=== PATIENT | female | born 1960 | race Caucasian/White ===

== ENCOUNTER 2020-02-12 17:17 | Outpatient (RCR) | payer BC, SELFPAY | END 2020-02-26 23:59 | LOC: EMPH 17:17 | PROVIDERS: Visit Provider Family Medicine Geriatric Medicine | DX: Z11.59 Encounter for screening for other viral diseases (principal) | CPT/HCPCS: 87635; U0003 ==

== ENCOUNTER → 2020-02-17 12:41 | Outpatient (CLI) | payer BC, SELFPAY ==
--- NOTE | 2020-02-17 12:45 | US_ITS ---
STUDY: RENAL ULTRASOUND - COMPLETE REASON FOR EXAM: Female, 59 years old. KIDNEY LESION TECHNIQUE: Ultrasound evaluation of the kidneys was performed with real-time and static koenig-scale imaging. COMPARISON: None. FINDINGS: RIGHT KIDNEY: Normal location of the right kidney, which is normal in size. The right kidney measures 10.4 cm x 5.7 cm x 5.2 cm. There is a normal cortex of the right kidney. The renal cortex measures 1.5 cm. There is no right renal mass or cyst. There are no right renal calculi. There is no right hydronephrosis. DISTAL RIGHT URETER: There is non-visualization of the distal right ureter. There is no demonstrated right ureterovesical junction calculus. There is a visualized right ureteral jet. LEFT KIDNEY: Normal location of the left kidney, which is normal in size. The left kidney measures 10.7 cm x 5.4 STONE by 6.4 cm. There is a normal cortex of the left kidney. The renal cortex measures 1.9 cm. There is no left renal mass or cyst. There are no left renal calculi. There is no left hydronephrosis. DISTAL LEFT URETER: There is non-visualization of the distal left ureter. There is no demonstrated left ureterovesical junction calculus. There is a visualized left ureteral jet. BLADDER: The distended urinary bladder has a volume of 122 ml. There is a normal wall thickness of the distended urinary bladder. There is no demonstrated mass within the urinary bladder. There are no demonstrated bladder calculi. US/Kidney and Bladder IMPRESSION: Normal ultrasound of the kidneys and urinary bladder. Electronically Signed: Galen Martinez, at 15:17 EDT , Service support ,
== END ==
DX: N28.89 Other specified disorders of kidney and ureter (principal)
CPT/HCPCS: 76770

== ENCOUNTER → 2020-02-18 06:49 | Outpatient (CLI) | payer BC, SELFPAY ==
[2020-02-18 07:03] LABS: Absolute Lymphocyte Count 1.56 X10^3/uL (0.83-4.51); Absolute Neutrophil Count 1.3 X10^3/uL (2.0-7.7); Basophil# 0.05 X10^3/uL; Basophil% 1.4 % (0-1); Eosinophil# 0.18 X10^3/uL; Eosinophils% 5.1 % (0-5); Hematocrit 40.4 % (37-47); Hemoglobin 12.8 g/dL (12.0-15.0); Lymphocyte # 1.56 X10^3/ul (4.0); Lymphocyte % 44.2 % (19-41); Mean Corp Hgb Conc 31.7 g/dL (32-36); Mean Corpuscular Hgb 31.8 pg (27.0-32.0); Mean Corpuscular Volume 100.2 fL (81-99); Mean Platelet Vol. 9.7 fl (6.2-12.0); Monocyte# 0.42 X10^3/uL; Monocyte% 11.9 % (0-10); NRBC Flagged by Analyzer 0 % (0-5); Neutrophil # 1.32 X10^3/uL (2.7-7.7); Neutrophil % 37.4 % (47-70); Platelet Count 276 K/mm3 (150-450); RBC Distribution Width CV 13.1 % (11.6-14.6); RBC Distribution Width SD 48.8 fl (35.1-43.9); Red Blood Count 4.03 M/mm3 (4.2-5.4); White Blood Count 3.5 K/mm3 (4.4-11.0)
[2020-02-18 07:35] LABS: ALB/GLOB Ratio 1.2 RATIO (0.9-2.4); AST(SGOT) 16 U/L (15-37); Alanine Aminotransfer ALT/SGPT 23 U/L (13-56); Albumin, Serum 3.8 g/dL (3.2-5.0); Alkaline Phosphatase 80 U/L (45-117); Anion Gap 5 (5-15); BUN 10 mg/dL (7-18); BUN/Creat Ratio 13.8 RATIO (10-20); Calcium,Total 9.1 mg/dL (8.5-10.1); Chloride 107 mmol/L (98-107); Cholesterol 172 mg/dL (200); Creatinine, Serum 0.72 mg/dL (0.55-1.02); EST Glomerular Filtration Rate 88 mL/min (>60); Est Glom Filt Rate - Afr Amer 106 mL/min (>60); Globulin 3.2 g/dL (2.2-4.2); Glucose 93 mg/dL (74-106); High Density Lipoprotein 104 mg/dL; Potassium 3.7 mmol/L (3.5-5.1); Sodium Level 142 mmol/L (136-145); Triglycerides 27 mg/dL; Very Low Density Lipoprotein 5 mg/dL (5-40)
== END ==
DX: Z00.00 Encounter for general adult medical examination without abnormal findings (principal)
CPT/HCPCS: 36415; 80053; 80061; 85025

== ENCOUNTER 2020-03-09 11:04 | Outpatient (RCR) | payer BC, SELFPAY | END 2020-03-28 23:59 | LOC: EMPH 11:04 | PROVIDERS: Visit Provider Family Medicine Geriatric Medicine | DX: Z11.59 Encounter for screening for other viral diseases (principal) | CPT/HCPCS: 87426; 87635; U0003 ==

== ENCOUNTER 2020-04-22 13:00 | Outpatient (RCR) | payer BC, SELFPAY | END 2020-04-27 23:59 | LOC: EMPH 13:00 | PROVIDERS: Visit Provider Family Medicine Geriatric Medicine | DX: Z03.818 Encounter for observation for suspected exposure to other biological agents ruled out (principal) | CPT/HCPCS: 87426 ==

== ENCOUNTER 2020-05-07 13:22 | Outpatient (RCR) | payer BC, SELFPAY | END 2020-05-28 23:59 | LOC: EMPH 13:22 | PROVIDERS: Visit Provider Family Medicine Geriatric Medicine | DX: Z03.818 Encounter for observation for suspected exposure to other biological agents ruled out (principal) | CPT/HCPCS: 87426 ==

== ENCOUNTER 2020-06-23 15:03 | Outpatient (RCR) | payer SELFPAY | END 2020-06-28 23:59 | LOC: EMPH 15:03 | PROVIDERS: Referring Provider Family Medicine Geriatric Medicine; Visit Provider Family Medicine Geriatric Medicine | DX: Z03.818 Encounter for observation for suspected exposure to other biological agents ruled out (principal) | CPT/HCPCS: 87426 ==

== ENCOUNTER 2020-10-20 13:37 | Outpatient (RCR) | payer MEDICARE, SELFPAY | END 2020-10-26 23:59 | LOC: EMPH 13:37 | PROVIDERS: Referring Provider Family Medicine Geriatric Medicine; Visit Provider Family Medicine Geriatric Medicine | DX: Z03.818 Encounter for observation for suspected exposure to other biological agents ruled out (principal) | CPT/HCPCS: 87426 ==

== ENCOUNTER 2020-11-16 06:54 | Emergency (ER) | payer SELFPAY ==
[2020-11-16 06:55] VITALS: BP 135/74; PULSE 72; RESP 15; TEMP 36.9; O2SAT 98; BMI 21.5
--- NOTE | 2020-11-16 06:59 | VDLE_ITS ---
Reason For Study: Swelling RIGHT LEFT CFV is compressible, spontaneous, phasic, GSV is normal. competent and demonstrates normal CFV is compressible, spontaneous, phasic, augmentation. competent, and demonstrates normal Procedure augmentation. This is a venous duplex using B-mode, color FV is compressible, spontaneous, phasic, flow and spectral Doppler. competent and demonstrates normal Exam performed portable in ED. augmentation. A preliminary report was called and/or faxed POP V is compressible, spontaneous, phasic, to Dr. Roman. competent and demonstrates normal augmentation. T/P Trunk is compressible. PTV is compressible. LT PerV is compressible. VL/Venous Duplex US, Unilateral Interpretation Summary There is no evidence of left lower extremity deep vein thrombosis. Left great s aphenous vein appears patent and compressible segmentally. Normal flow patterns right common femoral vein Ordering Physician: Favian Vasquez Performed By: Swati Murray RDCS, RVT
--- NOTE | 2020-11-16 07:00 | ED.VIS.LOWEX ---
HPI <Dr. Favian Vasquez MD - Last Filed: 11/16/20 07:02> History of Present Illness Chief Complaint: Lower Extremity Injury Informant: patient Onset/Context/Timing Onset: Days Context: Gradual Onset Timing: Intermittent Quality of Pain: Aching Current Severity: Moderate Maximum Severity: Moderate Associated Symptoms Associated Symptoms: Negative for Parasthesia, Weakness and Loss of Funtion Narrative Narrative: Patient presents with pain behind her left knee. She states that she does garden a lot. Over the past few days, she has noticed that the knee has been swollen. She states that she started to get concerned because it seemed like her calf was also getting more painful and swollen. She cannot recall any specific injury. She denies chest pain or shortness of breath. She has no history of hypercoagulability. She is otherwise been in her normal state of health. She states if she does elevate her legs, the swelling goes away, but towards the end of the day the swelling is back. [facility] <Dr. Favian Vasquez MD - Last Filed: 11/16/20 07:02> [facility] Medical History (Updated 11/16/20 @ 08:[address] Grady Roman MD) Depression Depression Home Medications escitalopram oxalate 20 mg PO DAILY 04/15/15 [History Last Taken Unknown] Allergy/AdvReac Type Severity Reaction Status Date / Time No Known Allergies Allergy Verified 04/15/15 10:57 Social History Smoking Status: Never smoker ROS <Dr. Favian Vasquez MD - Last Filed: 11/16/20 07:02> ROS ED Constitutional Constitutional ED: Denies chills or fever(s) Eyes Eyes: Denies blurry vision or change in vision ENT ENT ED: Denies ear pain or sore throat Cardiovascular Cardiovascular: Denies chest pain or palpitations Respiratory/Chest Respiratory/Chest: Denies cough, dyspnea or dyspnea on exertion Gastrointestinal Gastrointestinal: Denies abdominal pain, nausea or vomiting Genitourinary Genitourinary ED: Denies dysuria or urinary frequency Musculoskeletal Musculoskeletal: Denies arthralgias or myalgias Integumentary Denies rash Neurologic Neurologic: Denies headache(s) or paresthesias Psychiatric Psychiatric: Denies anxiety or depression Endocrine Endocrinology: Denies polydipsia or polyuria Allergic/Immunologic Allergic/Immunologic ED: Denies urticaria EXAM <Dr. Favian Vasquez MD - Last Filed: 11/16/20 07:02> Physical Exam Const Vital Signs: 11/16/20 06:55 Temperature 98.4 F Temperature Source Temporal Pulse Rate 72 Respiratory Rate 15 Blood Pressure 135/74 H Blood Pressure Mean 94 Pulse Ox 98 Oxygen Delivery Method Room Air Positive well nourished and well developed General Appearance ED: well developed HEENT Reports normocephalic, head/scalp atraumatic and moist mucous membranes Eyes PERRL and EOMs intact bilaterally Neck full ROM, no lymphadenopathy and supple General: Negative for tenderness Chest Wall inspection of chest normal Resp normal respiratory effort and clear to auscultation bilaterally Cardio regular rate, regular rhythm and no murmurs GI normal to inspection, nondistended, normoactive bowel sounds Palpation: Negative for tender, guarding or rebound tenderness present Back/Spine no CVA tenderness Extremity normal to inspection Extremity Narrative: Patient is point tender in the posterior aspect of the left knee. She has normal pulses. There is minimal edema. There is no pain with palpation along the venous return system. General Extremety ED: Negative for tenderness Neuro oriented x3 and CN's II-XII intact bilaterally Neuro Narrative: No focal deficits appreciated. Sensorium / Orientation: alert Psych mental status grossly normal Skin no rashes or lesions noted, no wounds and skin turgor normal <Dr. Grady Roman MD - Last Filed: 11/16/20 08:38> Physical Exam Const Vital Signs: 11/16/20 06:55 Temperature 98.4 F Temperature Source Temporal Pulse Rate 72 Respiratory Rate 15 Blood Pressure 135/74 H Blood Pressure Mean 94 Pulse Ox 98 Oxygen Delivery Method Room Air MDM <Dr. Favian Vasquez MD - Last Filed: 11/16/20 07:02> [facility] Narrative Medical decision making narrative: Patient presents with concern for DVT. We will obtain ultrasound. Clinically, this does seem more musculoskeletal, but in light of her tenderness and intermittent swelling, I do feel that ruling out DVT is more appropriate. <Dr. Grady Roman MD - Last Filed: 11/16/20 08:38> [facility] Narrative Medical decision making narrative: Venous duplex study was negative for DVT. Patient was examined. She is tender proximal lateral popliteal fossa. Patient has discomfort with flexion against resistance. The patella is not ballotable. There is no obvious effusion. There is no laxity varus valgus stress testing. Since she has discomfort with flexion against resistance and venous duplex is negative we will treat as muscle strain. Discharge Plan Triage Chief Complaint: Lower Extremity Injury ED Provider: Favian Vasquez Dx/Rx/DC Orders Clinical Impression: Muscle strain of left lower extremity Instructions: ED Muscle Strain, Extremity Prescriptions: No Action escitalopram oxalate 20 MG tablet 20 mg PO DAILY RF: 0 Referrals: AUBREE MARTINEZ [Other] - 1 Week if not improving Activity Restrictions/Additional Instructions: 1. Take 4 ibuprofen tablets every 8 hours for the next 3 to 5 days 2. Apply ice 6-8 times a day. 3. Avoid activity that caused the discomfort Disposition Disposition: Home, self care
[2020-11-16 08:47] VITALS: BP 134/68; PULSE 74; RESP 15; O2SAT 99
== END 2020-11-16 08:47 | disposition home or self-care (01) ==
PROVIDERS: Emergency Provider Emergency Medicine
DX: S86.912A Strain of unspecified muscle(s) and tendon(s) at lower leg level, left leg, initial encounter (principal); M79.89 Other specified soft tissue disorders
CPT/HCPCS: 93971; 99282

== ENCOUNTER 2020-11-24 10:40 | Outpatient (RCR) | payer MEDICARE, SELFPAY | END 2020-11-25 23:59 | LOC: EMPH 10:40 | PROVIDERS: Referring Provider Family Medicine Geriatric Medicine; Visit Provider Family Medicine Geriatric Medicine | DX: Z03.818 Encounter for observation for suspected exposure to other biological agents ruled out (principal) | CPT/HCPCS: 87426 ==

== ENCOUNTER 2020-12-05 07:41 | Outpatient (RCR) | payer MEDICARE, SELFPAY | END 2020-12-26 23:59 | LOC: EMPH 07:41 | PROVIDERS: Referring Provider Family Medicine Geriatric Medicine; Visit Provider Family Medicine Geriatric Medicine | DX: Z03.818 Encounter for observation for suspected exposure to other biological agents ruled out (principal) | CPT/HCPCS: 87426 ==

== ENCOUNTER → 2020-12-16 17:03 | Outpatient (CLI) | payer SELFPAY ==
[2020-12-16 16:46] VITALS: BMI 29.8
--- NOTE | 2020-12-16 17:19 | RAD_ITS ---
STUDY: X-RAY - LEFT KNEE REASON FOR EXAM: Female, 60 years old. Pain. TECHNIQUE: 4 view(s) of the knee. COMPARISON: None. FINDINGS: Normal visualized distal femur. Normal visualized proximal tibia and fibula. Normal proximal tibiofibular articulation. There is no acute fracture, dislocation or destructive osseous pathology. There is mild degenerative arthrosis of the medial femorotibial compartment. There is mild degenerative arthrosis of the lateral femorotibial compartment. There is mild degenerative arthrosis of the patellofemoral articulation. There is no demonstrated joint effusion. The soft tissue structures are unremarkable. RAD/Knee 4 or More Views IMPRESSION: Degenerative arthrosis. Electronically Signed: Kj Nicole DO at 18:00 EDT Tel [phone], Service support ,
== END ==
PROVIDERS: Referring Provider Physician Assistant; Visit Provider Physician Assistant
DX: M25.561 Pain in right knee (principal)
CPT/HCPCS: 73564

== ENCOUNTER 2021-05-27 10:01 | Outpatient (RCR) | payer MEDICARE, SELFPAY ==
[2020-12-16 16:46] VITALS: BMI 29.8
== END 2021-05-28 23:59 ==
LOC: EMPH 10:01
PROVIDERS: Referring Provider Family Medicine Geriatric Medicine; Visit Provider Family Medicine Geriatric Medicine
DX: Z03.818 Encounter for observation for suspected exposure to other biological agents ruled out (principal)
CPT/HCPCS: 87426; 87635; U0003; U0005

== ENCOUNTER 2021-06-03 12:20 | Outpatient (RCR) | payer BC, SELFPAY ==
[2021-05-29 00:03] VITALS: BMI 29.8
== END 2021-06-28 23:59 ==
LOC: EMPH 12:20
PROVIDERS: Referring Provider Family Medicine Geriatric Medicine; Visit Provider Family Medicine Geriatric Medicine
DX: Z03.818 Encounter for observation for suspected exposure to other biological agents ruled out (principal)
CPT/HCPCS: 87426

== ENCOUNTER 2021-08-13 14:02 | Outpatient (CLI) | payer BC, SELFPAY ==
--- NOTE | 2021-08-13 14:05 | US_ITS ---
STUDY: ULTRASOUND BREAST - RIGHT REASON FOR EXAM: Female, 61 years old. Abnormal screening mammogram TECHNIQUE: Axial and longitudinal images of the RIGHT breast were performed with a high resolution ultrasound transducer. # OF IMAGES: 23 COMPARISON: 08/04/2021 FINDINGS: RIGHT Breast: Heterogeneous background echotexture. At 9 o''clock, 3 cm from the nipple, ultrasound confirms a 1.3 cm parallel spiculated hypoechoic mass with posterior shadowing worrisome for invasive ductal carcinoma and ultrasound-guided vacuum-assisted core biopsy is recommended.: US/Breast Limited Unilateral IMPRESSION: Ultrasound confirms a 1.3 cm parallel spiculated hypoechoic mass worrisome for invasive ductal carcinoma and ultrasound-guided vacuum-assisted core biopsy is recommended. ASSESSMENT CATEGORY: BIRADS Category 5: Highly Suggestive of Malignancy - Appropriate Action Should Be Taken. A letter regarding these results will be sent to the patient by the facility within 30 days. Electronically Signed: Raheem Morrell MD at 14:47 EDT ,
== END 2021-08-13 23:59 | disposition home or self-care (01) ==
PROVIDERS: Visit Provider Internal Medicine
DX: R92.8 Other abnormal and inconclusive findings on diagnostic imaging of breast (principal)
CPT/HCPCS: 76642

== ENCOUNTER 2021-08-20 13:01 | Outpatient (CLI) | payer BC, SELFPAY ==
--- NOTE | 2021-08-20 | IMM_PTH ---
PATIENT: SERAFIN ALMANZA LOC: [facility] U#:[id number] AGE/SX: 61/F ROOM: RE08/20/[address]: Dr. Brien Brand MD : 1960 BED: DIS: 08/20/2021 SPEC #: [id number] RECD: 08/24/21 14:42 STATUS: NOLAN REQ #: [id number] WINSTON: 08/20/21 00:[address]: Brien Brand DEPT: IMMUNOHISTOCHEMISTRY RECD BY: Chiquita Lynch ENTERED: 08/24/21 14:43 SP TYPE: IMMUNO OTHR DR: No Primary Care Phys Tissues: Right breast, NOS Procedures: CALPONIN-1 (add) CK5-6 (add) CK8 (add) E-CAD (add) HER2 FADY (add) KI-67 (add) P53 (add) ID (add) P40 (add) ER (initial) PHYSICIAN & INSTITUTION [place] [phone] SPECIMEN INFORMATION: Tissue Source: Right breast Clinical Info: Right breast mass Specimen Number: [id number] CPT code: 29135, 87132 x6, 05507 x3 METHODOLOGY: Deparaffinized sections of prefer/formalin-fixed tissue or PAP/DQ stained slides are incubated with monoclonal/polyclonal antibodies/oligonucleotide probes. Localization is made via biotin free immunoperoxidase method. Appropriate controls are performed and reacted as expected. Results on target cell population are indicated in the following table: RESULTS: ANTIBODY / CLONE RESULT E-Cad (ECH-6) positive CK8 (04svphZ14) positive Calponin-1 (OG409W) negative CK5-6 (D5 & 1684) negative P40 (BC28) negative P53 (DO-7) positive, focal, ~10% Ki-67 (30-9) positive, moderate MORPHOMETRIC ANALYSIS ER (clone 6F11) 0% ID (clone 16/1E2) 0% Her-2Neu (clone CB11) 1+ The prognostic test for HER2 is performed on formalin-fixed paraffin embedded tissue. A 3+ (positive) staining pattern is defined as intense, homogeneous, complete, circumferential membranous staining in >10% of contiguous tumor cells. A similar weak (2+) staining pattern is interpreted as equivocal. JOHN follow-up testing is recommended for all equivocal cases. Positivity/negativity for ER/ID is reported if > or < 1% of the tumor cells are immuno- reactive, respectively. The ASCO/CAP criteria is used for scoring. Reference: Journal of Clinical Oncology, 2013; 31:8092-7053 & 2010; 16:9662-5534. Duration of fixation: 79.5 Hrs; Sample Adequate: Yes. These assays have not been validated on decalcified tissues. Results should be interpreted with caution given the likelihood of false negativity on decalcified specimens. These tests were developed and their performance characteristics determined by [facility]. They may not have been cleared or approved by the U.S. Food and Drug Administration. The FDA has determined that such clearance or approval is not necessary. The above immunohistochemical/dualISH markers are ordered and reviewed by the Pathologist. INTERPRETATION: Right breast, biopsy: Invasive ductal carcinoma, nuclear grade 2-3/3. Negative for estrogen receptors (unfavorable prognostic indicator). Negative for progesterone receptors (unfavorable prognostic indicator). Negative for overexpression of NVS1aqi. SJ:moe 08/25/2021
--- NOTE | 2021-08-20 12:10 | BRBX_PTH ---
PATIENT: SERAFIN ALMANZA LOC: [facility] U#:[id number] AGE/SX: 61/F ROOM: RE08/20/[address]: Dr. Brien Brand MD : 1960 BED: DIS: 08/20/2021 SPEC #: [id number] RECD: 08/20/21 12:59 STATUS: NOLAN REJoe #: [id number] W[place]ON: 08/20/21 12:[address]: Brien Brand DEPT: SURGICAL PATHOLOGY RECD BY: Terra Moore ENTERED: 08/23/21 08:32 SP TYPE: BREAST BX OTHR DR: No Primary Care Phys Tissues: Right breast, NOS Procedures: Surgery Specimen Level IV HEADER OPERATION: Right breast biopsy PRE-OP DIAGNOSIS: Right breast mass TISSUE SUBMITTED: Right breast tissue MICROSCOPIC DIAGNOSIS Right breast, core biopsy: Invasive ductal carcinoma, nuclear grade 2-3/3 (0.9 cm in greatest length). Focal ductal carcinoma in situ. See comment. KENDAL:moe 08/24/2021 COMMENT Ductal carcinoma in situ shows cribriform and solid pattern, nuclear grade 2 and comprise <5% of the total tumor volume. Immunohistochemistry ([id number]) supports the above diagnosis. ER/MA/Kgm8tsr studies are being performed on sections of tumor and the results from this study will be reported separately ([id number]). Case has been reviewed in consultation with Dr. Brady who concurs with the above diagnosis. IDC:AM MICROSCOPIC DESCRIPTION Slides are reviewed. GROSS DESCRIPTION Received in fixative is one container labeled with the patient's name and designated right breast tissue. The specimen consists of multiple elongated fragments of gaitan-yellow fibroadipose tissue that in aggregate measure 2.5 x 0.5 x 0.1 cm. The entire specimen is submitted in one cassette. / KENDAL:moe 08/23/2021 TC:0 CPT: 12758
== END 2021-08-20 23:59 | disposition home or self-care (01) ==
LOC: LABSPEC 13:03
PROVIDERS: Referring Provider Surgery; Visit Provider Surgery
DX: N63.10 Unspecified lump in the right breast, unspecified quadrant (principal)
CPT/HCPCS: 88305; 88341; 88342

== ENCOUNTER 2021-09-02 11:12 | Day surgery (SDC) | payer BC, SELFPAY ==
--- NOTE | 2021-09-02 | IMM_PTH ---
PATIENT: SERAFIN ALMANZA LOC: [facility] U#:[id number] AGE/SX: 61/F ROOM: RE09/02/[address]: Dr. Brien Brand MD : 1960 BED: DIS: 09/02/2021 SPEC #: [id number] RECD: 09/08/21 13:04 STATUS: NOLAN [place] #: [id number] W[place]ON: 09/02/21 00:[address]: Brien Brand DEPT: IMMUNOHISTOCHEMISTRY RECD BY: Chiquita Lynch Tissues: A - Axillary lymph node, NOS B - Right breast, NOS Procedures: SMA (add) CALPONIN-1 (add) Pankeratin (add) P40 (add) CK7 (initial) PHYSICIAN & [place] [id number] SPECIMEN INFORMATION: Tissue Source: A ? Right sentinel axillary lymph node, B ? Right breast mass Clinical Info: Breast cancer Specimen Number: [id number] A & B5 CPT code: 24448 x2, 87387 x5 METHODOLOGY: Deparaffinized sections of prefer/formalin-fixed tissue or PAP/DQ stained slides are incubated with monoclonal/polyclonal antibodies/oligonucleotide probes. Localization is made via biotin free immunoperoxidase method. Appropriate controls are performed and reacted as expected. Results on target cell population are indicated in the following table: RESULTS: ANTIBODY / CLONE RESULT Block A CK7 (OV-TL12/30) positive AE1-3 (AE1/AE3/PCK26) positive Block B5 CK7 (OV-TL12/30) positive AE1-3 (AE1/AE3/PCK26) positive P40 (BC28) negative Calponin-1 (EV557K) negative Actin (1A4) negative These tests were developed and their performance characteristics determined by [facility]. They may not have been cleared or approved by the U.S. Food and Drug Administration. The FDA has determined that such clearance or approval is not necessary. The above immunohistochemical/dualISH markers are ordered and reviewed by the Pathologist. INTERPRETATION: A. Right sentinel axillary lymph node, biopsy: One out of one lymph node with micrometastatic carcinoma. B. Right breast mass: Invasive ductal carcinoma. One out of one lymph node with micrometastatic carcinoma. AM:moe 09/09/2021
--- NOTE | 2021-09-02 | AXNB_PTH ---
PATIENT: SERAFIN ALMANZA LOC: [facility] U#:[id number] AGE/SX: 61/F ROOM: RE09/02/[address]: Dr. Brien Brand MD : 1960 BED: DIS: 09/02/2021 SPEC #: [id number] RECD: 09/02/21 15:35 STATUS: NOLAN COOL #: [id number] W[place]ON: 09/02/21 00:[address]: Brien Brand DEPT: SURGICAL PATHOLOGY RECD BY: Chiquita Lynch Tissues: A - Axillary lymph node, NOS B - Right breast, NOS Procedures: Frozen Section (charge) Surgery Specimen Level V HEADER OPERATION: Right breast ultrasound-guided wire loc, partial mastectomy PRE-OP DIAGNOSIS: Breast cancer TISSUE SUBMITTED: A ? Right sentinel axillary lymph node, FS, B ? Right breast mass, long stitch ? lateral, short stitch - superior FROZEN SECTION DIAGNOSIS A. Right axillary sentinel lymph node, biopsy: One out of one lymph node negative for carcinoma. AM: 09/02/2021 MICROSCOPIC DIAGNOSIS A. Right axillary sentinel lymph node, biopsy: One out of one lymph node with micrometastatic carcinoma. See comment. B. Right breast, lumpectomy: Invasive ductal carcinoma. See cancer checklist below. AM: 09/09/2021 COMMENT A. The focus of micrometastatic carcinoma measures 1.6 mm and is contained within the lymph node tissue. No extranodal extension is identified. Immunohistochemistry ([id number]) supports the above diagnosis. B. BREAST CANCER SUMMARY Procedure: Excision with wire guidance Specimen: Type: Partial breast Size: 5 x 3 x 3 cm Laterality: Right breast Invasive Tumor: Site: Right breast Size: 1.2 x 1 x 1 cm Histologic type: Invasive ductal carcinoma. Focality: Single focus of carcinoma. Histologic grade ([place] grade): Glandular/tubular differentiation score: 2 Nuclear pleomorphism score: 3 Mitotic count score: 2 Overall grade: 2 (score of 7) Ductal Carcinoma In Situ: Present Estimated quantification: 15% Number of blocks: 4 of 11 blocks Architectural pattern: Cribriform Nuclear grade: 3 Necrosis: Not identified Lobular Carcinoma In Situ: Not present Tumor extension: Skin: Not applicable Nipple: Not applicable Skeletal muscle: Not present Margins: Distance of invasive carcinoma from closest (lateral) margin: 0.6 cm Distance of in situ carcinoma from closest (lateral) margin: 0.6 cm Lymph Nodes: Number of sentinel lymph nodes examined: 1 Total number of lymph nodes examined: 2 Number of lymph nodes with micrometastases ? 2 Number of lymph nodes with macrometastases or isolated tumor cells ? 0 Size of largest metastatic deposit: 1.6 mm Extranodal extension: Not identified See specimen ?A? See comment below. Treatment Effect: Unknown Lymphvascular invasion: Not identified Additional Pathologic Findings: Changes of previous biopsy and mild fibrocystic change. Ancillary Studies: Previously performed on same tumor ([id number]) ER: negative (0%) TX: negative (0%) Gwk9kxz: negative (1+) Microcalcifications: Focally present, associated with carcinoma. Clinical History: Mass of right breast. PATHOLOGIC STAGE: T1c N1mi Mx The above summary is in compliance with [employer] [place] [employer] (CAP) Cancer Protocol Checklist and [place] Joint Committee on Cancer (AJCC) Staging Manual, 8th Ed. An intraparenchymal lymph node is identified in the lumpectomy specimen adjacent to the area of invasive carcinoma. This lymph node contains a micrometastatic focus of carcinoma measuring 0.8 mm in greatest dimension and is completely contained with the lymph node tissue. No extranodal extension is identified. Overall, two lymph nodes are identified in this case. Both foci are micrometastatic on multiple levels and immunohistochemical analysis. Immunohistochemistry ([id number]) supports the above diagnosis. Case has been reviewed in consultation with Dr. Evans who concurs with the above diagnosis. IDC:SJ MICROSCOPIC DESCRIPTION Slides are reviewed. GROSS DESCRIPTION A - Received fresh for frozen section consultation labeled with the patient's name is a specimen designated right sentinel lymph node. The specimen consists of an irregular fragment of gaitan-yellow fibrofatty tissue measuring 2 x 1.5 x 0.8 cm. Dissection reveals an ovoid bluish-gaitan nodule measuring 2 cm in greatest dimension. The nodule is bisected and submitted in its entirety for frozen section consultation in one block. / AM:moe 09/06/2021 B - Received fresh for OR consultation labeled with the patient's name is a specimen designated right breast lumpectomy. The specimen consists of an oriented fragment of gaitan-yellow fibrofatty tissue measuring 5 x 3 x 3 cm and weighing 28.3 gm. The specimen contains a wire. The specimen is differentially inked as follows: anterior - yellow, posterior - black, superior - blue, inferior - green, medial - red and lateral - orange. Serial sections reveal a firm, speculated, gaitan nodule measuring 1.2 x 1 x 1 cm and located 0.6 cm from its closest (lateral) margin of excision. The proximity of mass to the lesion is conveyed to the surgeon intraoperatively. No other mass lesions are identified. [employer] sections are submitted as follows: 1 & 2 - perpendicular inked margins, 3 - tumor with adjacent lateral margin, 46?- remainder of tumor, 7 & 8 - uninvolved breast parenchyma adjacent to tumor, 9-11 - uninvolved breast parenchyma away from tumor. Note, sections are submitted after additional fixation. / AM:moe 09/06/2021 TC:0 CPT: 74506 x2, 85006, 77808
--- NOTE | 2021-09-02 11:45 | NM_ITS ---
PROCEDURE: NUCLEAR MEDICINE Injection Means Node - RIGHT breast(s). REASON FOR EXAM: Female, 61 years old. Right breast cancer. TECHNIQUE: Means node localization using radionuclide methods of the RIGHT breast(s) was performed following subcutaneous administration of 1.1 mCi of of sulfur colloid Tc-99m. FINDINGS: 1.1 mCi of technetium labeled sulfur colloid was injected in the right periareolar region for sentinel node imaging. NM/Lymph Node Injection Only IMPRESSION: Periareolar subcutaneous injection of 1.1 mCi of technetium labeled sulfur colloid for sentinel node imaging. Electronically Signed: Galen Martinez MD at 13:30 EDT ,
[2021-09-02 12:09] VITALS: BP 114/75; PULSE 57; RESP 16; TEMP 36.6; O2SAT 99; BMI 28.0
[2021-09-02] MEDS: Lactated Ringers 1,000 ML 15 ML IV (12:36)
--- NOTE | 2021-09-02 14:35 | HP.PCM.SX_ITS ---
HPI - General HPI Narrative SERAFIN ALMANZA, is a 61 F who presents for elective resection of breast cancer. The patient was found to have a right breast cancer of the lateral area of the breast. [facility] Medical History (Updated 09/02/21 @ 14:[address] Brien Brand MD) Alcohol use Anemia Arthritis Cancer Depression History of edema Non-smoker Strain of left knee Wears partial dentures Home Medications escitalopram oxalate 20 mg tablet 20 mg PO DAILY 12/16/20 [History Last Taken Unknown] ibuprofen 800 mg tablet 800 mg PO TID PRN #30 tab 12/16/20 [Rx Last Taken Unknown] multivitamin 1 tab PO DAILY 07/23/21 [History Last Taken Unknown] diclofenac sodium 75 mg PO BID PRN 08/31/21 [History Last Taken Unknown] Allergy/AdvReac Type Severity Reaction Status Date / Time No Known Allergies Allergy Verified 09/02/21 12:02 Family History Mother Colon cancer Father Dementia Surgical History (Updated 08/31/21 @ 08:24 by Fadia Mabry) H/O medial meniscus repair of right knee History of Hx of colonoscopy Social History Smoking Status: Never smoker alcohol intake: current alcohol intake frequency: holidays/special occasions only Vital Signs Vital Signs Vital Signs: 09/02/21 12:09 Temperature 97.9 F Temperature Source Temporal Pulse Rate 57 L Respiratory Rate 16 Respiratory Pattern Normal Blood Pressure 114/75 Blood Pressure Mean 88 Blood Pressure Source Monitor Blood Pressure Position Semi-Fowlers Blood Pressure Location Left Arm Pulse Ox 99 Oxygen Delivery Method Room Air Weight Weight: 174 lb 2.643 oz Body Mass Index (BMI) 28.0 Physical Exam Const oriented x3 and no apparent distress Chest Breast/Axilla Palpation: other Other Details: Right breast mass Resp normal respiratory effort Cardio regular rate and regular rhythm GI soft to palpation and non-tender Inspection: abdominal distention external exam normal Extremity normal to inspection Results Radiology Impression L[place]ore Node 09/02/21 11:45 IMPRESSION: Periareolar subcutaneous injection of 1.1 mCi of technetium labeled sulfur colloid for sentinel node imaging. Electronically Signed: Galen Martinez MD at 13:30 EDT , Assessment & Plan Assessment/Plan (1) Breast cancer, right breast: QUALIFIERS: Breast location: upper outer quadrant of breast Estrogen receptor status: positive Patient sex: female Qualified Code(s): C50.411 - Malignant neoplasm of upper-outer quadrant of right female breast; Z17.0 - Estrogen receptor positive status [ER+] PLAN: The patient has right breast cancer and I did discuss axillary sentinel lymph node biopsy as well as a partial mastectomy with ultrasound- guided wire localization. I discussed the risks including not limited to bleeding, infection, seroma formation, hematoma formation, lymphedema or nerve injury. Patient understands the risks and is willing proceed. I did discuss Lymphazurin injection as well as wire placement and radiotracer injection with her as well. Brien Brand MD Pager: [facility] [address] [place] [address], [address] [place] [address] Office:
[2021-09-02] MEDS: 0.9% Normal Saline (Pres. free 10 ML Vial (15:10)
[2021-09-02] MEDS: Cefazolin 2 GM in 0.9% Normal Saline 100 ML IV (15:10)
[2021-09-02] MEDS: Isosulfan Blue 1% 5 ML Vial (15:10)
[2021-09-02] MEDS: Bupivacaine 0.25% 30 ML Vial (15:20)
--- NOTE | 2021-09-02 15:49 | BI_ITS ---
SURGICAL BREAST SPECIMEN RADIOGRAPH CLINICAL: Document presence of mass in biopsy specimen. FINDINGS: Specimen shows presence of mass. Electronically Signed: Galen Martinez MD at 8:40 EDT , BI/Breast Biopsy Specimen
[2021-09-02 16:16] VITALS: BP 114/75; BP 118/76; PULSE 75; RESP 16; TEMP 36.3; O2SAT 100
--- NOTE | 2021-09-02 16:20 | PCM.OPRPT ---
Problems Associated Problem List Diagnoses (1) Breast cancer, right breast: Report of Operation Date of Procedure: 09/02/21 Pre-Operative Diagnosis: Right breast cancer Post-Operative Diagnosis: Right breast cancer Surgery/Procedure Performed:: 1. Ultrasound-guided wire localization of right breast cancer 2. Right partial mastectomy 3. Right sentinel lymph node biopsy Specimen's removed: 1. Right axillary lymph node 2. Right breast mass Description of Procedure: Patient was brought back to the operating room and general anesthesia was induced. The right breast was prepped and draped in usual sterile fashion. Ultrasound used to localize the right breast mass and a wire was placed under direct visualization into the mass. It was then trimmed short. Next 5 cc of Lymphazurin was injected in the retroareolar space of the right breast as well as 5 cc of saline. This was massaged for 5 minutes. The right breast was prepped and draped in the usual sterile fashion once more and then an axillary incision was marked and injected with local anesthetic. Incision was made with a scalpel and deepened to the fascia which was incised. The axillary tissue was dissected until a blue lymph node was identified. It was excised sharply with clips and scissors. It was tested first and second count and the count was 920. There was no further lymph node in the axilla that measured over 10% of this. There were no other blue or palpable lymph nodes in the axilla. The axilla was packed with wet gauze. Next the right breast was addressed. An incision was marked and injected with local anesthetic. An incision was made with a scalpel and deepened to the subcutaneous tissue. Electrocautery was used to maintain hemostasis. The wire was brought into the incision. Flaps were created using electrocautery and then dissection was carried out deeply. The mass was excised and marked and sent for pathology. The imaging of the mass revealed that the clip and entire wire were included. The sentinel lymph node was negative on frozen section. The margins were adequate on frozen section. Next the breast cavity was irrigated and suctioned dry and hemostasis was obtained using electrocautery. The incision was closed with interrupted 3-0 Vicryl suture and a running 4-0 Monocryl suture. The axillary fascia was closed with interrupted 3-0 Vicryl suture in a running 4-0 Monocryl suture. Glue was applied to both incisions. Patient was then awakened and taken to PACU in stable condition. Admit VTE Documentation VTE Mechan Device Prophylaxis: SCD's
--- NOTE | 2021-09-02 16:26 | EX.PCM.DISCH ---
Discharge Instructions Procedure Breast Surgery Diet Discharge Diet: No restrictions Activity Discharge Activity: May Not Drive (for 2-3 days or while taking narcotic pain medications.) May shower in (days): 1 Lifting Restrictions: 10 lbs for 1 week Dressing / Incision Call your doctor if your incision/area has: Continuous Slow Oozing, Sudden Increased Bleeding, Increased Pain/ Swelling, Increased Redness, Foul Smelling Discharge and Swelling at the incision site Call your doctor if you observe: Fever of 101 or Higher Suture Line Care: Avoid Pulling/Pushing and Avoid Pinching/Bending Follow Up Care Please Follow Up With: Brien Brand MD When: Please call to schedule 2 week follow up appointment. [phone] Test Results: Test results from this visit will be discussed in further detail at your follow-up appointment, if applicable. Discharge Plan Admission Attending Provider: Brien Brand Discharge Orders/Prescriptions Prescriptions: New oxycodone-acetaminophen [Percocet] 5-325 mg tablet 1 tab PO Q4H PRN (Reason: pain) 5 Days Qty: 30 RF: 0 No Action ibuprofen 800 mg tablet 800 mg PO TID PRN (Reason: pain) Qty: 30 RF: 0 multivitamin Tablet 1 tab PO DAILY RF: 0 escitalopram oxalate 20 mg tablet 20 mg PO DAILY RF: 0 diclofenac sodium 75 mg Tablet,Delayed Release (Dr/Ec) 75 mg PO BID PRN (Reason: Pain) RF: 0 Referrals / Follow Up: AUBREE MARTINEZ [Other] Disposition Disposition (needs filled in before D/C Order can be placed): Home, Self Care
[2021-09-02 16:30] VITALS: BP 114/75; BP 115/70; PULSE 74; RESP 16; O2SAT 98
[2021-09-02 16:45] VITALS: BP 114/75; BP 137/85; PULSE 70; RESP 16; O2SAT 98
[2021-09-02 16:48] VITALS: BP 114/75; BP 124/72; PULSE 71; RESP 16; TEMP 36.6; O2SAT 95
[2021-09-02] MEDS: oxyCODONE 5 MG Tablet PO (17:17)
[2021-09-02] MEDS: Acetaminophen 325 MG Tablet PO (17:18)
[2021-09-02 17:54] VITALS: BP 114/75; BP 122/75; PULSE 86; RESP 16; TEMP 37; O2SAT 97
== END 2021-09-02 23:59 | disposition home or self-care (01) ==
LOC: SDC 11:13 → AC 11:15
PROVIDERS: Visit Provider Surgery
PROC: (CPT 19301; principal; 2021-09-02 14:00)
DX: C50.411 Malignant neoplasm of upper-outer quadrant of right female breast (principal); Z17.0 Estrogen receptor positive status [ER+]; M19.90 Unspecified osteoarthritis, unspecified site; F32.A Depression, unspecified
CPT/HCPCS: 19301; 38900; 38525; 38792; 76098; 88305; 88307; 88331; 88341; 88342; A9541; J7120; J2405; J3490; Q9968

== ENCOUNTER → 2021-09-24 | Outpatient (CLI) | payer BC, SELFPAY ==
--- NOTE | 2021-09-24 12:53 | ECHODONC_ITS ---
Reason For Study: Pre Chemo Procedure This was a 2D Doppler, Color Flow transthoracic echocardiogram. Myocardial strain analysis was performed in this exam to aid in the assessment of cardiac function. Exam performed in department. Left Ventricle Normal LV size. Left ventricular systolic function is normal. The estimated ejection fraction is 60 %. Stage 1 diastolic dysfunction. Right Ventricle Normal RV size. Normal systolic function. Atria Normal left atrium. Normal right atrium. Mitral Valve Normal mitral valve. Tricuspid Valve Normal tricuspid valve. Aortic Valve Normal aortic valve. Pulmonic Valve Normal pulmonic valve. Great Vessels Normal aortic root. The pulmonary artery is normal size. Normal inferior vena cava. Pericardium/Pleural No pericardial effusion. MMode/2D Measurements & Calculations LVIDd: 5.1 cm IVSd: 0.87 cm Ao root diam: 3.2 cm LVIDs: 3.2 cm LVPWd: 0.98 cm LA dimension: 4.2 cm RVDd: 3.2 cm FS: 36.6 % LAV(MOD-bp): 67.2 ml LA A4 area: 21.1 cm2 RA A4 area: 16.3 cm2 LAV(MOD-bp) Indexed: 35.6 ml/m2 LAV(MOD-sp2): 69.9 ml LAV(MOD-sp4): 61.4 ml Time Measurements MV dec time: 0.19 sec Doppler Measurements & Calculations MV E max yo: 65.7 cm/sec Lat Peak E' Yo: 11.2 cm/sec Med Peak E' Yo: 9.4 cm/sec MV A max yo: 97.8 cm/sec E/E' lat: 5.8 E/E' med: 7.0 MV E/A: 0.67 MV V2 max: 108.4 cm/sec MV P1/2t max yo: 79.3 cm/sec Ao V2 max: 139.7 cm/sec MV max P.7 mmHg MV P1/2t: 71.2 msec Ao max P.8 mmHg MV V2 mean: 53.9 cm/sec MV dec slope: 326.1 cm/sec2 MV mean P.4 mmHg MVA(P1/2t): 3.1 cm2 MV V2 VTI: 26.2 cm LV V1 max: 111.4 cm/sec PA V2 max: 86.7 cm/sec LV V1 max P.0 mmHg ECHO/ONC Echo Complete Interpretation Summary Normal LV size. Left ventricular systolic function is normal. The estimated ejection fraction is 60 %. Stage 1 diastolic dysfunction. The global longitudinal strain is normal. The global longitudinal strain = -21. 2 % (normal). Structurally normal valves. Ordering Physician: Reginaldo Pichardo Referring Physician: Boyd Campbell Performed By: Lionel Manning RCS
== END | disposition home or self-care (01) ==
LOC: CVS 12:52
PROVIDERS: PCP Internal Medicine; Referring Provider Internal Medicine Medical Oncology; Visit Provider Internal Medicine Medical Oncology
DX: Z01.818 Encounter for other preprocedural examination (principal); C50.411 Malignant neoplasm of upper-outer quadrant of right female breast; Z17.0 Estrogen receptor positive status [ER+]
CPT/HCPCS: 93306; 93356

== ENCOUNTER → 2021-09-27 | Outpatient (CLI) | payer BC, SELFPAY ==
--- NOTE | 2021-09-27 09:37 | NM_ITS ---
CLINICAL: Female, 61 years old. Initial staging of Breast Cancer WHOLE BODY NUCLEAR BONE SCAN TECHNIQUE: Following the IV administration of 24.3 mCi of Tc MDP, whole body bone imaging was performed with a gamma camera following a three hour delay. COMPARISON STUDIES : NM - None. CR - Not available for review at this time. CT - Not available for review at this time. MR - Not available for review at this time. US - Not available for review at this time. FINDINGS: Degenerative activity in the bilateral shoulders, wrists and knees. There is otherwise normal concentration of radiopharmaceutical throughout the axial and appendicular skeletal system without either a focal decrease or increase in uptake. NM/Bone Scan Whole Body IMPRESSION: No evidence of osseous metastasis. Electronically Signed: Harrison Aviles MD (Brooks) at 7:40 EDT ,
== END | disposition home or self-care (01) ==
LOC: NM 09:35
PROVIDERS: PCP Internal Medicine; Referring Provider Internal Medicine Medical Oncology; Visit Provider Internal Medicine Medical Oncology
DX: C50.411 Malignant neoplasm of upper-outer quadrant of right female breast (principal); Z17.0 Estrogen receptor positive status [ER+]
CPT/HCPCS: 78306; A9503

== ENCOUNTER → 2021-09-28 | Outpatient (CLI) | payer BC, SELFPAY ==
--- NOTE | 2021-09-28 08:43 | CT_ITS ---
STUDY: CT CHEST, ABDOMEN T PELVIS WITH CONTRAST REASON FOR EXAM: Female, 61 years old. INITIAL STAGING-BREAST CA RADIATION DOSAGE (If Supplied By Facility): CTDIvol = ( 15.21 ) mGy, DLP = ( 1308.03 ) mGycm TECHNIQUE: Transaxial imaging was performed following intravenous administration of Oral and amp; IV Readi-CAT and amp; 100mL Isovue-300. Individualized dose optimization techniques were used for this CT. COMPARISON: No relevant priors. FINDINGS: Surgical clips are seen in the right axillary region. There is a 2.5 cm x 2.2 cm well-defined fluid collection in the lateral inferior aspect of the right breast most likely representing a postoperative seroma. CHEST The lungs are normal. There is no demonstrated pleural abnormality. Normal heart and pericardium. Normal mediastinum. Normal hilar regions. Normal unenhanced pulmonary arteries. Normal aorta arch and descending thoracic aorta. There are degenerative changes of the thoracic spine. ABDOMEN There is decreased attenuation of the liver consistent with steatosis. Normal gallbladder and extrahepatic biliary system. Normal spleen. Normal pancreas. Normal bilateral adrenal glands. Normal right kidney. Normal left kidney. Normal visualized stomach. Normal small intestine. Moderate amount of fecal material is seen in the colon. The appendix is visualized and appears normal. Normal abdominal aorta. Normal inferior vena cava. Normal retroperitoneum. There is a small umbilical hernia containing fat. There are mild degenerative changes of the visualized lumbar spine. PELVIS Normal urinary bladder. ESSURE devices are seen in the fallopian tubes bilaterally. There is no pelvic fluid. There is no pelvic lymphadenopathy or mass lesion. Normal visualized pelvic arteries. CT/CT Chest, Abd, Pel w/Contrast IMPRESSION: Postoperative changes seen in the right breast and right axillary region. Fatty infiltration of the liver. Electronically Signed: Galen Martinez MD at 10:13 EDT ,
[2021-09-28 08:56] LABS: CREATININE FINGERSTICK 0.7 mg/dL (0.55-1.02); EGFR FINGERSTICK > 60.0000 mL/min (>60)
== END | disposition home or self-care (01) ==
PROVIDERS: PCP Internal Medicine; Referring Provider Internal Medicine Medical Oncology; Visit Provider Internal Medicine Medical Oncology
DX: C50.411 Malignant neoplasm of upper-outer quadrant of right female breast (principal); Z17.0 Estrogen receptor positive status [ER+]
CPT/HCPCS: 71260; 74177; Q9967

== ENCOUNTER → 2021-09-29 | Outpatient (CLI) | payer BC, SELFPAY ==
[2021-09-29 12:50] LABS: Bacteria 0 SEEN /hpf (None Seen); Mucous, Urine 0 SEEN /hpf (<or=2+); Red Blood Cells-Urine 0 SEEN /hpf (0-5); Squamous Epithelial Cells - UA 0 SEEN /hpf (5-10); White Blood Cells 0 SEEN /hpf (0-5)
[2021-09-29 13:03] LABS: Color, Urine Yellow (Yellow); Glucose, Dipstick Normal (Normal); Ketone-Dipstick Negative (Negative); Leukocyte Esterase-Dipstick Negative /ul (Negative); Nitrite-Dipstick Negative (Negative); Occult Blood-Urine Negative /ul (Negative); Protein-Dipstick Negative (Negative); Specific Gravity, Urine 1.005 (1.002-1.030); Urine Bilirubin Dipstick Negative (Negative); Urine Clarity Clear (Clear); Urine Urobilinogen Normal (Normal)
== END | disposition home or self-care (01) ==
LOC: LABSPEC 12:30
PROVIDERS: PCP Internal Medicine; Referring Provider Physician Assistant; Visit Provider Physician Assistant
DX: R30.9 Painful micturition, unspecified (principal)
CPT/HCPCS: 81001; 87077; 87086; 87088; 87186

== ENCOUNTER 2021-09-30 09:02 | Day surgery (SDC) | payer BC, SELFPAY ==
[2021-09-30] VITALS (8 sets, daily range): BP systolic 100–126; BP diastolic 62–83; PULSE 60–73; RESP 16; TEMP 36.2–36.4; O2SAT 95–99; BMI 26.8
[2021-09-30] MEDS: Lactated Ringers 1,000 ML 15 ML IV (09:35)
--- NOTE | 2021-09-30 10:07 | HP.PCM.SX_ITS ---
HPI - General HPI Narrative SERAFIN ALMANZA, is a 61 F who presents for port placement. Patient had cancer of the right breast and had partial mastectomy with sentinel lymph node biopsy. Gorman lymph node came back with micrometastasis and she was recommended to have chemotherapy. She is here for port placement. [facility] Medical History (Updated 09/29/21 @ 10:13 by Seb Nayak PA, PA) Alcohol use Anemia Arthritis Cancer COVID Depression Encounter for education History of edema Non-smoker Post-menopausal Strain of left knee Urinary tract infection Wears partial dentures Home Medications escitalopram oxalate 20 mg tablet 20 mg PO DAILY 12/16/20 [History Last Taken Unknown] ibuprofen 800 mg tablet 800 mg PO TID PRN #30 tab 12/16/20 [Rx Last Taken Unknown] multivitamin 1 tab PO DAILY 07/23/21 [History Last Taken Unknown] diclofenac sodium 75 mg PO BID PRN 08/31/21 [History Last Taken Unknown] lidocaine-prilocaine 2.5 %-2.5 % topical cream 1 applic TOPICAL ONCE PRN 30 Days #30 g 09/28/21 [Rx Last Taken Unknown] ondansetron 8 mg disintegrating tablet 8 mg PO Q8H PRN #30 tab 09/28/21 [Rx Last Taken Unknown] prochlorperazine maleate 10 mg tablet 10 mg PO Q6H PRN #30 tab 09/28/21 [Rx Last Taken Unknown] nitrofurantoin monohydrate/macrocrystals 100 mg capsule 100 mg PO Q12H 5 Days #10 cap 09/29/21 [Rx Last Taken Unknown] Allergy/AdvReac Type Severity Reaction Status Date / Time No Known Allergies Allergy Verified 09/30/21 09:30 Family History Mother Colon cancer Father Dementia Surgical History (Updated 09/24/21 @ 13:59 by Justa Noguera) H/O medial meniscus repair of right knee History of History of lumpectomy Hx of colonoscopy Social History Smoking Status: Never smoker alcohol intake: current alcohol intake frequency: holidays/special occasions only Vital Signs Vital Signs Vital Signs: 09/30/21 09:31 Temperature 97.2 F L Temperature Source Temporal Pulse Rate 63 Respiratory Rate 16 Respiratory Pattern Normal Blood Pressure 100/72 Blood Pressure Mean 81 Blood Pressure Source Monitor Blood Pressure Position Semi-Fowlers Blood Pressure Location Left Arm Pulse Ox 98 Oxygen Delivery Method Room Air Weight Weight: 166 lb Body Mass Index (BMI) 26.8 Physical Exam Const alert and oriented x3 Resp normal respiratory effort and normal air movement Cardio regular rate and regular rhythm GI soft to palpation, non-tender and non-distended Assessment & Plan Assessment/Plan (1) Breast cancer, right breast: QUALIFIERS: Breast location: upper outer quadrant of breast Estrogen receptor status: negative Patient sex: female Qualified Code(s): C50.411 - Malignant neoplasm of upper-outer quadrant of right female breast; Z17.1 - Estrogen receptor negative status [ER-] PLAN: Discussed left chest port placement with the patient in detail. Discussed the risks including wound to bleeding, infection, pneumothorax or line infection and DVT. Patient understands the risks and is when to proceed. Brien Brand MD Pager: [facility] [address] [place] [address] [address] [place] [address] Office:
[2021-09-30] MEDS: Cefazolin 2 GM in 0.9% Normal Saline 100 ML IV (10:35)
--- NOTE | 2021-09-30 11:40 | RAD_ITS ---
STUDY: X-RAY CHEST REASON FOR EXAM: Female, 61 years old. PORT PLACEMENT TECHNIQUE: Single AP portable view of the chest. COMPARISON: Comparison is made with prior examination dated 04/28/2015. FINDINGS: A left-sided portacatheter has been placed. The tip is at the junction of the superior vena cava and right atrium. EKG electrodes are seen. Surgical clips are seen in the right axillary region. The lungs are clear and expanded. There is no demonstrated pleural abnormality. Normal size heart. Normal mediastinum and ezekiel. Normal visualized pulmonary arteries. Normal visualized aortic arch and descending thoracic aorta. Normal visualized thoracic spine. Normal visualized ribs, clavicles, and shoulders. There is no demonstrated abnormality of the visualized soft tissue structures of the upper abdomen. RAD/CXR for Line Placement IMPRESSION: The tip of the left-sided Port-A-Cath is at the junction of the superior vena cava and right atrium. Electronically Signed: Galen Martinez MD at 12:28 EDT ,
--- NOTE | 2021-09-30 11:42 | OP.PCM_ITS ---
Problems Associated Problem List Diagnoses (1) Breast cancer, right breast: (2) Encounter for adjustment and management of vascular access device: Report of Operation Date of Procedure: 09/30/21 Pre-Operative Diagnosis: Need for vascular access for chemotherapy Post-Operative Diagnosis: Same Surgery/Procedure Performed:: Ultrasound and fluoroscopy guided left chest port placement utilizing left IJ Description of Procedure: After obtaining informed consent patient was brought back to the operating room MAC anesthesia was induced and the left chest and neck were prepped in normal sterile fashion. Ultrasound was used to evaluate both IJs and the left IJ was selected. Next, using a needle, the left IJ was accessed and a guidewire was passed on into the superior vena cava under fluoroscopy guidance. A small incision was made over the puncture site and the dilator introducer was placed over the guidewire. Next this was capped and the pocket was made for the port. 1% lidocaine with epinephrine was injected in the proposed port site. An incision was made with scalpel. Electrocautery was used to make a pocket under the skin and subcutaneous tissue. Hemostasis was obta ined. Next, the catheter was tunneled up to the neck incision site and placed through the introducer. The peel-away introducer was removed and the position of the catheter was confirmed on fluoroscopy. Next, the catheter was trimmed and attached to the port with the locking device. Interrupted 2-0 Vicryl sutures were used to anchor the port to the chest wall and then the port was placed inside the pocket. The pocket was then flushed with saline and the port irrigated with saline. There was good blood return and the port flushed easily. Next, heparin was injected into the port. The skin was closed with subcutaneous interrupted 3-0 Vicryl sutures. A single 3-0 Vicryl sutures placed under the skin at the neck incision site. Steri-Strips were placed as well as op sites. Patient tolerated procedure well, was taken to PACU in stable condition. Chest x-ray will be obtained. Grafts/Implants Used: 8 Russian PowerPort Admit VTE Documentation VTE Mechan Device Prophylaxis: SCD's
--- NOTE | 2021-09-30 11:44 | EX.PCM.DISCH ---
Discharge Instructions Procedure Port-A-Cath Diet Discharge Diet: Light diet - advance as tolerated (Pain medication may cause nausea. You should typically eat light foods as you take your pain medication.) Activity Discharge Activity: Return to Normal Activity and May Shower (with your bandage in place in 1-2 days after surgery. DO NOT SHOWER WHEN YOUR PORT IS ACCESSED.) Dressing / Incision Call your doctor if your incision/area has: Continuous Slow Oozing, Sudden Increased Bleeding, Increased Pain/ Swelling, Increased Redness and Foul Smelling Discharge Call your doctor if you observe: Fever of 101 or Higher Remove Dressing in: 2 days Cleanse incision/area with: Soap & Water Follow Up Care Please Follow Up With: Brien Brand MD When: as needed [phone] Test Results: Test results from this visit will be discussed in further detail at your follow-up appointment, if applicable. Discharge Plan Admission Attending Provider: Brien Brand Primary Care Provider: AUBREE MARTINEZ Instructions Additional Instructions / Restrictions: Ibuprofen and Tylenol for pain Discharge Orders/Prescriptions Prescriptions: No Action ibuprofen 800 mg tablet 800 mg PO TID PRN (Reason: pain) Qty: 30 RF: 0 multivitamin Tablet 1 tab PO DAILY RF: 0 ondansetron 8 mg tablet,disintegrating 8 mg PO Q8H PRN (Reason: nausea and vomiting) Qty: 30 RF: 1 prochlorperazine maleate 10 mg tablet 10 mg PO Q6H PRN (Reason: nausea and vomiting) Qty: 30 RF: 2 lidocaine-prilocaine 2.5-2.5 % cream 1 applic topical ONCE PRN (Reason: port access) 30 Days Qty: 30 RF: 2 nitrofurantoin monohyd/m-cryst [Macrobid] 100 mg capsule 100 mg PO Q12H 5 Days Qty: 10 RF: 0 escitalopram oxalate 20 mg tablet 20 mg PO DAILY RF: 0 diclofenac sodium 75 mg Tablet,Delayed Release (Dr/Ec) 75 mg PO BID PRN (Reason: Pain) RF: 0 Referrals / Follow Up: AUBREE MARTINEZ MD [Primary Care Provider] - Disposition Disposition (needs filled in before D/C Order can be placed): Home, Self Care
== END 2021-09-30 13:03 | disposition home or self-care (01) ==
LOC: SDC 09:03 → AC 09:04
PROVIDERS: PCP Internal Medicine; Referring Provider Surgery; Visit Provider Surgery
PROC: (CPT 36561; principal; 2021-09-30 10:15)
DX: Z45.2 Encounter for adjustment and management of vascular access device (principal); C50.411 Malignant neoplasm of upper-outer quadrant of right female breast; Z86.16 Personal history of COVID-19; F32.A Depression, unspecified; Z78.0 Asymptomatic menopausal state; Z87.440 Personal history of urinary (tract) infections; Z79.899 Other long term (current) drug therapy; Z17.1 Estrogen receptor negative status [ER-]
CPT/HCPCS: 36561; 71045; 77001; J7120; C1788

== ENCOUNTER → 2021-10-21 | Outpatient (CLI) | payer BC, SELFPAY ==
[2021-10-27 09:21] LABS: HPV APTIMA, High Risk Negative (Negative)
== END | disposition home or self-care (01) ==
LOC: LABSPEC 10:41
PROVIDERS: PCP Internal Medicine; Visit Provider Obstetrics & Gynecology
DX: Z12.4 Encounter for screening for malignant neoplasm of cervix (principal)
CPT/HCPCS: 87624; 88175; G0145

== ENCOUNTER 2022-01-04 14:50 | Outpatient (RCR) | payer BC, SELFPAY | END 2022-01-21 14:52 | disposition home or self-care (01) | LOC: RAO 14:50 | PROVIDERS: PCP Internal Medicine; Referring Provider Student in an Organized Health Care Education/Training Program; Visit Provider Student in an Organized Health Care Education/Training Program | DX: C50.411 Malignant neoplasm of upper-outer quadrant of right female breast (principal); Z17.1 Estrogen receptor negative status [ER-] | CPT/HCPCS: 77014; 77290; 77295; 77300; 77307 ==

== ENCOUNTER → 2022-03-10 | Outpatient (CLI) | payer BC, SELFPAY ==
--- NOTE | 2022-03-10 06:33 | MRI_ITS ---
STUDY: MRI LEFT KNEE REASON FOR EXAM: Female, 61 years old. left lateral knee pain, weakness TECHNIQUE: Standardized fat and water weighted pulse sequences were obtained in all 3 orthogonal planes. COMPARISON: Left knee x-ray dated July 23, 2021 FINDINGS: A moderate size oblique tear with extension to the superior/proximal articular surface is present in the inner one third aspect of the posterior horn of medial meniscus. There is also mild intrasubstance degenerative signal and swelling in the remaining aspects of the posterior horn of the medial meniscus. Normal anterior horn and body of the medial meniscus. There is diffuse, moderate to full thickness articular cartilage loss of the medial femorotibial compartment. Mild subchondral reactive edema and peripheral cortical spurring is present on both sides of the medial compartment. Normal medial collateral ligamentous complex (MCL). Normal distal semimembranosus, gracilis and semitendinosus tendons. Normal lateral meniscus. There is diffuse, less than 50% thickness articular cartilage loss of the lateral femorotibial compartment. Normal lateral femoral condyle and tibial plateau. Normal proximal tibiofibular articulation. Normal lateral collateral (fibular) ligament. Normal popliteus tendon. Normal biceps femoris tendon. There is edema with swelling and loss of definition of the of the ACL fascicles, producing a celery stick appearance, with preservation of the continuity of fibers, consistent with mucoid cystic degeneration. Normal posterior cruciate ligament (PCL). Normal congruent patellofemoral articulation. There is diffuse, less than 50% thickness articular cartilage loss of the patellofemoral compartment. Normal medial and lateral patellar retinaculum. Normal quadriceps tendon. Normal patellar tendon. Normal Hoffa''s fat pad. Small joint effusion noted. A tiny Bailey''s cyst is also present. The soft tissues are unremarkable. The otherwise visualized osseous structures are unremarkable. MRI/Lower Ext Joint Only (Routine) IMPRESSION: 1. Moderate size oblique tear in the posterior horn of medial meniscus 2. Moderate to full-thickness loss of cartilage in the medial compartment 3. Mucoid degeneration of the ACL Electronically Signed: José Brown MD at 8:23 EDT ,
== END | disposition home or self-care (01) ==
LOC: MRI 06:33
PROVIDERS: PCP Internal Medicine; Referring Provider Orthopaedic Surgery; Visit Provider Orthopaedic Surgery
DX: S86.912A Strain of unspecified muscle(s) and tendon(s) at lower leg level, left leg, initial encounter (principal); M25.562 Pain in left knee; G89.29 Other chronic pain; M17.12 Unilateral primary osteoarthritis, left knee
CPT/HCPCS: 73721

== ENCOUNTER → 2022-03-30 | Outpatient (CLI) | payer BC, SELFPAY ==
--- NOTE | 2022-03-30 07:33 | MRI_ITS ---
EXAM: MR HEAD WITHOUT AND WITH INTRAVENOUS CONTRAST CLINICAL INDICATION: Nausea, imbalance. History of breast carcinoma. Rule out brain metastases. TECHNIQUE: Multiplanar and multisequence MR images of the brain were obtained without and with intravenous contrast. This report was created using [employer] report [employer] technology. CONTRAST: IV Clariscan 15ml COMPARISON: None. FINDINGS: BRAIN AND EXTRA-AXIAL SPACES: Few nonspecific T2 FLAIR hyperintensity foci in the subcortical white matter of the frontal lobes and the left posterior subinsular white matter. No mass effects. No abnormal enhancing lesions intra=axially and extra-axially. Normal ventricles and cisterns. No intra- or extra-axial hemorrhage. No evidence of acute infarct. There is preservation of the lynne/white matter interface. Posterior fossa structures are unremarkable. No hydrocephalus. SELLA: Unremarkable. Normal sella turcica, pituitary gland, infundibular stalk, optic chiasm and hypothalamus. AUDITORY SYSTEM: Unremarkable. The internal auditory canals are patent. BONES/JOINTS: Unremarkable. No discrete lytic or blastic abnormalities. SINUSES: Unremarkable as visualized. Clear. MASTOID AIR CELLS: Unremarkable as visualized. Clear. ORBITS: Unremarkable as visualized. Both globes, extraocular muscles, optic nerves and retrobulbar fat appear unremarkable. VASCULATURE: Unremarkable as visualized. Normal flow voids in the major intracranial circulation. MRI/Brain W/WO Contrast IMPRESSION: 1. No MRI evidence of brain metastases or acute intracranial abnormality. 2. Few nonspecific T2 FLAIR hyperintensity foci in the white matter in the frontal lobes on the left posterior subinsular white matter. They may be chronic white matter ischemic changes. 3. No MRI evidence of any enhancing lesions intra-axially or extra-axially. Electronically Signed: Veto Garcia MD at 14:59 EDT ,
== END | disposition home or self-care (01) ==
PROVIDERS: PCP Internal Medicine; Referring Provider Nurse Practitioner Family; Visit Provider Nurse Practitioner Family
DX: R11.0 Nausea (principal); R26.89 Other abnormalities of gait and mobility; Z85.3 Personal history of malignant neoplasm of breast
CPT/HCPCS: 70553; A9575

== ENCOUNTER 2022-04-12 08:26 | Day surgery (SDC) | payer BC, SELFPAY ==
[2022-04-11 11:15] LABS: Absolute Lymphocyte Count 0.35 X10^3/uL (0.83-4.51); Absolute Neutrophil Count 2.1 X10^3/uL (2.0-7.7); Basophil# 0.02 X10^3/uL; Basophil% 0.7 % (0-1); Eosinophil# 0.03 X10^3/uL; Hematocrit 35.4 % (37-47); Hemoglobin 11.2 g/dL (12.0-15.0); Lymphocyte # 0.35 X10^3/ul (0.83-4.51); Lymphocyte % 12.1 % (19-41); Mean Corp Hgb Conc 31.6 g/dL (32-36); Mean Corpuscular Hgb 31.3 pg (27.0-32.0); Mean Corpuscular Volume 98.9 fL (81-99); Mean Platelet Vol. 9.6 fl (6.2-12.0); Monocyte# 0.39 X10^3/uL; Monocyte% 13.4 % (0-10); NRBC Flagged by Analyzer 0 % (0-5); Neutrophil % 72.5 % (47-70); POSITIVE DIFFERENTIAL YES; Platelet Count 206 K/mm3 (150-450); RBC Distribution Width CV 14.2 % (11.6-14.6); RBC Distribution Width SD 52.2 fl (35.1-43.9); Red Blood Count 3.58 M/mm3 (4.2-5.4); White Blood Count 2.9 K/mm3 (4.4-11.0)
[2022-04-11 11:19] LABS: Differential Indicated SCAN CRITERIA MET
[2022-04-11 11:50] LABS: Differential Comment SCANNED; Reactive Lymphocyte 1+
[2022-04-12] VITALS (7 sets, daily range): BP systolic 92–107; BP diastolic 43–73; PULSE 64–83; RESP 14–18; TEMP 36.2–37.1; O2SAT 93–98; BMI 27.2
[2022-04-12] MEDS: Lactated Ringers 1,000 ML 15 ML IV (09:05)
[2022-04-12] MEDS: Cefazolin 2 GM in 0.9% Normal Saline 100 ML IV (09:52)
--- NOTE | 2022-04-12 09:56 | PCM.HP.BLA ---
History and Physical Date of Admission: 04/12/22 [facility] [address] [place] [address] OFFICE VISIT Date of Service:? 03/18/22 MR#: [id number] Acct: [id number] Name:SERAFIN GARCIA Rep #: [id number] : 1960 ? ? Provider: Dr. Reginaldo Pedraza, DO Age/Sex:? 61/F ? ? [place] [facility] [place] Status: Signed with Addenda ADDENDUM by Dr. Reginaldo Pedraza, DO on 04/04/22 at 1556 Assessment and Plan Assessment and Plan (1) DJD (degenerative joint disease) of knee: ?Status:?Acute (2) Medial meniscus tear: ?Status:?Acute ? ? ? Orders: Orders Knee 4 or More Views 03/18/22 M25.562 - Pain in left knee ? 04/04/22 1556 <Electronically signed by Reginaldo Pedraza DO> Date Reginaldo Pedraza DO cc:? Dr. Reginaldo Pichardo MD; AUBREE MARTINEZ MD ~* Signed Intake Intake Visit Reasons:?Left Knee Chief Complaint: left knee Allergies No Known Allergies Allergy (Verified 03/14/22 10:34) Medications escitalopram oxalate 20 mg tablet 20 mg PO DAILY 12/16/20 [History Confirmed 03/18/22] ibuprofen 800 mg tablet 800 mg PO TID PRN pain #30 tabs 12/16/20 [Rx Confirmed 03/18/22] multivitamin 1 tab PO DAILY 07/23/21 [History Confirmed 03/18/22] diclofenac sodium 75 mg tablet,delayed release 75 mg PO BID PRN Pain 08/31/21 [History Confirmed 03/18/22] nitrofurantoin macrocrystal 100 mg capsule 100 mg PO BID #10 caps 10/21/21 [Rx Confirmed 03/18/22] docusate sodium 100 mg capsule (Colace) 100 mg PO DAILY PRN 11/16/21 [History Confirmed 03/18/22] polyethylene glycol 3350 17 gram oral powder packet (Miralax) 17 g PO DAILY PRN 11/16/21 [History Confirmed 03/18/22] lidocaine-prilocaine 2.5 %-2.5 % topical cream 1 applic topical ONCE PRN port access 30 days #30 grams 03/14/22 [Rx Confirmed 03/18/22] ondansetron 8 mg disintegrating tablet 8 mg PO Q8H PRN nausea and vomiting #30 tabs 03/14/22 [Rx Confirmed 03/18/22] PFSH Medical History?(Updated 03/18/22 @ 09:31 by Margie Jones) Alcohol use Anemia Arthritis Cancer COVID Cystitis Depression Encounter for education Fluid retention History of breast cancer History of edema Imbalance Malodorous urine Nausea Non-smoker Post-menopausal Strain of left knee Urinary tract infection Wears partial dentures Surgical History? H/O medial meniscus repair of right knee History of History of lumpectomy Hx of colonoscopy Family History? Mother Colon cancerFather Dementia Social History? Smoking Status:? Never smoker alcohol intake:? current alcohol intake frequency: holidays/special occasions only HPI Left Knee Details: Parts of this documentation were recorded by a scribe, this documentation accurately reflects the service provided and the decisions made by me, Dr. Reginaldo Pedraza, DO 03/18/22 0750. SERAFIN ALMANZA is a 61 year old F here today for? F/U on the left knee after having MRI of the knee completed. She states that her left knee pain is still the same. On 07/23/2021 she received an intra-articular knee injection and had about 3 weeks of relief in addition she was prescribed Mobic.? To recall her pain has been going on since October 2020. She does have left knee painful instability. SHe feels like her knee wants to hyperextend. She states that her knee pain is mostly throbbing pain. She has breast cancer. She completed chemo in November which caused her increased knee pain. She just finished radiation in january,? Patient denies any medications for her breast cancer. She takes aleve frequently. Ortho Exam General General: Yes no acute distress Neurologic: Yes alert and Yes oriented x3 Psychologic: Yes reasonable and appropriate Right Knee Patella Translation: 1 Left Knee Skin/Wound: No ecchymosis, No erythema and No swelling Homans Sign: No Knee ROM: No ROM-Extension -20 to 0 (5) and No ROM-Flexion 0-140 (110) Examination: No med jt line tenderness, Yes Lat jt line tenderness, No Linda's Test, No TTP Pes Anserine and Yes Illiotibial band tenderness Stability: NML: Anterior Drawer, NML: Valgus 0, NML: Valgus 30, NML: Varus 0 and NML: Varus 30 Apprehension with Lateral Translation: No Patella Translation: 1 Patella Grind: No KNEE: TTP over hamstring Supplemental Info 2021 MRI left knee: Moderate sized oblique tear posterior horn medial meniscus moderate to full-thickness cartilage loss of the medial compartment mucoid degeneration of the ACL with celery stick appearance 12/16/2020 x-ray left knee: Lateral patellar tilt with narrowing of the lateral patellar facet subchondral cystic changes of the patella, mild medial joint space narrowing with mild spurring Coding Level of Care Code Off vis,est,level 3 Assessment and Plan Assessment and Plan ? ? ? Orders: Orders Knee 4 or More Views Today M25.562 - Pain in left knee ? Plan Details Additional Comments: Patient educated that she does have a medial meniscus tear along with maylin cuate of full-thickness cartilage loss of the medial compartment. Educated that a treatment option is left knee arthroscopy for meniscectomy which may help with some pain but there is still a chance that she can have pain still from arthritis. Another option would be for a left partial knee replacement then she would need to have an intact/strong ACL but if she doesn't have a strong ACL then she would require a TKA. Another option would be another steroid injection or viscosupplementation. Reviewed the pre-operative plans with the patient. Risks and benefits of the procedure were fully explained, including but not limited to infection, neurovascular injury, continued pain, arthritis, stiffness, need for further surgery, re-injury, DVT, PE, general risks of anesthesia, and loss of limb or life. The patient understands all the risks and does wish to proceed with written consent. She wishes to proceed with left knee arthroscopic partial medial meniscectomy, surgery as indicated. She will need a medical clearance from PCP and Oncologist Dr. Pichardo.she does have low WBC that increases risk of infection and being this is an elective procedure will appreciate input from PCP and Oncology if surgery should be post-poned. ?Instructed to not take any ibuprofen or Aleve 7 days prior to surgery. Also educated her to stop the fish oil supplement. Follow up 2 weeks post op or sooner if pain, swelling, numbness or associated symptoms, or concerns develop.? All questions answered. Patient in agreement of plan. 03/18/22 1027 <Electronically signed by Reginaldo Pedraza DO> Date Reginaldo Pedraza DO Cosigner Signature: Date (if applicable) ? CC:? Dr. Reginaldo Pichardo MD; AUBREE MARTINEZ MD ~ I have examined the patient and the H&P has been reviewed. There are no clinical changes since date of exam.
[2022-04-12] MEDS: Lidocaine 2% /Epi 1:100 (20ml) 20 ML VIAL (10:10)
[2022-04-12] MEDS: Epinephrine (1 mg/ml) 1 MG/ML VIAL (10:10)
--- NOTE | 2022-04-12 10:53 | OP.PCM_ITS ---
Operative Report Date of Procedure: 04/12/22 Preop diagnosis: DJD left knee and medial meniscus tear Postoperative diagnosis: Grade 4 cartilage wear medial femoral condyle and trochlea and patella grade 4 chondral flap lateral femoral condyle degenerative posterior horn medial meniscus tear with root detachment Procedure: Left knee arthroscopic partial medial meniscectomy and chondroplasty Anesthesia: General Estimated blood loss: 5 mL Tourniquet time: 31 minutes 300 mmHg Complications: none Indication for procedure: 61-year-old female patient who has had ongoing left knee pain with mechanical symptoms did have MRI evidence of DJD and medial meniscus tear did wish to proceed with an elective arthroscopic surgery to attempt to alleviate the symptoms. Risk benefits and alternatives of the procedure were reviewed including risk of bleeding infection nerve artery tissue damage need for further surgery continued pain and expected postoperative course. Procedure: The patient was met in the preoperative holding area. The operative extremity was identified by both patient and physician and family and marked. Patient was brought back to the operating room on a wheeled cart and transferred to the operating table in the supine position. Anesthesia was started. A well- padded tourniquet was placed on the operative extremity. A lower extremity leg virgen was secured to the operative extremity. The contralateral extremity was well-padded and the end of the bed was flexed to 90 degrees. The patient was prepped and draped in the usual sterile fashion. A timeout was called to ensure the proper patient, procedure, and extremity were being contemplated. 0.5% Marcaine with epinephrine was injected into the planned incisional areas under the skin only. An Esmarch was used to exsanguinate the extremity and the tourniquet was inflated. An 11 blade scalpel was used to make a stab incision in the anterior lateral portal. The arthroscope was inserted into the intercondylar notch and inflow and outflow tubes were attached. Arthroscopic visualization began. The medial compartment was entered. An 18-gauge spinal needle was used to establish the placement for anterior medial portal. An 11 blade scalpel was used to make a stab incision. Blunt probe was inserted followed by a meniscal probe. There was noted to be a large area of chondral wear grade 4 diffusely of the medial femoral condyle there was loose cartilage flaps which were debrided with a shaver there was also noted to be degenerative tearing of the medial meniscus with detachment of the root with the use of arthroscopic biting instruments raul and ArthroCare wand partial medial meniscectomy and chondroplasty was performed of the compartment the ACL was found to be intact. The lateral compartment was entered there was noted to be a grade 4 chondral flap of the lateral femoral condyle and deep flexion with the use of a curette and shaver this was brought back to a stable rim the remainder of the lateral compartment was relatively healthy with no meniscal pathology The arthroscope was switched to the medial portal to complete the procedure. The medial and lateral gutters were inspected and were free of loose bodies. The patellofemoral joint was inspected diffuse grade IV chondromalacia of the trochlea and undersurface of the patella. There was good patellar tracking. The knee was thoroughly irrigated and drained. An intra-articular injection with 5 cc 0.5% Marcaine plain and 40 mg of Depo-Medrol was injected intra- articularly. The arthroscope was removed the portals were closed with 3-0 nylon arthroscopic stitches. Followed by Xeroform 4 x 4's ABDs web roll and an Tigre wrap. The tourniquet was let down and the drapes were removed. All counts were correct. The patient was brought back to the PACU in stable condition.
--- NOTE | 2022-04-12 10:58 | DCINST_ITS ---
Discharge Instructions Activity Weight Bearing Status: Weight bearing as tolerated Dressing / Incision Additional Dressing/Incision Instructions:: Ice and elevate next 72 hours .keep dressing on clean and dry for 48 hours then may remove begin showering daily but do not submerge in tub or pool. After shower may apply Band-Aids . Encourage knee range of motion weightbearing as tolerated, use crutches until confident in knee then may discontinue. No strenuous activity. When not ambulating keep iced and elevated next 72 hours. Do not mix pain medication with recreational drugs or alcohol only take as prescribed can be addictive and abusive, call with any questions or concerns. Follow Up Care Please Follow Up With: Reginaldo Pedraza DO When: 2 weeks Test Results: Test results from this visit will be discussed in further detail at your follow- up appointment, if applicable. Discharge Plan Admission Attending Provider: Reginaldo Pedraza Primary Care Provider: AUBREE MARTINEZ Discharge Orders/Prescriptions Prescriptions: New cephalexin [cephalexin] 500 mg capsule 1,000 mg PO Q8 Qty: 4 0RF Rx Instructions: take 2 tabs at 9:00 pm and 2 tabs after 5 am when you wake up oxycodone 5 mg tablet 5 - 10 mg PO Q4H PRN (Reason: pain) 4 Days Qty: 20 0RF No Action multivitamin Tablet 1 tab PO DAILY docusate sodium [Colace] 100 mg capsule 100 mg PO DAILY PRN (Reason: Constipation) polyethylene glycol 3350 [Miralax] 17 gram powder in packet 17 g PO DAILY PRN (Reason: Constipation) ondansetron 8 mg tablet,disintegrating 8 mg PO Q8H PRN (Reason: nausea and vomiting) Qty: 30 0RF lidocaine-prilocaine 2.5-2.5 % cream 1 applic topical ONCE PRN (Reason: port access) 30 Days Qty: 30 2RF escitalopram oxalate 20 mg tablet 20 mg PO DAILY vitamin E 800 unit Capsule 45 mg PO DAILY Fish Oil Capsule 1,000 mg PO DAILY naproxen sodium [Aleve] 220 mg Capsule 220 mg PO Q8H PRN (Reason: Pain) Referrals / Follow Up: AUBREE MARTINEZ MD [Primary Care Provider] - Disposition Disposition (needs filled in before D/C Order can be placed): Home, Self Care
[2022-04-12] MEDS: Cefazolin 1 GM/50 ML BAG IV (11:24)
[2022-04-12] MEDS: 0.9% Saline Lock 10 ML Syringe IV (12:52)
[2022-04-12 15:03] LABS: Pathologist Review Reviewed
== END 2022-04-12 13:29 | disposition home or self-care (01) ==
LOC: SDC 08:27 → AC 08:28
PROVIDERS: Nurse Practitioner Family; PCP Internal Medicine; Referring Provider Orthopaedic Surgery; Visit Provider Orthopaedic Surgery
PROC: (CPT 29870; principal; 2022-04-12 09:40)
DX: S83.242A Other tear of medial meniscus, current injury, left knee, initial encounter (principal); M17.12 Unilateral primary osteoarthritis, left knee; X58.XXXA Exposure to other specified factors, initial encounter; Z79.899 Other long term (current) drug therapy; Z85.3 Personal history of malignant neoplasm of breast
CPT/HCPCS: 29881; 01400; 36415; 85025; J7120; A4216; J2405

== ENCOUNTER 2022-04-14 10:00 | Outpatient (RCR) | payer BC, SELFPAY ==
--- NOTE | 2022-04-04 10:55 | HP.OTEVAL_ITS ---
Patient's Visit Information SERAFIN ALMANZA is a 61 year old F, referred to Occupational Therapy by Dr. Aristeo Patel DO, with a diagnosis of malignant neoplasm right breast. Date of Evaluation: 04/04/22 Occupational Therapist: Annmarie Mcfadden, DOUG/Josesito, CHT - Subjective This 61-year-old female was seen for OT eval with dx of pathologic stage IB, prognostic stage IB (pT1c pN1mi (sn) M0) grade 2 invasive ductal carcinoma (ER 0%, OR 0%, HER2 1+ IHC) status post mammogram, right breast ultrasound (08/13/2021), right breast biopsy (08/20/2021), right breast lumpectomy and sentinel lymph node biopsy (09/02/2021), bone scan (09/27/2021), CT chest/abdomen/pelvis (09/28/2021), and TC x4 cycles (initiated 09/30/2021). From 01/24/2022 ? 02/22/2022 she received adjuvant radiation to the right breast and regional lymph nodes. pt is 4 weeks from last radiation session and in order to preserve lymph circulation has ordered OT for pt to initiate a self mtg. and ed. on life long mtg of lymphedema. pt is right handed - Lymphedema (Circumferential Measure) MCP: right 20.5cm left 20.5 cm Wrist: right 17cm left 16.5cm Lower forearm: right 20cm left 20.5cm Largest forearm: right 25cm left 24.5cm Elbow: right 25cm left 24.5cm Largest humerus: right 27.5cm left 27cm Axcillary: right 29cm left 30cm Upper Exremity Comments: pt is right handed- pt demo stage I lymphedema and need of lymph stim ex. and life long mtg of lymphedema precautions - Quick DASH-Disab of Arm,Shoulder& Hand Quick DASH Score: 6.6650 - Goals Demonstrate adequate knowledge of self-massage by 2nd week: Yes Demonstrate adequate knowledge skin care/prec by 2nd week: Yes Demonstrate adequate knowledge therapeutic exercises by d/c: Yes Select approp compression garment w/donning/care/wear by d/c: Yes Voice need to replace compression garment every 4-6mo by dc: Yes - Rehabilitation General Assessment: This 61 year old female was seen for ed. on self mtg. of lymphedema- pt dem with stage 1 of lymphedema and in need of ed. on mtg. Pt would benefit from skilled OT services 2-3 visits to ensure pt has reach understanding of her HEP. Today therapist ed. pt on need of compression sleeve 20-30 mmHg and glove for travel- followed with lymph stim ex, and self manual lymph massage- pt demo understanding and agreed to POC. Rehabilitation Potential: Good - Anticipated Interventions Education re assistive Equipment, Education re Diagnosis, Manual Lymph Drainage, Education re Life-long lymphedema Management, Education re Skin Care and Precautions, Education re Self Massage Techniques, Education re Correct Donning Tech,Care&Wearing Sched Comp Garments, Home Program - Visit Plan TEXT: Thank you for the opportunity to evaluate your patient. For Medicare and Medicare HMO plans, please review the plan of care and approve it. It will need to be FAXED BACK to us at [phone] for Medicare purposes. Please let me know if there are questions or concerns regarding this plan of care. Physician Signature: Date:
--- NOTE | 2022-06-16 13:40 | HP.OT.NRP ---
SERAFIN ALMANZA was seen in my office for initial evaluation on 04/04/22. The following Plan of Care was established for this patient: Plan: get order for compression garment Anticipated Interventions: Education re assistive Equipment, Education re Diagnosis, Manual Lymph Drainage, Education re Life-long lymphedema Management, Education re Skin Care and Precautions, Education re Self Massage Techniques, Education re Correct Donning Tech,Care&Wearing Sched Comp Garments, Home Program This patient was last seen in our office 04/14/22. Pertinent comments regarding their Occupational therapy will appear below: pt was seen for OT eval and one follow-up session on 04/14/22. Pt has not scheduled further apts and due to time lapse in services pt is d/c. At this point I will be discontinuing this patient from occupational therapy. I would be happy to see this patient again in the future if found appropriate by the physician. Thank you! Annmarie Mcfadden, OTR/L, CHT
== END 2022-04-14 19:00 | disposition home or self-care (01) ==
LOC: OT 10:00
PROVIDERS: PCP Internal Medicine; Referring Provider Student in an Organized Health Care Education/Training Program; Visit Provider Student in an Organized Health Care Education/Training Program
DX: C50.911 Malignant neoplasm of unspecified site of right female breast (principal); I89.0 Lymphedema, not elsewhere classified
CPT/HCPCS: 97140; 97165; 97166; 97530

== ENCOUNTER → 2022-07-20 | Outpatient (CLI) | payer BC, SELFPAY ==
[2022-07-20 08:11] LABS: Hematocrit 38.8 % (37-47); Hemoglobin 12.2 g/dL (12.0-15.0); Mean Corp Hgb Conc 31.4 g/dL (32-36); Mean Corpuscular Hgb 32.1 pg (27.0-32.0); Mean Corpuscular Volume 102.1 fL (81-99); Mean Platelet Vol. 10.1 fl (6.2-12.0); Platelet Count 258 K/mm3 (150-450); RBC Distribution Width CV 13.5 % (11.6-14.6); RBC Distribution Width SD 51.1 fl (35.1-43.9); White Blood Count 2.9 K/mm3 (4.4-11.0)
[2022-07-20 09:09] LABS: ALB/GLOB Ratio 1.2 RATIO (0.9-2.4); AST(SGOT) 16 U/L (15-37); Alanine Aminotransfer ALT/SGPT 17 U/L (13-56); Albumin, Serum 3.8 g/dL (3.2-5.0); Alkaline Phosphatase 83 U/L (45-117); Anion Gap 5 (5-15); BUN 22 mg/dL (7-18); BUN/Creat Ratio 29.9 RATIO (10-20); Calcium,Total 9.2 mg/dL (8.5-10.1); Chloride 106 mmol/L (98-107); Cholesterol 178 mg/dL (200); Creatinine, Serum 0.74 mg/dL (0.55-1.02); EST Glomerular Filtration Rate 85 mL/min (>60); Est Glom Filt Rate - Afr Amer 103 mL/min (>60); Globulin 3.3 g/dL (2.2-4.2); Glucose 76 mg/dL (74-106); High Density Lipoprotein 90 mg/dL; Potassium 4.1 mmol/L (3.5-5.1); Protein, Total 7.1 g/dL (6.4-8.2); Sodium Level 140 mmol/L (136-145); Thyroid Stim Hormone (TSH) 7.04 uIU/mL (0.358-3.74); Triglycerides 40 mg/dL; Very Low Density Lipoprotein 8 mg/dL (5-40)
[2022-07-20 09:18] LABS: Vitamin B12 437 pg/mL (211-911)
[2022-07-24 09:12] LABS: Vitamin B1, Thiamine 103.9 nmol/L (66.5-200.0)
== END | disposition home or self-care (01) ==
LOC: LAB 06:50
PROVIDERS: PCP Internal Medicine; Referring Provider Psychiatry & Neurology Neurology; Visit Provider Psychiatry & Neurology Neurology
DX: R41.3 Other amnesia (principal); I67.9 Cerebrovascular disease, unspecified
CPT/HCPCS: 36415; 80053; 80061; 82607; 82746; 84425; 84443; 85027

== ENCOUNTER → 2022-08-22 | Outpatient (CLI) | payer BC, SELFPAY ==
--- NOTE | 2022-08-22 09:40 | BI_ITS ---
MAMMOGRAPHY - BILATERAL DIAGNOSTIC REASON FOR EXAM: Female, 62 years old. Pain at the right lumpectomy site. PERTINENT HISTORY: Personal history of breast cancer. Prior right lumpectomy and axillary node resection with radiation and chemotherapy. TECHNIQUE: Digital bilateral breast ivan (3D mammographic acquisition) in the CC and MLO projections. 2-D mediolateral oblique (MLO) and craniocaudad (CC) views of both breasts were obtained. CAD: Full Field Digital Mammography with Computer Added Detection was performed. COMPARISON: Comparison is made with prior examination of August 04, 2021 and December 27, 2016. FINDINGS: Breast Composition: The breasts are heterogeneously dense, which may obscure small masses. Since prior study, the patient underwent resection of a nodular density in the deep upper lateral aspect of the right breast with resultant postoperative scarring and skin thickening. Surgical clips are seen in the right axillary region as well. No new mass lesion or cluster microcalcifications present. No other significant abnormalities are identified. BI/DIAG MAMM W/CAD, BILAT IMPRESSION: Status post lumpectomy in the deep upper lateral aspect of the right breast with a postoperative scarring and overlying skin thickening. One year follow-up recommended. (A) ASSESSMENT CATEGORY: BIRADS Category 2: Benign. A letter regarding these results will be sent to the patient by the facility within 30 days. Approximately 10% of breast cancers are not detected by mammography. A normal mammogram should not delay biopsy of a clinically suspicious abnormality. Electronically Signed: Galen Martinez MD at 13:57 EDT ,
--- NOTE | 2022-08-22 10:42 | US_ITS ---
STUDY: ULTRASOUND BREAST - RIGHT REASON FOR EXAM: Female, 62 years old. Pain at the lumpectomy site. TECHNIQUE: Axial and longitudinal images of the RIGHT breast were performed with a high resolution ultrasound transducer. # OF IMAGES: 50 COMPARISON: Comparison is made with prior mammogram done earlier today. FINDINGS: RIGHT Breast: At the 10:00 position of the right breast, there is evidence of a a lumpectomy scar. A tiny fluid collection is seen within the scar measuring 1.3 cm x 0.7 side by 0.2 cm. US/Breast Limited Unilateral IMPRESSION: Status post lumpectomy with the postoperative scarring and tiny fluid collection deep to the scar at the 10:00 position of the breast. No suspicious nodule is seen. ASSESSMENT CATEGORY: BIRADS Category 2: Benign. A letter regarding these results will be sent to the patient by the facility within 30 days. Electronically Signed: Galen Martinez MD at 16:35 EDT ,
== END | disposition home or self-care (01) ==
PROVIDERS: PCP Internal Medicine; Visit Provider Student in an Organized Health Care Education/Training Program
DX: C50.911 Malignant neoplasm of unspecified site of right female breast (principal)
CPT/HCPCS: 76642; 77062; 77066; G0279

== ENCOUNTER → 2022-09-16 | Outpatient (CLI) | payer BC, SELFPAY ==
--- NOTE | 2022-09-16 14:35 | CT_ITS ---
INDICATION: Abdominal pain for one month, history of breast cancer diagnosed one year ago EXAMINATION: CT ABDOMEN AND PELVIS WITH CONTRAST - CT Abdomen And Pelvis W/ Contrast Injection TECHNIQUE: Helically acquired images were obtained of the abdomen and pelvis following IV contrast. A radiation dose optimization technique was used for this scan. IV Contrast dosage and agent: 100 cc Isovue-300 Oral contrast: Yes. COMPARISON: 09/28/2021 FINDINGS: LOWER CHEST: Lung bases are clear. No cardiomegaly or pericardial effusion. LIVER: Homogeneous. No focal mass. GALLBLADDER AND BILIARY TREE: No calcified gallstones. No gallbladder distension or wall edema. No intra- or extrahepatic biliary ductal dilation. PANCREAS: No focal cystic or solid mass. SPLEEN: Normal size without focal cystic or solid mass. ADRENAL GLANDS: No nodules. KIDNEYS AND URETERS: Normal renal size and position. No hydronephrosis. PERITONEUM: No ascites or free air. BOWEL: No evidence of acute appendicitis. No stomach or bowel distension. No focal inflammatory change. Diffusely increased colonic fecal burden. LYMPH NODES: No enlarged mesenteric or retroperitoneal lymph nodes. VESSELS: Aorta is non-dilated. URINARY BLADDER: Unremarkable. REPRODUCTIVE ORGANS: No pelvic masses. Essure devices in place. ABDOMINAL WALL: Small fat-containing umbilical hernia. BONES: No acute or aggressive abnormality. CT/Abdomen/Pelvis WITH Contrast IMPRESSION: No acute findings in the abdomen or pelvis. Colonic fecal burden suggests clinical constipation. Essure device in place. Electronically Signed: Ky Bowens MD at 15:38 EDT ,
[2022-09-16] MEDS: 0.9% Saline Lock 10 ML Syringe IV (15:04)
== END | disposition home or self-care (01) ==
LOC: CT 14:34
PROVIDERS: PCP Internal Medicine; Referring Provider Internal Medicine Medical Oncology; Visit Provider Internal Medicine Medical Oncology
DX: C50.911 Malignant neoplasm of unspecified site of right female breast (principal)
CPT/HCPCS: 74177; Q9967; A4216

== ENCOUNTER → 2022-09-20 | Outpatient (CLI) | payer BC, SELFPAY ==
--- NOTE | 2022-09-20 07:36 | NM_ITS ---
CLINICAL: 62-year-old female with history of primary breast carcinoma, status post left knee arthroplasty 1 week prior. WHOLE BODY 99m Tc MDP RADIONUCLIDE BONE SCINTIGRAPHY COMPARISON: Whole body bone scintigraphy study dated 09/27/2021 FINDINGS: Following the intravenous administration of 24.0 mCi of 99m Tc MDP, whole body bone images reveal: 1. Increased radiopharmaceutical concentration is defined in the acromioclavicular compartments of both shoulders, sternoclavicular compartment of the right shoulder, the bilateral wrists, the anterolateral femoral and medial tibial compartment of the right knee, the posterior compartment of the left ankle, the left hip involving the inferior-posterior acetabulum. 2. Intense increased tracer uptake is noted in the left knee articulation and distal left tibial diaphysis. 3. The remaining skeletal structures are scintigraphically unremarkable with normal-appearing renal images and urinary bladder activity identified. NM/Bone Scan Whole Body IMPRESSION: 1. The increase in tracer uptake noted in the bilateral shoulder and wrist articulations, the right knee, left ankle, the left hip is commensurate with degenerative arthrosis. 2. There is evidence of postsurgical change noted in the left knee attributed to recent left knee arthroplasty. 3. Enhanced uptake visualized in the distal left tibial diaphysis may represent trauma-fracture. Plain film radiography correlation may be of benefit. 4. Overall compared to the previous whole body bone scintigraphy study dated 09/27/2021, there is evidence of a newly demonstrated left knee arthroplasty with otherwise no definitive significant interval change. There is no typical scintigraphic evidence of diffuse axial skeletal metastatic disease on the current examination. Electronically Signed: Raheem Oscar, at 22:46 EDT ,
== END | disposition home or self-care (01) ==
LOC: NM 07:35
PROVIDERS: PCP Internal Medicine; Referring Provider Internal Medicine Medical Oncology; Visit Provider Internal Medicine Medical Oncology
DX: C50.911 Malignant neoplasm of unspecified site of right female breast (principal)
CPT/HCPCS: 78306; A9503

== ENCOUNTER → 2022-09-22 | Outpatient (CLI) | payer BC, SELFPAY ==
--- NOTE | 2022-09-22 15:30 | RAD_ITS ---
INDICATION: pain; abnormal PET/CT EXAMINATION/TECHNIQUE: X-RAY - LEFT XR Tibia/Fibula 2 Views 4 VIEWS COMPARISON: FINDINGS: SOFT TISSUES: No soft tissue swelling or gas. No radiopaque foreign body. BONES/JOINTS: No acute fracture or subluxation.. Normal alignment. Preservation of the joint space.. No sclerotic or destructive changes observed. Status post left knee arthroplasty with normal articulation between femoral, tibial, and patellar components. RAD/Tibia & Fibula 2 Views IMPRESSION: Knee arthroplasty. Otherwise normal. Electronically Signed: Juan Miguel Pereira MD, MARIA GUADALUPE at 17:33 EDT ,
== END | disposition home or self-care (01) ==
LOC: RAD 15:23
PROVIDERS: PCP Internal Medicine; Referring Provider Nurse Practitioner Family; Visit Provider Nurse Practitioner Family
DX: M79.605 Pain in left leg (principal)
CPT/HCPCS: 73590

== ENCOUNTER → 2022-10-10 | Outpatient (CLI) | payer BC, SELFPAY ==
[2022-10-15 13:07] LABS: HPV APTIMA, High Risk Negative (Negative)
== END | disposition home or self-care (01) ==
LOC: LABSPEC 11:37
PROVIDERS: PCP Internal Medicine; Visit Provider Nurse Practitioner Women's Health
DX: Z12.4 Encounter for screening for malignant neoplasm of cervix (principal)
CPT/HCPCS: 87624; 88175; G0145

== ENCOUNTER → 2023-03-09 | Outpatient (CLI) | payer BC, SELFPAY ==
[2023-03-09 16:52] LABS: ALB/GLOB Ratio 1.1 RATIO (0.9-2.4); AST(SGOT) 12 U/L (15-37); Alanine Aminotransfer ALT/SGPT 22 U/L (13-56); Albumin, Serum 3.8 g/dL (3.2-5.0); Alkaline Phosphatase 97 U/L (45-117); Anion Gap 3 (5-15); BUN 21 mg/dL (7-18); Calcium,Total 8.9 mg/dL (8.5-10.1); Chloride 107 mmol/L (98-107); Cholesterol 184 mg/dL (200); Creatinine, Serum 0.72 mg/dL (0.55-1.02); EST Glomerular Filtration Rate 87 mL/min (>60); Est Glom Filt Rate - Afr Amer 105 mL/min (>60); Globulin 3.5 g/dL (2.2-4.2); Glucose 95 mg/dL (74-106); High Density Lipoprotein 97 mg/dL; Potassium 4.4 mmol/L (3.5-5.1); Protein, Total 7.3 g/dL (6.4-8.2); Sodium Level 139 mmol/L (136-145); Thyroid Stim Hormone (TSH) 4.86 uIU/mL (0.358-3.74); Triglycerides 74 mg/dL; Very Low Density Lipoprotein 15 mg/dL (5-40)
== END | disposition home or self-care (01) ==
LOC: LAB 15:26
PROVIDERS: PCP Internal Medicine; Referring Provider Internal Medicine; Visit Provider Internal Medicine
DX: Z00.00 Encounter for general adult medical examination without abnormal findings (principal); R53.83 Other fatigue; Z79.899 Other long term (current) drug therapy
CPT/HCPCS: 36415; 80053; 80061; 84443

== ENCOUNTER → 2023-08-24 | Outpatient (CLI) | payer BC, SELFPAY ==
--- NOTE | 2023-08-24 09:40 | BI_ITS ---
MAMMOGRAPHY - BILATERAL SCREENING REASON FOR EXAM: Female, 63 years old. Routine annual screening examination. PERTINENT HISTORY: Personal history of breast cancer. History of prior right lumpectomy with axillary node dissection. TECHNIQUE: Digital bilateral breast rio (3D mammographic acquisition) in the CC and MLO projections. 2-D mediolateral oblique (MLO) and craniocaudad (CC) views of both breasts were obtained. CAD: Full Field Digital Mammography with Computer Added Detection was performed. COMPARISON: Comparison is made with prior study August 22, 2022 and September 02, 2021. FINDINGS: Breast Composition: The breasts are heterogeneously dense, which may obscure small masses. There are no dominant masses or suspicious calcifications. The patient is status post lumpectomy in the deep upper lateral aspect of the right breast with resultant postoperative scarring and breast deformity. Surgical clips are seen in the right axilla. No other significant abnormalities are identified. There has been no significant change since the prior study. BI/SCRN MAMM (CAD)W/RIO BILAT IMPRESSION: Stable bilateral screening mammogram. Yearly follow-up mammogram recommended. (A) ASSESSMENT CATEGORY: BIRADS Category 2: Benign. A letter regarding these results will be sent to the patient by the facility within 30 days. Approximately 10% of breast cancers are not detected by mammography. A normal mammogram should not delay biopsy of a clinically suspicious abnormality. [id number] Electronically Signed: aGlen Martinez MD at 10:37 EDT ,
== END | disposition home or self-care (01) ==
LOC: OPBI 09:40
PROVIDERS: PCP Internal Medicine; Referring Provider Internal Medicine Medical Oncology; Visit Provider Internal Medicine Medical Oncology
DX: Z12.31 Encounter for screening mammogram for malignant neoplasm of breast (principal)
CPT/HCPCS: 77063; 77067

== ENCOUNTER → 2023-09-13 | Outpatient (CLI) | payer BC, SELFPAY ==
--- NOTE | 2023-09-13 07:02 | CT_ITS ---
STUDY: CT ABDOMEN AND PELVIS WITH CONTRAST REASON FOR EXAM: Female, 63 years old. ABD PAIN- LLQ. History of breast cancer. RADIATION DOSAGE (If Supplied By Facility): CTDIvol = ( 18.23 ) mGy, DLP = ( 1023.51 ) mGycm TECHNIQUE: Transaxial images were obtained from the dome of the diaphragm to the symphysis pubis with oral contrast. Oral and amp; IV Readi-CAT and amp; 100mL Isovue-370 was administered. Sagittal and coronal images were reconstructed. Individualized dose optimization techniques were used for this CT. COMPARISON: None. FINDINGS: The visualized lung bases are unremarkable. The visualized portions of the heart are within normal limits. There is decreased attenuation of the liver consistent with steatosis. Normal gallbladder and extrahepatic biliary system. Normal spleen. Normal pancreas. Normal bilateral adrenal glands. Normal right kidney. Normal left kidney. Normal visualized stomach. Normal small intestine. Large amount of fecal material is seen in the colon. The appendix is visualized and appears normal. Normal abdominal aorta. Normal inferior vena cava. Normal retroperitoneum. Normal urinary bladder. ESSURE devices are seen in the fallopian tubes. Normal abdominal wall. Loss of the normal lumbar lordosis. CT/Abdomen/Pelvis WITH Contrast IMPRESSION: Large amount of fecal material is seen in the colon. Fatty infiltration of the liver. Electronically Signed: Galen Martinez MD at 15:02 EDT ,
[2023-09-13] MEDS: 0.9 % NaCl (Sterile) Posiflush 10 mL IV (07:05)
[2023-09-13] MEDS: 0.9% Saline Lock 10 ML Syringe IV (07:15)
== END | disposition home or self-care (01) ==
PROVIDERS: PCP Internal Medicine; Referring Provider Internal Medicine Medical Oncology; Visit Provider Internal Medicine Medical Oncology
DX: R10.9 Unspecified abdominal pain (principal); Z85.3 Personal history of malignant neoplasm of breast
CPT/HCPCS: 74177; Q9967; A4216

== ENCOUNTER → 2024-03-01 | Outpatient (CLI) | payer BC, SELFPAY ==
[2024-03-01 11:45] LABS: Absolute Lymphocyte Count 0.83 X10^3/uL (0.83-4.51); Absolute Neutrophil Count 1.4 X10^3/uL (2.0-7.7); Basophil# 0.03 X10^3/uL; Basophil% 1.1 % (0-1); Eosinophil# 0.13 X10^3/uL; Eosinophils% 4.6 % (0-5); Hemoglobin 12.6 g/dL (12.0-15.0); Lymphocyte # 0.83 X10^3/ul (0.83-4.51); Lymphocyte % 29.3 % (19-41); Mean Corp Hgb Conc 31.5 g/dL (32-36); Mean Corpuscular Hgb 31.7 pg (27.0-32.0); Mean Corpuscular Volume 100.8 fL (81-99); Mean Platelet Vol. 10.1 fl (6.2-12.0); Monocyte# 0.45 X10^3/uL; Monocyte% 15.9 % (0-10); NRBC Flagged by Analyzer 0 % (0-5); Neutrophil # 1.38 X10^3/uL (2.7-7.7); Neutrophil % 48.7 % (47-70); Platelet Count 273 K/mm3 (150-450); RBC Distribution Width CV 13.8 % (11.6-14.6); RBC Distribution Width SD 51.2 fl (35.1-43.9); Red Blood Count 3.97 M/mm3 (4.2-5.4); White Blood Count 2.8 K/mm3 (4.4-11.0)
[2024-03-01 12:17] LABS: ALB/GLOB Ratio 1.1 RATIO (0.9-2.4); AST(SGOT) 18 U/L (15-37); Alanine Aminotransfer ALT/SGPT 16 U/L (13-56); Albumin, Serum 3.8 g/dL (3.2-5.0); Alkaline Phosphatase 88 U/L (45-117); Anion Gap 5 (5-15); BUN 17 mg/dL (7-18); BUN/Creat Ratio 24.5 RATIO (10-20); Calcium,Total 9.2 mg/dL (8.5-10.1); Chloride 109 mmol/L (98-107); Cholesterol 197 mg/dL (200); Creatinine, Serum 0.69 mg/dL (0.55-1.02); EST Glomerular Filtration Rate 91 mL/min (>60); Est Glom Filt Rate - Afr Amer 110 mL/min (>60); Globulin 3.4 g/dL (2.2-4.2); Glucose 88 mg/dL (74-106); High Density Lipoprotein 112 mg/dL; Potassium 4.3 mmol/L (3.5-5.1); Protein, Total 7.2 g/dL (6.4-8.2); Sodium Level 141 mmol/L (136-145); Triglycerides 30 mg/dL; Very Low Density Lipoprotein 6 mg/dL (5-40)
== END | disposition home or self-care (01) ==
LOC: LAB 11:02
PROVIDERS: PCP Internal Medicine; Referring Provider Internal Medicine; Visit Provider Internal Medicine
DX: Z00.00 Encounter for general adult medical examination without abnormal findings (principal); E03.8 Other specified hypothyroidism
CPT/HCPCS: 36415; 80053; 80061; 84443; 85025

== ENCOUNTER → 2024-03-15 | Outpatient (CLI) | payer BC, SELFPAY | END | disposition home or self-care (01) | LOC: LAB 11:32 | PROVIDERS: PCP Internal Medicine; Referring Provider Internal Medicine Medical Oncology; Visit Provider Internal Medicine Medical Oncology | DX: C50.411 Malignant neoplasm of upper-outer quadrant of right female breast (principal); Z17.1 Estrogen receptor negative status [ER-] ==

== ENCOUNTER → 2024-08-26 | Outpatient (CLI) | payer OTHER, SELFPAY ==
--- NOTE | 2024-08-26 10:30 | BI_ITS ---
EXAM: SCRN MAMM (CAD)W/RIO BILAT DATE: 08/26/2024 CLINICAL HISTORY: F, Age 64 y/o , SCREENING Personal history of right breast cancer. She had a lumpectomy with radiation therapy and chemotherapy. BREAST CANCER RISK ASSESSMENT: Has not been calculated. TECHNIQUE: Bilateral screening digital breast tomosynthesis with 2D and 3D images. Computer aided detection. COMPARISON: Prior exam(s) dated 08/24/2023. FINDINGS: TISSUE DENSITY: The breast tissue is composed of scattered area of fibroglandular density. Bilateral Breast Mammographic Findings: Architectural distortion and increased density are seen in the superior outer, far posterior aspect of the right breast which does correspond to the postlumpectomy and postradiation site. This area appears stable. Surgical clips are seen in the axillary region. The right breast is smaller in comparison to the left breast compatible with postsurgical changes. This is a stable finding. There is no mammographic abnormality in the right breast to suggest new or recurrent malignancy. There are no suspicious masses, suspicious cluster of microcalcifications, architectural distortion or secondary signs of malignancy identified in the left breast. BI/SCRN MAMM (CAD)W/RIO BILAT IMPRESSION: Right Breast: BIRADS 2 BENIGN FINDING. Left Breast: BIRADS 2 BENIGN FINDING. OVERALL FINAL ASSESSMENT: BIRADS 2 BENIGN FINDING RECOMMENDATION: Routine annual follow-up in 1 Year A letter with findings and recommendations will be mailed to the patient. Reading Location: [id number]
== END | disposition home or self-care (01) ==
PROVIDERS: PCP Internal Medicine; Referring Provider Internal Medicine Medical Oncology; Visit Provider Internal Medicine Medical Oncology
DX: Z12.31 Encounter for screening mammogram for malignant neoplasm of breast (principal)
CPT/HCPCS: 77063; 77067

== ENCOUNTER → 2024-09-12 | Outpatient (CLI) | payer OTHER, SELFPAY ==
--- NOTE | 2024-09-12 09:10 | NM_ITS ---
PROCEDURE: BONE SCAN WHOLE BODY 09/12/2024 REASON FOR EXAM: COSTAL MARGIN PAIN/BREAST CA Left-sided rib pain. History of right breast cancer. TECHNIQUE: Whole-body bone scan with anterior and posterior views. Imaging at 3.5 hours. RADIOPHARMACEUTICAL: 25.5 mCi Technetium-99m MDP IV COMPARISON: CORRELATION WITH EXISTING RELEVANT IMAGING STUDIES (i.e. x-ray, MRI, CT, etc.): No existing relevant imaging study available or patient did not have a previous relevant imaging study. FINDINGS: Bones: Increased uptake is seen along the medial compartment of the right knee joints suggestive of degenerative changes. No evidence of bony metastasis. The patient is status post left total knee replacement. Kidneys: Symmetrical uptake. NM/Bone Scan Whole Body IMPRESSION: No evidence of metastatic deposits. Findings suggestive of degenerative changes of the medial compartment of the ri ght knee joint. Reading Location: [place] [id number]
== END | disposition home or self-care (01) ==
LOC: NM 09:08
PROVIDERS: PCP Internal Medicine; Referring Provider Internal Medicine Medical Oncology; Visit Provider Internal Medicine Medical Oncology
DX: C50.411 Malignant neoplasm of upper-outer quadrant of right female breast (principal); Z17.1 Estrogen receptor negative status [ER-]; R07.81 Pleurodynia
CPT/HCPCS: 78306; A9503

== ENCOUNTER → 2025-03-28 | Outpatient (CLI) | payer OTHER, SELFPAY | END | disposition home or self-care (01) | LOC: LAB 11:27 | PROVIDERS: PCP Internal Medicine; Referring Provider Internal Medicine Medical Oncology; Visit Provider Internal Medicine Medical Oncology | DX: C50.411 Malignant neoplasm of upper-outer quadrant of right female breast (principal) | CPT/HCPCS: 36415 ==

== ENCOUNTER 2025-05-18 15:17 | Emergency (ER) | payer OTHER, SELFPAY ==
[2025-05-18 15:18] VITALS: BP 127/80; PULSE 99; RESP 16; TEMP 36.4; O2SAT 100; BMI 25.8
--- NOTE | 2025-05-18 15:35 | EX.ED.UPPERE ---
HPI History of Present Illness Chief Complaint: Laceration Detail of Chief Complaint: Laceration to right index finger Informant: patient Narrative Narrative: Patient presents to the emergency department with complaint of laceration to the right index finger. She was changing out a razor blade to an X-Act[employer] knife when she accidentally lacerated her finger. She is right-hand dominant. Unsure of her last tetanus. PFSH PFSH Medical History (Updated 05/18/25 @ 15:[address] Nabeel Hodge, DO) Left leg pain White matter abnormality on MRI of brain White matter changes History of echocardiogram History of breast cancer Imbalance Nausea Fluid retention Cystitis Malodorous urine Urinary tract infection Encounter for education Post-menopausal COVID Cancer Wears partial dentures Alcohol use Arthritis Anemia Non-smoker History of edema Strain of left knee Depression Home Medications ?Medication ?Instructions ?Recorded ?Last Taken ?Type escitalopram oxalate 20 mg tablet 20 mg PO DAILY 12/16/20 Unknown History multivitamin 1 tab PO DAILY 07/23/21 Unknown History docusate sodium 100 mg capsule 100 mg PO DAILY PRN Constipation 11/16/21 Unknown History (Colace) polyethylene glycol 3350 17 gram 17 g PO DAILY PRN Constipation 11/16/21 Unknown History oral powder packet (Miralax) lidocaine-prilocaine 2.5 %-2.5 % 1 applic topical ONCE PRN port 03/14/22 Unknown Rx topical cream access 30 days #30 grams ondansetron 8 mg disintegrating 8 mg PO Q8H PRN nausea and 03/14/22 Unknown Rx tablet vomiting #30 tabs omega-3 fatty acids 1,000 mg PO DAILY 04/05/22 Unknown History bupropion HCl 150 mg 24 hr tablet, 150 mg PO 09/07/22 Unknown History extended release hydroxyzine pamoate 25 mg capsule 25 mg PO QHS 04/13/23 Unknown History (Vistaril) pregabalin 25 mg capsule 50 mg PO QHS 04/13/23 Unknown History meloxicam 15 mg tablet 15 mg PO QDAY 09/10/24 Unknown History Allergy/AdvReac Type Severity Reaction Status Date / Time No Known Allergies Allergy Verified 05/18/25 15:18 Family History Mother Colon cancer Father Dementia Surgical History (Updated 05/18/25 @ 15:34 by Olga Silver) History of appendectomy History of knee replacement History of vascular access device History of lumpectomy History of Hx of colonoscopy H/O medial meniscus repair of right knee Social History Smoking Status: Never smoker second hand exposure: No alcohol intake: current alcohol intake frequency: holidays/special occasions only details: occasionally substance use type: other what type of physical activity do you participate in: none abby/quaker: None seatbelt use: always ROS ROS ED Review of Systems ROS Unobtainable: other Constitutional Constitutional ED: Reports lethargy; Denies chills, fever(s), sweats or weight loss Eyes Eyes: Denies blurry vision, change in vision or diplopia ENT ENT ED: Denies rhinorrhea or sore throat Cardiovascular Cardiovascular: Denies chest pain, orthopnea or racing heartbeat Respiratory/Chest Respiratory/Chest: Denies cough, dyspnea, dyspnea on exertion, orthopnea or sputum Gastrointestinal Gastrointestinal: Denies abdominal pain, diarrhea, nausea or vomiting Genitourinary Genitourinary ED: Denies dysuria, hematuria or urinary frequency Musculoskeletal Musculoskeletal: Denies arthralgias, back pain, myalgias or neck pain Integumentary Reports other Details: Laceration to right index finger ; Denies abscess, Abrasions or rash Neurologic Neurologic: Denies headache(s) or weakness Psychiatric Psychiatric: Denies anxiety, depression or suicidal thoughts Endocrine Endocrinology: Denies polydipsia, polyphagia or polyuria Hematologic/Lymphatic Hematologic/Lymphatic: Denies easy bleeding, easy bruising or lymphadenopathy Allergic/Immunologic Allergic/Immunologic ED: Denies mouth swelling, tongue swelling or urticaria EXAM Physical Exam Const Vital Signs: 05/18/25 15:18 Temperature 97.6 F L Temperature Source Temporal Pulse Rate 99 Respiratory Rate 16 Blood Pressure 127/80 H Blood Pressure Mean 95 Pulse Ox 100 Oxygen Delivery Method Room Air Positive well nourished and well developed General Appearance ED: well developed and NAD HEENT Reports TM's clear and moist mucous membranes normocephalic and atraumatic; Negative for trauma or tenderness Tympanic Membrane ED: Yes TM's clear Eyes PERRL and EOMs intact bilaterally General Eye ED: Negative for pale conjunctiva or scleral icterus Neck no lymphadenopathy, supple and no JVD General: Negative for tenderness Chest Wall inspection of chest normal and palpation of chest normal Chest: Negative for tenderness Resp normal respiratory effort and clear to auscultation bilaterally Effort and Inspection: Negative for respiratory distress or pain with movement Auscultation: Negative for rhonchi, wheezes or diminished lung sounds Cardio regular rate, regular rhythm, S1 normal heart sound, S2 normal heart sound and no murmurs Peripheral Pulses: pulses 2+ throughout GI normal to inspection, nondistended, normoactive bowel sounds, soft to palpation, non-tender, non-distended and no masses Back/Spine no CVA tenderness and no thoracic nor lumbar tenderness Extremity Extremity Narrative: Right index finger-patient has a flap-like almost circular laceration to the distal phalanx pulp volar aspect measuring approximately 1 cm in diameter. Skin mostly avulsion barely holding on by piece of epidermis. Neurovascularly intact General Extremety ED: Negative for edema General Extremity: Negative for edema Neuro oriented x3, CN's II-XII intact bilaterally, no sensory deficits noted and gait normal Sensorium / Orientation: awake, alert, oriented to person, oriented to place and oriented to time Motor Exam: strength 5/5 throughout and strength abnormal Psych mental status grossly normal Skin no rashes or lesions noted and no wounds MDM MDM MDM Narrative Medical decision making narrative: Patient presents with laceration to index finger. More of an avulsion type injury. Discussed treatment options including possibly tacking down the flap with suture versus removing the flap and applying Gelfoam for hemostasis and clean dressing. Patient will be given a tetanus booster. Patient opted for removing the flap and applying Gelfoam and allowing secondary healing. I feel this is a reasonable option. The skin flap was easily removed. Gelfoam applied to the wound with good hemostasis. Clean dressing applied. Advised not to get the wound wet for the next 3 to 5 days. Advised return if increasing pain, redness, swelling, purulent drainage, or condition worsen anyway. Discharge Plan Triage Chief Complaint: Laceration ED Provider: Nabeel Hodge Dx/Rx/DC Orders Clinical Impression: Avulsion of skin Instructions: ED Laceration Extremity, ED Skin Tear (Skin Avulsion) Prescriptions: No Action multivitamin Tablet 1 tab PO DAILY docusate sodium [Colace] 100 mg capsule 100 mg PO DAILY PRN (Reason: Constipation) polyethylene glycol 3350 [Miralax] 17 gram powder in packet 17 g PO DAILY PRN (Reason: Constipation) ondansetron 8 mg tablet,disintegrating 8 mg PO Q8H PRN (Reason: nausea and vomiting) Qty: 30 0RF lidocaine-prilocaine 2.5-2.5 % cream 1 applic topical ONCE PRN (Reason: port access) 30 Days Qty: 30 2RF bupropion HCl 150 mg tablet extended release 24 hr 150 mg PO pregabalin 25 mg capsule 50 mg PO QHS hydroxyzine pamoate [Vistaril] 25 mg capsule 25 mg PO QHS meloxicam 15 mg tablet 15 mg PO QDAY escitalopram oxalate 20 mg tablet 20 mg PO DAILY Fish Oil Capsule 1,000 mg PO DAILY Primary Care Provider: AUBREE MARTINEZ Referrals: AUBREE MARTINEZ MD [Primary Care Provider, Internal Medicine] - 5-7 Days Print Language: [place] Disposition Disposition: Home, Self Care
[2025-05-18 15:49] VITALS: BP 116/80; PULSE 77; RESP 18; TEMP 36.7; O2SAT 96
--- OUTSIDE RECORDS SUMMARY | 2025-05-18 15:54 | XMS RPT_ITS | CCD ---
Author Organization [facility] Care Team Providers Care [employer] Equipment Operator Name Role Phone Jennifer Stack MD Unavailable Care Physician, No Primary Primary Care Provider Unavailable Care Physician, No Primary Referring Provider Un available Dr. Reginaldo Pedraza Attending Provider [phone] Dr. Burton Augustin Attending Provider [phone] Reginaldo Pedraza Referring Provider [phone] Dr. Brien Brand Attending Provider Dr. Brien Brand Other Provider AUBREE CAMPBELL Primary Care Provider AUBREE CAMPBELL Referring Provider Unavailable Unavailable [facility] Attending Provider MD AUBREE CAMPBELL Primary Care Provider Jose DIRECTOR OF RECRUITMENT AND ADMISSIONS, DIRECTOR OF RECRUITMENT AND ADMISSIONS-C Shahida Attending Provider MD AUBREE CAMPBELL Referring Provider [phone] Malini NELSON, LESLIE Arias Attending Provider Dr. Brien Brand Referring Provider Aubree Campbell MD Primary Care Provider Dr. Burton Augustin Attending Provider [phone] Brien Brand Attending Provider Dr. Brien Brand Other Provider Dr. Reginaldo Pichardo Attending Provider Dr. Arsiteo Patel Attending Provider Dr. Aristeo Patel Referring Provider MD AUBREE CAMPBELL Primary Care Provider MD AUBREE CAMPBELL Referring Provider Dr. Reginaldo Pichardo Attending Provider Jose DIRECTOR OF RECRUITMENT AND ADMISSIONS, DIRECTOR OF RECRUITMENT AND ADMISSIONS-C Shahida Attending Provider Dr. Reginaldo Pedraza Attending Provider MD AUBREE CAMPBELL Primary Care Provider MD AUBREE CAMPBELL Referring Provider Dr. Reginaldo Pichardo Attending Provider Dr. Aristeo Patel Attending Provider Dr. Aristeo Patel Referring Provider Jose DIRECTOR OF RECRUITMENT AND ADMISSIONS, DIRECTOR OF RECRUITMENT AND ADMISSIONS-C Shahida Attending Provider Dr. Reginaldo Pedraza Attending Provider Dr. Burton Augustin Attending Provider Dr. Reginaldo Pedraza Referring Provider Dr. Reginaldo Pedraza Other Provider Aubree Campbell MD Primary Care Provider [phone] MD AUBREE CAMPBELL Primary Care Provider Dr. Aristeo Patel Attending Provider Dr. Aristeo Patel Referring Provider MD AUBREE CAMPBELL Referring Provider Dr. Reginaldo Pichardo Attending Provider Jose DIRECTOR OF RECRUITMENT AND ADMISSIONS, DIRECTOR OF RECRUITMENT AND ADMISSIONS-C Shahida Attending Provider LESLIE Bingham Attending Provider ANDRA ROBERSON Referring Unavailable AUBREE CAMPBELL Primary Care Unavailable ANDRA ROBERSON Attending Unavailable ANDRA ROBERSON Referring Unavailable AUBREE CAMPBELL Primary Care Unavailable ANDRA ROBERSON Attending Unavailable MD AUBREE CAMPBELL Primary Care Provider MD AUBREE CAMPBELL Referring Provider [phone] Dr. Reginaldo Pedraza Attending Provider Dr. Aristeo Patel Attending Provider MD AUBREE CAMPBELL Primary Care Provider MD AUBREE CAMPBELL Referring Provider [phone] Jose DIRECTOR OF RECRUITMENT AND ADMISSIONS, DIRECTOR OF RECRUITMENT AND ADMISSIONS-C Shahida Attending Provider Dr. Reginaldo Pedraza Attending Provider Dr. Raad Chris Attending Provider [phone] MD AUBREE CAMPBELL Primary Care Provider [phone] MD AUBREE CAMPBELL Referring Provider LESLIE Bingham Attending Provider Dr. Reginaldo Pedraza Attending Provider Dr. Raad Chris Attending Provider [phone] Dr. Aristeo Patel Attending Provider MD AUBREE CAMPBELL Primary Care Provider MD AUBREE CAMPBELL Referring Provider Dr. Reginaldo Pichardo Attending Provider HELEN IRVERA Referring Unavailab le HILL, AUBREE L Primary Care Unavailable MD AUBREE CAMPBELL Primary Care Provider MD AUBREE CAMPBELL Referring Provider [phone] Reginaldo Pichardo Attending Provider BECKY VILLALOBOS Attending HELEN Aparicio Admitting Unavailab le HELEN RIVERA Referring Unavailab le HILL, AUBREE L Primary Care Unavailable HELEN RIVERA Attending Unavailab le HELEN RIVERA Referring Unavailab le HILL, AUBREE L Primary Care Unavailable HELEN RIVERA Admitting Unavailab le HILL, AUBREE L Primary Care Unavailable KIM IRIZARRY Attending Unavailable HELEN RIVERA Referring Unavailab le HELEN RIVERA Admitting Unavailab le HILL, AUBREE L Primary Care Unavailable BECKY VILLALOBOS Attending Unavailable HELEN RIVERA Referring Unavailab le MIGUEL, HELEN CAMPOS Admitting Unavailab le HILL, AUBREE L Primary Care Unavailable BECKY VILLALOBOS Attending Unavailable HELEN RIVERA Referring Unavailab le HELEN RIVERA Admitting Unavailab le HILL, AUBREE L Primary Care Unavailable RICK ASHTON Attending Unavailable MIGUEL, HELEN CAMPOS Admitting Unavailab le HILL, AUBREE L Primary Care Unavailable MIGUEL, HELEN CAMPOS Referring Unavailab le WARNES, BECKY Attending Unavailable MIGUEL, HELEN CAMPOS Admitting Unavailab le HILL, AUBREE L Primary Care Unavailable MIGUEL, HELEN CAMPOS Referring Unavailab le MIGUEL, HELEN CAMPOS Attending Unavailab le MIGULE, HELEN CAMPOS Admitting Unavailab le HILL, AUBREE L Primary Care Unavailable MIGUEL, HELEN CAMPOS Admitting Unavailab le MIGUEL, HELEN CAMPOS Referring Unavailab le CRUZ, NASIR Attending Unavailable HILL, AUBREE L Primary Care Unavailable GRISELDA, BECKY Attending Unavailable MIGUEL, HELEN CAMPOS Admitting Unavailab le MIGUEL, HELEN CAMPOS Referring Unavailab le HILL, AUBREE L Primary Care Unavailable RICK ASHTON Attending Unavailable MIGUEL, HELEN CAMPOS Admitting Unavailab le MIGUEL, HELEN CAMPOS Referring Unavailab le HILL, AUBREE L Primary Care Unavailable MIGUEL, HELEN CAMPOS Admitting Unavailab le MIGUEL, HELEN CAMPOS Referring Unavailab le HILL, AUBREE L Primary Care Unavailable JADE ALVARADO Attending Unavailable JADE ALVARADO Attending Unavailable JUAN, AUBREE L Primary Care Unavailable EMA MERRILL Referring Unavailable EMA MERRILL Admitting Unavailable MD AUBREE CAMPBELL Primary Care Provider MD AUBREE CAMPBELL Referring Provider Dr. Reginaldo Pichardo Attending Provider DR ROCKY GAFFNEY MD Attending UnavailAubree Boss MD Primary Care Provider Aubree Campbell MD Unavailable AUBREE CAMPBELL Primary Care Unavailable TITUS WOOTEN Attending Unavailable Aubree Campbell MD Primary Care Provider SELF Referring Unavailable FUAD MONTOYA Attending UnavailAUBREE Boss Primary Care Unavailable AUBREE CAMPBELL MD Primary Care Provider Dr. Reginaldo Pichardo MD Attending Provider Dr. Reginaldo Pichardo MD Referring Provider SANTOS POND Referring Unavailable AUBREE CAMPBELL Primary Care Unavailable SANTOS POND Attending Unavailable STAMPER, SANTOS Referring Unavailable HILL, AUBREE Primary Care Unavailable STAMPER, SANTOS Attending Unavailable HILL, AURBEE L Primary Care Unavailable ROBERSON, ANDRA BOSE Admitting Unavailable ROBERSON, ANDRA BOSE Referring Unavailable HILL, AUBREE L Primary Care Unavailable ROBERSON, ANDRA BOSE Referring Unavailable ROBERSON, ANDRA BOSE Admitting Unavailable HILL, AUBREE L Primary Care Unavailable ROBERSON, ANDRA BOSE Attending Unavailable HILL, AUBREE L Primary Care Unavailable ROBERSON, ANDRA BOSE Attending Unavailable ROBERSON, ANDRA BOSE Admitting Unavailable HILL, AUBREE L Primary Care Unavailable ROBERSON, ANDRA BOSE Referring Unavailable HILL, AUBREE L Primary Care Unavailable ROBERSON, ANDRA BOSE Attending Unavailable HILL, AUBREE L Attending Unavailable HILL, AUBREE L Referring Unavailable HILL, AUBREE L Referring Unavailable HILL, AUBREE Primary Care Unavailable Elie OLS, Marty Chi Attending Unavailable Prah, Reginaldo Attending Unavailable HILL, AUBREE Primary Care Unavailable Elie OLS, Marty Chi Attending Unavailable Elie OLS, Marty Chi Referring Unavailable Prah, Reginaldo Attending Unavailable Prah, Reginaldo Referring Unavailable Prah, Reginaldo Referring Unavailable Prah, Reginaldo Attending Unavailable Care Physician, No Primary Primary Care Unava ilable Elie OLS, Marty Chi Attending Unavailable Elie OLS, Marty Chi Referring Unavailable HILL, AUBREE Primary Care Unavailable HILL, AUBREE Primary Care Unavailable Prah, Reginaldo Attending Unavailable Prah, Reginaldo Referring Unavailable HILL, AUBREE Primary Care Unavailable Prah, Reginaldo Attending Unavailable Prah, Reginaldo Referring Unavailable HILL, AUBREE Primary Care Unavailable Prah, Reginaldo Attending Unavailable Prah, Reginaldo Referring Unavailable Allergies Allergy Classification Reported Allergen(s) Allergy Type Date of Onset Reaction(s) Facility (1 source) ALLERGIES NOT ON FILE; Translations: [ALLERGIES NOT ON FILE] Propensity to adverse reactions (disorder) [facility] Medications Current Medications Medication Drug Class(es) Dates Sig (Normalized) Sig (Original) acetaminophen 325 mg / oxyCODONE hydrochloride 5 mg oral tablet (5 sources) Opioid Agonist Start: 05-21-2024 End: 05-27-2024 take 1 tablet by mouth every six hours as needed for pain oxyCODONE-acetamin ophen (PERCOCET) 5-325 mg per tablet Indications: Closed fracture of distal end of left radius, unspecified fracture morphology, initial encounter Take 1 (one) tablet by mouth every 6 (six) hours as needed for pain . 12 tablet 05/24/2024 05/27/2024 Active Start: 09-02-2021 take 1 tablet by luis miguel th every four hours Oxycodone-Acetaminophen (Percocet) 5-325 mg tablet Active 1 TABLET PO Q4H 30 5 September 02, 2021 4:30pm ascorbic acid 500 mg chewabl e tablet (20 sources) Vitamin C ascorbic acid (V itamin C) 500 mg chewable tablet Chew 1,000 mg in the morning. Active ascorbic acid (V ITAMIN C ORAL) Take by mouth . Active ascorbic acid (V ITAMIN C ORAL) Take by mouth . 0 Active aspirin 325 mg delayed release oral tablet (20 sources) Platelet Aggregation Inhibitor, Nonsteroidal Anti-inflammatory Drug Start: 09-12-2022 End: 10-12-2022 take 1 tablet by mouth twice daily aspirin 325 MG EC tablet Take 1 (one) tablet (325 mg total) by mouth 2 (two) times a day . 60 tablet 0 09/12/2022 10/12/2022 Active 24 hr buPROPion hydrochloride 150 mg extended release oral tablet (20 sources) Aminoketone Start: 09-07-2022 take 1 tablet by mouth every twenty-four hours Bupropion Hcl 150 mg tablet extended release 24 hr Active 150 mg PO September 07, 2022 12:00am Start: 08-10-2022 End: 02-06-2025 take 1 tablet by mouth once daily in the morning buPROPion XL (Wellbutrin XL) 150 MG 24 hr tablet Indications: Major depressive disorder, single episode, moderate (HCC) TAKE 1 TABLET BY MOUTH EVERY DAY IN THE MORNING FOR 30 DAYS 90 tablet 3 09/19/2024 02/06/2025 Discontinued (Therapy completed) cyclobenzaprine hydrochloride 10 mg oral tablet (20 sources) Muscle Relaxant Start: 09-28-2022 End: 10-08-2022 take 1 tablet by mouth three times daily as needed for muscle spasms cyclobenzaprine (FLEXERIL) 10 MG tablet Indications: Status post total left knee replacement Take 1 (one) tablet (10 mg total) by mouth 3 (three) times a day as needed for muscle spasms . 30 tablet 0 09/28/2022 10/08/2022 Active Start: 09-12-2022 End: 09-22-2022 take 1 tablet by mouth three times daily as needed for muscle spasms cyclobenzaprine (FLEXERIL) 10 MG tablet Take 1 (one) tablet (10 mg total) by mouth 3 (three) times a day as needed for muscle spasms . 30 tablet 0 09/12/2022 09/22/2022 diclofenac sodium 75 mg delayed release oral tablet (10 sources) Nonsteroidal Anti-inflammatory Drug Start: 08-31-2021 take 75 mg by mouth twice daily Diclofenac Sodium Active 75 MG PO TWICE A DAY August 31, 2021 12:00am docusate sodium 100 mg oral capsule (17 sources) Start: 11-16-2021 take 1 capsule by mouth once daily as needed for constipation Docusate Sodium (Colace) 100 mg capsule Active 100 mg PO DAILY as needed for Constipation November 16, 2021 12:00am escitalopram 20 mg oral tablet (20 sources) Serotonin Reuptake Inhibitor Start: 04-15-2015 End: 07-10-2024 take 1 tablet by mouth once daily escitalopram (Lexapro) 20 MG tablet Indications: Moderate major depression (HCC) TAKE 1 TABLET BY MOUTH EVERY DAY FOR 90 DAYS 90 tablet 2 04/11/2024 Active Fish Oils (7 sources) omega-3 (Fish Oil) 1200 MG capsule 1 capsule. Active hydrOXYzine pamoate 25 mg oral capsule (6 sources) Antihistamine Start: 04-13-2023 take 1 capsule by mouth at bedtime Hydroxyzine Pamoate (Vistaril) 25 mg capsule Active 25 mg PO AT BEDTIME April 13, 2023 1:00am Start: 02-13-2023 End: 02-19-2024 take 1 capsule by mouth every six hours hydrOXYzine pamoate (Vistaril) 50 MG capsule Indications: Primary insomnia Take 1-2 capsules (50-100 mg) by mouth every 6 (six) hours if needed for itching. 60 capsule 3 02/13/2023 02/19/2024 Discontinued ibuprofen 800 mg oral tablet (11 sources) Nonsteroidal Anti-inflammatory Drug Start: 12-16-2020 take 800 mg by mouth three times daily Ibuprofen Active 800 MG PO THREE TIMES A DAY December 16, 2020 12:00am lidocaine 25 mg/ml / prilocaine 25 mg/ml topical cream (20 sources) Antiarrhythmic, Amide Local Anesthetic Start: 09-28-2021 End: 10-17-2022 Lidocaine-Prilo gurmeet 2.5-2.5 % cream Active 1 NMA TOPICAL ONCE as needed for port access March 14, 2022 11:32am Start: 09-28-2021 End: 03-14-2022 Lidocaine-Prilocaine Active 1 APPLIC TOPICAL ONCE March 14, 2022 11:32am meloxicam 15 mg oral tablet (5 sources) Nonsteroidal Anti-inflammatory Drug Start: 08-28-2024 End: 08-28-2025 take 1 tablet by mouth once daily meloxicam (MOBIC) 15 MG tablet Take 1 (one) tablet (15 mg total) by mouth daily . 30 tablet 11 08/28/2024 08/28/2025 Active Start: 07-23-2021 meloxicam (MOB IC) 15 MG tablet Take 1 (one) tablet (15 mg total) by mouth as needed . 0 07/23/2021 Active Multiple Vitamin (Multi-Vitamin) tablet (7 sources) take 1 tablet by luis miguel th in the morning Multiple Vitamin (Multi-Vitamin) tablet Take 1 tablet by mouth in the morning. Active multivitamin per tablet (20 sources) take 1 tablet by luis miguel th once daily multivitamin per tablet Take 1 (one) tablet by mouth daily . Active take 1 tablet by mouth once rachael y multivitamin per tablet Take 1 (one) tablet by mouth daily . 0 Active Multivitamin preparation (20 sources) Start: 07-23-2021 take 1 tablet by mouth once daily Multivitamin Active 1 TABLET PO DAILY July 23, 2021 9:16am Start: 07-23-2021 take 1 tablet by luis miguel th once daily Multivitamin Active 1 TABLET PO DAILY July 23, 2021 12:00am Start: 07-23-2021 take 1 tablet by luis miguel th once daily Multivitamin Active 1 TABLET PO DAILY July 23, 2021 1:00am Multivitamin tablet (1 source) Start: 07-23-2021 Multivitamin tablet Active 1 {tbl} PO DAILY July 23, 2021 1:00am nitrofurantoin, macrocrystals 100 mg oral capsule (4 sources) Nitrofuran Antibacterial Start: 10-21-2021 take 100 mg by mouth twice daily at mealtime Nitrofurantoin Macrocrystal Active 100 MG PO TWICE A DAY October 21, 2021 12:00am must administer with a meal/food Social Circle-3 Fatty Acids (Fish Oil) Capsule (14 sources) Start: 04-05-2022 take 1 capsule by mouth once daily Social Circle-3 Fatty Acids (Fish Oil) Capsule Active 1000 mg PO DAILY April 05, 2022 1:00am Start: 04-05-2022 take 1 capsule by mo ut once daily Social Circle-3 Fatty Acids (Fish Oil) Capsule Active 1000 MG PO DAILY April 05, 2022 1:00am Start: 04-05-2022 take 1 capsule by mo ut once daily Social Circle-3 Fatty Acids (Fish Oil) Capsule Active 1000 MG PO DAILY April 05, 2022 12:00am oxyCODONE hydrochloride 5 mg oral tablet (20 sources) Opioid Agonist Start: 09-28-2022 End: 10-05-2022 oxyCODONE (ROXICODONE) 5 MG immediate release tablet Indications: Status post total left knee replacement Take 1 (one) tablet (5 mg total) by mouth every 6 (six) hours as needed for pain (Days supply per fill: 7) . 28 tablet 0 09/28/2022 10/05/2022 Active Start: 04-12-2022 End: 04-13-2023 take 5-10 mg by mouth every four hours as needed for pain Oxycodone 5 mg tablet Discontinued 5 - 10 mg PO Q4H as needed for pain 15 09April 12, 2022 April 13, 2023 12:08pm polyethylene glycol 3350 00721 mg powder for oral solution (20 sources) Osmotic Laxative Start: 11-16-2021 End: 09-19-2022 Polyethylene Glycol 3350 (Miralax) 17 gram powder in packet Active 17 g PO DAILY as needed for Constipation November 16, 2021 12:00am pregabalin 100 mg oral capsule (20 sources) Start: 12-19-2023 End: 02-06-2025 take 1 capsule by mouth at bedtime pregabalin (Lyrica) 100 MG capsule Indications: Chronic right-sided low back pain without sciatica TAKE 1 CAPSULE BY MOUTH AT BEDTIME 90 capsule 1 04/10/2024 02/06/2025 Discontinued (Therapy completed) Start: 04-13-2023 take 2 capsules by m outh at bedtime Pregabalin 25 mg capsule Active 50 mg PO AT BEDTIME April 13, 2023 12:09pm Start: 04-13-2023 take 50 mg by mouth at bedtime Pregabalin Active 50 MG PO AT BEDTIME April 13, 2023 12:09pm Start: 08-10-2022 End: 04-13-2023 take 1 capsule by mouth once daily at bedtime pregabalin (Lyrica) 25 MG capsule Take 1 (one) capsule (25 mg total) by mouth every night at bedtime . 08/10/2022 Active temazepam 7.5 mg oral capsule (16 sources) Benzodiazepine Start: 02-06-2025 temazepam (Res toril) 7.5 MG capsule Indications: Primary insomnia Take 1 capsule (7.5 mg) by mouth as needed at bedtime for sleep 30 capsule 1 02/06/2025 Active Start: 02-06-2025 temazepam (Res toril) 7.5 MG capsule Indications: Primary insomnia Take 1 capsule (7.5 mg) by mouth as needed at bedtime for sleep 30 capsule 1 02/06/2025 Active Start: 02-21-2024 End: 02-06-2025 temazepam (Restoril) 7.5 MG capsule Indications: Primary insomnia Take 1 capsule (7.5 mg) by mouth as needed at bedtime for sleep 30 capsule 1 02/06/2025 02/06/2025 Discontinued (Reorder) Completed/Discontinued Medications Medication Drug Class(es) Dates Sig (Normalized) Sig (Original) acetaminophen 325 mg oral tablet (14 sources) Start: 09-12-2022 End: 09-22-2022 take 2 tablets by mouth every four hours acetaminophen (TYLENOL) 325 MG tablet Take 2 (two) tablets (650 mg total) by mouth every 4 (four) hours while awake for 10 days . 30 tablet 0 09/12/2022 09/22/2022 azithromycin 500 mg oral tablet (9 sources) Macrolide Antimicrobial Start: 09-07-2022 End: 04-13-2023 Azithromycin (Zithromax Tri-[place]) 500 mg tablet Discontinued 500 mg PO .COMPLEX 3 September 07, 2022 12:00am April 13, 2023 12:08pm 500 mg orally; busPIRone hydrochloride 5 mg oral tablet (11 sources) Start: 07-18-2022 End: 04-13-2023 take 1 tablet by mouth twice daily Buspirone 5 mg tablet Discontinued 5 mg PO TWICE A DAY 60 July 18, 2022 1:00am April 13, 2023 12:08pm cephalexin 500 mg oral capsule (20 sources) Cephalosporin Antibacterial Start: 09-12-2022 End: 09-19-2022 take 1 capsule by mouth three times daily cephALEXin (KEFLEX) 500 MG capsule Take 1 (one) capsule (500 mg total) by mouth 3 (three) times a day for 7 days . 21 capsule 0 09/12/2022 09/19/2022 Start: 04-12-2022 End: 05-13-2022 Cephalexin 500 mg capsule Di scontinued 1000 mg PO EVERY 8 HOURS 4 April 12, 2022 1:00am May 13, 2022 10:12am take 2 tabs at 9:00 pm and 2 tabs after 5 am when you wake up Start: 04-12-2022 End: 05-13-2022 Cephalexin Discontinued 1000 MG PO EVERY 8 HOURS 4 April 12, 2022 1:00am May 13, 2022 10:12am take 2 tabs at 9:00 pm and 2 tabs after 5 am when you wake up docusate sodium 50 mg / sennosides, retirement 8.6 mg oral tablet (20 sources) End: 05-23-2024 take 1 tablet by mouth once daily senna-docusate (Senna-S) 8.6-50 mg Take 1 tablet by mouth daily. 05/23/2024 Discontinued (Patient's Request) fluorescein sodium 2.5 mg/ml / proparacaine hydrochloride 5 mg/ml ophthalmic solution (2 sources) Diagnostic Dye, Local Anesthetic Start: 07-04-2024 End: 07-04-2024 fluorescein-proparac tamra 1 Drop eye drops Start: 07-04-2024 End: 07-04-2024 1 Drop, BOTH EYES, ONCE, 1 d ose, On Dacia 07/04/24 at 1130, FOR THE EYE. REFRIGERATE Multiple Vitamins-Minerals (Multi For Her 50+) tablet (2 sources) End: 02-19-2024 Multiple Vitamins-Minerals (Multi For Her 50+) tablet 1 (one) time each day at the same time. 02/19/2024 Discontinued naproxen sodium 220 mg oral capsule (20 sources) Nonsteroidal Anti-inflammatory Drug Start: 04-05-2022 End: 04-13-2023 take 1 capsule by mouth every eight hours as needed for pain Naproxen Sodium (Aleve) 220 mg Capsule Discontinued 220 mg PO Q8H as needed for Pain April 05, 2022 1:00am April 13, 2023 12:08pm End: 05-23-2024 take 1 capsule by mouth every twelve hours naproxen sodium (Aleve) 220 mg cap Take 220 mg by mouth every 12 (twelve) hours . 05/23/2024 Discontinued (Patient's Request) nitrofurantoin, macrocrystals 25 mg / nitrofurantoin, monohydrate 75 mg oral capsule (20 sources) Nitrofuran Antibacterial Start: 09-29-2021 End: 10-04-2021 take 1 capsule by mouth every twelve hours at mealtime Nitrofurantoin Monohyd/M-Cryst (Macrobid) 100 mg capsule Discontinued 100 mg PO Q12H 10 September 29, 2021 12:00am October 03, 2021 12:00am October 04, 2021 12:04am must administer with a meal/food ondansetron 8 mg disintegrating oral tablet (20 sources) Serotonin-3 Receptor Antagonist Start: 09-28-2021 End: 03-14-2022 take 1 tablet by mouth every eight hours as needed for nausea and vomiting Ondansetron 8 mg tablet,disintegrati ng Discontinued 8 mg PO Q8H as needed for nausea and vomiting November 04, 2021 5:06pm January 05, 2022 11:50am pantoprazole 20 mg delayed release oral tablet (20 sources) Proton Pump Inhibitor Start: 09-12-2022 End: 05-23-2024 take 1 tablet by mouth once daily pantoprazole (PROTONIX) 20 MG tablet Take 1 (one) tablet (20 mg total) by mouth daily Start: 09/13/22. 30 tablet 09/13/2022 05/23/2024 Discontinued (Patient's Request) phenylephrine hydrochloride 25 mg/ml ophthalmic solution (2 sources) alpha-1 Adrenergic Agonist Start: 07-04-2024 End: 07-04-2024 PHENYLephrine 2.5 % 1 Drop (AK-DILATE, ARNOLD-SYNEPHRINE) Start: 07-04-2024 End: 07-04-2024 1 Drop, BOTH EYES, ONCE, 1 d ose, On Mon07/04/24 at 1130, FOR OPHTHALMIC USE ONLY PROTECT FROM LIGHT prochlorperazine 10 mg oral tablet (20 sources) Phenothiazine Start: 09-28-2021 End: 03-14-2022 take 1 tablet by mouth every six hours as needed for nausea and vomiting Prochlorperazine Maleate 10 mg tablet Discontinued 10 mg PO EVERY 6 HOURS as needed for nausea and vomiting September 28, 2021 12:00am March 14, 2022 11:33am sulfamethoxazole 800 mg / trimethoprim 160 mg oral tablet (20 sources) Dihydrofolate Reductase Inhibitor Antibacterial, Sulfonamide Antimicrobial Start: 10-01-2021 End: 10-08-2021 Sulfamethoxazole-Tri methoprim (Bactrim Ds) 800-160 mg tablet Discontinued 1 {tbl} PO Q12H 14 October 01, 2021 12:35pm October 07, 2021 12:00am October 08, 2021 12:04am triamcinolone acetonide 40 mg/ml injectable suspension (10 sources) Corticosteroid Start: 01-14-2025 End: 01-14-2025 20 mg, Intra-articular, Once as needed Procedure, Starting on Mon01/14/25 at 0815, For 1 dose Start: 07-23-2021 End: 07-23-2021 Kenalog (triamcinolone aceto nide) 40 mg/mL suspension for injection Discontinued 60 MG INTRAARTIC ONCE 1.5 July 23, 2021 9:08am July 23, 2021 9:49am tropicamide 10 mg/ml ophthalmic solution (2 sources) Anticholinergic Start: 07-04-2024 End: 07-04-2024 tropicamide 1 % 1 Drop (MYDRIACYL) Start: 07-04-2024 End: 07-04-2024 1 Drop, BOTH EYES, ONCE, 1 d ose, On Dacia 07/04/24 at 1130, FOR THE EYE Vitamin E (20 sources) Start: 04-05-2022 End: 04-13-2023 take 45 mg by mouth once daily Vitamin E Discontinued 45 MG PO DAILY April 05, 2022 1:00am April 13, 2023 12:09pm Start: 04-05-2022 End: 04-13-2023 take 45 mg by mouth once daily Vitamin E Discontinued 45 MG PO DAILY April 05, 2022 12:00am April 13, 2023 11:09am Start: 04-05-2022 take 45 mg by mouth once daily Vitamin E Active 45 MG PO DAILY April 05, 2022 1:00am Start: 04-05-2022 take 45 mg by mouth once daily Vitamin E Active 45 MG PO DAILY April 05, 2022 12:00am Vitamin E 400 un its tablet 1 (one) time each day at the same time. Active Vitamin E 800 unit Capsule (1 source) Start: 04-05-2022 End: 04-13-2023 Vitamin E 800 unit Capsule Discontinued 45 mg PO DAILY April 05, 2022 1:00am April 13, 2023 12:09pm zolpidem tartrate 5 mg oral tablet (1 source) gamma-Aminobutyric Acid-ergic Agonist Start: 05-14-2018 AMBIEN 5 MG TABS génesis e 1 tablet as needed as directed ZOLPIDEM TARTRATE [id number] Faviola Davis LPN Problems Active Problems Problem Classification Problem Date Documented Date Episodic/Chronic Abdominal pain (14 sources) Abdominal pain; Translations: [Unspecified abdominal pain] 09-07-2022 Episodic Comment on above: Generalized abdomina l pain on and off. CT 09/13/2023 shows constipation, no evidence of metastatic disease. Administrative/social admission (20 sources) Patient encounter status; Translations: [Counseling, unspecified] Onset: 11-04-2024 Episodic Anxiety disorders (11 sources) Generalized anxiety disorder; Translations: [Generalized anxiety disorder] Onset: 02-03-2023 02-03-2023 Chronic Blindness and vision defects (3 sources) Bilateral myopia of eyes; Translations: [Myopia, bilateral] 07-04-2024 Episodic Cancer of breast (20 sources) Malignant tumor of breast ; Translations: [Malignant neoplasm of unspecified site of right female breast] Onset: 10-01-2021 Chronic Comment on above: Invasive ductal canc er R breast, S/P R Lumpectomy and sentinel node biopsy on 09/02/2021. ER negative, ID negative, Her2 1+ by IHC.Tumor size 1.2cm, grade 2, margins negative, Lymph nodes 1/2 with micro-metastasis. Pathologic stage pT1c pN1mi.Stage IA prognostically.EF 60% on 09/24/2021.Adjuvant chemotherapy T/C 10/05/21 12/15/2021. Adjuvant Radiation 01/24/2022-02/22/2022.CT a/p on 09/16/2022 is negative. Bone scan on 09/20/2022 is negative for metastatic disease.On observation. Comes for follow up.No evidence of disease clinically.Wants Port taken out. Diseases of white blood cells (20 sources) Neutropenia; Translations: [Neutropenia, unspecified] Onset: 04-07-2022 Chronic Comment on above: ANC 1K. Essential hypertension (2 sources) Essential (primary) hypertension; Translations: [Essential (primary) hypertension] Onset: 08-11-2022 Chronic Genitourinary symptoms and ill-defined conditions (7 sources) Female stress incontinence; Translations: [Stress incontinence (female) (male)] Onset: 02-03-2023 02-03-2023 Chronic Genitourinary symptoms and ill-defined conditions (20 sources) Malodorous urine; Translations: [Unspecified abnormal findings in urine] Onset: 08-04-2023 Episodic Comment on above: Has taken 2 courses of Antibiotics. Joint disorders and dislocations; trauma-related (17 sources) Tear of medial meniscus of knee; Translations: [Other tear of medial meniscus, current injury, unspecified knee, initial encounter] Episodic Maintenance chemotherapy; radiotherapy (20 sources) Patient encounter status; Translations: [Encounter for antineoplastic chemotherapy] Chronic Comment on above: Low ANC Malaise and fatigue (2 sources) Fatigue; Translations: [Other fatigue] 02-06-2025 Episodic Miscellaneous mental health disorders (5 sources) Primary insomnia; Translations: [Primary insomnia] 02-17-2024 Chronic Mood disorders (11 sources) Moderate major depression ; Translations: [Major depressive disorder, single episode, moderate] Onset: 02-03-2023 02-03-2023 Chronic Nausea and vomiting (20 sources) Nausea; Translations: [Nausea] Episodic Nonmalignant breast conditions (20 sources) Breast lump; Translations: [Unspecified lump in the right breast, unspecified quadrant] Episodic Osteoarthritis (20 sources) Osteoarthritis of left knee joint; Translations: [Unilateral primary osteoarthritis, left knee] Onset: 06-20-2022 Chronic Other aftercare (2 sources) Aftercare following joint replacement surgery; Translations: [Aftercare following joint replacement surgery] Onset: 09-12-2022 Chronic Other aftercare (5 sources) Encounter for adjustment and management of vascular access device; Translations: [Fitting and adjustment, other device] Episodic Other aftercare (13 sources) Follow-up status; Translations: [Encounter for other orthopedic aftercare] 04-25-2022 Episodic Other aftercare (3 sources) Encounter for other orthopedic aftercare; Translations: [Unspecified orthopedic aftercare] 04-25-2022 Episodic Other and ill-defined cerebrovascular disease (11 sources) Cerebrovascular disease; Translations: [Cerebrovascular disease, unspecified] 07-18-2022 Chronic Other and ill-defined cerebrovascular disease (4 sources) Cerebrovascular disease, unspecified; Translations: [Unspecified cerebrovascular disease] 07-18-2022 Chronic Other connective tissue disease (20 sources) History of total knee arthroplasty; Translations: [Presence of left artificial knee joint] Onset: 10-03-2022 09-19-2022 Chronic Other connective tissue disease (4 sources) Presence of left artificial knee joint; Translations: [Presence of left artificial knee joint] Onset: 09-12-2022 Chronic Other connective tissue disease (9 sources) Pain in left lower limb; Translations: [Pain in left leg] 09-22-2022 Episodic Other connective tissue disease (2 sources) Peroneal tendinitis, right leg; Translations: [Peroneal tendinitis, right leg] Onset: 07-27-2023 Episodic Other hereditary and degenerative nervous system conditions (11 sources) Restless legs; Translations: [Restless legs syndrome] Onset: 02-03-2023 02-03-2023 Chronic Other nervous system disorders (15 sources) Impairment of balance; Translations: [Other abnormalities of gait and mobility] 03-14-2022 Episodic Other nervous system disorders (4 sources) Other abnormalities of gait and mobility; Translations: [Abnormality of gait] Episodic Other nervous system disorders (14 sources) Acute postoperative pain; Translations: [Other acute postprocedural pain] 04-12-2022 Episodic Other nervous system disorders (14 sources) Magnetic resonance imaging of brain abnormal; Translations: [White matter disease, unspecified] 04-07-2022 Episodic Other non-epithelial cancer of skin (1 source) Basal cell carcinoma of anterior chest; Translations: [Basal cell carcinoma of skin of breast] Onset: 01-01-2024 Episodic Other non-traumatic joint disorders (20 sources) Knee joint inflamed; Translations: [Monoarthritis, not elsewhere classified, left knee] 07-23-2021 Chronic Other non-traumatic joint disorders (15 sources) Monoarthritis, not elsewhere classified, left knee; Translations: [Arthropathy, unspecified, lower leg] Chronic Other skin disorders (1 source) Intrinsic aging of skin; Translations: [Other skin changes] Onset: 05-14-2018 05-14-2018 Episodic Other upper respiratory infections (11 sources) Sinusitis; Translations: [Chronic sinusitis, unspecified] 09-07-2022 Chronic Residual codes; unclassified (17 sources) Body fluid retention; Translations: [Edema, unspecified] 03-14-2022 Episodic Residual codes; unclassified (4 sources) Edema, unspecified; Translations: [Other fluid overload] Episodic Residual codes; unclassified (4 sources) Other amnesia; Translations: [Memory loss] 07-18-2022 Episodic Residual codes; unclassified (2 sources) Pain Onset: 01-14-2025 Episodic Spondylosis; intervertebral disc disorders; other back problems (3 sources) Chronic low back pain; Translations: [Chronic right-sided low back pain without sciatica] 04-09-2024 Episodic Sprains and strains (20 sources) Strain of muscle of lower limb; Translations: [Strain of unspecified muscle(s) and tendon(s) at lower leg level, left leg, initial encounter] Episodic Thyroid disorders (11 sources) Subclinical hypothyroidism; Translations: [Other specified hypothyroidism] Onset: 02-03-2023 02-03-2023 Chronic Unclassified (14 sources) Finding of brain; Translations: [White matter changes] 04-07-2022 Urinary tract infections (20 sources) Urinary tract infectious disease; Translations: [Urinary tract infection, site not specified] Episodic Past or Other Problems Problem Classification Problem Date Documented Da te Episodic/Chronic Cancer of breast (16 sources) History of malignant neoplasm of breast; Translations: [Personal history of malignant neoplasm of breast] Onset: 09-11-2024 03-14-2022 Episodic Fracture of upper limb (6 sources) Closed fracture of distal end of left radius; Translations: [Unspecified fracture of the lower end of left radius, initial encounter for closed fracture] Onset: 05-21-2024 05-23-2024 Episodic Immunizations and screening for infectious disease (3 sources) Needs influenza immunization; Translations: [Encounter for immunization] Onset: 06-03-2024 02-19-2024 Episodic Other aftercare (2 sources) Encounter for follow-up examination after completed treatment for conditions other than malignant neoplasm; Translations: [Encounter for follow-up examination after completed treatment for conditions other than malignant neoplasm] Onset: 05-23-2024 Episodic Other connective tissue disease (7 sources) Peroneal tendinitis of right lower limb; Translations: [Peroneal tendinitis, right leg] Onset: 07-27-2023 07-25-2023 Episodic Other lower respiratory disease (1 source) Pleurodynia; Translations: [Pleurodynia] Onset: 09-10-2024 Episodic Other non-traumatic joint disorders (20 sources) Pain in left knee; Translations: [Left knee pain] Onset: 11-23-2021 Episodic Other screening for suspected conditions (not mental disorders or infectious disease) (3 sources) Encounter for screening for malignant neoplasm of colon; Translations: [Encounter for screening mammogram for malignant neoplasm of breast] Onset: 01-01-2024 Episodic Residual codes; unclassified (18 sources) Amnesia; Translations: [Other amnesia] Onset: 02-03-2023 07-18-2022 Episodic Residual codes; unclassified (7 sources) Insomnia; Translations: [Insomnia, unspecified] Onset: 02-03-2023 02-03-2023 Episodic Residual codes; unclassified (2 sources) Pain, unspecified; Translations: [Pain, unspecified] Onset: 08-28-2024 Episodic Residual codes; unclassified (2 sources) Estrogen receptor negative status [ER-]; Translations: [Estrogen receptor negative status [ER-]] Onset: 09-10-2024 Episodic Unclassified (1 source) Problem Results Test Name Value Interpretation Reference Range Facility Nathanael 03-28-2025 KHAI BRIONES SCANNED REPORT Normal [facility] Comment on above: Performed By: #### L 900.0098 #### [facility] [address] [place], [place], [id number] COVID 19 AG RAPID (RN GISSELLE T)on 03-10-2025 SARS-CoV-2 (COVID-19) RNA SUDHAKAR+probe Ql (Unsp spec) *Negative results from patients with symptom onset beyond five days should be treated as presumptive and confirmed by a molecular assay if clinically necessary. Negative results should not be used as the sole basis for treatment or for patient management. SARS-CoV-2 Ag Resp Ql IA.rapid *Positive results do not differentiate between SARS-CoV and SARS-CoV-2. If differentiation of the specific SARS virus is desired an additional sample and an additional order is required. SARS-CoV-2 Ag Resp Ql IA.rapid * This test has not been FDA cleared or approved; the test has been authorized by FDA under an Emergency Use Authorization (EAU) for use by laboratories certified under CLIA that meet the requirements to perform moderate, high, or waived complexity tests. SARS-CoV-2 Ag Resp Ql IA.rapid Normal Reference Range: Negative SARS-CoV-2 (COVID 19) Negative RAPID METHOD [employer] COVID19 Ag Card Normal [facility] Comment on above: Performed By: #### M 100.505 #### [facility] [address] [place], [place], [id number] CBC W Auto Differential pane l (Bld)on 02-08-2025 Basophils (Bld) [#/Vol] 38 10*3/uL [facility] Basophils/100 WBC (Bld) 1.2 % [facility] Eosinophils (Bld) [#/Vol] 70 10*3/uL [facility] Eosinophils/100 WBC (Bld) 2.2 % [facility] Erythrocyte distribution width (RBC) [Ratio] 13.2 % 11.0 - 15.0 % [facility] Hematocrit (Bld) [Volume fraction] 40.9 % 35.0 - 45.0 % [facility] Hemoglobin (Bld) [Mass/Vol] 13.2 g/dL 11.7 - 15.5 g/dL [facility] Interpretation and review of laboratory results Abnormal [facility] Lymphocytes (Bld) [#/Vol] 1107 10*3/uL [facility] Lymphocytes/100 WBC (Bld) 34.6 % [facility] MCH (RBC) [Entitic mass] 32 pg 27.0 - 33.0 pg [facility] MCHC (RBC) [Mass/Vol] 32.3 g/dL 32.0 - 36.0 g/dL [facility] Comment on above: For adults, a slight decrease in the calculated MCHC value (in the range of 30 to 32 g/dL) is most likely not clinically significant; however, it should be interpreted with caution in correlation with other red cell parameters and the patient's clinical condition. MCV (RBC) [Entitic vol] 99 fL 80.0 - 100.0 fL [facility] Monocytes (Bld) [#/Vol] 410 10*3/uL [facility] Monocytes/100 WBC (Bld) 12.8 % [facility] Neutrophils (Bld) [#/Vol] 1574 10*3/uL [facility] Neutrophils/100 WBC (Bld) 49.2 % [facility] Platelet mean volume (Bld) [Entitic vol] 10.2 fL 7.5 - 12.5 fL [facility] Platelets (Bld) [#/Vol] 295 10*3/uL [facility] RBC (Bld) [#/Vol] 4.13 10*6/uL [facility] WBC (Bld) [#/Vol] 3.2 10*3/uL Low [facility] Comprehensive metabolic pane lupillo 02-08-2025 Albumin [Mass/Vol] 4.8 g/dL 3.6 - 5.1 g/dL [facility] Albumin/Globulin [Mass ratio] 1.8 {ratio} [facility] ALP [Catalytic activity/Vol] 80 U/L 37 - 153 U/L [facility] ALT [Catalytic activity/Vol] 13 U/L 6 - 29 U/L [facility] AST [Catalytic activity/Vol] 15 U/L 10 - 35 U/L [facility] Bilirubin [Mass/Vol] 0.6 mg/dL 0.2 - 1 .2 mg/dL [facility] Calcium [Mass/Vol] 9.5 mg/dL 8.6 - 10. 4 mg/dL [facility] Chloride [Moles/Vol] 103 mmol/L 98 - 11 0 mmol/L [facility] CO2 [Moles/Vol] 25 mmol/L 20 - 32 mmol/L [facility] Creatinine [Mass/Vol] 0.63 mg/dL 0.50 - 1.05 mg/dL [facility] GFR/1.73 sq M.predicted among non-blacks MDRD (S/P/Bld) [Vol rate/Area] 100 mL/min/{1.73_m2} > OR = 60 mL/min/1.73 m2 [facility] Globulin (S) [Mass/Vol] 2.6 g/dL [facility] Glucose [Mass/Vol] 87 mg/dL 65 - 99 mg/dL [facility] Comment on above: Fasting reference interval Potassium [Moles/Vol] 4.2 mmol/L 3.5 - 5.3 mmol/L [facility] Protein [Mass/Vol] 7.4 g/dL 6.1 - 8.1 g/dL [facility] Sodium [Moles/Vol] 138 mmol/L 135 - 146 mmol/L [facility] Urea nitrogen [Mass/Vol] 14 mg/dL 7 - 25 mg/dL [facility] Urea nitrogen/Creatinine [Mass ratio] SEE NOTE: [facility] Comment on above: Not Reported: BUN an d Creatinine are within reference range. Lipid 1996 panelon 5 Cholesterol [Mass/Vol] 194 mg/dL [facility] mg/dL [facility] Cholesterol in HDL [Mass/Vol] 100 mg/dL > OR = 50 [facility] Cholesterol in LDL [Mass/Vol] 82 mg/dL mg/dL (calc) [facility] Comment on above: Reference range: <10 0 Desirable range <100 mg/dL for primary prevention; <70 mg/dL for patients with CHD or diabetic patients with > or = 2 CHD risk factors. LDL-C is now calculated using the Stepan-Rhonda calculation, which is a validated novel method providing better accuracy than the Friedewald equation in the estimation of LDL-C. Stepan BEGUM et al. BIANCA. 2013;310(19): 8342-0694 (http://education.Colingo.com/faq/FMV573) Cholesterol non HDL [Mass/Vol] 94 mg/dL [facility] [place] Comment on above: For patients with di abetes plus 1 major ASCVD risk factor, treating to a non-HDL-C goal of <100 mg/dL (LDL-C of <70 mg/dL) is considered a therapeutic option. Cholesterol.total/Ch olesterol in HDL [Mass ratio] 1.9 {ratio} [facility] [place] Triglyceride [Mass/Vol] 42 mg/dL [facility] - 150 mg/dL [facility] No Panel Informationon 02-08 Performing Organizat ion Information Site ID: QPT Name: [facility] [facility] Address: Rakan Cruz , [address] [place] [id number] Director: Jean-Claude Bojorquez MD [facility] TSHon 02-08-2025 TSH Qn 4.34 m[IU]/L [facility] No Panel Informationon 01-14 [facility] SM Jt Injection/Arthrocentes is: L thumb MCPon 01-14-2025 Andra Roberson CNP 01/14/2025 1:16 PM SM Jt Injection/Arthrocentesis: L thumb MCP Performed by: Andra Roberson CNP Authorized by: Andra Roberson CNP Consent given by: Patient Time out: Immediately prior to the procedure a time out was called Physician or proceduralist has discussed critical or nonroutine steps, procedure duration and anticipated blood loss: Yes Supporting Documentation: Indications: Pain, joint swelling and diagnostic evaluation Procedure Details: Location: Thumb Site: L thumb MCP Prep: patient was prepped and draped in usual sterile fashion Needle size: 25 G Approach: Dorsal Medications: 20 mg triamcinolone acetonide 40 mg/mL Anesthetic used:: Lidocaine 1% Anesthetic amount (mL): 1 Patient tolerance: Patient tolerated the procedure well with no immediate complications [facility] SM Jt Injection/Arthrocentes is: R thumb MCPon 01-14-2025 Andra Roberson CNP 01/14/2025 1:16 PM SM Jt Injection/Arthrocentesis: R thumb MCP Performed by: Andra Roberson CNP Authorized by: Andra Roberson CNP Consent given by: Patient Time out: Immediately prior to the procedure a time out was called Physician or proceduralist has discussed critical or nonroutine steps, procedure duration and anticipated blood loss: Yes Supporting Documentation: Indications: Pain, joint swelling and diagnostic evaluation Procedure Details: Location: Thumb Site: R thumb MCP Prep: patient was prepped and draped in usual sterile fashion Needle size: 25 G Approach: Dorsal Medications: 20 mg triamcinolone acetonide 40 mg/mL Anesthetic used:: Lidocaine 1% Anesthetic amount (mL): 1 Patient tolerance: Patient tolerated the procedure well with no immediate complications [facility] XR HAND LEFT 3+ VIEWS (STAND WYATT)on 01-14-2025 XR HAND LEFT 3+ VIEWS (STANDARD) EXAMINATION: XR HAND LEFT 3+ VIEWS (STANDARD) 01/14/2025 8:43 am HISTORY: ORDERING SYSTEM PROVIDED HISTORY: Pain, TECHNOLOGIST PROVIDED HISTORY: Injury/Trauma Reason for exam: Bilateral CMC joint pain that increased since April with a left wrist fracture. No new injury. Cancer History: Malignant neoplasm of female breast 2021 Surgery, RadiationHistory: u Encounter Type: Initial Mechanism of injury: Fall around [place] ORDERING SYSTEM PROVIDED DIAGNOSIS CODES: R52 Pain IMPRESSION: FINDINGS/ Moderate to severe degeneration of the 1st CMC joint. No acute fracture or dislocation. [id number] degeneration of the D IP joints. Workstation ID: [id number] Dictated by: LULÚ TRINH on MonJan 16, 2025 6:20:33 PM EDT Transcribed by: LULÚ TRINH on MonJan 16, 2025 6:20:33 PM EDT Finalized by: LULÚ TRINH on [place] Jan 16, 2025 6:20:33 PM EDT Normal [facility] Comment on above: Order Comment: Injur y/Trauma or Illness?:Injury/Trauma How long have you had these symptoms (acute/chronic)?:Chronic Reason for exam?:Bilateral CMC joint pain that increased since April with a left wrist fracture. No new injury. History of cancer?:Malignant neoplasm of female breast 2021 Surgeries, chemotherapy, or radiation?:u Type of Exam?:Initial Mechanism of injury?:Fall around [place] XR HAND RIGHT 3+ VIEWS (DWIGHT DARD)on 01-14-2025 XR HAND RIGHT 3+ VIEWS (STANDARD) EXAMINATION: XR HAND RIGHT 3+ VIEWS (STANDARD) 01/14/2025 8:42 am HISTORY: ORDERING SYSTEM PROVIDED HISTORY: Pain, TECHNOLOGIST PROVIDED HISTORY: Injury/Trauma Reason for exam: Bilateral CMC joint pain that increased since April with a left wrist fracture. No new injury. Cancer History: Malignant neoplasm of female breast 2021 Surgery, RadiationHistory: u Encounter Type: Initial Mechanism of injury: Fall around [place] ORDERING SYSTEM PROVIDED DIAGNOSIS CODES: R52 Pain IMPRESSION: FINDINGS/ There is moderate degeneration of the 1st CMC joint. No evidence of acute fracture or dislocation. Workstation ID: [id number] Dictated by: LULÚ TRINH on MonJan 16, 2025 6:19:49 PM EDT Transcribed by: LULÚ TRINH on [place] Jan 16, 2025 6:19:49 PM EDT Finalized by: LULÚ TRINH on MonJan 16, 2025 6:19:49 PM EDT Normal [facility] Comment on above: Order Comment: Injur y/Trauma or Illness?:Injury/Trauma How long have you had these symptoms (acute/chronic)?:Chronic Reason for exam?:Bilateral CMC joint pain that increased since April with a left wrist fracture. No new injury. History of cancer?:Malignant neoplasm of female breast 2021 Surgeries, chemotherapy, or radiation?:u Type of Exam?:Initial Mechanism of injury?:Fall around [place] QUANTIFERON TB GOLD PLUS 1 T UBEon 11-06-2024 QUANTIFERNON INCUBATION Incubation performed. [facility] Comment on above: Performed By: #### L QFIT, ZQFIT #### Testing performed at [facility] [address] [place], [place] [address]ox [facility] [place] [address] QUANTIFERON-TB GOLD PLUS Negative [facility] Comment on above: Result Comment: Refe rence range: Negative (NOTE) No response to M tuberculosis antigens detected. Infection with M tuberculosis is unlikely, but high risk individuals should be considered for additional testing (ATS/IDSA/CDC Clinical Practice Guidelines, 2017). The reference range is an Antigen minus Nil result of <0.35 IU/mL. Chemiluminescence immunoassay methodology PERFORMED AT [facility] Performed By: #### L QFIT, ZQFIT #### Testing performed at [facility] [address] [facility] [place] [address] RFLX QUANTIFERON-TB GOLD PLU [facility] 11-06-2024 QUANTIFERON CRITERIA Comment [facility] Comment on above: Result Comment: (NOT E) QuantiFERON-TB Gold Plus is a qualitative indirect test for M tuberculosis infection (including disease) and is intended for use in conjunction with risk assessment, radiography, and other medical and diagnostic evaluations. The QuantiFERON-TB Gold Plus result is determined by subtracting the Nil value from either TB antigen (Ag) value. The Mitogen tube serves as a control for the test. Performed By: #### L QFIT, ZQFIT #### Testing performed at [address] [address] QUANTIFERON MITOGEN VALUE >10.00 [facility] Comment on above: Result Comment: Unit : IU/mL PERFORMED AT [facility] Performed By: #### L QFIT, ZQFIT #### Testing performed at [address] [address] QUANTIFERON NIL VALUE 0.06 [facility] Comment on above: Result Comment: Unit : IU/mL Performed By: #### L QFIT, ZQFIT #### Testing performed at [address] [address] QUANTIFERON TB1 AG VALUE 0.08 [facility] Comment on above: Result Comment: Unit : IU/mL Performed By: #### L QFIT, ZQFIT #### Testing performed at [address] [address] QUANTIFERON TB2 AG VALUE 0.07 [facility] Comment on above: Result Comment: Unit : IU/mL Performed By: #### L QFIT, ZQFIT #### Testing performed at [address] [address] Bone Scan Whole Bodyon 09-12 Bone Scan Whole Body [facility] [address] [place] [id number] Bone Scan Whole Body MR#: [id number] Acct: [id number] Name: RADHA ALMANZA Rep #: [id number] : 1960 F 64 From: Galen borden MD PCP: AUBREE CAMPBELL MD Status: REG CLI Study: Bone Scan Whole Body Date of Exam: 09/12/24 Exam# [id number] Ordering Dr: Reginaldo Pichardo MD PROCEDURE: BONE SCAN WHOLE BODY 09/12/2024 REASON FOR EXAM: COSTAL MARGIN PAIN/BREAST CA Left-sided rib pain. History of right breast cancer. TECHNIQUE: Whole-body bone scan with anterior and posterior views. Imaging at 3.5 hours. RADIOPHARMACEUTICAL: 25.5 mCi Technetium-99m MDP IV COMPARISON: CORRELATION WITH EXISTING RELEVANT IMAGING STUDIES (i.e. x-ray, MRI, CT, etc.): No existing relevant imaging study available or patient did not have a previous relevant imaging study. FINDINGS: Bones: Increased uptake is seen along the medial compartment of the right knee joints suggestive of degenerative changes. No evidence of bony metastasis. The patient is status post left total knee replacement. Kidneys: Symmetrical uptake. NM/Bone Scan Whole Body IMPRESSION: No evidence of metastatic deposits. Findings suggestive of degenerative changes of the medial compartment of the right knee joint. Reading Location: [place] [address] CC: Dr. 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 Results cannot be interpreted as absolute evidence of the presence or absence of malignant disease. Performed at: [address] [id number] Platform Supervisor: Rocky Otoole PhD, Phone: [phone] Performed By: #### L 9174.3906, M8975.8543 #### [facility] [address] [place], [address] CA 27.29on 09-12-2024 CA 27.29 9.2 U/mL Normal 0.0-38.6 [facility] Comment on above: Order Comment: ADD O N FROM EARLIER TODAY THANKS Result Comment: [employer] Immunochemiluminometric Methodology (ICMA) Values obtained with different assay methods or kits cannot be used interchangeably. Results cannot be interpreted as absolute evidence of the presence or absence of malignant disease. Performed By: #### L 3100.5030, L3100.5040 #### [facility] [address] [place], [address] CBC W/Diff, Automatedon 04-2024 Absolute Lymph 1.05 X10 3/uL Normal 0.83-4.51 [facility] Comment on above: Performed By: #### L 500.4050, L100.0100, L504.2610 #### [facility] [address] [place], [address] Absolute Neut 2.5 X10 3/uL Normal 2.0-7.7 [facility] Comment on above: Performed By: #### L 500.4050, L100.0100, L504.2610 #### [facility] [address] [place], [address] Basophils/100 WBC (Bld) 1.2 % High 0-1 [facility] Comment on above: Performed By: #### L 500.4050, L100.0100, L504.2610 #### [facility] [address] [place], [address] Eosinophils/100 WBC (Bld) 2.4 % Normal 0-5 [facility] Comment on above: Performed By: #### L 500.4050, L100.0100, L504.2610 #### [facility] [address] [place], [address] Erythrocyte distribution width (RBC) [Ratio] 14.2 % Normal 11.6-14.6 [facility] Comment on above: Performed By: #### L 500.4050, L100.0100, L504.2610 #### [facility] [address] [place], [address] Hematocrit (Bld) [Volume fraction] 39.2 % Normal 37-47 [facility] Comment on above: Performed By: #### L 500.4050, L100.0100, L504.2610 #### [facility] [address] [place], [address] Hemoglobin (Bld) [Mass/Vol] 12.6 g/dL Normal 12.0-15.0 [facility] Comment on above: Performed By: #### L 500.4050, L100.0100, L504.2610 #### [facility] [address] [place], [address] IG% 0.200 Normal 0.0-0.9 [facility] Comment on above: Result Comment: IG% - Immature Granulocytes (promyelocytes, myelocytes and metamyelocytes) > 1% indicates that a LEFT SHIFT is Present. Performed By: #### L 500.4050, L100.0100, L504.2610 #### [facility] [address] [place], [address] Lymphocytes/100 WBC (Bld) 25.2 % Normal 19-41 [facility] Comment on above: Performed By: #### L 500.4050, L100.0100, L504.2610 #### [facility] [address] [place], [address] MCH (RBC) [Entitic mass] 32.3 pg High 27.0-32.0 [facility] Comment on above: Performed By: #### L 500.4050, L100.0100, L504.2610 #### [facility] [address] [place], [address] MCHC (RBC) [Mass/Vol] 32.1 g/dL Normal 32-36 [facility] Comment on above: Performed By: #### L 500.4050, L100.0100, L504.2610 #### [facility] [address] [place], [address] MCV (RBC) [Entitic vol] 100.5 fL High 81-99 [facility] Comment on above: Performed By: #### L 500.4050, L100.0100, L504.2610 #### [facility] [address] [place], [address] Monocytes/100 WBC (Bld) 11.3 % High 0-10 [facility] Comment on above: Performed By: #### L 500.4050, L100.0100, L504.2610 #### [facility] [address] [place], [address] Neutrophils/100 WBC (Bld) 59.7 % Normal 47-70 [facility] Comment on above: Performed By: #### L 500.4050, L100.0100, L504.2610 #### [facility] [address] [place], [address] Nucleated RBC (Bld) [#/Vol] 0 10*3/uL Normal 0-5 [facility] Comment on above: Performed By: #### L 500.4050, L100.0100, L504.2610 #### [facility] [address] [place], [address] Platelet mean volume (Bld) [Entitic vol] 9.6 fL Normal 6.2-12.0 [facility] Comment on above: Performed By: #### L 500.4050, L100.0100, L504.2610 #### [facility] [address] [place], [address] Platelets (Bld) [#/Vol] 277 10*3/uL Normal 150-450 [facility] Comment on above: Performed By: #### L 500.4050, L100.0100, L504.2610 #### [facility] [address] [place], [address] RBC (Bld) [#/Vol] 3.90 10*6/uL Low 4.2-5.4 [facility] Comment on above: Performed By: #### L 500.4050, L100.0100, L504.2610 #### [facility] [address] [place], [address] RDW SD 52.8 fl High 35.1-43.9 [facility] Comment on above: Performed By: #### L 500.4050, L100.0100, L504.2610 #### [facility] [address] [place], [address] WBC (Bld) [#/Vol] 4.2 10*3/uL Low 4.4-11.0 [facility] Comment on above: Performed By: #### L 500.4050, L100.0100, L504.2610 #### [facility] [address] [place], [address] Comprehensive Metabolic Prof [facility] 09-10-2024 Albumin [Mass/Vol] 4.6 g/dL Normal 3.4-4.8 [facility] Comment on above: Performed By: #### L 500.4050, L100.0100, L504.2610 #### [facility] [address] [place], [address] Albumin/Globulin [Mass ratio] 1.7 {ratio} Normal 0.9-2.4 [facility] Comment on above: Performed By: #### L 500.4050, L100.0100, L504.2610 #### [facility] [address] [place], [address] ALK PHOS 87 U/L Normal 35-104 [facility] Comment on above: Performed By: #### L 500.4050, L100.0100, L504.2610 #### [facility] [address] [place], [address] ALT [Catalytic activity/Vol] 12 U/L Normal <=34 [facility] Comment on above: Performed By: #### L 500.4050, L100.0100, L504.2610 #### [facility] [address] [place], [address] AST [Catalytic activity/Vol] 17 U/L Normal <=31 [facility] Comment on above: Performed By: #### L 500.4050, L100.0100, L504.2610 #### [facility] [address] [place], [address] Bilirubin [Mass/Vol] 0.42 mg/dL Normal 0.00-1.30 [facility] Comment on above: Performed By: #### L 500.4050, L100.0100, L504.2610 #### [facility] [address] [place], [address] BUN/CRE 26.6 RATIO High 10-20 [facility] Comment on above: Performed By: #### L 500.4050, L100.0100, L504.2610 #### [facility] [address] [place], [address] Calcium [Mass/Vol] 9.7 mg/dL Normal 7.6-11.0 [facility] Comment on above: Performed By: #### L 500.4050, L100.0100, L504.2610 #### [facility] [address] [place], [address] Chloride [Moles/Vol] 101 mmol/L Normal 98-108 [facility] Comment on above: Performed By: #### L 500.4050, L100.0100, L504.2610 #### [facility] [address] [place], [address] CO2 [Moles/Vol] 24.6 mmol/L Normal 21.0-32.0 [facility] Comment on above: Performed By: #### L 500.4050, L100.0100, L504.2610 #### [facility] [address] [place], [address] Creatinine [Mass/Vol] 0.76 mg/dL Normal 0.70-1.20 [facility] Comment on above: Performed By: #### L 500.4050, L100.0100, L504.2610 #### [facility] [address] [place], [address] ECRCL 81.50 ml/min Normal 50-250 [facility] Comment on above: Performed By: #### L 500.4050, L100.0100, L504.2610 #### [facility] [address] [place], [address] GAP 12 Normal 5-15 [facility] Comment on above: Performed By: #### L 500.4050, L100.0100, L504.2610 #### [facility] [address] [place], [address] GFR/1.73 sq M.predicted among non-blacks MDRD (S/P/Bld) [Vol rate/Area] 88 mL/min/{1.73_m2} Normal >60 [facility] Comment on above: Result Comment: mL/m in/1.73m2 CKD-EPI Creatinine Equation (2020) Performed By: #### L 500.4050, L100.0100, L504.2610 #### [facility] [address] [place], [address] Globulin (S) [Mass/Vol] 2.7 g/dL Normal 2.2-4.2 [facility] Comment on above: Performed By: #### L 500.4050, L100.0100, L504.2610 #### [facility] [address] [place], [address] Glucose [Mass/Vol] 84 mg/dL Normal 70-99 [facility] Comment on above: Performed By: #### L 500.4050, L100.0100, L504.2610 #### [facility] [address] [place], [address] Potassium [Moles/Vol] 4.3 mmol/L Normal 3.3-5.1 [facility] Comment on above: Performed By: #### L 500.4050, L100.0100, L504.2610 #### [facility] [address] [place], [address] Sodium [Moles/Vol] 137 mmol/L Normal 133-145 [facility] Comment on above: Performed By: #### L 500.4050, L100.0100, L504.2610 #### [facility] [address] [place], [address] T PROT 7.3 g/dL Normal 5.9-8.4 [facility] Comment on above: Performed By: #### L 500.4050, L100.0100, L504.2610 #### [facility] [address] [place], [address] Urea nitrogen [Mass/Vol] 20 mg/dL High 4-19 [facility] Comment on above: Performed By: #### L 500.4050, L100.0100, L504.2610 #### [facility] [address] [place], [address] LDHon 09-10-2024 LDH 181 U/L Normal 84-246 [facility] Comment on above: Order Comment: 1 Performed By: #### L 500.4050, L100.0100, L504.2610 #### [facility] [address] [place], [address] NATERAon 09-10-2024 HKAI SEE SCANNED REPORT Normal [facility] Comment on above: Performed By: #### L 500.4050, L100.0100, L504.2610 #### [facility] [address] [place], [address] Oncology Visit Reporton 08-27 Oncology Visit Report [facility] [place] [facility] [address] [place] [address] OFFICE VISIT Date of Service: 09/10/24 1406 MR#: [id number] Acct: [id number] Name: RADHA ALMANZA Rep #: [id number] : 1960 From: Reginaldo Pichardo MD Age/Sex: 64/F Location: [facility] Status: Signed HPI Subjective Date of Service 09/10/24 Chief Complaint F/u for R breast cancer. History of Present Illness 64y.o.woman was found to have an abnormal mammogram at an OSH. She had an ultrasound at [facility] on 08/13/2021 which showed 1.3 cm mass at the 9 o'clock position of the right breast. 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 She went on to have right lumpectomy and sentinel node biopsy on 09/02/2021. Tumor measured 1.2 x 1.1 cm, grade 2, margins negative, 1/1 LN positive for micrometastasis. Pathologic stage T1c, N1mi, Mx. She was diagnosed with Stage IA Right breast cancer. Port was placed on 09/30/2021. Began adjuvant TC on 10/05/21. C4 was delayed 1 week because of Low ANC, given 12/15/2021. She got Adjuvant Radiation therapy from 01/24/2022-02/22/2022. Had pain on the left flank, constant, had CT a/p done on 09/16/2022 which was negative. Bone scan done 09/20/2022 was negative. She is on observation. Comes for follow up. Feels well. Has developed L lower rib pain. [facility] Medical History Left leg pain White matter abnormality on MRI of brain White matter changes History of echocardiogram History of breast cancer Imbalance Nausea Fluid retention Cystitis Malodorous urine Urinary tract infection Encounter for education Post-menopausal COVID Cancer Wears partial dentures Alcohol use Arthritis Anemia Non-smoker History of edema Strain of left knee Depression Surgical History History of knee replacement History of vascular access device History of lumpectomy History of Hx of colonoscopy H/O medial meniscus repair of right knee Family History Mother Colon cancer Father Dementia Social History Smoking Status: Never smoker second hand exposure: No alcohol intake: current alcohol intake frequency: holidays/special occasions only details: occasionally substance use type: other what type of physical activity do you participate in: none abby/taoist: None seatbelt use: always Intake Vital Signs 09/19/23 13:37 09/10/24 14:08 09/10/24 14:09 Height 5 ft 6 in 5 ft 6 in 5 ft 6 in Weight: 81.391 kg BMI 28.9 BP 109/71 Blood Pressure Location Lt brachial Position Sitting Respiration 18 Pulse 79 Pulse Source Monitor Temp 98.1 F Temperature Source Temporal Artery Pulse Oximetry (%) 98 Oxygen Delivery Method room air Intake Is patient in pain?: No Allergies No Known Allergies Allergy (Verified 09/10/24 14:07) Medications ???Medication ???Instructions ???Recorded ???Confirmed ???Type escitalopram oxalate 20 mg tablet 20 mg PO DAILY 12/16/20 09/10/24 History multivitamin 1 tab PO DAILY 07/23/21 09/10/24 H istory docusate sodium 100 mg capsule 100 mg PO DAILY PRN Constipation 0 11/16/21 09/10/24 History (Colace) polyethylene glycol 3350 17 gram 17 g PO DAILY PRN Constipation 09/10/24 History oral powder packet (Miralax) lidocaine-prilocaine 2.5 %-2.5 % 1 applic topical ONCE PRN port 09/10/24 Rx topical cream access 30 days #30 grams ondansetron 8 mg disintegrating 8 mg PO Q8H PRN nausea and 2 09/10/24 Rx tablet vomiting #30 tabs omega-3 fatty acids 1,000 mg PO DAILY 04/05/22 5 History bupropion HCl 150 mg 24 hr tablet, 150 mg PO 09/07/22 09/10/24 Hist ory extended release hydroxyzine pamoate 25 mg capsule 25 mg PO QHS 04/13/23 09/10/24 Hi story (Vistaril) pregabalin 25 mg capsule 50 mg PO QHS 04/13/23 09/10/24 His tory meloxicam 15 mg tablet 15 mg PO QDAY 09/10/24 09/10/24 Hi story Central Venous Access Central Venous Access: No Exam Physical Exam Narrative ECOG 0 Const alert and oriented x3 HEENT normocephalic and head/scalp atraumatic Eyes PERRL and EOMs intact bilaterally Sclera: sclera normal Neck no lymphadenopathy and supple Chest Chest Narrative: Breast exam R lateral scar, no masses. L breast no masses. +? L costal margin tenderness. Resp normal respiratory effort and clear to auscultation bilaterally Cardio regular rate, regular rhythm, S1 normal heart sound and S2 normal heart sound GI normal to inspection, nondistended, normoactive bowel sounds Extremity no clubbin (more content not included)... Normal [facility] XR WRIST LEFT 3+ VIEWS (DWIGHT DARD)on 08-28-2024 XR WRIST LEFT 3+ VIEWS (STANDARD) EXAMINATION: XR WRIST RIGHT 3+ VIEWS (STANDARD); XR WRIST LEFT 3+ VIEWS (STANDARD) HISTORY: Dx: R52 (Pain) Injury/Trauma or Illness?:Illness/Other How long have you had these symptoms (acute/chronic)?:Acute ORDERING SYSTEM PROVIDED HISTORY: Pain, TECHNOLOGIST PROVIDED HISTORY: Illness/Other Reason for exam: Bilateral radial sided wrist pain with bilateral thumb pain x 3 months Cancer History: Malignant neoplasm of female breast 2021 Surgery, RadiationHistory: u Encounter Type: Initial Additional signs and symptoms: none ORDERING SYSTEM PROVIDED DIAGNOSIS CODES: R52 Pain COMPARISON: Left wrist radiograph May 23, 2024. IMPRESSION: Left wrist: Severe thumb CMC joint degenerative changes. Moderate STT joint degenerative changes. Mild radiocarpal joint degenerative changes. No evidence of acute fracture. Osteopenia. Right wrist: Severe thumb CMC joint degenerative changes with subluxation measuring 0.8 cm. No evidence of acute fracture. Osteopenia. Workstation ID: [id number] Dictated by: JERAMY VAZQUEZ on MonAug 30, 2024 11:18:28 AM EDT Transcribed by: JERAMY VAZQUEZ on MonAug 30, 2024 11:18:28 AM EDT Finalized by: JERAMY VAZQUEZ on MonAug 30, 2024 11:18:28 AM EDT Normal [facility] Comment on above: Order Comment: Injur y/Trauma or Illness?:Illness/Other How long have you had these symptoms (acute/chronic)?:Acute Reason for exam?:Bilateral radial sided wrist pain with bilateral thumb pain x 3 months History of cancer?:Malignant neoplasm of female breast 2021 Surgeries, chemotherapy, or radiation?:u Type of Exam?:Initial Additional signs and symptoms?:none XR WRIST RIGHT 3+ VIEWS (STA NDARD)on 08-28-2024 XR WRIST RIGHT 3+ VIEWS (STANDARD) EXAMINATION: XR WRIST RIGHT 3+ VIEWS (STANDARD); XR WRIST LEFT 3+ VIEWS (STANDARD) HISTORY: Dx: R52 (Pain) Injury/Trauma or Illness?:Illness/Other How long have you had these symptoms (acute/chronic)?:Acute ORDERING SYSTEM PROVIDED HISTORY: Pain, TECHNOLOGIST PROVIDED HISTORY: Illness/Other Reason for exam: Bilateral radial sided wrist pain with bilateral thumb pain x 3 months Cancer History: Malignant neoplasm of female breast 2021 Surgery, RadiationHistory: u Encounter Type: Initial Additional signs and symptoms: none ORDERING SYSTEM PROVIDED DIAGNOSIS CODES: R52 Pain COMPARISON: Left wrist radiograph May 23, 2024. IMPRESSION: Left wrist: Severe thumb CMC joint degenerative changes. Moderate STT joint degenerative changes. Mild radiocarpal joint degenerative changes. No evidence of acute fracture. Osteopenia. Right wrist: Severe thumb CMC joint degenerative changes with subluxation measuring 0.8 cm. No evidence of acute fracture. Osteopenia. Workstation ID: [id number] Dictated by: JERAMY VAZQUEZ on MonAug 30, 2024 11:18:28 AM EDT Transcribed by: JERAMY VAZQUEZ on MonAug 30, 2024 11:18:28 AM EDT Finalized by: JERAMY VAZQUEZ on MonAug 30, 2024 11:18:28 AM EDT Normal [facility] Comment on above: Order Comment: Injur y/Trauma or Illness?:Illness/Other How long have you had these symptoms (acute/chronic)?:Acute Reason for exam?:Bilateral radial sided wrist pain with bilateral thumb pain x 3 months History of cancer?:Malignant neoplasm of female breast 2021 Surgeries, chemotherapy, or radiation?:u Type of Exam?:Initial Additional signs and symptoms?:none Breast imaging reportOrdered By: Jocelyne Whyte on 08-26-2024 Study report [facility] Imaging Services [address] [place] [address] SCRN MAMM (CAD)W/RIO BILAT MR#: [id number] Acct: [id number] Name: RADHA ALMANZA Rep #: [id number] : 1960 F 64 From: Martin Whyte DO PCP: AUBREE CAMPBELL MD Status: REG CLI Study:SCRN MAMM (CAD)W/RIO BILAT Date of Exa m: 08/26/24 Exam# [id number] Ordering Dr: Kedar Pichardo MD EXAM: SCRN MAMM (CAD)W/RIO BILAT DATE: 08/26/2024 CLINICAL HISTORY: F, Age 64 y/o , SCREENING Personal history of right breast cancer. She had a lumpectomy with radiation therapy and chemotherapy. BREAST CANCER RISK ASSESSMENT: Has not been calculated. TECHNIQUE: Bilateral screening digital breast tomosynthesis with 2D and 3D images. Computeraided detection. COMPARISON: Prior exam(s) dated 08/24/2023. FINDINGS: TISSUE DENSITY: The breast tissue is composed of scattered area of fibroglandular density. Bilateral Breast Mammographic Findings: Architectural distortion and increased density are seen in the superior outer, far posterior aspect of the right breast which does correspond to the postlumpectomy and postradiation site. This area appearsstable. Surgical clips are seen in the axillary region. The right breast is smaller in comparison to the left breast compatiblewith postsurgical changes. This is a stable finding. There is no mammographic abnormality in the right breast to suggest new or recurrent malignancy. There are no suspicious masses, suspicious cluster of microcalcifications, architectural distortion or secondary signs of malignancy identified in the left breast. BI/SCRN MAMM (CAD)W/RIO BILAT IMPRESSION: Right Breast: BIRADS 2 BENIGN FINDING. Left Breast: BIRADS 2 BENIGN FINDING. OVERALL FINAL ASSESSMENT: BIRADS 2 BENIGN FINDING RECOMMENDATION: Routine annual follow-up in 1 Year A letter with findings and recommendations will be mailed to the patient. Reading Location: [id number] CC: Dr. Reginaldo Pichardo MD; AUBREE CAMPBELL MD ~ Lockstitch Waistband Setter: Signed [facility] SCRN MAMM (CAD)W/RIO BILATo n 08-26-2024 SCRN MAMM (CAD)W/RIO BILAT [facility] Imaging Services [address] [place] [address] SCRN MAMM (CAD)W/RIO BILAT MR#: [id number] Acct: [id number] Name: RADHA ALMANZA Rep #: [id number] : 1960 F 64 From: Jocelyne Herzog PCP: AUBREE CAMPBELL MD Status: REG CLI Study: SCRN MAMM (CAD)W/RIO BILAT Date of Exam: 07/29 06/22 Exam# [id number] Ordering Dr: Reginaldo Pichardo MD EXAM: SCRN MAMM (CAD)W/RIO BILAT DATE: 08/26/2024 CLINICAL HISTORY: F, Age 64 y/o , SCREENING Personal history of right breast cancer. She had a lumpectomy with radiation therapy and chemotherapy. BREAST CANCER RISK ASSESSMENT: Has not been calculated. TECHNIQUE: Bilateral screening digital breast tomosynthesis with 2D and 3D images. Computer aided detection. COMPARISON: Prior exam(s) dated 08/24/2023. FINDINGS: TISSUE DENSITY: The breast tissue is composed of scattered area of fibroglandular density. Bilateral Breast Mammographic Findings: Architectural distortion and increased density are seen in the superior outer, far posterior aspect of the right breast which does correspond to the postlumpectomy and postradiation site. This area appears stable. Surgical clips are seen in the axillary region. The right breast is smaller in comparison to the left breast compatible with postsurgical changes. This is a stable finding. There is no mammographic abnormality in the right breast to suggest new or recurrent malignancy. There are no suspicious masses, suspicious cluster of microcalcifications, architectural distortion or secondary signs of malignancy identified in the left breast. BI/SCRN MAMM (CAD)W/RIO BILAT IMPRESSION: Right Breast: BIRADS 2 BENIGN FINDING. Left Breast: BIRADS 2 BENIGN FINDING. OVERALL FINAL ASSESSMENT: BIRADS 2 BENIGN FINDING RECOMMENDATION: Routine annual follow-up in 1 Year A letter with findings and recommendations will be mailed to the patient. Reading Location: [id number] CC: Dr. Reginaldo Pichardo MD; AUBREE CAMPBELL MD Lockstitch Waistband Setter: Signed Normal [facility] XR WRIST LEFT 3+ VIEWS (DWIGHT GALINDO)on 05-23-2024 XR WRIST LEFT 3+ VIEWS (STANDARD) EXAMINATION: XR WRIST LEFT 3+ VIEWS (STANDARD) 05/23/2024 2:42 pm HISTORY: ORDERING SYSTEM PROVIDED HISTORY: Follow-up exam, TECHNOLOGIST PROVIDED HISTORY: Injury/Trauma Reason for exam: Pt fell 2 days ago. Left wrist fracture follow up. Cancer History: Malignant neoplasm of female breast 2021 Surgery, RadiationHistory: u Encounter Type: Subsequent/Follow-up Mechanism of injury: Fall ORDERING SYSTEM PROVIDED DIAGNOSIS CODES: Z09 Follow-up exam COMPARISON STUDY: Left wrist 05/21/2024. TECHNIQUE: Frontal, oblique and lateral views for 3 views were obtained. IMPRESSION: FINDINGS/ 1. Generalized osteopenia. 2. Multifocal arthritic changes involving the hand and wrist are identified. There is severe involvement at the 1st CMC articulation. Mid/moderate involvement of the 1st MCP, triscaphe, distal radiocarpal and distal radioulnar articulations noted. 3. Previously identified acute nondisplaced intraarticular fracture deformity associated with the distal radius is more difficult to visualize on the current exam as compared to prior study. There is slight volar tilting of the distal radial articular surface on the lateral image again noted. SKS/tde Workstation ID: [id number] Dictated by: SHOAIB NEAL on MonMay 24, 2024 7:53:50 AM EST Transcribed by: JAMES DEL RIO on MonMay 24, 2024 8:17:16 AM EST Finalized by: SHOAIB NEAL on MonMay 24, 2024 1:42:30 PM EST Normal [facility] Amb[facility] Comment on above: Order Comment: Injur y/Trauma or Illness?:Injury/Trauma How long have you had these symptoms (acute/chronic)?:Acute Reason for exam?:Pt fell 2 days ago. Left wrist fracture follow up. History of cancer?:Malignant neoplasm of female breast 2021 Surgeries, chemotherapy, or radiation?:u Type of Exam?:Subsequent/Follow-up Mechanism of injury?:Fall ED Prov Noteon 05-21-2024 ED Prov Note ED PROVIDER NOTE [facility] EMERGENCY DEPARTMENT NAME: Radha Almanza AGE: 63 y.o. : 1960 VISIT DATE: 05/21/2024 CSN: [id number] PCP: Aubree Campbell MD Chief Complaint Patient presents with Wrist Pain The patient presented to the emergency room with complaint she has left wrist injury she fell last night and caught herself on the left wrist, she has pain over her distal left forearm, with limited range of motion of the left wrist secondary to pain, no visible deformity Wrist Pain Past Medical History: Diagnosis Date Anemia Arthritis Depression History of chemotherapy Malignant neoplasm of female breast (HCC) 08/2021 Past Surgical History: Procedure Laterality Date ARTHROPLASTY KNEE TOTAL ROBOTIC ASSISTED Left 09/12/2022 Procedure: Left total knee replacement Robotic; Surgeon: Helen Rivera MD; Location: Main OR; Service: Ortho-Robotics BREAST LUMPECTOMY Right 09/2021 CT COLONOSCOPY 11/16/[address] COLONOSCOPY 12/29/2017 CT COLONOSCOPY KNEE SURGERY Bilateral left knee 2021 Meniscus repair, Right knee 2018 Meniscus Repair PORTACATH PLACEMENT Left History reviewed. No pertinent family history. Social History Socioeconomic History Marital status: Single Tobacco Use Smoking status: Never Smokeless tobacco: Never Substance and Sexual Activity Alcohol use: Yes Comment: 2-4 beer per week Drug use: Not Currently Comment: Used Marijuana Gummies during chemo Social Drivers of Health Transportation Needs: No Transportation Needs (09/30/2022) OASIS A1250: Transportation Lack of Transportation (Medical): No Lack of Transportation (Non-Medical): No Patient Unable or Declines to Respond: No Received from [facility] Housing Stability Previous Medications Medication Sig ascorbic acid (VITAMIN C ORAL) Take by mouth . buPROPion (Wellbutrin XL) 150 MG 24 hr tablet Take 1 (one) tablet (150 mg total) by mouth daily . escitalopram oxalate (LEXAPRO) 20 MG tablet TAKE 1 TABLET BY MOUTH EVERY DAY FOR 90 DAYS multivitamin per tablet Take 1 (one) tablet by mouth daily . naproxen sodium (Aleve) 220 mg cap Take 220 mg by mouth every 12 (twelve) hours . pantoprazole (PROTONIX) 20 MG tablet Take 1 (one) tablet (20 mg total) by mouth daily Start: 09/13/22. pregabalin (Lyrica) 25 MG capsule Take 1 (one) capsule (25 mg total) by mouth every night at bedtime . senna-docusate (Senna-S) 8.6-50 mg Take 1 tablet by mouth daily. No Known Allergies Review of Systems All other systems reviewed and are negative. Patient Vitals for the past 24 hrs: BP Temp Pulse Resp SpO2 Weight 05/21/24 0431 124/78 99 degrees F (37.2 degrees C) 80 16 100 % 81.6 kg (180 lb) Physical Exam Vitals and nursing note reviewed. Constitutional: General: She is not in acute distress. HENT: Head: Normocephalic. Eyes: Extraocular Movements: Extraocular movements intact. Musculoskeletal: General: Normal range of motion. Cervical back: Neck supple. Pulmonary: Effort: Pulmonary effort is normal. No respiratory distress. Skin: General: Skin is warm. Neurological: General: No focal deficit present. Mental Status: She is alert and oriented to person, place, and time. Laboratory & Radiographic Imaging (if done): No results found for this visit on 05/21/24. XR Wrist Left 3+ Views (Standard) Final Result Nondisplaced intra-articular distal radial fracture with radiocarpal extension. Workstation ID: [id number] Procedures Medical Decision Making The patient presented with left wrist injury, x-ray showing nondisplaced distal fracture of the left radial bone, wrist prefabricated splint applied by the patient herself she has it from home, instructed to apply ice packs and Percocet prescribed for pain to alternate with ibuprofen or Aleve, follow-up with Dr. Rivera for recheck Problems Addressed: Closed fracture of distal end of left radius, unspecified fracture morphology, initial encounter: acute illness or injury Amount and/or Complexity of Data Reviewed Radiology: ordered. Decision-making details documented in ED Course. The patient has been informed that they may have pre-hypertension or hypertension based on a blood pressure reading in the Emergency Department. I recommend that the patient call the primary care provider listed on their discharge instructions or a physician of their choice as soon as possible to arrange follow-up in the next 4 weeks for further evaluation of possible pre-hypertension or hypertension. . Clinical Impression: 1. Closed fracture of distal end of left radius, unspecified fracture morphology, initial encounter ED Disposition ED Disposition Discharge Condition Stable Comment Radha Almanza discharged to home/self care in stable condition. Follow-up Information 1. Helen Rivera MD. Specialty: Orthopedic Franko (more content not included)... [facility] XR WRIST LEFT 3+ VIEWS (DWIGHT GALINDO)on 05-21-2024 XR WRIST LEFT 3+ VIEWS (STANDARD) EXAMINATION: XR WRIST LEFT 3+ VIEWS (STANDARD) HISTORY: wrist pain s/p fall COMPARISON: None. TECHNIQUE: Three views of the left wrist FINDINGS: Nondisplaced fracture of the distal radius with extension of the radiocarpal joint. Ulnar styloid is intact. Severe osteoarthritis of the 1st carpometacarpal joint. No bony erosive changes. Soft tissues are unremarkable. No radiopaque foreign bodies. IMPRESSION: Nondisplaced intra-articular distal radial fracture with radiocarpal extension. Workstation ID: [id number] Dictated by: MARY SIMPSON on MonMay 21, 2024 5:04:04 AM EST Transcribed by: MARY SIMPSON on MonMay 21, 2024 5:04:04 AM EST Finalized by: MARY SIMPSON on MonMay 21, 2024 5:04:04 AM EST [facility] Comment on above: Order Comment: Injur y/Trauma or Illness?:Injury/Trauma How long have you had these symptoms (acute/chronic)?:Acute Reason for exam?:fell last PM, pain all over left wrist History of cancer?:Malignant neoplasm of female breast 2021 Surgeries, chemotherapy, or radiation?:u Type of Exam?:Initial Mechanism of injury?:left wrist pain s/p fall last night at 1930 last night. QUANTIFERON TB GOLD PLUS 1 T UBEon 02-23-2024 QUANTIFERNON INCUBATION Incubation performed. [facility] Comment on above: Performed By: #### Jostin QFIT, LQFIT #### Testing performed at [address] [address] QUANTIFERON-TB GOLD PLUS Negative [facility] Comment on above: Result Comment: Refe rence range: Negative (NOTE) No response to M tuberculosis antigens detected. Infection with M tuberculosis is unlikely, but high risk individuals should be considered for additional testing (ATS/IDSA/CDC Clinical Practice Guidelines, 2017). The reference range is an Antigen minus Nil result of <0.35 IU/mL. Chemiluminescence immunoassay methodology PERFORMED AT [facility] Performed By: #### Z QFIT, LQFIT #### Testing performed at [address] [address] RFLX QUANTIFERON-TB GOLD PLU Son 02-23-2024 QUANTIFERON CRITERIA Comment [facility] Comment on above: Result Comment: (NOT E) QuantiFERON-TB Gold Plus is a qualitative indirect test for M tuberculosis infection (including disease) and is intended for use in conjunction with risk assessment, radiography, and other medical and diagnostic evaluations. The QuantiFERON-TB Gold Plus result is determined by subtracting the Nil value from either TB antigen (Ag) value. The Mitogen tube serves as a control for the test. Performed By: #### Z QFIT, LQFIT #### Testing performed at [address] [address] QUANTIFERON MITOGEN VALUE >10.00 [facility] Comment on above: Result Comment: Unit : IU/mL PERFORMED AT [facility] Performed By: #### Z QFIT, LQFIT #### Testing performed at [address] [address] QUANTIFERON NIL VALUE 0.05 [facility] Comment on above: Result Comment: Unit : IU/mL Performed By: #### Z QFIT, LQFIT #### Testing performed at [address] [address] QUANTIFERON TB1 AG VALUE 0.06 [facility] Comment on above: Result Comment: Unit : IU/mL Performed By: #### Z QFIT, LQFIT #### [facility] [place] [address] [place] [address] [place] [address] QUANTIFERON TB2 AG VALUE 0.03 Normal [facility] Comment on above: Result Comment: Unit : IU/mL Performed By: #### Z QFIT, LQFIT #### Testing performed at [facility] [address] [place] [address] [place] [address] XR LUMBAR SPINE 2-3 VIEWSon 02-19-2024 XR LUMBAR SPINE 2-3 VIEWS Exam: XR - LUMBAR SPINE 2 3 VIEWS Reason for study: Low back pain Comparison: None AP, lateral, and coned-down lumbosacral junction lateral views the vertebral alignment is satisfactory. There are no compression deformities. There is mild endplate spurring anteriorly at several levels with facet joint arthritis. IMPRESSION: Mild anterior vertebral spurring and facet joint arthritis. No compression deformity. Dictated on: 02/19/2024 1:33 PM This report has been electronically signed and approved by the interpreting Radiologist. Electronically Signed Ubaldo Mariano D.O. 2024-02-19 13:35:05 Normal Not Available XR Lumbar spine 2 or 3 Views on 02-19-2024 Exam: XR - LUMBAR SPINE 2 3 VIEWS Reason for study: Low back pain Comparison: None AP, lateral, and coned-down lumbosacral junction lateral views the vertebral alignment is satisfactory. There are no compression deformities. There is mild endplate spurring anteriorly at several levels with facet joint arthritis. IMPRESSION: Mild anterior vertebral spurring and facet joint arthritis. No compression deformity. Dictated on: 02/19/2024 1:33 PM This report has been electronically signed and approved by the interpreting Radiologist. Electronically Signed Ubaldo Mariano D.O. 2024-02-19 13:35:05 Ubaldo Franklin DO - 02/19/2024 Exam: XR - LUMBAR SPINE 2 3 VIEWS Reason for study: Low back pain Comparison: None AP, lateral, and coned-down lumbosacral junction lateral views the vertebral alignment is satisfactory. There are no compression deformities. There is mild endplate spurring anteriorly at several levels with facet joint arthritis. IMPRESSION: Mild anterior vertebral spurring and facet joint arthritis. No compression deformity. Dictated on: 02/19/2024 1:33 PM This report has been electronically signed and approved by the interpreting Radiologist. Electronically Signed Ubaldo Mariano D.O. 2024-02-19 13:35:05 [facility] Radiology Study observation (narrative) [facility] XR Lumbar spine 2 or 3 Views Ordered By: Ubaldo Mariano on 02-19-2024 [facility] [employer] Work Phone: Final Surgical Pathology Rep [facility] 01-03-2024 Final Surgical Pathology Report . Pathology Reports Accession: Collected Date/Time: Received Date/Time: Pathologist: [id number] 01/01/2024 09:30 EDT 01/02/2024 07:40 EDT GINNY OCHOA MD Final Surgical Pathology Report DIAGNOSIS: SIGMOID COLON POLYP: - TUBULAR ADENOMA CLINICAL INFORMATION: Procedure: COLONOSCOPY Preoperative diagnosis: HISTORY OF POLYPS Postoperative diagnosis: HISTORY OF POLYPS SPECIMEN: A SIGMOID COLON POLYP 2 MM GROSS DESCRIPTION: All parts labelled with patient name and [id number] Received in formalin, labeled sigmoid colon polyp are 2 friable fragments of white-gaitan tissue, in aggregate 0.4 x 0.3 x 0.2 cm. TS-1 Yahir Pfeiffer MD Performed by YAHIR PFEIFFER MICROSCOPIC DESCRIPTION: The microscopic examination is performed, except in the case of Gross Only. Electronically Signed by Pathology Report verified by [facility] GINNY OCHOA Sign out Date: 01/03/2024 10:15 Performing Lab: [facility], [address] [place] [address] Pathology Dept Disclaimer If ancillary studies were utilized, the following Laboratory Developed Test (LDT) disclaimer will apply: Under CLIA requirements, [facility] Pathology Laboratory is qualified to perform high complexity testing. For all ancillary stains, positive and negative controls stain appropriately. Performance characteristics of immunohistochemical and chromogenic in-situ hybridization tests have been determined by [facility] Pathology Laboratory. These tests are used for clinical purposes, They should not be regarded as investigational or for research. Normal [facility] ([place]) No Panel InformationOrdered By: Reginaldo Pichardo on 09-19-2023 Miscellaneous Test Comment SEE SCANNED REPORT [facility] Absolute lymphocyte countOrd ered By: Reginaldo Pichardo on 08-29-2023 Lymphocytes Auto (Unsp spec) [#/Vol] 1.00 10*3/uL 0.83-4.51 [facility] Automated lymphocyte count a s percentage of total leukocytesOrdered By: Reginaldo Pichardo on 08-29-2023 Lymphocytes/100 WBC Auto (Unsp spec) 31.3 % 19-41 [facility] Basophil percentageOrdered B y: Reginaldo Pichardo on 08-29-2023 Basophils/100 WBC (Bld) 1.3 % 0-1 [facility] Bilirubin [Mass/Vol] 0.40 mg/dL 0.20-1.00 [facility] Comment on above: For patients on eltr ombopag therapy, use of Dimension Minerva TBIL is not recommended. Chloride [Moles/Vol] 107 mmol/L 98-107 [facility] Eosinophils/100 WBC (Bld) 2.5 % 0-5 [facility] Glucose [Mass/Vol] 90 mg/dL 74-106 [facility] Hemoglobin (Bld) [Mass/Vol] 11.7 g/dL 12.0-15.0 [facility] LDH [Catalytic activity/Vol] 162 U/L 84-246 [facility] Monocytes/100 WBC (Bld) 15.3 % 0-10 [facility] Neutrophils (Bld) [#/Vol] 1.6 10*3/uL 2.0-7.7 [facility] Neutrophils/100 WBC (Bld) 49.3 % 47-70 [facility] Potassium [Moles/Vol] 3.9 mmol/L 3.5-5.1 [facility] Protein [Mass/Vol] 6.8 g/dL 6.4-8.2 [facility] Sodium [Moles/Vol] 137 mmol/L 136-145 [facility] WBC (Bld) [#/Vol] 3.2 10*3/uL 4.4-11.0 [facility] Determination of erythrocyte mean corpuscular volume (MCV)Ordered By: Reginaldo Pichardo on 08-29-2023 MCV (RBC) [Entitic vol] 99.2 fL 81-99 [facility] Erythrocyte distribution wid th ratioOrdered By: Reginaldo Pichardo on 08-29-2023 Erythrocyte distribution width (RBC) [Ratio] 13.6 % 11.6-14.6 [facility] Erythrocyte distribution wid th standard deviationOrdered By: Reginaldo Pichardo on 08-29-2023 Erythrocyte distribution width (RBC) [Entitic vol] 49.9 fL 35.1-43.9 [facility] Hematocrit Auto (Bld) [Volum e fraction]Ordered By: Reginaldo Pichardo on 08-29-2023 Hematocrit (Bld) [Volume fraction] 36.4 % 37-47 [facility] Immature granulocytes/100 WB C Auto (Bld)Ordered By: [facility] on 08-29-2023 Immature granulocytes/100 WBC (Bld) 0.300 % 0.0-0.9 [facility] Comment on above: IG% - Immature Granu locytes (promyelocytes, myelocytes and metamyelocytes) > 1% indicates that a LEFT SHIFT is Present. Laboratory - Chemistry and C hemistry - challengeOrdered By: Reginaldo Pichardo on 08-29-2023 Albumin/Globulin [Mass ratio] 1.2 {ratio} 0.9-2.4 [facility] ALP [Catalytic activity/Vol] 84 U/L 45-117 [facility] ALT [Catalytic activity/Vol] 18 U/L 13-56 [facility] CO2 [Moles/Vol] 25.0 mmol/L 21.0-32.0 [facility] Globulin (S) [Mass/Vol] 3.1 g/dL 2.2-4.2 [facility] Urea nitrogen/Creatinine [Mass ratio] 24.6 mg/mg 10-20 [facility] Laboratory - Hematology and Cell countsOrdered By: [place] Marino on 08-29-2023 MCH (RBC) [Entitic mass] 31.9 pg 27.0-32.0 [facility] MCHC (RBC) [Mass/Vol] 32.1 g/dL 32-36 [facility] Nucleated RBC/100 WBC (Bld) [Ratio] 0 % 0-5 [facility] Platelet mean volume (Bld) [Entitic vol] 9.8 fL 6.2-12.0 [facility] Platelets (Bld) [#/Vol] 245 10*3/uL 150-450 [facility] No Panel InformationOrdered By: Reginaldo Pichardo on 08-29-2023 Estimated Creatinine Clearance Calc 98.68 ml/min [facility] Estimated GFR (MDRD) Amer 128 mL/min >60 [facility] Comment on above: GFR Calc Estimated GFR (MDRD) Non-Af Amer 106 mL/min >60 [facility] Comment on above: Non- GFR Calc RBC Auto (Bld) [#/Vol]Ordere d By: Reginaldo Pichardo on 08-29-2023 RBC (Bld) [#/Vol] 3.67 10*6/uL 4.2-5.4 [facility] Serum or plasma calcium claudia urement (mass/volume)Ordered By: Reignaldo Pichardo on 08-29-2023 Calcium [Mass/Vol] 8.8 mg/dL 8.5-10.1 [facility] Serum or plasma creatinine m easurement (mass/volume)Ordered By: Reginaldo Pichardo on 08-29-2023 Creatinine [Mass/Vol] 0.61 mg/dL 0.55-1.02 [facility] Comment on above: The validity of the calculated GFR & GFRAA in patients over 70 years has not been determined. Clinical correlation is essential. Serum or plasma thyroid stim ulating hormone (TSH) measurement (units/volume)Ordered By: Reginaldo Pichardo on 08-29-2023 TSH Qn 3.69 uIU/mL 0.358-3.74 [facility] Serum or plasma urea nitroge n measurement (mass/volume)Ordered By: Reginaldo Pichardo on 08-29-2023 Urea nitrogen [Mass/Vol] 15 mg/dL 7-18 [facility] Thin prep Papanicolaou smear with manual screeningOrdered By: Reginaldo Pichardo on 08-29-2023 Thin prep Papanicolaou smear with manual screening 3.7 g/dL 3.2-5.0 [facility] Thin prep Papanicolaou smear with manual screening 13 U/L 15-37 [facility] Thin prep Papanicolaou smear with manual screening 5 5-15 [facility] Thin prep Papanicolaou smear with manual screening 0.67 ng/dL 0.76-1.46 [facility] Bacteria identifiedon 03-08- 2024 Bacteria identified Cx Nom (U) Test: Urine Culture Specimen Source: Clean Catch/Voided Specimen Type: Urine Specimen Date: 08/04/2023 1:55 PM Result Date: 08/11/2023 3:21 PM Result Status: Edited Result - FINAL Abnormal: Yes Resulting Lab: [facility] [address] [place] [address] CULTURE 20,000 - 80,000 Escherichia coli (Abnormal) SUSCEPTIBILITY Escherichia coli METHOD MICROSCAN --------- AMOXICILLIN/CLAVULANATE -- Susceptible AMPICILLIN -- Resistant AMPICILLIN/SULBACTAM -- Susceptible CEFAZOLIN -- Susceptible CEFAZOLIN (UNCOMPLICATED UTIS ONLY) -- Susceptible [1] CIPROFLOXACIN -- Resistant GENTAMICIN -- Susceptible NITROFURANTOIN -- Susceptible PIPERACILLIN/TAZOBACTAM -- Susceptible TRIMETHOPRIM/SULFAMETHOXAZ OLE -- Resistant [1] This is an appended report. These results have been appended to a previously final verified report. Abnormal [facility] Comment on above: Performed By: #### 6 30-4 #### GILLES Haines ([id number]) [facility] ([facility]) [address] [place] [address] Urinalysis complete panel (U )on 08-04-2023 Appearance (U) Hazy Normal Clear [facility] Comment on above: Performed By: #### 2 4356-8 #### DANILO CASTILLO ([id number]) [facility] ([facility]) [address] [place] [address] Bilirubin (U) [Mass/Vol] Negative Normal NEGATIVE [facility] Comment on above: Performed By: #### 2 4356-8 #### DANILO CASTILLO ([id number]) [facility] ([facility]) [address] [place] [address] Color (U) Straw Normal Straw, Yellow [facility] Comment on above: Performed By: #### 2 435-8 #### DANILO CASTILLO ([id number]) [facility] ([facility]) [address] [place] [address] Glucose Auto test strip (U) [Mass/Vol] Negative Normal NEGATIVE [facility] Comment on above: Performed By: #### 2 4356-8 #### DANILO CASTILLO ([id number]) [facility] ([facility]) [address] [place] [address] Ketones (U) [Mass/Vol] Negative Normal NEGATIVE [facility] Comment on above: Performed By: #### 2 435-8 #### DANILO CASTILLO ([id number]) [facility] ([facility]) [address] [place] [address] Leukocyte esterase Auto test strip Ql (U) LARGE (3+) Abnormal NEGATIVE [facility] Comment on above: Performed By: #### 2 435-8 #### DANILO CASTILLO ([id number]) [facility] ([facility]) [address] [place] [address] Nitrite Auto test strip Ql (U) Negative Normal NEGATIVE [facility] Comment on above: Performed By: #### 2 435-8 #### DANILO CASTILLO ([id number]) [facility] ([facility]) [address] [place] [address] pH (U) 8.0 [pH] Normal 5.0, 5.5, 6.0, 6.5, 7.0, 7.5, 8.0 [facility] Comment on above: Performed By: #### 2 435-8 #### DANILO CASTILLO ([id number]) [facility] ([facility]) [address] [place] [address] Protein (U) [Mass/Vol] Negative Normal NEGATIVE [facility] Comment on above: Performed By: #### 2 435-8 #### DANILO CASTILLO ([id number]) [facility] ([facility]) [address] [place] [address] RBC (U) [#/Vol] SMALL (1+) Abnormal NEGATIVE [facility] Comment on above: Performed By: #### 2 4356-8 #### DANILO CASTILLO ([id number]) [facility] ([facility]) [address] [place] [address] Specific gravity (U) [Rel density] 1.005 Normal 1.005-1.035 [facility] Comment on above: Performed By: #### 2 435-8 #### DANILO CASTILLO ([id number]) [facility] ([facility]) [address] [place] [address] Urobilinogen (U) [Mass/Vol] mg/dL Normal <2.0 [facility] Comment on above: Performed By: #### 2 4356-8 #### DANILO CASTILLO ([id number]) [facility] ([facility]) [address] [place] [address] Urinalysis microscopic panel Auto Ql (U)on 08-04-2023 Bacteria Auto (Urine sed) [#/Area] 1+ /HPF Abnormal NONE SEEN [facility] Comment on above: Performed By: #### 5 3315-8 #### DANILO CASTILLO ([id number]) [facility] ([facility]) [address] [place] [address] Leukocyte clumps Auto (Urine sed) [#/Area] OCCASIONAL Normal Reference range not established . [facility] Comment on above: Performed By: #### 5 3315-8 #### DANILO CASTILLO ([id number]) [facility] ([facility]) [address] [place] [address] Mucus Auto (Urine sed) [#/Area] 1+ /LPF Normal Reference range not established . [facility] Comment on above: Performed By: #### 5 3315-8 #### DANILO CASTILLO ([id number]) [facility] ([facility]) [address] [place] [address] RBC Auto (Urine sed) [#/Area] 11-20 Abnormal NONE, 1-2, 3-5 [facility] Comment on above: Performed By: #### 5 3315-8 #### DANILO CASTILLO ([id number]) [facility] ([facility]) [address] [place] [address] WBC Auto (Urine sed) [#/Area] >50 Abnormal 1-5, NONE [facility] Comment on above: Performed By: #### 5 3315-8 #### DANILO CASTILLO ([id number]) [facility] ([facility]) [address] [place] [address] COVID-19 virus antigen assay Ordered By: Marty Delgadillo on 04-28-2023 SARS-CoV-2 (COVID-19) Ag IA.rapid Ql (Resp) [facility] Iron measurement (mass/mass) Ordered By: Reginaldo Pichardo on 04-19-2023 Iron (Unsp spec) [Mass/Mass] 66 ug/dL 50-170 [facility] No Panel InformationOrdered By: Reginaldo Pichardo on 04-19-2023 Miscellaneous Test Comment MAILED SPECIMEN [facility] Total Iron Binding Capacity 257 ug/dL 250-450 [facility] Serum or plasma ferritin judith surement (mass/volume)Ordered By: Reginaldo Pichardo on 04-19-2023 Ferritin [Mass/Vol] 105 ng/mL 8-252 [facility] Serum or plasma iron saturat ion measurement (mass fraction)Ordered By: Reginaldo Pichardo on 04-19-2023 Iron saturation [Mass fraction] 25.7 % 15.0-55.0 [facility] Absolute lymphocyte countOrd ered By: Reginaldo Pichardo on 04-13-2023 Lymphocytes Auto (Unsp spec) [#/Vol] 1.07 10*3/uL 0.83-4.51 [facility] Basophil percentageOrdered B y: Reginaldo Pichardo on 04-13-2023 Basophils/100 WBC (Bld) 1.4 % 0-1 [facility] Bilirubin [Mass/Vol] 0.40 mg/dL 0.20-1.00 [facility] Comment on above: For patients on eltr ombopag therapy, use of Dimension Minerva TBIL is not recommended. Chloride [Moles/Vol] 106 mmol/L 98-107 [facility] Eosinophils/100 WBC (Bld) 2.1 % 0-5 [facility] Glucose [Mass/Vol] 102 mg/dL 74-106 [facility] Comment on above: Fasting Glucose resu lt from 100 to 125 mg/dL suggests IMPAIRED HOMEOSTASIS per A.D.A. criteria. LDH [Catalytic activity/Vol] 170 U/L 84-246 [facility] Neutrophils (Bld) [#/Vol] 1.3 10*3/uL 2.0-7.7 [facility] Neutrophils/100 WBC (Bld) 44.3 % 47-70 [facility] Potassium [Moles/Vol] 4.1 mmol/L 3.5-5.1 [facility] Protein [Mass/Vol] 7.2 g/dL 6.4-8.2 [facility] Sodium [Moles/Vol] 139 mmol/L 136-145 [facility] WBC (Bld) [#/Vol] 2.9 10*3/uL 4.4-11.0 [facility] Blood erythrocytes count (nu mber/volume)Ordered By: Reginaldo Pichardo on 04-13-2023 RBC (Bld) [#/Vol] 3.75 10*6/uL 4.2-5.4 [facility] Blood hemoglobin measurement (mass/volume)Ordered By: Reginaldo Pichardo on 04-13-2023 Hemoglobin (Bld) [Mass/Vol] 12.0 g/dL 12.0-15.0 [facility] Blood lymphocytes/100 leukoc ytesOrdered By: Reginaldo Pichardo on 04-13-2023 Lymphocytes/100 WBC (Bld) 36.8 % 19-41 [facility] Blood monocytes/100 leukocyt esOrdered By: Reginaldo Pichardo on 04-13-2023 Monocytes/100 WBC (Bld) 15.1 % 0-10 [facility] Blood platelet mean volumeOr dered By: Reginaldo Pichardo on 04-13-2023 Platelet mean volume (Bld) [Entitic vol] 9.8 fL 6.2-12.0 [facility] Determination of erythrocyte mean corpuscular volume (MCV)Ordered By: Reginaldo Pichardo on 04-13-2023 MCV (RBC) [Entitic vol] 100.8 fL 81-99 [facility] Hematocrit Auto (Bld) [Volum e fraction]Ordered By: Reginaldo Pichardo on 04-13-2023 Hematocrit (Bld) [Volume fraction] 37.8 % 37-47 [facility] Laboratory - Chemistry and C hemistry - challengeOrdered By: Reginaldo Pichardo on 04-13-2023 ALP [Catalytic activity/Vol] 92 U/L 45-117 [facility] ALT [Catalytic activity/Vol] 17 U/L 13-56 [facility] CO2 [Moles/Vol] 26.0 mmol/L 21.0-32.0 [facility] Free T4 [Mass/Vol] 0.75 ng/dL 0.76-1.46 [facility] Globulin (S) [Mass/Vol] 3.2 g/dL 2.2-4.2 [facility] Urea nitrogen/Creatinine [Mass ratio] 29.0 mg/mg 10-20 [facility] Laboratory - Hematology and Cell countsOrdered By: Reginaldo Pichardo on 04-13-2023 Erythrocyte distribution width (RBC) [Entitic vol] 51.8 fL 35.1-43.9 [facility] Erythrocyte distribution width (RBC) [Ratio] 13.8 % 11.6-14.6 [facility] Immature granulocytes/100 WBC (Bld) 0.300 % 0.0-0.9 [facility] Comment on above: IG% - Immature Granu locytes (promyelocytes, myelocytes and metamyelocytes) > 1% indicates that a LEFT SHIFT is Present. MCH (RBC) [Entitic mass] 32.0 pg 27.0-32.0 [facility] Nucleated RBC/100 WBC (Bld) [Ratio] 0 % 0-5 [facility] MCHC Auto (RBC) [Mass/Vol]Or dered By: Reginaldo Pichardo on 04-13-2023 MCHC (RBC) [Mass/Vol] 31.7 g/dL 32-36 [facility] No Panel InformationOrdered By: Reginaldo Pichardo on 04-13-2023 Estimated Creatinine Clearance Calc 70.01 ml/min [facility] Estimated GFR (MDRD) Amer 95 mL/min >60 [facility] Comment on above: GFR Calc Estimated GFR (MDRD) Non-Af Amer 78 mL/min >60 [facility] Comment on above: Non- GFR Calc Thyroid Stimulating Hormone (TSH) 5.87 uIU/mL 0.358-3.74 [facility] Platelets bldOrdered By: Kedar linder Bronsonneeraj on 04-13-2023 Platelets (Bld) [#/Vol] 238 10*3/uL 150-450 [facility] Serum or plasma albumin claudia urement (mass/volume)Ordered By: Reginaldo Pichardo on 04-13-2023 Albumin [Mass/Vol] 4.0 g/dL 3.2-5.0 [facility] Serum or plasma albumin/glob ulin mass ratioOrdered By: Reginaldo Pichardo on 04-13-2023 Albumin/Globulin [Mass ratio] 1.2 {ratio} 0.9-2.4 [facility] Serum or plasma calcium claudia urement (mass/volume)Ordered By: Reginaldo Pichardo on 04-13-2023 Calcium [Mass/Vol] 9.0 mg/dL 8.5-10.1 [facility] Serum or plasma creatinine m easurement (mass/volume)Ordered By: Reginaldo Pichardo on 04-13-2023 Creatinine [Mass/Vol] 0.79 mg/dL 0.55-1.02 [facility] Comment on above: The validity of the calculated GFR & GFRAA in patients over 70 years has not been determined. Clinical correlation is essential. Serum or plasma urea nitroge n measurement (mass/volume)Ordered By: Reginaldo Pichardo on 04-13-2023 Urea nitrogen [Mass/Vol] 23 mg/dL 7-18 [facility] Thin prep Papanicolaou smear with manual screeningOrdered By: Reginaldo Pichardo on 04-13-2023 Thin prep Papanicolaou smear with manual screening 13 U/L 15-37 [facility] Thin prep Papanicolaou smear with manual screening 7 5-15 [facility] Basophil percentageOrdered B y: AUBREE CAMPBELL on 03-09-2023 Bilirubin [Mass/Vol] 0.30 mg/dL 0.20-1.00 [facility] Comment on above: For patients on eltr ombopag therapy, use of Dimension Minerva TBIL is not recommended. Chloride [Moles/Vol] 107 mmol/L 98-107 [facility] Cholesterol [Mass/Vol] 184 mg/dL <200 [facility] Comment on above: <200 mg/dL Desirable 200-240 mg/dL Borderline >240 mg/dL High Risk Glucose [Mass/Vol] 95 mg/dL 74-106 [facility] Potassium [Moles/Vol] 4.4 mmol/L 3.5-5.1 [facility] Protein [Mass/Vol] 7.3 g/dL 6.4-8.2 [facility] Sodium [Moles/Vol] 139 mmol/L 136-145 [facility] Triglyceride [Mass/Vol] 74 mg/dL <199 [facility] Comment on above: The drugs N-Acetylcy steine and Metamizole may falsely depress this assay.Serum Triglycerides Reference Interval Normal <150 mg/dL Borderline high 150 - 199 mg/dL High 200 - 499 mg/dL Very High > or = 500 mg/dL Laboratory - Chemistry and C hemistry - challengeOrdered By: AUBREE CAMPBELL on 03-09-2023 ALP [Catalytic activity/Vol] 97 U/L 45-117 [facility] ALT [Catalytic activity/Vol] 22 U/L 13-56 [facility] CO2 [Moles/Vol] 29.0 mmol/L 21.0-32.0 [facility] Globulin (S) [Mass/Vol] 3.5 g/dL 2.2-4.2 [facility] Urea nitrogen/Creatinine [Mass ratio] 29.0 mg/mg 10-20 [facility] No Panel InformationOrdered By: AUBREE CAMPBELL on 03-09-2023 Estimated GFR (MDRD) Amer 105 mL/min >60 [facility] Comment on above: GFR Calc Estimated GFR (MDRD) Non-Af Amer 87 mL/min >60 [facility] Comment on above: Non- GFR Calc Thyroid Stimulating Hormone (TSH) 4.86 uIU/mL 0.358-3.74 [facility] Serum or plasma albumin claudia urement (mass/volume)Ordered By: AUBREE CAMPBELL on 03-09-2023 Albumin [Mass/Vol] 3.8 g/dL 3.2-5.0 [facility] Serum or plasma albumin/glob ulin mass ratioOrdered By: AUBREE CAMPBELL on 03-09-2023 Albumin/Globulin [Mass ratio] 1.1 {ratio} 0.9-2.4 [facility] Serum or plasma calcium claudia urement (mass/volume)Ordered By: AUBREE CAMPBELL on 03-09-2023 Calcium [Mass/Vol] 8.9 mg/dL 8.5-10.1 [facility] Serum or plasma cholesterol in HDL measurement (mass/volume)Ordered By: AUBREE CAMPBELL on 03-09-2023 Cholesterol in HDL [Mass/Vol] 97 mg/dL >40 [facility] Comment on above: The drugs N-Acetylcy steine and Metamizole may falsely depress this assay. Reference Range HDL <40 mg/dL Low HDL Cholesterol HDL >or= 60 mg/dL High HDL Cholesterol Serum or plasma cholesterol in VLDL measurement (mass/volume)Ordered By: AUBREE CAMPBELL on 03-09-2023 Cholesterol in VLDL [Mass/Vol] 15 mg/dL 5-40 [facility] Serum or plasma creatinine m easurement (mass/volume)Ordered By: AUBREE CAMPBELL on 03-09-2023 Creatinine [Mass/Vol] 0.72 mg/dL 0.55-1.02 [facility] Comment on above: The validity of the calculated GFR & GFRAA in patients over 70 years has not been determined. Clinical correlation is essential. Serum or plasma low density lipoprotein (LDL) cholesterol measurement (mass/volume)Ordered By: AUBREE CAMPBELL on 03-09-2023 Cholesterol in LDL [Mass/Vol] 72 mg/dL 0-130 [facility] Serum or plasma urea nitroge n measurement (mass/volume)Ordered By: AUBREE CAMPBELL on 03-09-2023 Urea nitrogen [Mass/Vol] 21 mg/dL 7-18 [facility] Thin prep Papanicolaou smear with manual screeningOrdered By: AUBREE CAMPBELL on 03-09-2023 Thin prep Papanicolaou smear with manual screening 12 U/L 15-37 [facility] Thin prep Papanicolaou smear with manual screening 3 5-15 [facility] COVID-19 virus antigen assay Ordered By: Marty Delgadillo on 03-02-2023 SARS-CoV-2 (COVID-19) Ag IA.rapid Ql (Resp) [facility] SARS-CoV-2 (COVID-19) Ag IA.rapid Ql (Resp) [facility] COVID-19 virus antigen assay Ordered By: Marty Delgadillo on 02-17-2023 SARS-CoV-2 (COVID-19) Ag IA.rapid Ql (Resp) [facility] COVID-19 virus antigen assay Ordered By: Marty Delgadillo on 02-16-2023 SARS-CoV-2 (COVID-19) Ag IA.rapid Ql (Resp) [facility] XR KNEE LEFT 2 VIEWS ([address] RD)on 09-12-2022 XR KNEE LEFT 2 VIEWS (STANDARD) EXAMINATION: XR KNEE LEFT 2 VIEWS (STANDARD) 09/12/2022 11:53 am HISTORY: ORDERING SYSTEM PROVIDED HISTORY: s/p Lt. TKA in OR, TECHNOLOGIST PROVIDED HISTORY: Illness/Other Reason for exam: s/p Lt. TKA Cancer History: Malignant neoplasm of female breast 2021 Surgery, RadiationHistory: u Encounter Type: Subsequent/Follow-up Additional signs and symptoms: . ORDERING SYSTEM PROVIDED DIAGNOSIS CODES: M17.12 Primary osteoarthritis of left knee M17.12 Primary osteoarthritis of left knee COMPARISON: Radiographs of the left knee 06/15/[address] scan left lower extremity 08/11/2022. FINDINGS: There has been placement of a total knee prosthesis which appears in appropriate position. No hardware complication, fracture or dislocation is seen. There is a skin staple row anteriorly. There is a small amount of fluid and a moderate amount of air within the suprapatellar joint space from the recent surgery. IMPRESSION: Satisfactory postoperative appearance of a total knee prosthesis. Workstation ID: [id number] Dictated by: YING AWAD on MonSep 12, 2022 11:56:53 AM EDT Transcribed by: YING AWAD on MonSep 12, 2022 11:56:53 AM EDT Finalized by: YING AWAD on MonSep 12, 2022 11:56:53 AM EDT Normal [facility] Comment on above: Order Comment: Injur y/Trauma or Illness?:Illness/Other How long have you had these symptoms (acute/chronic)?:Chronic Reason for exam?:s/p Lt. TKA History of cancer?:Malignant neoplasm of female breast 2021 Surgeries, chemotherapy, or radiation?:u Type of Exam?:Subsequent/Follow-up Additional signs and symptoms?:. Absolute lymphocyte countOrd ered By: Dr. Pichardo on 09-07-2022 Lymphocytes Auto (Unsp spec) [#/Vol] 0.56 10*3/uL 0.83-4.51 [facility] Basophil percentageOrdered B y: Dr. Pichardo on 09-07-2022 Basophils/100 WBC (Bld) 0.6 % 0-1 [facility] Bilirubin [Mass/Vol] 0.40 mg/dL 0.20-1.00 [facility] Comment on above: For patients on eltr ombopag therapy, use of Dimension Minerva TBIL is not recommended. Chloride [Moles/Vol] 103 mmol/L 98-107 [facility] Eosinophils/100 WBC (Bld) 3.1 % 0-5 [facility] Glucose [Mass/Vol] 97 mg/dL 74-106 [facility] LDH [Catalytic activity/Vol] 174 U/L 84-246 [facility] Neutrophils (Bld) [#/Vol] 2.1 10*3/uL 2.0-7.7 [facility] Neutrophils/100 WBC (Bld) 64.6 % 47-70 [facility] Potassium [Moles/Vol] 4.2 mmol/L 3.5-5.1 [facility] Protein [Mass/Vol] 6.8 g/dL 6.4-8.2 [facility] Sodium [Moles/Vol] 134 mmol/L 136-145 [facility] WBC (Bld) [#/Vol] 3.3 10*3/uL 4.4-11.0 [facility] Blood erythrocytes count (nu mber/volume)Ordered By: Dr. Pichardo on 09-07-2022 RBC (Bld) [#/Vol] 3.80 10*6/uL 4.2-5.4 [facility] Blood hemoglobin measurement (mass/volume)Ordered By: Dr. Pichardo on 09-07-2022 Hemoglobin (Bld) [Mass/Vol] 11.9 g/dL 12.0-15.0 [facility] Blood lymphocytes/100 leukoc ytesOrdered By: Dr. Pichardo on 09-07-2022 Lymphocytes/100 WBC (Bld) 17.2 % 19-41 [facility] Blood manual differential co mment interpretation (narrative result)Ordered By: Dr. Pichardo on 09-07-2022 Manual differential comment Jason (Bld) [Interp] COMMENT [facility] Comment on above: LYMPHOPENIA. Blood monocytes/100 leukocyt esOrdered By: [address] Pichardo on 09-07-2022 Monocytes/100 WBC (Bld) 14.2 % 0-10 [facility] Blood platelet mean volumeOr dered By: Dr. Pichardo on 09-07-2022 Platelet mean volume (Bld) [Entitic vol] 10.0 fL 6.2-12.0 [facility] Determination of erythrocyte mean corpuscular volume (MCV)Ordered By: Dr. Pichardo on 09-07-2022 MCV (RBC) [Entitic vol] 101.1 fL 81-99 [facility] Hematocrit Auto (Bld) [Volum e fraction]Ordered By: Dr. Pichardo on 09-07-2022 Hematocrit (Bld) [Volume fraction] 38.4 % 37-47 [facility] Laboratory - Chemistry and C hemistry - challengeOrdered By: Dr. Pichardo on 09-07-2022 ALP [Catalytic activity/Vol] 97 U/L 45-117 [facility] ALT [Catalytic activity/Vol] 35 U/L 13-56 [facility] CO2 [Moles/Vol] 29.0 mmol/L 21.0-32.0 [facility] Globulin (S) [Mass/Vol] 3.1 g/dL 2.2-4.2 [facility] Urea nitrogen/Creatinine [Mass ratio] 24.4 mg/mg 10-20 [facility] Laboratory - Hematology and Cell countsOrdered By: Dr. Pichardo on 09-07-2022 Erythrocyte distribution width (RBC) [Entitic vol] 53.1 fL 35.1-43.9 [facility] Erythrocyte distribution width (RBC) [Ratio] 14.3 % 11.6-14.6 [facility] Immature granulocytes/100 WBC (Bld) 0.300 % 0.0-0.9 [facility] Comment on above: IG% - Immature Granu locytes (promyelocytes, myelocytes and metamyelocytes) > 1% indicates that a LEFT SHIFT is Present. MCH (RBC) [Entitic mass] 31.3 pg 27.0-32.0 [facility] Nucleated RBC/100 WBC (Bld) [Ratio] 0 % 0-5 [facility] MCHC Auto (RBC) [Mass/Vol]Or dered By: Dr. Pichardo on 09-07-2022 MCHC (RBC) [Mass/Vol] 31.0 g/dL 32-36 [facility] No Panel InformationOrdered By: Dr. Pichardo on 09-07-2022 Estimated Creatinine Clearance Calc 83.80 ml/min [facility] Estimated GFR (MDRD) Amer 118 mL/min >60 [facility] Comment on above: GFR Calc Estimated GFR (MDRD) Non-Af Amer 97 mL/min >60 [facility] Comment on above: Non- GFR Calc Platelets bldOrdered By: Dr. Pichardo on 09-07-2022 Platelets (Bld) [#/Vol] 234 10*3/uL 150-450 [facility] Review by pathologistOrdered By: Dr. Pichardo on 09-07-2022 Pathologist review Jason (Unsp spec) [Interp] Reviewed [facility] Comment on above: Previous reported re sult: Lila stevens Edited by: RGOGOLDIE on 09/08/22:1257Leukopenia.Macrocytic anemia.Clinical correlation necessary.Jorgito Evans M.D. 09/08/22 AMENDED REPORT 09/08/22 1257 PATH REV previously reported as: September hilda Serum or plasma albumin claudia urement (mass/volume)Ordered By: Dr. Pichardo on 09-07-2022 Albumin [Mass/Vol] 3.7 g/dL 3.2-5.0 [facility] Serum or plasma albumin/glob ulin mass ratioOrdered By: Dr. Pichardo on 09-07-2022 Albumin/Globulin [Mass ratio] 1.2 {ratio} 0.9-2.4 [facility] Serum or plasma calcium claudia urement (mass/volume)Ordered By: Dr. Pichardo on 09-07-2022 Calcium [Mass/Vol] 9.1 mg/dL 8.5-10.1 [facility] Serum or plasma creatinine m easurement (mass/volume)Ordered By: Dr. Pichardo on 09-07-2022 Creatinine [Mass/Vol] 0.66 mg/dL 0.55-1.02 [facility] Comment on above: The validity of the calculated GFR & GFRAA in patients over 70 years has not been determined. Clinical correlation is essential. Serum or plasma urea nitroge n measurement (mass/volume)Ordered By: Dr. Pichardo on 09-07-2022 Urea nitrogen [Mass/Vol] 16 mg/dL 7-18 [facility] Thin prep Papanicolaou smear with manual screeningOrdered By: Dr. Pichardo on 09-07-2022 Thin prep Papanicolaou smear with manual screening 18 U/L 15-37 [facility] Thin prep Papanicolaou smear with manual screening 2 5-[address] [facility] [address] KNEE LEFT WITHOUT CONTRAS Ton 08-11-2022 CT KNEE LEFT WITHOUT CONTRAST EXAMINATION: CT KNEE LEFT WITHOUT CONTRAST HISTORY: ORDERING SYSTEM PROVIDED HISTORY: pre operative for upcoming Lt TKR scheduled for 09/12/22, TECHNOLOGIST PROVIDED HISTORY: Illness/Other Reason for exam: pre operative for upcoming Lt TKR Encounter Type: Initial Additional signs and symptoms: . ORDERING SYSTEM PROVIDED DIAGNOSIS CODES: M17.12 Primary osteoarthritis of left knee COMPARISON: Left knee radiograph 06/15/2022. TECHNIQUE: Axial CT imaging of the left hip, knee and ankle without contrast. Shahriar protocol. Dose reduction techniques were achieved by using automated exposure control and/or adjustment of mA and/or kV according to patient size and/or use of iterative reconstruction technique. FINDINGS: KNEE: No acute osseous abnormality. Medial compartment joint space narrowing with subchondral cystic changes, subchondral sclerosis and moderate marginal osteophytes. Mild patellofemoral and lateral knee compartment marginal osteophytes. Moderate joint effusion. Small Bailey's cyst. Normal surrounding muscle bulk. HIP: No acute osseous abnormality. No CT evidence of avascular necrosis of the femoral head. Normal alignment. Hip joint space narrowing with mild marginal osteophyte spurring. No significant joint effusion. Partial visualization of probable Essure device ANKLE: No acute osseous abnormality. Normal joint alignment. No significant tibiotalar osteoarthritis. Surrounding soft tissues appear unremarkable. IMPRESSION: Left knee tricompartmental osteoarthritis with moderate joint effusion and small Bailey's cyst. [employer] Workstation ID: [id number] Dictated by: SUSANNE ANDERSEN on MonAug 11, 2022 1:56:03 PM EDT Transcribed by: AMOR ROMEO on MonAug 11, 2022 2:16:52 PM EDT Finalized by: SUSANNE ANDERSEN on MonAug 11, 2022 9:36:33 PM EDT Normal [facility] Comment on above: Order Comment: Injur y/Trauma or Illness?:Illness/Other How long have you had these symptoms (acute/chronic)?:Acute Reason for exam?:pre operative for upcoming Lt TKR Type of Exam?:Initial Additional signs and symptoms?:. Basophil percentageOrdered B y: Dr. Chris on 07-20-2022 Bilirubin [Mass/Vol] 0.40 mg/dL 0.20-1.00 [facility] Comment on above: For patients on eltr ombopag therapy, use of Dimension Minerva TBIL is not recommended. Chloride [Moles/Vol] 106 mmol/L 98-107 [facility] Cholesterol [Mass/Vol] 178 mg/dL <200 [facility] Comment on above: <200 mg/dL Desirable 200-240 mg/dL Borderline >240 mg/dL High Risk Glucose [Mass/Vol] 76 mg/dL 74-106 [facility] Potassium [Moles/Vol] 4.1 mmol/L 3.5-5.1 [facility] Protein [Mass/Vol] 7.1 g/dL 6.4-8.2 [facility] Sodium [Moles/Vol] 140 mmol/L 136-145 [facility] Triglyceride [Mass/Vol] 40 mg/dL <199 [facility] Comment on above: The drugs N-Acetylcy steine and Metamizole may falsely depress this assay.Serum Triglycerides Reference Interval Normal <150 mg/dL Borderline high 150 - 199 mg/dL High 200 - 499 mg/dL Very High > or = 500 mg/dL WBC (Bld) [#/Vol] 2.9 10*3/uL 4.4-11.0 [facility] Blood erythrocytes count (nu mber/volume)Ordered By: Dr. Chris on 07-20-2022 RBC (Bld) [#/Vol] 3.80 10*6/uL 4.2-5.4 [facility] Blood hemoglobin measurement (mass/volume)Ordered By: Dr. Chris on 07-20-2022 Hemoglobin (Bld) [Mass/Vol] 12.2 g/dL 12.0-15.0 [facility] Blood platelet mean volumeOr dered By: Dr. Chris on 07-20-2022 Platelet mean volume (Bld) [Entitic vol] 10.1 fL 6.2-12.0 [facility] Determination of erythrocyte mean corpuscular volume (MCV)Ordered By: Dr. Chris on 07-20-2022 MCV (RBC) [Entitic vol] 102.1 fL 81-99 [facility] Hematocrit Auto (Bld) [Volum e fraction]Ordered By: Dr. Chris on 07-20-2022 Hematocrit (Bld) [Volume fraction] 38.8 % 37-47 [facility] Laboratory - Chemistry and C hemistry - challengeOrdered By: Dr. Chris on 07-20-2022 ALP [Catalytic activity/Vol] 83 U/L 45-117 [facility] ALT [Catalytic activity/Vol] 17 U/L 13-56 [facility] CO2 [Moles/Vol] 29.0 mmol/L 21.0-32.0 [facility] Cobalamin (Vitamin B12) [Mass/Vol] 437 pg/mL 211-911 [facility] Globulin (S) [Mass/Vol] 3.3 g/dL 2.2-4.2 [facility] Urea nitrogen/Creatinine [Mass ratio] 29.9 mg/mg 10-20 [facility] Laboratory - Hematology and Cell countsOrdered By: Dr. Chris on 07-20-2022 Erythrocyte distribution width (RBC) [Entitic vol] 51.1 fL 35.1-43.9 [facility] Erythrocyte distribution width (RBC) [Ratio] 13.5 % 11.6-14.6 [facility] MCH (RBC) [Entitic mass] 32.1 pg 27.0-32.0 [facility] MCHC Auto (RBC) [Mass/Vol]Or dered By: Dr. Chris on 07-20-2022 MCHC (RBC) [Mass/Vol] 31.4 g/dL 32-36 [facility] No Panel InformationOrdered By: Dr. Chris on 07-20-2022 Estimated GFR (MDRD) Amer 103 mL/min >60 [facility] Comment on above: GFR Calc Estimated GFR (MDRD) Non-Af Amer 85 mL/min >60 [facility] Comment on above: Non- GFR Calc Thyroid Stimulating Hormone (TSH) 7.04 uIU/mL 0.358-3.74 [facility] Whole Blood Vitamin B1 Level 103.9 nmol/L 66.5-200.0 [facility] Comment on above: Performed at: [address] [id number] Director: Lilia Chavarria MD, Phone: [phone] Platelets bldOrdered By: Dr. Chris on 07-20-2022 Platelets (Bld) [#/Vol] 258 10*3/uL 150-450 [facility] Serum or plasma albumin claudia urement (mass/volume)Ordered By: Dr. Chris on 07-20-2022 Albumin [Mass/Vol] 3.8 g/dL 3.2-5.0 [facility] Serum or plasma albumin/glob ulin mass ratioOrdered By: Dr. Chris on 07-20-2022 Albumin/Globulin [Mass ratio] 1.2 {ratio} 0.9-2.4 [facility] Serum or plasma calcium claudia urement (mass/volume)Ordered By: Dr. Chris on 07-20-2022 Calcium [Mass/Vol] 9.2 mg/dL 8.5-10.1 [facility] Serum or plasma cholesterol in HDL measurement (mass/volume)Ordered By: Dr. Chris on 07-20-2022 Cholesterol in HDL [Mass/Vol] 90 mg/dL >40 [facility] Comment on above: The drugs N-Acetylcy steine and Metamizole may falsely depress this assay. Reference Range HDL <40 mg/dL Low HDL Cholesterol HDL >or= 60 mg/dL High HDL Cholesterol Serum or plasma cholesterol in VLDL measurement (mass/volume)Ordered By: Dr. Chris on 07-20-2022 Cholesterol in VLDL [Mass/Vol] 8 mg/dL 5-40 [facility] Serum or plasma creatinine m easurement (mass/volume)Ordered By: Dr. Chrsi on 07-20-2022 Creatinine [Mass/Vol] 0.74 mg/dL 0.55-1.02 [facility] Comment on above: The validity of the calculated GFR & GFRAA in patients over 70 years has not been determined. Clinical correlation is essential. Serum or plasma folate measu rement (mass/volume)Ordered By: Dr. Chris on 07-20-2022 Folate [Mass/Vol] 12.80 ng/mL 3.1-55.4 [facility] Serum or plasma low density lipoprotein (LDL) cholesterol measurement (mass/volume)Ordered By: Dr. Chris on 07-20-2022 Cholesterol in LDL [Mass/Vol] 80 mg/dL 0-130 [facility] Serum or plasma urea nitroge n measurement (mass/volume)Ordered By: Dr. Chris on 07-20-2022 Urea nitrogen [Mass/Vol] 22 mg/dL 7-18 [facility] Thin prep Papanicolaou smear with manual screeningOrdered By: Dr. Chris on 07-20-2022 Thin prep Papanicolaou smear with manual screening 16 U/L 15-37 [facility] Thin prep Papanicolaou smear with manual screening 5 5-15 [facility] COVID-19 virus antigen assay Ordered By: Dr. Delgadillo on 06-07-2022 SARS-CoV-2 (COVID-19) Ag IA.rapid Ql (Resp) [facility] Absolute lymphocyte countOrd ered By: Shahida Garcia on 04-11-2022 Lymphocytes Auto (Unsp spec) [#/Vol] 0.35 10*3/uL 0.83-4.51 [facility] Basophil percentageOrdered B y: Shahida Garcia on 04-11-2022 Basophils/100 WBC (Bld) 0.7 % 0-1 [facility] Eosinophils/100 WBC (Bld) 1.0 % 0-5 [facility] Neutrophils (Bld) [#/Vol] 2.1 10*3/uL 2.0-7.7 [facility] Neutrophils/100 WBC (Bld) 72.5 % 47-70 [facility] WBC (Bld) [#/Vol] 2.9 10*3/uL 4.4-11.0 [facility] Blood erythrocytes count (nu mber/volume)Ordered By: Shahida Garcia on 04-11-2022 RBC (Bld) [#/Vol] 3.58 10*6/uL 4.2-5.4 [facility] Blood hemoglobin measurement (mass/volume)Ordered By: Shahida Garcia on 04-11-2022 Hemoglobin (Bld) [Mass/Vol] 11.2 g/dL 12.0-15.0 [facility] Blood lymphocytes/100 leukoc ytesOrdered By: Shahida Garcia on 04-11-2022 Lymphocytes/100 WBC (Bld) 12.1 % 19-41 [facility] Blood manual differential co mment interpretation (narrative result)Ordered By: Shahida Garcia on 04-11-2022 Manual differential comment Jason (Bld) [Interp] SCANNED [facility] Blood monocytes/100 leukocyt esOrdered By: Shahida Garcia on 04-11-2022 Monocytes/100 WBC (Bld) 13.4 % 0-10 [facility] Blood platelet mean volumeOr dered By: Shahida Garcia on 04-11-2022 Platelet mean volume (Bld) [Entitic vol] 9.6 fL 6.2-12.0 [facility] Determination of erythrocyte mean corpuscular volume (MCV)Ordered By: Shahida Garcia on 04-11-2022 MCV (RBC) [Entitic vol] 98.9 fL 81-99 [facility] Hematocrit Auto (Bld) [Volum e fraction]Ordered By: Shahida Garcai on 04-11-2022 Hematocrit (Bld) [Volume fraction] 35.4 % 37-47 [facility] Laboratory - Hematology and Cell countsOrdered By: Shahida Garcia on 04-11-2022 Erythrocyte distribution width (RBC) [Entitic vol] 52.2 fL 35.1-43.9 [facility] Erythrocyte distribution width (RBC) [Ratio] 14.2 % 11.6-14.6 [facility] Immature granulocytes/100 WBC (Bld) 0.300 % 0.0-0.9 [facility] Comment on above: IG% - Immature Granu locytes (promyelocytes, myelocytes and metamyelocytes) > 1% indicates that a LEFT SHIFT is Present. MCH (RBC) [Entitic mass] 31.3 pg 27.0-32.0 [facility] Nucleated RBC/100 WBC (Bld) [Ratio] 0 % 0-5 [facility] MCHC Auto (RBC) [Mass/Vol]Or dered By: Shahida Garcia on 04-11-2022 MCHC (RBC) [Mass/Vol] 31.6 g/dL 32-36 [facility] No Panel InformationOrdered By: Shahida Garcia on 04-11-2022 Reactive Lymphocytes 1+ [facility] Platelets bldOrdered By: Shan Garcia on 04-11-2022 Platelets (Bld) [#/Vol] 206 10*3/uL 150-450 [facility] Review by pathologiston 03-29 Pathologist review Jason (Unsp spec) [Interp] Lila stevens [facility] Work Phone: Review by pathologistOrdered By: Shahida Garcia on 04-11-2022 Pathologist review Jason (Unsp spec) [Interp] Reviewed [facility] Comment on above: Previous reported re sult: Lial stevens Edited by: CCRYTZER on 04/12/22:1502LeukopeniaClinical correlation necessary.Jorgito Evans M.D. 04/12/22 AMENDED REPORT 04/12/22 1502 PATH REV previously reported as: Lila stevens Absolute lymphocyte countOrd ered By: Dr. Pichardo on 03-08-2022 Lymphocytes Auto (Unsp spec) [#/Vol] 0.66 10*3/uL 0.83-4.51 [facility] Basophil percentageOrdered B y: Dr. Pichardo on 03-08-2022 Basophils/100 WBC (Bld) 0.4 % 0-1 [facility] Bilirubin [Mass/Vol] 0.20 mg/dL 0.20-1.00 [facility] Comment on above: For patients on eltr ombopag therapy, use of Dimension Minerva TBIL is not recommended. Chloride [Moles/Vol] 105 mmol/L 98-107 [facility] Eosinophils/100 WBC (Bld) 3.3 % 0-5 [facility] Glucose [Mass/Vol] 97 mg/dL 74-106 [facility] Neutrophils (Bld) [#/Vol] 1.5 10*3/uL 2.0-7.7 [facility] Neutrophils/100 WBC (Bld) 55.0 % 47-70 [facility] Potassium [Moles/Vol] 4.1 mmol/L 3.5-5.1 [facility] Protein [Mass/Vol] 6.7 g/dL 6.4-8.2 [facility] Sodium [Moles/Vol] 138 mmol/L 136-145 [facility] WBC (Bld) [#/Vol] 2.8 10*3/uL 4.4-11.0 [facility] Blood erythrocytes count (nu mber/volume)Ordered By: Dr. Pichardo on 03-08-2022 RBC (Bld) [#/Vol] 3.56 10*6/uL 4.2-5.4 [facility] Blood hemoglobin measurement (mass/volume)Ordered By: Dr. Pichardo on 03-08-2022 Hemoglobin (Bld) [Mass/Vol] 11.2 g/dL 12.0-15.0 [facility] Blood lymphocytes/100 leukoc ytesOrdered By: Dr. Pichardo on 03-08-2022 Lymphocytes/100 WBC (Bld) 23.9 % 19-41 [facility] Blood monocytes/100 leukocyt esOrdered By: Dr. Pichardo on 03-08-2022 Monocytes/100 WBC (Bld) 17.4 % 0-10 [facility] Blood platelet mean volumeOr dered By: Dr. Pichardo on 03-08-2022 Platelet mean volume (Bld) [Entitic vol] 9.8 fL 6.2-12.0 [facility] Determination of erythrocyte mean corpuscular volume (MCV)Ordered By: Dr. Pichardo on 03-08-2022 MCV (RBC) [Entitic vol] 100.0 fL 81-99 [facility] Hematocrit Auto (Bld) [Volum e fraction]Ordered By: Dr. Pichardo on 03-08-2022 Hematocrit (Bld) [Volume fraction] 35.6 % 37-47 [facility] Laboratory - Chemistry and C hemistry - challengeOrdered By: Dr. Pichardo on 03-08-2022 ALP [Catalytic activity/Vol] 87 U/L 45-117 [facility] ALT [Catalytic activity/Vol] 16 U/L 13-56 [facility] CO2 [Moles/Vol] 26.0 mmol/L 21.0-32.0 [facility] Globulin (S) [Mass/Vol] 3.1 g/dL 2.2-4.2 [facility] Urea nitrogen/Creatinine [Mass ratio] 21.5 mg/mg 10-20 [facility] Laboratory - Hematology and Cell countsOrdered By: Dr. Pichardo on 03-08-2022 Erythrocyte distribution width (RBC) [Entitic vol] 48.0 fL 35.1-43.9 [facility] Erythrocyte distribution width (RBC) [Ratio] 13.1 % 11.6-14.6 [facility] Immature granulocytes/100 WBC (Bld) 0.000 % 0.0-0.9 [facility] Comment on above: IG% - Immature Granu locytes (promyelocytes, myelocytes and metamyelocytes) > 1% indicates that a LEFT SHIFT is Present. MCH (RBC) [Entitic mass] 31.5 pg 27.0-32.0 [facility] Nucleated RBC/100 WBC (Bld) [Ratio] 0 % 0-5 [facility] MCHC Auto (RBC) [Mass/Vol]Or dered By: Dr. Pichardo on 03-08-2022 MCHC (RBC) [Mass/Vol] 31.5 g/dL 32-36 [facility] No Panel InformationOrdered By: Dr. Pichardo on 03-08-2022 Estimated Creatinine Clearance Calc 60.22 ml/min [facility] Estimated GFR (MDRD) Amer 79 mL/min >60 [facility] Comment on above: GFR Calc Estimated GFR (MDRD) Non-Af Amer 65 mL/min >60 [facility] Comment on above: Non- GFR Calc Platelets bldOrdered By: Dr. Pichardo on 03-08-2022 Platelets (Bld) [#/Vol] 223 10*3/uL 150-450 [facility] Serum or plasma albumin claudia urement (mass/volume)Ordered By: Dr. Pichardo on 03-08-2022 Albumin [Mass/Vol] 3.6 g/dL 3.2-5.0 [facility] Serum or plasma albumin/glob ulin mass ratioOrdered By: Dr. Pichardo on 03-08-2022 Albumin/Globulin [Mass ratio] 1.2 {ratio} 0.9-2.4 [facility] Serum or plasma calcium claudia urement (mass/volume)Ordered By: Dr. Pichardo on 03-08-2022 Calcium [Mass/Vol] 8.6 mg/dL 8.5-10.1 [facility] Serum or plasma creatinine m easurement (mass/volume)Ordered By: Dr. Pichardo on 03-08-2022 Creatinine [Mass/Vol] 0.93 mg/dL 0.55-1.02 [facility] Comment on above: The validity of the calculated GFR & GFRAA in patients over 70 years has not been determined. Clinical correlation is essential. Serum or plasma urea nitroge n measurement (mass/volume)Ordered By: Dr. Pichardo on 03-08-2022 Urea nitrogen [Mass/Vol] 20 mg/dL 7-18 [facility] Thin prep Papanicolaou smear with manual screeningOrdered By: Dr. Pichardo on 03-08-2022 Thin prep Papanicolaou smear with manual screening 14 U/L 15- [facility] Thin prep Papanicolaou smear with manual screening 7 5-15 [facility] COVID-19 virus antigen assay Ordered By: Dr. Delgadillo on 02-17-2022 SARS-CoV-2 (COVID-19) Ag IA.rapid Ql (Resp) [facility] Absolute lymphocyte counton 01-05-2022 Lymphocytes Auto (Unsp spec) [#/Vol] 0.85 10*3/uL 0.83-4.51 [facility] Work Phone: Basophil percentageon 2021 Basophils/100 WBC (Bld) 0.8 % 0-1 [facility] Work Phone: Bilirubin [Mass/Vol] 0.30 mg/dL 0.20-1.00 [facility] Work Phone: Comment on above: For patients on eltr ombopag therapy, use of Dimension Minerva TBIL is not recommended. Chloride [Moles/Vol] 108 mmol/L 98-107 [facility] Work Phone: Eosinophils/100 WBC (Bld) 0.4 % 0-5 [facility] Work Phone: Glucose [Mass/Vol] 117 mg/dL 74-106 [facility] Work Phone: Comment on above: Fasting Glucose resu lt from 100 to 125 mg/dL suggests IMPAIRED HOMEOSTASIS per A.D.A. criteria. Neutrophils (Bld) [#/Vol] 3.6 10*3/uL 2.0-7.7 [facility] Work Phone: Neutrophils/100 WBC (Bld) 69.4 % 47-70 [facility] Work Phone: Potassium [Moles/Vol] 3.9 mmol/L 3.5-5.1 [facility] Work Phone: Protein [Mass/Vol] 6.4 g/dL 6.4-8.2 [facility] Work Phone: Sodium [Moles/Vol] 142 mmol/L 136-145 [facility] Work Phone: WBC (Bld) [#/Vol] 5.2 10*3/uL 4.4-11.0 [facility] Work Phone: Blood erythrocytes count (nu mber/volume)on 01-05-2022 RBC (Bld) [#/Vol] 3.40 10*6/uL 4.2-5.4 [facility] Work Phone: Blood hemoglobin measurement (mass/volume)on 01-05-2022 Hemoglobin (Bld) [Mass/Vol] 11.1 g/dL 12.0-15.0 [facility] Work Phone: Blood lymphocytes/100 leukoc yteson 01-05-2022 Lymphocytes/100 WBC (Bld) 16.2 % 19-41 [facility] Work Phone: Blood monocytes/100 leukocyt eson 01-05-2022 Monocytes/100 WBC (Bld) 12.8 % 0-10 [facility] Work Phone: Blood platelet mean volumeon 01-05-2022 Platelet mean volume (Bld) [Entitic vol] 9.7 fL 6.2-12.0 [facility] Work Phone: [phone] Determination of erythrocyte mean corpuscular volume (MCV)on 01-05-2022 MCV (RBC) [Entitic vol] 102.4 fL 81-99 [facility] Work Phone: [phone] Hematocrit Auto (Bld) [Volum e fraction]on 01-05-2022 Hematocrit (Bld) [Volume fraction] 34.8 % 37-47 [facility] Work Phone: [phone] Laboratory - Chemistry and C hemistry - challengeon 01-05-2022 ALP [Catalytic activity/Vol] 88 U/L 45-117 [facility] Work Phone: [phone] ALT [Catalytic activity/Vol] 17 U/L 13-56 [facility] Work Phone: [phone] CO2 [Moles/Vol] 27.0 mmol/L 21.0-32.0 [facility] Work Phone: [phone] Globulin (S) [Mass/Vol] 3.1 g/dL 2.2-4.2 [facility] Work Phone: [phone] Urea nitrogen/Creatinine [Mass ratio] 32.9 mg/mg 10-20 [facility] Work Phone: [phone] Laboratory - Hematology and Cell countson 01-05-2022 Erythrocyte distribution width (RBC) [Entitic vol] 55.7 fL 35.1-43.9 [facility] Work Phone: [phone] Erythrocyte distribution width (RBC) [Ratio] 14.8 % 11.6-14.6 [facility] Work Phone: [phone] Immature granulocytes/100 WBC (Bld) 0.400 % 0.0-0.9 [facility] Work Phone: [phone] Comment on above: IG% - Immature Granu locytes (promyelocytes, myelocytes and metamyelocytes) > 1% indicates that a LEFT SHIFT is Present. MCH (RBC) [Entitic mass] 32.6 pg 27.0-32.0 [facility] Work Phone: [phone] Nucleated RBC/100 WBC (Bld) [Ratio] 0 % 0-5 [facility] Work Phone: MCHC Auto (RBC) [Mass/Vol]on 01-05-2022 MCHC (RBC) [Mass/Vol] 31.9 g/dL 32-36 [facility] Work Phone: No Panel Informationon 01-05 Estimated Creatinine Clearance Calc 83.59 ml/min [facility] Work Phone: Estimated GFR (MDRD) Amer 116 mL/min >60 [facility] Work Phone: [phone] Comment on above: GFR Calc Estimated GFR (MDRD) Non-Af Amer 95 mL/min >60 [facility] Work Phone: Comment on above: Non- GFR Calc Platelets bldon 01-05-2022 Platelets (Bld) [#/Vol] 345 10*3/uL 150-450 [facility] Work Phone: [phone] Serum or plasma albumin claudia urement (mass/volume)on 01-05-2022 Albumin [Mass/Vol] 3.3 g/dL 3.2-5.0 [facility] Work Phone: Serum or plasma albumin/glob ulin mass ratioon 01-05-2022 Albumin/Globulin [Mass ratio] 1.1 {ratio} 0.9-2.4 [facility] Work Phone: Serum or plasma calcium claudia urement (mass/volume)on 01-05-2022 Calcium [Mass/Vol] 8.7 mg/dL 8.5-10.1 [facility] Work Phone: [phone] Serum or plasma creatinine m easurement (mass/volume)on 01-05-2022 Creatinine [Mass/Vol] 0.67 mg/dL 0.55-1.02 [facility] Work Phone: Comment on above: The validity of the calculated GFR & GFRAA in patients over 70 years has not been determined. Clinical correlation is essential. Serum or plasma urea nitroge n measurement (mass/volume)on 01-05-2022 Urea nitrogen [Mass/Vol] 22 mg/dL 7-18 [facility] Work Phone: Thin prep Papanicolaou smear with manual screeningon 01-05-2022 Thin prep Papanicolaou smear with manual screening 14 U/L 15-37 [facility] Work Phone: Thin prep Papanicolaou smear with manual screening 7 5-15 [facility] Work Phone: Thin prep Papanicolaou smear with manual screeningOrdered By: Dr. Pichardo on 01-05-2022 Thin prep Papanicolaou smear with manual screening 193 U/L 84-246 [facility] Basophil percentageOrdered B y: Dr. Pichardo on 12-15-2021 Basophil percentage 4.2 mg/dL 2.5-4.9 [facility] Culture, urineon 10-28-2021 Bacteria identified Cx Nom (U) Culture exhibits no growth. [facility] Absolute lymphocyte counton 10-26-2021 Lymphocytes Auto (Unsp spec) [#/Vol] 0.86 10*3/uL 0.83-4.51 [facility] Work Phone: Basophil percentageon 2021 Basophil percentage 0 SEEN /hpf 0-5 [facility] Basophil percentage 3.6 mg/dL 2.5-4.9 [facility] Work Phone: Basophils/100 WBC (Bld) 1.9 % 0-1 [facility] Work Phone: Bilirubin [Mass/Vol] 0.30 mg/dL 0.20-1.00 [facility] Work Phone: Comment on above: For patients on eltr ombopag therapy, use of Dimension Minerva TBIL is not recommended. Chloride [Moles/Vol] 106 mmol/L 98-107 [facility] Work Phone: Eosinophils/100 WBC (Bld) 0.8 % 0-5 [facility] Work Phone: Glucose [Mass/Vol] 95 mg/dL 74-106 [facility] Work Phone: Neutrophils (Bld) [#/Vol] 2.0 10*3/uL 2.0-7.7 [facility] Work Phone: Neutrophils/100 WBC (Bld) 56.1 % 47-70 [facility] Work Phone: Potassium [Moles/Vol] 3.8 mmol/L 3.5-5.1 [facility] Work Phone: Protein [Mass/Vol] 7.1 g/dL 6.4-8.2 [facility] Work Phone: Sodium [Moles/Vol] 138 mmol/L 136-145 [facility] Work Phone: WBC (Bld) [#/Vol] 3.6 10*3/uL 4.4-11.0 [facility] Work Phone: Bilirubin Test strip Ql (U)o n 10-26-2021 Bilirubin Ql (U) Negative Negative [facility] Blood erythrocytes count (nu mber/volume)on 10-26-2021 RBC (Bld) [#/Vol] 3.51 10*6/uL 4.2-5.4 [facility] Work Phone: Blood hemoglobin measurement (mass/volume)on 10-26-2021 Hemoglobin (Bld) [Mass/Vol] 11.1 g/dL 12.0-15.0 [facility] Work Phone: Blood lymphocytes/100 leukoc yteson 10-26-2021 Lymphocytes/100 WBC (Bld) 23.8 % 19-41 [facility] Work Phone: Blood monocytes/100 leukocyt eson 10-26-2021 Monocytes/100 WBC (Bld) 17.1 % 0-10 [facility] Work Phone: Blood platelet mean volumeon 10-26-2021 Platelet mean volume (Bld) [Entitic vol] 9.6 fL 6.2-12.0 [facility] Work Phone: Culture, urineon 10-26-2021 Bacteria identified Cx Nom (U) Culture exhibits no growth. [facility] Bacteria identified Cx Nom (U) Culture exhibits no growth. [facility] Determination of erythrocyte mean corpuscular volume (MCV)on 10-26-2021 MCV (RBC) [Entitic vol] 99.4 fL 81-99 [facility] Work Phone: [phone] Hematocrit Auto (Bld) [Volum e fraction]on 10-26-2021 Hematocrit (Bld) [Volume fraction] 34.9 % 37-47 [facility] Work Phone: [phone] Ketones Test strip Ql (U)on 10-26-2021 Ketones Ql (U) Negative Negative [facility] Laboratory - Chemistry and C hemistry - challengeon 10-26-2021 ALP [Catalytic activity/Vol] 89 U/L 45-117 [facility] Work Phone: [phone] ALT [Catalytic activity/Vol] 25 U/L 13-56 [facility] Work Phone: [phone] CO2 [Moles/Vol] 27.0 mmol/L 21.0-32.0 [facility] Work Phone: [phone] Globulin (S) [Mass/Vol] 3.1 g/dL 2.2-4.2 [facility] Work Phone: [phone] Urea nitrogen/Creatinine [Mass ratio] 26.8 mg/mg 10-20 [facility] Work Phone: [phone] Laboratory - Hematology and Cell countson 10-26-2021 Erythrocyte distribution width (RBC) [Entitic vol] 51.1 fL 35.1-43.9 [facility] Work Phone: [phone] Erythrocyte distribution width (RBC) [Ratio] 14.1 % 11.6-14.6 [facility] Work Phone: [phone] Immature granulocytes/100 WBC (Bld) 0.300 % 0.0-0.9 [facility] Work Phone: [phone] Comment on above: IG% - Immature Granu locytes (promyelocytes, myelocytes and metamyelocytes) > 1% indicates that a LEFT SHIFT is Present. MCH (RBC) [Entitic mass] 31.6 pg 27.0-32.0 [facility] Work Phone: Nucleated RBC/100 WBC (Bld) [Ratio] 0 % 0-5 [facility] Work Phone: MCHC Auto (RBC) [Mass/Vol]on 10-26-2021 MCHC (RBC) [Mass/Vol] 31.8 g/dL 32-36 [facility] Work Phone: Mucus LM Ql (Urine sed)on Mucus Ql (Urine sed) 0 SEEN /hpf [facility] Nitrite Test strip Ql (U)on 10-26-2021 Nitrite Ql (U) Negative Negative [facility] No Panel Informationon 10-26 Estimated Creatinine Clearance Calc 100.01 ml/min [facility] Work Phone: Estimated GFR (MDRD) Amer 142 mL/min >60 [facility] Work Phone: Comment on above: GFR Calc Estimated GFR (MDRD) Non-Af Amer 117 mL/min >60 [facility] Work Phone: Comment on above: Non- GFR Calc Platelets bldon 10-26-2021 Platelets (Bld) [#/Vol] 457 10*3/uL 150-450 [facility] Work Phone: Protein Test strip Ql (U)on 10-26-2021 Protein Ql (U) Negative Negative [facility] Serum or plasma albumin claudia urement (mass/volume)on 10-26-2021 Albumin [Mass/Vol] 4.0 g/dL 3.2-5.0 [facility] Work Phone: [phone] Serum or plasma albumin/glob ulin mass ratioon 10-26-2021 Albumin/Globulin [Mass ratio] 1.3 {ratio} 0.9-2.4 [facility] Work Phone: [phone] Serum or plasma calcium claudia urement (mass/volume)on 10-26-2021 Calcium [Mass/Vol] 9.0 mg/dL 8.5-10.1 [facility] Work Phone: [phone] Serum or plasma creatinine m easurement (mass/volume)on 10-26-2021 Creatinine [Mass/Vol] 0.56 mg/dL 0.55-1.02 [facility] Work Phone: Comment on above: The validity of the calculated GFR & GFRAA in patients over 70 years has not been determined. Clinical correlation is essential. Serum or plasma urea nitroge n measurement (mass/volume)on 10-26-2021 Urea nitrogen [Mass/Vol] 15 mg/dL 7-18 [facility] Work Phone: Squamous epithelial cells de tection in urine sediment by light microscopyon 10-26-2021 Epithelial cells.squamous LM Ql (Urine sed) 0 SEEN /hpf 5-10 [facility] Thin prep Papanicolaou smear with manual screeningon 10-26-2021 Thin prep Papanicolaou smear with manual screening 12 U/L 15-37 [facility] Work Phone: Thin prep Papanicolaou smear with manual screening 5 5-15 [facility] Work Phone: Urine blood detectionon - RBC Ql (U) Negative Negative [facility] RBC Ql (U) 0 SEEN /hpf 0-5 [facility] Urine clarityon 10-26-2021 Clarity (U) Clear Clear [facility] Urine color determinationon 10-26-2021 Color (U) Yellow Yellow [facility] Urine glucose detectionon Glucose Ql (U) Normal mg/dl Normal [facility] Urine leukocyte esterase det ection by dipstickon 10-26-2021 Leukocyte esterase Test strip Ql (U) Negative Negative [facility] Urine pHon 10-26-2021 pH (U) 6.5 [pH] 5.0 - 8.0 [facility] Urine sediment bacteria coun t by microscopy (number/high power field)on 10-26-2021 Bacteria LM.HPF (Urine sed) [#/Area] 0 /[HPF] None Seen [facility] Urine specific gravity measu rementon 10-26-2021 Specific gravity (U) [Rel density] 1.010 1.002-1.030 [facility] Urobilinogen Auto test strip Ql (U)on 10-26-2021 Urobilinogen Ql (U) Normal mg/dl Normal [facility] Cervical or vagninal specime n microscopic examination by cytology stain (reported ason 10-21-2021 Cytology report Cyto stain Doc (Cvx/Vag) Comment . [facility] Work Phone: Comment on above: The Pap smear is a s creening test designed to aid in thedetection of premalignant and malignant conditions of theuterine cervix. It is not a diagnostic procedure andshould not be used as the sole means of detecting cervicalcancer. Both false-positive and false-negative reports dooccur. Detection in cervical specim en of any of human papilloma virus (HPV) 16, 18, 31, 33,on 10-21-2021 HPV 16+18+31+33+35+39+45 +51+52+56+58+59+66+6 8 DNA Probe+sig amp Ql (Cvx) Negative Negative [facility] Work Phone: Comment on above: This nucleic acid am plification test detects fourteen high- risk HPV types (16,18,31,33,35,39,45,51,52,56,58,59,66,68)without differentiation.Performed at: [address] [id number] Director: Madeline Alarcon MD, Phone: [phone] at: =[facility] [id number] Director: Madeline Alarcon MD, Phone: [phone] Laboratory - Cytologyon 09-27 [employer] Cyto stain Nom (Cvx/Vag) [ID] Comment . [facility] Work Phone: Comment on above: Anat Higgins, Cytot echnologist (ASCP) Laboratory - Miscellaneous t estson 10-21-2021 Service comment (Unsp spec) [Interp] Comment . [facility] Work Phone: Comment on above: This liquid based Th inPrep(R) pap test was screened withthe use of an image guided system. Service comment (Unsp spec) [Interp] . . [facility] Work Phone: No Panel Informationon 10-21 Pathology report final diagnosis Narrative Comment . [facility] Work Phone: Comment on above: NEGATIVE FOR INTRAEP ITHELIAL LESION OR MALIGNANCY. Thin prep Papanicolaou smear with manual screeningon 10-19-2021 Thin prep Papanicolaou smear with manual screening 260 U/L 84-246 [facility] Work Phone: Basophil percentageon 2021 Basophil percentage 0 SEEN /hpf 0-5 [facility] Work Phone: Bilirubin Test strip Ql (U)o n 09-29-2021 Bilirubin Ql (U) Negative Negative [facility] Work Phone: Culture, urineon 09-29-2021 Bacteria identified Cx Nom (U) Klebsiella pneumoniae sp pneum [facility] Work Phone: Ketones Test strip Ql (U)on 09-29-2021 Ketones Ql (U) Negative Negative [facility] Work Phone: Laboratory - Chemistry and C hemistry - challengeon 09-29-2021 Bilirubin Ql (U) Negative [facility] Work Phone: Glucose Ql (U) Negative [facility] Work Phone: Ketones Ql (U) Trace (5) [facility] Work Phone: pH (U) 5.0 [pH] [facility] Work Phone: Specific gravity (U) [Rel density] 1.005 [facility] Work Phone: [phone] Urobilinogen (U) [Mass/Vol] Negative [facility] Work Phone: Laboratory - Hematology and Cell countson 09-29-2021 Hemoglobin Ql (U) Negative [facility] Work Phone: Laboratory - Specimen inform ationon 09-29-2021 Clarity (U) Clear [facility] Work Phone: Color (U) STRAW [facility] Work Phone: Laboratory - Urinalysison Nitrite Ql (U) Negative [facility] Work Phone: Protein Ql (U) Negative [facility] Work Phone: Mucus LM Ql (Urine sed)on Mucus Ql (Urine sed) 0 SEEN /hpf [facility] Work Phone: Nitrite Test strip Ql (U)on 09-29-2021 Nitrite Ql (U) Negative Negative [facility] Work Phone: No Panel Informationon 09-29 Urine Leukocytes Positive [facility] Work Phone: Urine Non-Hemolyzed Blood Negative [facility] Work Phone: Protein Test strip Ql (U)on 09-29-2021 Protein Ql (U) Negative Negative [facility] Work Phone: Squamous epithelial cells de tection in urine sediment by light microscopyon 09-29-2021 Epithelial cells.squamous LM Ql (Urine sed) 0 SEEN /hpf 5-10 [facility] Work Phone: Urine blood detectionon 05- RBC Ql (U) Negative Negative [facility] Work Phone: RBC Ql (U) 0 SEEN /hpf 0-5 [facility] Work Phone: Urine clarityon 09-29-2021 Clarity (U) Clear Clear [facility] Work Phone: Urine color determinationon 09-29-2021 Color (U) Yellow Yellow [facility] Work Phone: Urine glucose detectionon Glucose Ql (U) Normal mg/dl Normal [facility] Work Phone: Urine leukocyte esterase det ection by dipstickon 09-29-2021 Leukocyte esterase Test strip Ql (U) Negative Negative [facility] Work Phone: Urine pHon 09-29-2021 pH (U) 7.0 [pH] 5.0 - 8.0 [facility] Work Phone: Urine sediment bacteria coun t by microscopy (number/high power field)on 09-29-2021 Bacteria LM.HPF (Urine sed) [#/Area] 0 /[HPF] None Seen [facility] Work Phone: Urine specific gravity measu rementon 09-29-2021 Specific gravity (U) [Rel density] 1.005 1.002-1.030 [facility] Work Phone: Urobilinogen Auto test strip Ql (U)on 09-29-2021 Urobilinogen Ql (U) Normal mg/dl Normal [facility] Work Phone: Basophil percentageon 2021 Creatinine [Mass/Vol] 0.7 mg/dL 0.55-1.02 [facility] Work Phone: No Panel Informationon 09-28 Bedside Estimated GFR (eGFR) > 60.0000 mL/min >60 [facility] Work Phone: No Panel Informationon 09-20 Miscellaneous Test Comment MAILED SPECIMEN [facility] Complete Blood Count with Au to Diffon 08-04-2021 Basophils (Bld) [#/Vol] 0.04 10*3/uL Normal 0.00-0.20 [facility] Comment on above: Performed By: #### L IPD, CMP, CBCAD #### [facility] [address] [place], [place] [id number] Basophils/100 WBC (Bld) 0.9 % Normal [facility] Comment on above: Performed By: #### L IPD, CMP, CBCAD #### [facility] [address] [place], [place] [id number] Eosinophils (Bld) [#/Vol] 0.07 10*3/uL Normal 0.02-0.50 [facility] Comment on above: Performed By: #### L IPD, CMP, CBCAD #### [facility] [address] [place], [place] [id number] Eosinophils/100 WBC (Bld) 1.6 % Normal [facility] Comment on above: Performed By: #### L IPD, CMP, CBCAD #### [facility] [address] [place], [place] [id number] Erythrocyte distribution width (RBC) [Ratio] 13.7 % Normal 11.0-15.0 [facility] Comment on above: Performed By: #### L IPD, CMP, CBCAD #### [facility] [address] [place], [place] [id number] Hematocrit (Bld) [Volume fraction] 40.9 % Normal 35.0-47.0 [facility] Comment on above: Performed By: #### L IPD, CMP, CBCAD #### [facility] [address] [place], [place] [id number] Hemoglobin (Bld) [Mass/Vol] 12.9 g/dL Normal 11.6-15.5 [facility] Comment on above: Performed By: #### L IPD, CMP, CBCAD #### [facility] [address] [place], [place] [id number] Lymphocytes (Bld) [#/Vol] 1.5 10*3/uL Normal 0.9-3.9 [facility] Comment on above: Performed By: #### L IPD, CMP, CBCAD #### [facility] [address] [place], [place] [id number] Lymphocytes/100 WBC (Bld) 35.4 % Normal [facility] Comment on above: Performed By: #### L IPD, CMP, CBCAD #### [facility] [address] [place], [place] [id number] MCH (RBC) [Entitic mass] 31.5 pg Normal 27.0-33.0 [facility] Comment on above: Performed By: #### L IPD, CMP, CBCAD #### [facility] [address] [place], [place] [id number] MCHC (RBC) [Mass/Vol] 31.5 g/dL Low 32.0-36.0 [facility] Comment on above: Performed By: #### L IPD, CMP, CBCAD #### [facility] [address] [place], [place] [id number] MCV (RBC) [Entitic vol] 100 fL Normal 80-100 [facility] Comment on above: Performed By: #### L IPD, CMP, CBCAD #### [facility] [address] [place], [place] [id number] Monocytes (Bld) [#/Vol] 0.5 10*3/uL Normal 0.2-0.9 [facility] Comment on above: Performed By: #### L IPD, CMP, CBCAD #### [facility] [address] [place], [place] [id number] Monocytes/100 WBC (Bld) 10.8 % Normal [facility] Comment on above: Performed By: #### L IPD, CMP, CBCAD #### [facility] [address] [place], [place] [id number] Neutrophils (Bld) [#/Vol] 2.2 10*3/uL Normal 1.5-7.8 [facility] Comment on above: Performed By: #### L IPD, CMP, CBCAD #### [facility] [address] [place], [place] [id number] Neutrophils/100 WBC (Bld) 51.1 % Normal [facility] Comment on above: Performed By: #### L IPD, CMP, CBCAD #### [facility] [address] [place], [place] [id number] Platelet mean volume (Bld) [Entitic vol] 10.50 fL Normal 7.50-12.50 [facility] Comment on above: Performed By: #### L IPD, CMP, CBCAD #### [facility] [address] [place], [place] [id number] Platelets (Bld) [#/Vol] 318 10*3/uL Normal 140-400 [facility] Comment on above: Performed By: #### L IPD, CMP, CBCAD #### [facility] [address] [place], [place] [id number] RBC (Bld) [#/Vol] 4.09 10*6/uL Normal 3.90-5.20 [facility] Specialist Comment on above: Performed By: #### L IPD, CMP, CBCAD #### [facility] [address] [place], [place] [id number] RDW-SD 50.8 fL High 37.0-50.0 [facility] Comment on above: Performed By: #### L IPD, CMP, CBCAD #### [facility] [address] [place], [place] [id number] WBC (Bld) [#/Vol] 4.3 10*3/uL Normal 3.8-11.0 [facility] [place] [facility] Comment on above: Performed By: #### L IPD, CMP, CBCAD #### [facility] [address] [place], [place] [id number] Comprehensive Metabolic Pane lupillo 08-04-2021 Albumin [Mass/Vol] 4.8 g/dL Normal 3.6-5.1 [facility] [place] [facility] Comment on above: Performed By: #### L IPD, CMP, CBCAD #### [facility] [address] [place], [place] [id number] Albumin/Globulin [Mass ratio] 2.3 {ratio} Normal 1.0-2.5 [facility] Comment on above: Performed By: #### L IPD, CMP, CBCAD #### [facility] [address] [place], [place] [id number] ALP [Catalytic activity/Vol] 90 U/L Normal 35-119 [facility] Comment on above: Performed By: #### L IPD, CMP, CBCAD #### [facility] [address] [place], [place] [id number] ALT [Catalytic activity/Vol] 18 U/L Normal 6-33 [facility] Comment on above: Result Comment: 04/28 Female reference range changed. Performed By: #### L IPD, CMP, CBCAD #### [facility] [address] [place], [place] [id number] Anion gap [Moles/Vol] 16 mmol/L Normal 12-20 [facility] Comment on above: Result Comment: Effe ctive 06/03/2019 reference range changed. Performed By: #### L IPD, CMP, CBCAD #### [facility] [address] [place], [place] [id number] AST [Catalytic activity/Vol] 18 U/L Normal 9-34 [facility] Comment on above: Performed By: #### L IPD, CMP, CBCAD #### [facility] [address] [place], [place] [id number] Bilirubin [Mass/Vol] 0.31 mg/dL Normal 0.30-1.20 [facility] Comment on above: Performed By: #### L IPD, CMP, CBCAD #### [facility] [address] [place], [place] [id number] BUN/CREA 21 Ratio Normal 6-22 [facility] Comment on above: Performed By: #### L IPD, CMP, CBCAD #### [facility] [address] [place], [place] [id number] Calcium [Mass/Vol] 9.4 mg/dL Normal 8.6-10.2 [facility] Comment on above: Performed By: #### L IPD, CMP, CBCAD #### [facility] [address] [place], [place] [id number] Chloride [Moles/Vol] 105 mmol/L Normal 98-107 [facility] Comment on above: Performed By: #### L IPD, CMP, CBCAD #### [facility] [address] [place], [place] [id number] CO2 [Moles/Vol] 24 mmol/L Normal 20-31 [facility] Comment on above: Performed By: #### L IPD, CMP, CBCAD #### [facility] [address] [place], [place] [id number] Creatinine [Mass/Vol] 0.6 mg/dL Normal 0.6-1.4 [facility] Comment on above: Performed By: #### L IPD, CMP, CBCAD #### [facility] [address] [place], [place] [id number] eGFRAA 121 mL/min/1.73m2 Normal >60 [facility] Comment on above: Performed By: #### L IPD, CMP, CBCAD #### [facility] [address] [place], [place] [id number] eGFRNAA 100 mL/min/1.73m2 Normal >60 [facility] Comment on above: Performed By: #### L IPD, CMP, CBCAD #### [facility] [address] [place], [place] [id number] Globulin (S) [Mass/Vol] 2.1 g/dL Normal 1.9-3.7 [facility] Comment on above: Performed By: #### L IPD, CMP, CBCAD #### [facility] [address] [place], [place] [id number] Glucose [Mass/Vol] 97 mg/dL Normal 65-99 [facility] Comment on above: Result Comment: For FASTING Glucose --- ADA reference ranges: Normal 65-99 mg/dl Prediabetes 100-125 Diabetes >/= 126 Performed By: #### L IPD, CMP, CBCAD #### [facility] [address] [place], [place] [id number] Potassium [Moles/Vol] 4.3 mmol/L Normal 3.5-5.5 [facility] Comment on above: Performed By: #### L IPD, CMP, CBCAD #### [facility] [address] [place], [place] [id number] Protein [Mass/Vol] 6.9 g/dL Normal 6.1-8.1 [facility] Comment on above: Performed By: #### L IPD, CMP, CBCAD #### [facility] [address] [place], [place] [id number] Sodium [Moles/Vol] 141 mmol/L Normal 135-146 [facility] Comment on above: Performed By: #### L IPD, CMP, CBCAD #### [facility] [address] [place], [place] [id number] Urea nitrogen [Mass/Vol] 13 mg/dL Normal 7-25 [facility] Comment on above: Performed By: #### L IPD, CMP, CBCAD #### [facility] [address] [place], [place] [id number] Lipid Panelon 08-04-2021 Cholesterol [Mass/Vol] 182 mg/dL Normal 125-200 [facility] Comment on above: Result Comment: Low risk < 200mg/dL Borderline risk 201-239 mg/dl High risk > or equal to 240 Performed By: #### L IPD, CMP, CBCAD #### [facility] [address] [place], [place] [id number] Cholesterol in HDL [Mass/Vol] 115 mg/dL Normal >40 [facility] Specialist Comment on above: Result Comment: High Cardiovascular Risk HDL <40 mg/dL Low Cardiovascular Risk HDL > or equal to 60 mg/dl Performed By: #### L NOREEN CMP, CBCAD #### [facility] [address] [place], [place] [id number] Cholesterol in LDL [Mass/Vol] 63 mg/dL Normal [facility] Special[facility] Comment on above: Result Comment: LDL ATP III CLASSIFICATION LDL less than 100 mg/dl Optimal LDL 100-129 mg/dl Near or above optimal LDL 130-159 Borderline high LDL 160-189 High LDL greater than 189 mg/dl Very High Performed By: #### L NOREEN CMP, CBCAD #### [facility] [address] [place], [place] [id number] Cholesterol in VLDL [Mass/Vol] 4 mg/dL Normal [facility] Specialist Comment on above: Performed By: #### L NOREEN CMP, CBCAD #### [facility] [address] [place], [place] [id number] Cholesterol.total/Ch olesterol in HDL [Mass ratio] 2 {ratio} Normal [facility] Special[facility] Comment on above: Performed By: #### L NOREEN CMP, CBCAD #### [facility] [address] [place], [place] [id number] Triglyceride [Mass/Vol] 18 mg/dL Low 30-150 [facility] Comment on above: Result Comment: TRIG ATPIII CLASSIFICATIONS TRIG less than 150 mg/dl Normal TRIG 150-199 mg/dl Borderline High TRIG 200-500 mg/dl High TRIG greather than 500 mg/dl Very High Performed By: #### L NOREEN CMP, CBCAD #### [facility] [address] [place], [place] [id number] SCREENING MAMMOGRAM W/RIO, BILATERAL*on 08-04-2021 SCREENING MAMMOGRAM W/RIO, BILATERAL* CLINICAL HISTORY: Screening Mammogram COMPARISON: 02/08/2019 and 01/16/2018. TECHNIQUE: 2D and 3D Tomosynthesis of the right and left breasts was performed. FINDINGS: An approximately 1.5 cm spiculated mass is present within the upper outer quadrant of the left breast at a posterior depth. Further evaluation with ultrasound is suggested. There are scattered fibroglandular densities within each breast, with otherwise stable asymmetry. There are no areas of suspicious microcalcifications or areas of architectural distortion identified. No evidence of skin thickening. IMPRESSION: BIRADS 0 : ADDITIONAL IMAGING EVALUATION NEEDED. LEFT BREAST ULTRASOUND IS SUGGESTED. 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 Accredited by the ACR and FDA. MAMMOGRAPHY IS VERY IMPORTANT TO YOUR HEALTH. [employer]RENT [employer] RECOMMENDS ANNUAL MAMMOGRAPHY BEGINNING AT AGE 41. THIS FACILITY USUALLY USES A REMINDER SYSTEM TO ENSURE ALL POSITIONS RECEIVED REMINDER NOTIFICATIONS AT THE TIME BASED ON THE RECOMMENDATIONS OF THIS EXAM. Report reported and signed by CASSANDRA DRAPER on 08/04/2021 1552 CLINICAL HISTORY: Screening Mammogram COMPARISON: 02/08/2019 and 01/16/2018. TECHNIQUE: 2D and 3D Tomosynthesis of the right and left breasts was performed. FINDINGS: An approximately 1.5 cm spiculated mass is present within the upper outer quadrant of the right breast at a posterior depth. Further evaluation with ultrasound is suggested. There are scattered fibroglandular densities within each breast, with otherwise stable asymmetry. There are no areas of suspicious microcalcifications or areas of architectural distortion identified. No evidence of skin thickening. IMPRESSION: BIRADS 0 : ADDITIONAL IMAGING EVALUATION NEEDED. RIGHT BREAST ULTRASOUND IS SUGGESTED. 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 Accredited by the ACR and FDA. MAMMOGRAPHY IS VERY IMPORTANT TO YOUR HEALTH. [employer]RENT [employer] G[employer] RECOMMENDS ANNUAL MAMMOGRAPHY BEGINNING AT AGE 41. THIS FACILITY USUALLY USES A REMINDER SYSTEM TO ENSURE ALL POSITIONS RECEIVED REMINDER NOTIFICATIONS AT THE TIME BASED ON THE RECOMMENDATIONS OF THIS EXAM. Report reported and signed by CASSANDRA DRAPER on 08/09/2021 1453 Normal [facility] No Panel Informationon 06-03 SARS-CoV-2 Antigen (Rapid) [facility] Work Phone: SARS coronavirus RNA [Presen ce] in Unspecified specimen by SUDHAKAR with probe detectionon 05-27-2021 SARS-CoV RNA SUDHAKAR+probe Ql (Unsp spec) Not detected Not Detected [facility] Work Phone: Comment on above: This nucleic acid am plification test was developed and itsperformance characteristics determined by [facility]. Nucleic acid amplification tests include RT-PCR and TMA. This test has not been FDA cleared orapproved. This test has been authorized by FDA under anEmergency Use Authorization (EUA). This test is onlyauthorized for the duration of time the declaration thatcircumstances exist justifying the authorization of theemergency use of in vitro diagnostic tests for detection [id number] virus and/or diagnosis of COVID-19 infectionunder section 564(b)(1) of the Act, 21 U.S.C. 360bbb-3(b)(1), unless the authorization is terminated or revokedsooner.When diagnostic testing is negative, the possibility of afalse negative result should be considered in the contextof a patient's recent exposures and the presence ofclinical signs and symptoms consistent with COVID-19. Anindividual without symptoms of COVID-19 and who is notshedding SARS-CoV-2 virus would expect to have a negative(not detected) result in this assay. No Panel Informationon 05-20 SARS-CoV-2 Antigen (Rapid) [facility] Work Phone: ENRIQUE-WITH REFLEX TO ENAon ENRIQUE WITH REFLEX TO CHAS Negative Normal NEGATIVE [facility] Comment on above: Order Comment: KIM CAMPBELL MD. [address] [facility] [address] [place] [address] PHONE [phone] Performed By: #### A NA2 #### [facility] [address] [place] [address] ENRIQUE-WITHOUT REFLEX TO ENAon 07-31-2020 ENRIQUE WITHOUT REFLEX TO CHAS Canceled Normal [facility] Comment on above: Order Comment: KIM CAMPBELL MD. [address] [facility] [place] [address] PHONE [phone] TEST ENRIQUE-WITHOUT REFLEX TO CHAS WAS CANCELLED, 07/31/2020 08:58 CORRECT TEST PER KATELYN AT [facility] IS ENRIQUE WITH REFLEX. Performed By: #### A NAN2 #### [facility] [address] [place] [address] CITRULLINE ANTIBODYon 2020 CITRULLINE ANTIBODY <1 Normal [facility] Comment on above: Order Comment: KIM CAMPBELL MD. [address] [address] PHONE [phone] Result Comment: THE TEST FOR ANTIBODIES SPECIFIC FOR CYCLIC CITRULLINATED PEPTIDE (CCP) HAS SHOWN TO BE VALUABLE IN THE DIAGNOSIS OF RHEUMATOID ARTHRITIS. THE DIAGNOSTIC VALUE OF ANTIBODIES TO CCP IN JUVENILE RHEUMATOID ARTHRITIS PATIENTS HAS NOT BEEN DETERMINED. ANTIBODIES TO CENTROMERE OR SS-A AND MYELOMA IGG MAY BE REACTIVE IN THIS ASSAY. REF VALUES NEGATIVE < 3 U/ML POSITIVE >=3 U/ML Performed By: #### C ITAB #### [facility] [address] [place] [address] RHEUMATOID FACTORon 08-01-19 21 RHEUMATOID FACTOR 10 IU/mL Normal 0 - 15 [facility] Comment on above: Order Comment: KMI CAMPBELL MD. [address] [place] [id number] PHONE [phone] Performed By: #### R F #### [facility] [address] [place] [address] CBC AND DIFFERENTIALon 07-30 Basophils (Bld) [#/Vol] 0.00 10*3/uL Normal 0.00 - 0.10 [facility] Comment on above: Order Comment: KIM CAMPBELL MD. [address] [place] [id number] PHONE [phone] Performed By: #### C BCDF #### [address] [address] Basophils/100 WBC (Bld) 0.8 % Normal 0.0 - 2.0 [facility] Comment on above: Order Comment: KIM CAMPBELL MD. [address] [place] [id number] PHONE [phone] Performed By: #### C BCDF #### [address] [address] Eosinophils (Bld) [#/Vol] 0.10 10*3/uL Normal 0.00 - 0.70 [facility] Comment on above: Order Comment: KIM CAMPBELL MD. [address] [place] [id number] PHONE [phone] Performed By: #### C BCDF #### [address] [address] Eosinophils/100 WBC (Bld) 2.2 % Normal 0.0 - 6.0 [facility] Comment on above: Order Comment: KIM CAMPBELL MD. [address] [facility] [address] [place] [address] PHONE [phone] Performed By: #### C BCDF #### [address] [address] Erythrocyte distribution width (RBC) [Ratio] 13.6 % Normal 11.5 - 14.5 [facility] Comment on above: Order Comment: KIM CAMPBELL MD. [address] [facility] [address] [place] [address] PHONE [phone] Performed By: #### C BCDF #### [address] [address] Hematocrit (Bld) [Volume fraction] 39.0 % Normal 36.0 - 46.0 [facility] Comment on above: Order Comment: KIM CAMPBELL MD. [address] [facility] [address] [place] [address] PHONE [phone] Performed By: #### C BCDF #### [address] [address] Hemoglobin (Bld) [Mass/Vol] 12.4 g/dL Normal 12.0 - 16.0 [facility] Comment on above: Order Comment: KIM CAMPBELL MD. [address] [facility] [address] [place] [address] PHONE [phone] Performed By: #### C BCDF #### [address] [address] Lymphocytes (Bld) [#/Vol] 1.40 10*3/uL Normal 1.20 - 4.80 [facility] Comment on above: Order Comment: KIM CAMPBELL MD. [address] [facility] [address] [place] [address] PHONE [phone] Performed By: #### C BCDF #### [address] [address] Lymphocytes/100 WBC (Bld) 30.4 % Normal 13.0 - 44.0 [facility] Comment on above: Order Comment: KIM CAMPBELL MD. [address] [facility] [address] [place] [address] PHONE [phone] Performed By: #### C BCDF #### [address] [address] MCHC (RBC) [Mass/Vol] 31.9 g/dL Low 32.0 - 36.0 [facility] Comment on above: Order Comment: KIM CAMPBELL MD. [address] [facility] [address] [place] [id number] PHONE [phone] Performed By: #### C BCDF #### [address] [address] MCV (RBC) [Entitic vol] 99 fL Normal 80 - 100 [facility] Comment on above: Order Comment: KIM CAMPBELL MD. [address] [facility] [address] [place] [id number] PHONE [phone] Performed By: #### C BCDF #### [address] [address] Monocytes (Bld) [#/Vol] 0.50 10*3/uL Normal 0.10 - 1.00 [facility] Comment on above: Order Comment: KIM CAMPBELL MD. [address] [facility] [address] [place] [id number] PHONE [phone] Performed By: #### C BCDF #### [address] [address] Monocytes/100 WBC (Bld) 10.6 % Normal 2.0 - 10.0 [facility] Comment on above: Order Comment: KIM CAMPBELL MD. [address] [facility] [address] [place] [address] PHONE [phone] Performed By: #### C BCDF #### [address] [address] Neutrophils (Bld) [#/Vol] 2.50 10*3/uL Normal 1.20 - 7.70 [facility] Comment on above: Order Comment: KIM CAMPBELL MD. [address] [facility] [address] [place] [id number] PHONE [phone] Result Comment: Perc ent differential counts (%) should be interpreted in the context of the absolute cell counts (cells/L). Performed By: #### C BCDF #### [address] [address] Neutrophils/100 WBC (Bld) 56.0 % Normal 40.0 - 80.0 [facility] Comment on above: Order Comment: KIM CAMPBELL MD. [address] [facility] [address] [place] [address] PHONE [phone] Performed By: #### C BCDF #### [address] [address] Nucleated RBC/100 WBC (Bld) [Ratio] 0.2 /[address] [facility] Comment on above: Order Comment: KIM CAMPBELL MD. [address] [facility] [address] [place] [address] PHONE [phone] Performed By: #### C BCDF #### [address] [address] Platelets (Bld) [#/Vol] 255 10*3/uL Normal 150 - 450 [facility] Comment on above: Order Comment: KIM CAMPBELL MD. [address] [facility] [address] [place] [address] PHONE [phone] Performed By: #### C BCDF #### [address] [address] RBC (Bld) [#/Vol] 3.93 x10E12/L Low 4.00 - 5.20 [facility] Comment on above: Order Comment: KIM CAMPBELL MD. [address] [facility] [address] [place] [address] PHONE [phone] Performed By: #### C BCDF #### [address] [address] WBC (Bld) [#/Vol] 4.5 10*3/uL Normal 4.4 - 11.3 [facility] Comment on above: Order Comment: KIM CAMPBELL MD. [address] [facility] [address] [place] [address] PHONE [phone] Performed By: #### C BCDF #### [address] [address] FOLATE, SERUMon 07-30-2020 Folate [Mass/Vol] ng/mL Normal >5.0 [facility] Comment on above: Order Comment: KIM CAMPBELL MD. [address] [address] PHONE [phone] Result Comment: Low <3.4 Borderline 3.4-5.0 Normal >5.0 . Patients receiving more than 5 mg/day of biotin may have interference in test results. A sample should be taken no sooner than eight hours after previous dose. Contact the testing laboratory for additional information. Performed By: #### F OLA2 #### [address] [address] SEDIMENTATION RATE, ERYTHROC YTEon 07-30-2020 SEDIMENTATION RATE, ERYTHROCYTE 4 mm/h Normal 0 - 30 [facility] Comment on above: Order Comment: KIM CAMPBELL MD. [address] [facility] [address] [place] [address] PHONE [phone] Performed By: #### E SRWS #### [address] [address] URIC ACIDon 07-30-2020 Urate [Mass/Vol] 3.8 mg/dL Normal 2.3 - 6.7 [facility] Comment on above: Order Comment: KIM CAMPBELL MD. [address] [facility] [address] [place] [address] PHONE [phone] Result Comment: Coco puncture immediately after or during the administration of Metamizole may lead to falsely low results. Testing should be performed immediately prior to Metamizole dosing. Performed By: #### U OSCAR #### [address] [address] NOVEL CORONAVIRUS NASOPHARYN GEAL - [facility] SPECIMEN ONLYon 05-18-2020 SARS-COV-2 NOT DETECTED Normal NOT DETECTED [facility] Comment on above: Order Comment: Submi tter Name: [facility] Agent Suspected: SARS-COV-2 This test was performed using real time PCR for the qualitative detection of SARS-CoV-2 nucleic acid. This test was developed and its performance characteristics determined by [facility]. It has not been cleared or approved by the FDA. The laboratory is regulated under CLIA as qualified to perform high-complexity testing. This test is used for clinical purposes. It should not be regarded as investigational or for research. Result Comment: Nega tive results do not preclude SARS-CoV-2 infection and should not be used as the sole basis for treatment or other patient management decisions. Optimum specimen types and timing for peak viral levels during infections caused by SARS-CoV-2 has not been determined. The possibility of a false negative result should especially be considered if the patient's recent exposures or clinical presentation suggest that SARS-CoV-2 infection is probable, and diagnostic tests for other causes of illness (e.g., other respiratory illness) are negative. Collection of a new specimen and re-testing may be necessary if the patient is critically ill or clinically deteriorating. Performed By: #### L [id number] #### [facility] (DEFAULT) [address] [place] [address] NOVEL CORONAVIRUS NASOPHARYN GEAL - [facility] SPECIMEN ONLYon 04-13-2020 SARS-COV-2 NOT DETECTED Normal NOT DETECTED [facility] Comment on above: Order Comment: Submi tter Name: [facility] Agent Suspected: SARS-COV-2 This test was performed using real time PCR and has been approved for the qualitative detection of SARS-CoV-2 nucleic acid. The test has been authorized by the FDA under an emergency use authorization for use by authorized laboratories. Result Comment: Nega tive results do not preclude SARS-CoV-2 infection and should not be used as the sole basis for treatment or other patient management decisions. Optimum specimen types and timing for peak viral levels during infections caused by SARS-CoV-2 has not been determined. The possibility of a false negative result should especially be considered if the patient's recent exposures or clinical presentation suggest that SARS-CoV-2 infection is probable, and diagnostic tests for other causes of illness (e.g., other respiratory illness) are negative. Collection of a new specimen and re-testing may be necessary if the patient is critically ill or clinically deteriorating. Performed By: #### L [id number] #### [facility] (DEFAULT) [address] [address] NOVEL CORONAVIRUS NASOPHARYN GEAL - [facility] SPECIMEN ONLYon 03-30-2020 SARS-COV-2 NOT DETECTED Normal NOT DETECTED [facility] Comment on above: Order Comment: Submi tter Name: [facility] Agent Suspected: SARS-COV-2 This test was performed using real time PCR and has been approved for the qualitative detection of SARS-CoV-2 nucleic acid. The test has been authorized by the FDA under an emergency use authorization for use by authorized laboratories. Result Comment: Nega tive results do not preclude SARS-CoV-2 infection and should not be used as the sole basis for treatment or other patient management decisions. Optimum specimen types and timing for peak viral levels during infections caused by SARS-CoV-2 has not been determined. The possibility of a false negative result should especially be considered if the patient's recent exposures or clinical presentation suggest that SARS-CoV-2 infection is probable, and diagnostic tests for other causes of illness (e.g., other respiratory illness) are negative. Collection of a new specimen and re-testing may be necessary if the patient is critically ill or clinically deteriorating. Performed By: #### L [id number] #### [facility] (DEFAULT) [address] [address] Clinical Lists Update: Prelo ad Extendedon 05-14-2018 Tobacco smoking status NHIS Tobacco smoking status NHIS Invalid Interpretation Code [facility] Work Phone: Clinical Summary: HMSPatient IDon 05-14-2018 POS Invalid Interpretation Code [facility] Work Phone: Clinical Summary: Scanned RO S Summaryon 05-14-2018 endocrine ROS Denies Invalid Interpretation Code [facility] Work Phone: genitourinary review of systems, E&M Denies Invalid Interpretation Code [facility] Work Phone: Lymphocytes Auto #/vol (Bld) Denies Invalid Interpretation Code [facility] Work Phone: ROS cardiovascular E&M Denies Invalid Interpretation Code [facility] Work Phone: ROS ENT E&M Denies Invalid Interpretation Code [facility] Work Phone: ROS gastrointestinal E&M Denies Invalid Interpretation Code [facility] Work Phone: ROS general E&M Denies Invalid Interpretation Code [facility] Work Phone: ROS musculoskeletal E&M Denies Invalid Interpretation Code [facility] Work Phone: ROS neurological E&M Denies Invalid Interpretation Code [facility] Work Phone: ROS psychiatric E&M Denies Invalid Interpretation Code [facility] Work Phone: ROS pulmonary E&M Denies Invalid Interpretation Code [facility] Work Phone: ROS skin E&M Denies Invalid Interpretation Code [facility] Work Phone: Office Visit: Cosmetic Consu lt, Rm: 105-14-2018 NEGATED: Highlighted rowProtein mass conc Done Invalid Interpretation Code [facility] Work Phone: Clinical Summary: Scanned Hi story Summaryon 05-11-2018 adl form etoh alcohol performance beer, wine Invalid Interpretation Code [facility] Work Phone: alcohol use, during this 2 or more times per year Invalid Interpretation Code [facility] Work Phone: cause of , mother Colon cancer Invalid Interpretation Code [facility] Work Phone: consumes three or more drinks of alcohol (beer, wine, liquor) daily or almost daily 1 drink per day Invalid Interpretation Code [facility] Work Phone: Data entered by patient exercise frequency 2 days per week Invalid Interpretation Code [facility] Work Phone: Data entered by patient exercise type walking, yoga Invalid Interpretation Code [facility] Work Phone: data entered by patient, alcohol (ethanol or ETOH) use Yes Invalid Interpretation Code [facility] Work Phone: Data entered by patient, allergy list I don't have any Drug Allergies Invalid Interpretation Code [facility] Work Phone: data entered by patient, drug (of abuse) use No Invalid Interpretation Code [facility] Work Phone: data entered by patient, Employer Name employed Invalid Interpretation Code [facility] Work Phone: data entered by patient, exercise history Yes Invalid Interpretation Code [facility] Work Phone: Data entered by patient, history of past surgeries Appendectomy Invalid Interpretation Code [facility] Work Phone: data entered by patient, mother's medical history Cancer Invalid Interpretation Code [facility] Work Phone: data entered by patient, social history, current smoker never smoker Invalid Interpretation Code [facility] Work Phone: data entered by patient, social history, marital status single Invalid Interpretation Code 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 Work Phone: Housing Type: apartment, house, [place], trailer, none house Invalid Interpretation Code [facility] Work Phone: housing unit size (asthma environmental history, housing) (from single family to don't know) 1 floor Invalid Interpretation Code [facility] Work Phone: mother of patient is alive or Invalid Interpretation Code [facility] Work Phone: Number of dependent children No Invalid Interpretation Code [facility] Work Phone: Protein mass conc [id number] [id number] Invalid Interpretation Code [facility] Work Phone: Protein mass conc I do not have any [facility] medical illnesses or conditions Invalid Interpretation Code [facility] Work Phone: Culture, urine Bacteria identified Cx Nom (U) Culture exhibits no growth. [facility] Work Phone: Bacteria identified Cx Nom (U) Klebsiella pneumoniae sp pneum [facility] Work Phone: Vital Signs Date Time Vital Sign Value Performing Clinician Facility 02-06-2025 09:59-0400 Body height 167.6 cm [facility] [employer] Work Phone: [facility] 02-06-2025 09:59-0400 Body mass index (BMI) [Ratio] 27.76 kg/m2 [facility] 02-06-2025 09:59-0400 Body weight 78.02 kg [facility] Work Phone: [facility] 02-06-2025 09:59-0400 Diastolic blood pressure 82 mm[Hg] [facility] Work Phone: [facility] 02-06-2025 09:59-0400 Heart rate 75 /min [facility] Work Phone: [facility] 02-06-2025 09:59-0400 SaO2% (BldA) [Mass fraction] 98 % [facility] [employer] Work Phone: [facility] 02-06-2025 09:59-0400 Systolic blood pressure 120 mm[Hg] [facility] Work Phone: [facility] 02-19-2024 13:55-0400 Body height 167.6 cm Aubree Campbell MD Work Phone: [facility] 02-19-2024 13:55-0400 Body mass index (BMI) [Ratio] 29.5 kg/m2 Aubree Campbell MD Work Phone: [facility] 02-19-2024 13:55-0400 Body weight 82.92 kg Aubree Campbell MD Work Phone: [facility] 02-19-2024 13:55-0400 Diastolic blood pressure 70 mm[Hg] Aubree Campbell MD Work Phone: [facility] 02-19-2024 13:55-0400 Heart rate 63 /min Aubree Campbell MD Work Phone: [facility] 02-19-2024 13:55-0400 SaO2% (BldA) [Mass fraction] 98 % Aubree Campbell MD Work Phone: [facility] 02-19-2024 13:55-0400 Systolic blood pressure 120 mm[Hg] Aubree Campbell MD Work Phone: [facility] 01-01-2024 09:52-0400 Diastolic Blood Pressure Non-Invasive 83 mm[Hg] DR ROCKY GAFFNEY MD [facility] 01-01-2024 09:52-0400 Heart rate 56 /min DR ROCKY GAFFNEY MD [facility] 01-01-2024 09:52-0400 Respiratory rate 15 /min DR ROCKY GAFFNEY MD [facility] 01-01-2024 09:52-0400 Systolic Blood Pressure Non-Invasive 120 mm[Hg] DR ROCKY GAFFNEY MD [facility] 01-01-2024 09:42-0400 Diastolic Blood Pressure Non-Invasive 78 mm[Hg] DR RCOKY GAFFNEY MD [facility] 01-01-2024 09:42-0400 Heart rate 58 /min DR ROCKY GAFFNEY MD [facility] 01-01-2024 09:42-0400 Respiratory rate 12 /min DR ROCKY GAFFNEY MD [facility] 01-01-2024 09:42-0400 Systolic Blood Pressure Non-Invasive 105 mm[Hg] DR ROCKY GAFFNEY MD [facility] 01-01-2024 09:38-0400 Diastolic Blood Pressure Non-Invasive 53 mm[Hg] DR ROCKY GAFFNEY MD [facility] 01-01-2024 09:38-0400 Heart rate 60 /min DR ROCKY GAFFNEY MD [facility] 01-01-2024 09:38-0400 Respiratory rate 16 /min DR ROCKY GAFFNEY MD [facility] 01-01-2024 09:38-0400 Systolic Blood Pressure Non-Invasive 81 mm[Hg] DR ROCKY GAFFNEY MD [facility] 01-01-2024 09:35-0400 Body temperature 96.98 [degF] DR ROCKY GAFFNEY MD [facility] 01-01-2024 09:30-0400 Respiratory Rate - Anes 15 br/min DR ROCKY GAFFNEY MD [facility] 01-01-2024 09:25-0400 Respiratory Rate - Anes 14 br/min DR ROCKY GAFFNEY MD [facility] 01-01-2024 09:20-0400 Respiratory Rate - Anes 7 br/min DR ROCKY GAFFNEY MD [facility] 01-01-2024 08:22-0400 Body height [address] ROCKY GAFFNEY MD [facility] 01-01-2024 08:22-0400 Body temperature 96.8 [degF] DR ROCKY GAFFNEY MD [facility] 01-01-2024 08:22-0400 Body weight 77.[address] ROCKY GAFFNEY MD [facility] 01-01-2024 08:22-0400 Heart rate 62 /min DR ROCKY GAFFNEY MD [facility] 09-19-2023 13:37-0400 Body height 167.64 cm MD AUBREE CAMPBELL Work Phone: [facility] 09-19-2023 13:37-0400 Body mass index (BMI) [Ratio] 28.5 kg/m2 MD AUBREE CAMPBELL Work Phone: [facility] 09-19-2023 13:37-0400 Body temperature 98.3 [degF] MD AUBREE CAMPBELL Work Phone: [facility] 09-19-2023 13:37-0400 Body weight 80.37 kg MD AUBREE CAMPBELL Work Phone: [facility] 09-19-2023 13:37-0400 Diastolic blood pressure 53 mm[Hg] MD AUBREE CAMPBELL Work Phone: [facility] 09-19-2023 13:37-0400 Heart rate 72 /min MD AUBREE CAMPBELL Work Phone: [facility] 09-19-2023 13:37-0400 Respiratory rate 18 /min MD AUBREE CAMPBELL Work Phone: [facility] 09-19-2023 13:37-0400 SaO2% (BldA) [Mass fraction] 100 % MD AUBREE CAMPBELL Work Phone: [facility] 09-19-2023 13:37-0400 Systolic blood pressure 91 mm[Hg] MD AUBREE CAMPBELL Work Phone: [facility] 08-29-2023 10:49-0400 Body height 167.64 cm MD AUBREE CAMPBELL Work Phone: [facility] 08-29-2023 10:49-0400 Body mass index (BMI) [Ratio] 28 kg/m2 MD AUBREE CAMPBELL Work Phone: [facility] 08-29-2023 10:49-0400 Body temperature 97.2 [degF] MD AUBREE CAMPBELL Work Phone: [facility] 08-29-2023 10:49-0400 Body weight 78.98 kg MD AUBREE CAMPBELL Work Phone: [facility] 08-29-2023 10:49-0400 Diastolic blood pressure 73 mm[Hg] MD AUBREE CAMPBELL Work Phone: [facility] 08-29-2023 10:49-0400 Heart rate 67 /min MD AUBREE CAMPBELL Work Phone: [facility] 08-29-2023 10:49-0400 Respiratory rate 16 /min MD AUBREE CAMPBELL Work Phone: [facility] 08-29-2023 10:49-0400 SaO2% (BldA) [Mass fraction] 99 % MD AUBREE CAMPBELL Work Phone: [facility] 08-29-2023 10:49-0400 Systolic blood pressure 112 mm[Hg] MD AUBREE CAMPBELL Work Phone: [facility] 04-13-2023 11:06-0500 Body height 167.64 cm MD AURBEE CAMPBELL Work Phone: [facility] 04-13-2023 11:06-0500 Body mass index (BMI) [Ratio] 26.4 kg/m2 MD AUBREE CAMPBELL Work Phone: [facility] 04-13-2023 11:06-0500 Body temperature 98.3 [degF] MD AUBREE CAMPBELL Work Phone: [facility] 04-13-2023 11:06-0500 Body weight 74.47 kg MD AUBREE CAMPBELL Work Phone: [facility] 04-13-2023 11:06-0500 Diastolic blood pressure 76 mm[Hg] MD AUBREE CAMPBELL Work Phone: [facility] 04-13-2023 11:06-0500 Heart rate 70 /min MD AUBREE CAMPBELL Work Phone: [facility] 04-13-2023 11:06-0500 Respiratory rate 16 /min MD AUBREE CAMPBELL Work Phone: [facility] 04-13-2023 11:06-0500 SaO2% (BldA) [Mass fraction] 100 % MD AUBREE CAMPBELL Work Phone: [facility] 04-13-2023 11:06-0500 Systolic blood pressure 108 mm[Hg] MD AUBREE CAMPBELL Work Phone: [facility] 09-28-2022 14:56-0400 Body height 167.6 cm Helen Rivera MD Work Phone: [facility] 09-28-2022 14:56-0400 Body mass index (BMI) [Ratio] 26.31 kg/m2 Helen Rivera MD Work Phone: [facility] 09-28-2022 14:56-0400 Body weight 73.94 kg Helen Rivera MD Work Phone: [facility] 09-28-2022 08:12-0400 Body temperature 97 [degF] Deniseshanda Trivediycnicki [facility] 09-28-2022 08:12-0400 Diastolic blood pressure 76 mm[Hg] Denise Holycross [facility] 09-28-2022 08:12-0400 Heart rate 74 /min Denise Holycross [facility] 09-28-2022 08:12-0400 Respiratory rate 15 /min Denise Holycross [facility] 09-28-2022 08:12-0400 SaO2% (BldA) [Mass fraction] 97 % Denise Holycnicki [facility] 09-28-2022 08:12-0400 Systolic blood pressure 122 mm[Hg] Denise Holycnicki [facility] 09-27-2022 11:54-0400 Body temperature 97.59 [degF] Mony Patino RN [facility] 09-27-2022 11:54-0400 Diastolic blood pressure 60 mm[Hg] Mony Patino RN [facility] 09-27-2022 11:54-0400 Heart rate 58 /min Mony Patino RN [facility] 09-27-2022 11:54-0400 Respiratory rate 18 /min Mony Patino RN [facility] 09-27-2022 11:54-0400 SaO2% (BldA) [Mass fraction] 98 % Mony Patino RN [facility] 09-27-2022 11:54-0400 Systolic blood pressure 110 mm[Hg] Mony Patino RN [facility] 09-26-2022 08:06-0400 Body temperature 97 [degF] Denise Holycross [facility] 09-26-2022 08:06-0400 Diastolic blood pressure 68 mm[Hg] Denise Holycross [facility] 09-26-2022 08:06-0400 Heart rate 72 /min Denise Holycross [facility] 09-26-2022 08:06-0400 Respiratory rate 16 /min Denise Holycross [facility] 09-26-2022 08:06-0400 SaO2% (BldA) [Mass fraction] 100 % Denise Holycross [facility] 09-26-2022 08:06-0400 Systolic blood pressure 115 mm[Hg] Denise Holycross [facility] 09-23-2022 09:01-0400 Body temperature 97 [degF] Denise Holycross [facility] 09-23-2022 09:01-0400 Diastolic blood pressure 73 mm[Hg] Denise Holycross [facility] 09-23-2022 09:01-0400 Heart rate 84 /min Denise Holycross [facility] 09-23-2022 09:01-0400 Respiratory rate 16 /min Denise Holycross [facility] 09-23-2022 09:01-0400 SaO2% (BldA) [Mass fraction] 97 % Denise Holycross [facility] 09-23-2022 09:01-0400 Systolic blood pressure 108 mm[Hg] Denise Holycross [facility] 09-21-2022 08:16-0400 Body temperature 97.9 [degF] Denise Holycross [facility] 09-21-2022 08:16-0400 Diastolic blood pressure 72 mm[Hg] Denise Holycross [facility] 09-21-2022 08:16-0400 Heart rate 78 /min Denise Holycross [facility] 09-21-2022 08:16-0400 Respiratory rate 16 /min Denise Holycross [facility] 09-21-2022 08:16-0400 SaO2% (BldA) [Mass fraction] 99 % Denise Holycross [facility] 09-21-2022 08:16-0400 Systolic blood pressure 100 mm[Hg] Denise Holycross [facility] 09-20-2022 12:05-0400 Body temperature 97.3 [degF] Juana Wolf [facility] 09-20-2022 12:05-0400 Diastolic blood pressure 72 mm[Hg] Juana Wolf [facility] 09-20-2022 12:05-0400 Heart rate 71 /min Juanaher Wolf [facility] 09-20-2022 12:05-0400 Respiratory rate 18 /min Juana Wolf [facility] 09-20-2022 12:05-0400 SaO2% (BldA) [Mass fraction] 98 % Juanaher Wolf [facility] 09-20-2022 12:05-0400 Systolic blood pressure 112 mm[Hg] Juana Wolf [facility] 09-19-2022 13:26-0400 Body temperature 97.9 [degF] Denise Holycross [facility] 09-19-2022 13:26-0400 Diastolic blood pressure 72 mm[Hg] Denise Holycross [facility] 09-19-2022 13:26-0400 Heart rate 82 /min Denise Holycross [facility] 09-19-2022 13:26-0400 Respiratory rate 16 /min Denise Holycross [facility] 09-19-2022 13:26-0400 SaO2% (BldA) [Mass fraction] 99 % Denise Holycross [facility] 09-19-2022 13:26-0400 Systolic blood pressure 115 mm[Hg] Denise Holycross [facility] 09-15-2022 09:54-0400 Body temperature 97.39 [degF] Stefania Dan PT [facility] 09-15-2022 09:54-0400 Diastolic blood pressure 73 mm[Hg] Stefania Dan PT [facility] 09-15-2022 09:54-0400 Heart rate 83 /min Stefania Dan PT [facility] 09-15-2022 09:54-0400 SaO2% (BldA) [Mass fraction] 97 % Stefania Dan PT [facility] 09-15-2022 09:54-0400 Systolic blood pressure 104 mm[Hg] Stefania Dan PT [facility] 09-14-2022 11:01-0400 Body height 167.6 cm Denise Diego RN [facility] 09-14-2022 11:01-0400 Body mass index (BMI) [Ratio] 26.31 kg/m2 Denise Cortez RN [facility] 09-14-2022 11:01-0400 Body temperature 97.9 [degF] Denise Diego RN [facility] 09-14-2022 11:01-0400 Body weight 73.94 kg Denise Diego RN [facility] 09-14-2022 11:01-0400 Diastolic blood pressure 62 mm[Hg] Denise Diego RN [facility] 09-14-2022 11:01-0400 Heart rate 78 /min Denise Diego RN [facility] 09-14-2022 11:01-0400 Respiratory rate 16 /min Denise Diego RN [facility] 09-14-2022 11:01-0400 SaO2% (BldA) [Mass fraction] 98 % Denise Cortez RN [facility] 09-14-2022 11:01-0400 Systolic blood pressure 102 mm[Hg] Denise Diego RN [facility] 09-07-2022 10:23-0400 Body height 167.64 cm MD AUBREE CAMPBELL Work Phone: [facility] 09-07-2022 10:23-0400 Body mass index (BMI) [Ratio] 27.3 kg/m2 MD AUBREE CAMPBELL Work Phone: [facility] 09-07-2022 10:23-0400 Body temperature 98.2 [degF] MD AUBREE CAMPBELL Work Phone: [facility] 09-07-2022 10:23-0400 Body weight 76.74 kg MD AUBREE CAMPBELL Work Phone: [facility] 09-07-2022 10:23-0400 Diastolic blood pressure 66 mm[Hg] MD AUBREE CAMPBELL Work Phone: [facility] 09-07-2022 10:23-0400 Heart rate 69 /min MD AUBREE CAMPBELL Work Phone: [facility] 09-07-2022 10:23-0400 Respiratory rate 17 /min MD AUBREE CAMPBELL Work Phone: [facility] 09-07-2022 10:23-0400 SaO2% (BldA) [Mass fraction] 99 % MD AUBREE CAMPBELL Work Phone: [facility] 09-07-2022 10:23-0400 Systolic blood pressure 99 mm[Hg] MD AUBREE CAMPBELL Work Phone: [facility] 08-01-2022 11:15-0500 Body height 167.64 cm MD AUBREE CAMPBELL Work Phone: [facility] 08-01-2022 11:09-0500 Body mass index (BMI) [Ratio] 27.3 kg/m2 MD AUBREE CAMPBELL Work Phone: [facility] 08-01-2022 11:09-0500 Body temperature 96.8 [degF] MD AUBREE CAMPBELL Work Phone: [facility] 08-01-2022 11:09-0500 Body weight 76.85 kg MD AUBREE CAMPBELL Work Phone: [facility] 08-01-2022 11:09-0500 Diastolic blood pressure 78 mm[Hg] MD AUBREE CAMPBELL Work Phone: [facility] 08-01-2022 11:09-0500 Heart rate 58 /min MD AUBREE CAMPBELL Work Phone: [facility] 08-01-2022 11:09-0500 Respiratory rate 16 /min MD AUBREE CAMPBELL Work Phone: [facility] 08-01-2022 11:09-0500 SaO2% (BldA) [Mass fraction] 98 % MD AUBREE CAMPBELL Work Phone: [facility] 08-01-2022 11:09-0500 Systolic blood pressure 110 mm[Hg] MD AUBREE CAMPBELL Work Phone: [facility] 07-18-2022 09:13-0500 Body mass index (BMI) [Ratio] 27.5 kg/m2 MD AUBREE CAMPBELL Work Phone: [facility] 07-18-2022 09:13-0500 Body temperature 98 [degF] MD AUBREE CAMPBELL Work Phone: [facility] 07-18-2022 09:13-0500 Body weight 77.28 kg MD AUBREE CAMPBELL Work Phone: [facility] 07-18-2022 09:13-0500 Diastolic blood pressure 62 mm[Hg] MD AUBREE CAMPBELL Work Phone: [facility] 07-18-2022 09:13-0500 Heart rate 70 /min MD AUBREE CAMPBELL Work Phone: [facility] 07-18-2022 09:13-0500 Respiratory rate 16 /min MD AUBREE CAMPBELL Work Phone: [facility] 07-18-2022 09:13-0500 SaO2% (BldA) [Mass fraction] 99 % MD AUBREE CAMPBELL Work Phone: [facility] 07-18-2022 09:13-0500 Systolic blood pressure 100 mm[Hg] MD AUBREE CAMPBELL Work Phone: [facility] 06-15-2022 14:08-0500 Body height 167.6 cm Andra Roberson QU[employer]ER Work Phone: [facility] 06-15-2022 14:08-0500 Body mass index (BMI) [Ratio] 27.44 kg/m2 Andra Roberson QU[employer]ANDER Work Phone: [facility] 06-15-2022 14:08-0500 Body weight 77.11 kg Andra Roberson CNP Work Phone: [facility] 04-12-2022 12:53-0500 Diastolic blood pressure 72 mm[Hg] MD AUBREE CAMPBELL Work Phone: [facility] 04-12-2022 12:53-0500 Heart rate 78 /min MD AUBREE CAMPBELL Work Phone: [facility] 04-12-2022 12:53-0500 Respiratory rate 16 /min MD AUBREE CAMPBELL Work Phone: [facility] 04-12-2022 12:53-0500 SaO2% (BldA) [Mass fraction] 98 % MD AUBREE CAMPBELL Work Phone: [facility] 04-12-2022 12:53-0500 Systolic blood pressure 100 mm[Hg] MD AUBREE CAMPBELL Work Phone: [facility] 04-12-2022 11:45-0500 Body temperature 98 [degF] MD AUBREE CAMPBELL Work Phone: [facility] 04-12-2022 09:26-0500 Body height 167.64 cm MD AUBREE CAMPBELL Work Phone: [facility] 04-12-2022 09:26-0500 Body mass index (BMI) [Ratio] 27.2 kg/m2 MD AUBREE CAMPBELL Work Phone: [facility] 04-12-2022 09:26-0500 Body weight 76.6 kg MD AUBREE CAMPBELL Work Phone: [facility] 04-07-2022 11:14-0500 Body mass index (BMI) [Ratio] 28.7 kg/m2 MD AUBREE CAMPBELL Work Phone: [facility] 04-07-2022 11:14-0500 Body temperature 97 [degF] MD AUBREE CAMPBELL Work Phone: [facility] 04-07-2022 11:14-0500 Body weight 80.79 kg MD AUBREE CAMPBELL Work Phone: [facility] 04-07-2022 11:14-0500 Diastolic blood pressure 63 mm[Hg] MD AUBREE CAMPBELL Work Phone: [facility] 04-07-2022 11:14-0500 Heart rate 68 /min MD AUBREE CAMPBELL Work Phone: [facility] 04-07-2022 11:14-0500 Respiratory rate 16 /min MD AUBREE CAMPBELL Work Phone: [facility] 04-07-2022 11:14-0500 SaO2% (BldA) [Mass fraction] 100 % MD AUBREE CAMPBELL Work Phone: [facility] 04-07-2022 11:14-0500 Systolic blood pressure 97 mm[Hg] MD AUBREE CAMPBELL Work Phone: [facility] 03-28-2022 10:49-0400 Body mass index (BMI) [Ratio] 28.5 kg/m2 MD AUBREE CAMPBELL Work Phone: [facility] 03-28-2022 10:49-0400 Body temperature 97.1 [degF] MD AUBREE CAMPBELL Work Phone: [facility] 03-28-2022 10:49-0400 Body weight 80.28 kg MD AUBREE CAMPBELL Work Phone: [facility] 03-28-2022 10:49-0400 Diastolic blood pressure 63 mm[Hg] MD AUBREE CAMPBELL Work Phone: [facility] 03-28-2022 10:49-0400 Heart rate 68 /min MD AUBREE CAMPBELL Work Phone: [facility] 03-28-2022 10:49-0400 Respiratory rate 16 /min MD AUBREE CAMPBELL Work Phone: [facility] 03-28-2022 10:49-0400 SaO2% (BldA) [Mass fraction] 98 % MD AUBREE CAMPBELL Work Phone: [facility] 03-28-2022 10:49-0400 Systolic blood pressure 96 mm[Hg] MD AUBREE CAMPBELL Work Phone: [facility] 03-14-2022 10:36-0400 Body height 167.64 cm MD AUBREE CAMPBELL Work Phone: [facility] Work Phone: 03-14-2022 10:36-0400 Body mass index (BMI) [Ratio] 28.7 kg/m2 MD AUBREE CAMPBELL Work Phone: [facility] 03-14-2022 10:36-0400 Body temperature 97.5 [degF] MD AUBREE CAMPBELL Work Phone: [facility] 03-14-2022 10:36-0400 Body weight 80.76 kg MD AUBREE CAMPBELL Work Phone: [facility] 03-14-2022 10:36-0400 Diastolic blood pressure 61 mm[Hg] MD AUBREE CAMPBELL Work Phone: [facility] 03-14-2022 10:36-0400 Heart rate 65 /min MD AUBREE CAMPBELL Work Phone: [facility] 03-14-2022 10:36-0400 Respiratory rate 18 /min MD AUBREE CAMPBELL Work Phone: [facility] 03-14-2022 10:36-0400 SaO2% (BldA) [Mass fraction] 100 % MD AUBREE CAMPBELL Work Phone: [facility] 03-14-2022 10:36-0400 Systolic blood pressure 97 mm[Hg] MD AUBREE CAMPBELL Work Phone: [facility] 03-08-2022 14:28-0400 Body mass index (BMI) [Ratio] 27.8 kg/m2 MD AUBREE CAMPBELL Work Phone: [facility] 03-08-2022 14:28-0400 Body temperature 98.3 [degF] MD AUBREE CAMPBELL Work Phone: [facility] 03-08-2022 14:28-0400 Body weight 78.24 kg MD AUBREE CAMPBELL Work Phone: [facility] 03-08-2022 14:28-0400 Diastolic blood pressure 75 mm[Hg] MD AUBREE CAMPBELL Work Phone: [facility] 03-08-2022 14:28-0400 Heart rate 81 /min MD AUBREE CAMPBELL Work Phone: [facility] 03-08-2022 14:28-0400 Respiratory rate 15 /min MD AUBREE CAMPBELL Work Phone: [facility] 03-08-2022 14:28-0400 SaO2% (BldA) [Mass fraction] 98 % MD AUBREE CAMPBELL Work Phone: [facility] 03-08-2022 14:28-0400 Systolic blood pressure 108 mm[Hg] MD AUBREE CAMPBELL Work Phone: [facility] 02-22-2022 10:23-0400 Body height 167.64 cm MD AUBREE CAMPBELL Work Phone: [facility] Work Phone: 02-22-2022 10:23-0400 Body mass index (BMI) [Ratio] 27.3 kg/m2 MD AUBREE CAMPBELL Work Phone: [facility] 02-22-2022 10:23-0400 Body temperature 97.5 [degF] MD AUBREE CAMPBELL Work Phone: [facility] 02-22-2022 10:23-0400 Body weight 76.74 kg MD AUBREE CAMPBELL Work Phone: [facility] 02-22-2022 10:23-0400 Diastolic blood pressure 61 mm[Hg] MD AUBREE CAMPBELL Work Phone: [facility] 02-22-2022 10:23-0400 Heart rate 59 /min MD AUBREE CAMPBELL Work Phone: [facility] 02-22-2022 10:23-0400 Respiratory rate 16 /min MD AUBREE CAMPBELL Work Phone: [facility] 02-22-2022 10:23-0400 SaO2% (BldA) [Mass fraction] 100 % MD AUBREE CAMPBELL Work Phone: [facility] 02-22-2022 10:23-0400 Systolic blood pressure 99 mm[Hg] MD AUBREE CAMPBELL Work Phone: [facility] 02-15-2022 10:09-0400 Body mass index (BMI) [Ratio] 27.3 kg/m2 MD AUBREE CAMPBELL Work Phone: [facility] Work Phone: 02-15-2022 10:09-0400 Body temperature 97.2 [degF] MD AUBREE CAMPBELL Work Phone: [facility] Work Phone: 02-15-2022 10:09-0400 Body weight 76.85 kg MD AUBREE CAMPBELL Work Phone: [facility] Work Phone: 02-15-2022 10:09-0400 Diastolic blood pressure 53 mm[Hg] MD AUBREE CAMPBELL Work Phone: [facility] Work Phone: 02-15-2022 10:09-0400 Heart rate 67 /min MD AUBREE CAMPBELL Work Phone: [facility] Work Phone: 02-15-2022 10:09-0400 Respiratory rate 16 /min MD AUBREE CAMPBELL Work Phone: [facility] Work Phone: 02-15-2022 10:09-0400 SaO2% (BldA) [Mass fraction] 100 % MD AUBREE CAMPBELL Work Phone: [facility] Work Phone: 02-15-2022 10:09-0400 Systolic blood pressure 93 mm[Hg] MD AUBREE CAMPBELL Work Phone: [facility] Work Phone: 02-09-2022 10:09-0400 Body mass index (BMI) [Ratio] 27.6 kg/m2 MD AUBREE CAMPBELL Work Phone: [facility] Work Phone: 02-09-2022 10:09-0400 Body temperature 97 [degF] MD AUBREE CAMPBELL Work Phone: [facility] Work Phone: 02-09-2022 10:09-0400 Body weight 77.79 kg MD AUBREE CAPMBELL Work Phone: [facility] Work Phone: 02-09-2022 10:09-0400 Diastolic blood pressure 60 mm[Hg] MD AUBREE CAMPBELL Work Phone: [facility] Work Phone: 02-09-2022 10:09-0400 Heart rate 63 /min MD AUBREE CAMPBELL Work Phone: [facility] Work Phone: 02-09-2022 10:09-0400 Respiratory rate 16 /min MD AUBREE CAMPBELL Work Phone: [facility] Work Phone: 02-09-2022 10:09-0400 SaO2% (BldA) [Mass fraction] 100 % MD AUBREE CAMPBELL Work Phone: [facility] Work Phone: 02-09-2022 10:09-0400 Systolic blood pressure 106 mm[Hg] MD AUBREE CAMPBELL Work Phone: [facility] Work Phone: 02-01-2022 10:06-0400 Body mass index (BMI) [Ratio] 27.4 kg/m2 MD AUBREE CAMPBELL Work Phone: [facility] Work Phone: 02-01-2022 10:06-0400 Body temperature 96.6 [degF] MD AUBREE CAMPBELL Work Phone: [facility] Work Phone: 02-01-2022 10:06-0400 Body weight 77.11 kg MD AUBREE CAMPBELL Work Phone: [facility] Work Phone: 02-01-2022 10:06-0400 Diastolic blood pressure 57 mm[Hg] MD AUBREE CAMPBELL Work Phone: [facility] Work Phone: 02-01-2022 10:06-0400 Heart rate 65 /min MD AUBREE CAMPBELL Work Phone: [facility] Work Phone: 02-01-2022 10:06-0400 Respiratory rate 16 /min MD AUBREE CAMPBELL Work Phone: [facility] Work Phone: 02-01-2022 10:06-0400 SaO2% (BldA) [Mass fraction] 99 % MD AUBREE CAMPBELL Work Phone: [facility] Work Phone: 02-01-2022 10:06-0400 Systolic blood pressure 90 mm[Hg] MD AUBREE CAMPBELL Work Phone: [facility] Work Phone: 01-26-2022 10:10-0400 Body mass index (BMI) [Ratio] 27.5 kg/m2 MD AUBREE CAMPBELL Work Phone: [facility] Work Phone: 01-26-2022 10:10-0400 Body temperature 97 [degF] MD AUBREE CAMPBELL Work Phone: [facility] Work Phone: 01-26-2022 10:10-0400 Body weight 77.36 kg MD AUBREE CAMPBELL Work Phone: [facility] Work Phone: 01-26-2022 10:10-0400 Diastolic blood pressure 69 mm[Hg] MD AUBREE CAMPBELL Work Phone: [facility] Work Phone: 01-26-2022 10:10-0400 Heart rate 68 /min MD AUBREE CAMPBELL Work Phone: [facility] Work Phone: 01-26-2022 10:10-0400 Respiratory rate 16 /min MD AUBREE CAMPBELL Work Phone: [facility] Work Phone: 01-26-2022 10:10-0400 SaO2% (BldA) [Mass fraction] 100 % MD AUBREE CAMPBELL Work Phone: [facility] Work Phone: 01-26-2022 10:10-0400 Systolic blood pressure 101 mm[Hg] MD AUBREE CAMPBELL Work Phone: [facility] Work Phone: 01-05-2022 11:16-0400 Body height 167.64 cm MD AUBREE CAMPBELL Work Phone: [facility] Work Phone: 01-05-2022 11:12-0400 Body mass index (BMI) [Ratio] 28.4 kg/m2 MD AUBREE CAMPBELL Work Phone: [facility] Work Phone: 01-05-2022 11:12-0400 Body temperature 98.2 [degF] MD AUBREE CAMPBELL Work Phone: [facility] Work Phone: 01-05-2022 11:12-0400 Body weight 79.88 kg MD AUBREE CAMPBELL Work Phone: [facility] Work Phone: 01-05-2022 11:12-0400 Diastolic blood pressure 63 mm[Hg] MD AUBREE CAMPBELL Work Phone: [facility] Work Phone: 01-05-2022 11:12-0400 Heart rate 66 /min MD AUBREE CAMPBELL Work Phone: [facility] Work Phone: 01-05-2022 11:12-0400 Respiratory rate 15 /min MD AUBREE CAMPBELL Work Phone: [facility] Work Phone: 01-05-2022 11:12-0400 SaO2% (BldA) [Mass fraction] 99 % MD AUBREE CAMPBELL Work Phone: [facility] Work Phone: 01-05-2022 11:12-0400 Systolic blood pressure 99 mm[Hg] MD AUBREE CAMPBELL Work Phone: [facility] Work Phone: 12-15-2021 10:25-0400 Body mass index (BMI) [Ratio] 28.1 kg/m2 MD AUBREE CAMPBELL Work Phone: [facility] 12-15-2021 10:25-0400 Body weight 79.15 kg MD AUBREE CAMPBELL Work Phone: [facility] 12-15-2021 09:34-0400 Body mass index (BMI) [Ratio] 28.1 kg/m2 MD AUBREE CAMPBELL Work Phone: [facility] Work Phone: 12-15-2021 09:34-0400 Body temperature 98.2 [degF] MD AUBERE CAMPBELL Work Phone: [facility] Work Phone: 12-15-2021 09:34-0400 Body weight 79.15 kg MD AUBREE CAMPBELL Work Phone: [facility] Work Phone: 12-15-2021 09:34-0400 Diastolic blood pressure 68 mm[Hg] MD AUBREE CAMPBELL Work Phone: [facility] Work Phone: 12-15-2021 09:34-0400 Heart rate 72 /min MD AUBREE CAMPBELL Work Phone: [facility] Work Phone: 12-15-2021 09:34-0400 Respiratory rate 15 /min MD AUBREE CAMPBELL Work Phone: [facility] Work Phone: 12-15-2021 09:34-0400 SaO2% (BldA) [Mass fraction] 99 % MD AUBREE CAMPBELL Work Phone: [facility] Work Phone: 12-15-2021 09:34-0400 Systolic blood pressure 104 mm[Hg] MD AUBREE CAMPBELL Work Phone: [facility] Work Phone: 12-07-2021 11:29-0400 Body mass index (BMI) [Ratio] 28.3 kg/m2 MD AUBREE CAMPBELL Work Phone: [facility] Work Phone: 12-07-2021 11:29-0400 Body temperature 98.3 [degF] MD UABREE CAMPBELL Work Phone: [facility] Work Phone: 12-07-2021 11:29-0400 Body weight 79.57 kg MD AUBREE CAMPBELL Work Phone: [facility] Work Phone: 12-07-2021 11:29-0400 Diastolic blood pressure 61 mm[Hg] MD AUBREE CAMPBELL Work Phone: [facility] Work Phone: 12-07-2021 11:29-0400 Heart rate 69 /min MD AUBREE CAMPBELL Work Phone: [facility] Work Phone: 12-07-2021 11:29-0400 Respiratory rate 16 /min MD AUBREE CAMPBELL Work Phone: [facility] Work Phone: 12-07-2021 11:29-0400 SaO2% (BldA) [Mass fraction] 99 % MD AUBREE CAMPBELL Work Phone: [facility] Work Phone: 12-07-2021 11:29-0400 Systolic blood pressure 97 mm[Hg] MD AUBREE CAMPBELL Work Phone: [facility] Work Phone: 11-30-2021 09:43-0400 Body mass index (BMI) [Ratio] 28.8 kg/m2 MD AUBREE CAMPBELL Work Phone: [facility] Work Phone: 11-30-2021 09:43-0400 Body temperature 97 [degF] MD AUBREE CAMPBELL Work Phone: [facility] Work Phone: 11-30-2021 09:43-0400 Body weight 81.19 kg MD AUBREE CAMPBELL Work Phone: [facility] Work Phone: 11-30-2021 09:43-0400 Diastolic blood pressure 64 mm[Hg] MD AUBREE CAMPBELL Work Phone: [facility] Work Phone: 11-30-2021 09:43-0400 Heart rate 67 /min MD AUBREE CAMPBELL Work Phone: [facility] Work Phone: 11-30-2021 09:43-0400 Respiratory rate 15 /min MD AUBREE CAMPBELL Work Phone: [facility] Work Phone: 11-30-2021 09:43-0400 SaO2% (BldA) [Mass fraction] 94 % MD AUBREE CAMPBELL Work Phone: [facility] Work Phone: 11-30-2021 09:43-0400 Systolic blood pressure 105 mm[Hg] MD AUBREE CAMPBELL Work Phone: [facility] Work Phone: 11-16-2021 14:18-0400 Body temperature 97.1 [degF] MD AUBREE CAMPBELL Work Phone: [facility] 11-16-2021 14:18-0400 Diastolic blood pressure 70 mm[Hg] MD AUBREE CAMPBELL Work Phone: [facility] 11-16-2021 14:18-0400 Heart rate 76 /min MD AUBREE CAMPBELL Work Phone: [facility] 11-16-2021 14:18-0400 Respiratory rate 16 /min MD AUBREE CAMPBELL Work Phone: [facility] 11-16-2021 14:18-0400 SaO2% (BldA) [Mass fraction] 99 % MD AUBREE CAMPBELL Work Phone: [facility] 11-16-2021 14:18-0400 Systolic blood pressure 112 mm[Hg] MD AUBREE CAMPBELL Work Phone: [facility] 11-16-2021 10:20-0400 Body mass index (BMI) [Ratio] 28.8 kg/m2 MD AUBREE CAMPBELL Work Phone: [facility] Work Phone: 11-16-2021 10:20-0400 Body temperature 98.1 [degF] MD AUBREE CAMPBELL Work Phone: [facility] Work Phone: 11-16-2021 10:20-0400 Body weight 80.96 kg MD AUBREE CAMPBELL Work Phone: [facility] Work Phone: 11-16-2021 10:20-0400 Diastolic blood pressure 63 mm[Hg] MD AUBREE CAMPBELL Work Phone: [facility] Work Phone: 11-16-2021 10:20-0400 Heart rate 71 /min MD AUBREE CAMPBELL Work Phone: [facility] Work Phone: 11-16-2021 10:20-0400 Respiratory rate 16 /min MD AUBREE CAMPBELL Work Phone: [facility] Work Phone: 11-16-2021 10:20-0400 SaO2% (BldA) [Mass fraction] 99 % MD AUBREE CAMPBELL Work Phone: [facility] Work Phone: 11-16-2021 10:20-0400 Systolic blood pressure 97 mm[Hg] MD AUBREE CAMPBELL Work Phone: [facility] Work Phone: 11-16-2021 09:24-0400 Body mass index (BMI) [Ratio] 28.8 kg/m2 MD AUBREE CAMPBELL Work Phone: [facility] Work Phone: 11-16-2021 09:24-0400 Body temperature 98.1 [degF] MD AUBREE CAMPBELL Work Phone: [facility] Work Phone: 11-16-2021 09:24-0400 Body weight 80.96 kg MD AUBREE CAMPBELL Work Phone: [facility] Work Phone: 11-16-2021 09:24-0400 Diastolic blood pressure 63 mm[Hg] MD AUBREE CAMPBELL Work Phone: [facility] Work Phone: 11-16-2021 09:24-0400 Heart rate 71 /min MD AUBREE CAMPBELL Work Phone: [facility] Work Phone: 11-16-2021 09:24-0400 Respiratory rate 15 /min MD AUBREE CAMPBELL Work Phone: [facility] Work Phone: 11-16-2021 09:24-0400 SaO2% (BldA) [Mass fraction] 99 % MD AUBREE CAMPBELL Work Phone: [facility] Work Phone: 11-16-2021 09:24-0400 Systolic blood pressure 97 mm[Hg] MD AUBREE CAMPBELL Work Phone: [facility] Work Phone: 10-26-2021 10:57-0400 Body height 167.64 cm No Primary Care Physician [facility] Work Phone: 10-26-2021 10:57-0400 Body mass index (BMI) [Ratio] 28.1 kg/m2 No Primary Care Physician [facility] Work Phone: 10-26-2021 10:57-0400 Body weight 79.03 kg No Primary Care Physician [facility] Work Phone: 10-26-2021 09:57-0400 Body mass index (BMI) [Ratio] 28.1 kg/m2 MD AUBREE CAMPBELL Work Phone: [facility] Work Phone: 10-26-2021 09:57-0400 Body temperature 97.6 [degF] MD AUBREE CAMPBELL Work Phone: [facility] Work Phone: 10-26-2021 09:57-0400 Body weight 79.03 kg MD AUBREE CAMPBELL Work Phone: [facility] Work Phone: 10-26-2021 09:57-0400 Diastolic blood pressure 64 mm[Hg] MD AUBREE CAMPBELL Work Phone: [facility] Work Phone: 10-26-2021 09:57-0400 Heart rate 69 /min MD AUBREE CAMPBELL Work Phone: [facility] Work Phone: 10-26-2021 09:57-0400 Respiratory rate 15 /min MD AUBREE CAMPBELL Work Phone: [facility] Work Phone: 10-26-2021 09:57-0400 SaO2% (BldA) [Mass fraction] 97 % MD AUBREE CAMPBELL Work Phone: [facility] Work Phone: 10-26-2021 09:57-0400 Systolic blood pressure 100 mm[Hg] MD AUBREE CAMPBELL Work Phone: [facility] Work Phone: 10-26-2021 09:57-0400 Body mass index (BMI) [Ratio] 28.1 kg/m2 No Primary Care Physician [facility] Work Phone: 10-26-2021 09:57-0400 Body temperature 97.6 [degF] No Primary Care Physician [facility] Work Phone: 10-26-2021 09:57-0400 Body weight 79.03 kg No Primary Care Physician [facility] Work Phone: 10-26-2021 09:57-0400 Diastolic blood pressure 64 mm[Hg] No Primary Care Physician [facility] Work Phone: 10-26-2021 09:57-0400 Heart rate 69 /min No Primary Care Physician [facility] Work Phone: 10-26-2021 09:57-0400 Respiratory rate 15 /min No Primary Care Physician [facility] Work Phone: 10-26-2021 09:57-0400 SaO2% (BldA) [Mass fraction] 97 % No Primary Care Physician [facility] Work Phone: 10-26-2021 09:57-0400 Systolic blood pressure 100 mm[Hg] No Primary Care Physician [facility] Work Phone: 10-19-2021 10:41-0400 Body mass index (BMI) [Ratio] 28.9 kg/m2 MD AUBREE CAMPBELL Work Phone: [facility] Work Phone: 10-19-2021 10:41-0400 Body temperature 97.6 [degF] MD AUBREE CAMPBELL Work Phone: [facility] Work Phone: 10-19-2021 10:41-0400 Body weight 81.33 kg MD AUBREE CMAPBELL Work Phone: [facility] Work Phone: 10-19-2021 10:41-0400 Diastolic blood pressure 74 mm[Hg] MD AUBREE CAMPBELL Work Phone: [facility] Work Phone: 10-19-2021 10:41-0400 Heart rate 70 /min MD AUBREE CAMPBELL Work Phone: [facility] Work Phone: 10-19-2021 10:41-0400 Respiratory rate 16 /min MD AUBREE CAMPBELL Work Phone: [facility] Work Phone: 10-19-2021 10:41-0400 SaO2% (BldA) [Mass fraction] 97 % MD AUBREE CAMPBELL Work Phone: [facility] Work Phone: 10-19-2021 10:41-0400 Systolic blood pressure 112 mm[Hg] MD AUBREE CAMPBELL Work Phone: [facility] Work Phone: 10-19-2021 10:41-0400 Body mass index (BMI) [Ratio] 28.9 kg/m2 No Primary Care Physician [facility] Work Phone: 10-19-2021 10:41-0400 Body temperature 97.6 [degF] No Primary Care Physician [facility] Work Phone: 10-19-2021 10:41-0400 Body weight 81.33 kg No Primary Care Physician [facility] Work Phone: 10-19-2021 10:41-0400 Diastolic blood pressure 74 mm[Hg] No Primary Care Physician [facility] Work Phone: 10-19-2021 10:41-0400 Heart rate 70 /min No Primary Care Physician [facility] Work Phone: 10-19-2021 10:41-0400 Respiratory rate 16 /min No Primary Care Physician [facility] Work Phone: 10-19-2021 10:41-0400 SaO2% (BldA) [Mass fraction] 97 % No Primary Care Physician [facility] Work Phone: 10-19-2021 10:41-0400 Systolic blood pressure 112 mm[Hg] No Primary Care Physician [facility] Work Phone: 10-05-2021 08:24-0400 Body mass index (BMI) [Ratio] 27.6 kg/m2 MD AUBREE CAMPBELL Work Phone: [facility] Work Phone: 10-05-2021 08:24-0400 Body temperature 98.1 [degF] MD AUBREE CAMPBELL Work Phone: [facility] Work Phone: 10-05-2021 08:24-0400 Body weight 77.59 kg MD AUBREE CAMPBELL Work Phone: [facility] Work Phone: 10-05-2021 08:24-0400 Diastolic blood pressure 68 mm[Hg] MD AUBREE CAMPBELL Work Phone: [facility] Work Phone: 10-05-2021 08:24-0400 Heart rate 70 /min MD AUBREE ACMPBELL Work Phone: [facility] Work Phone: 10-05-2021 08:24-0400 Respiratory rate 15 /min MD AUBREE CAMPBELL Work Phone: [facility] Work Phone: 10-05-2021 08:24-0400 SaO2% (BldA) [Mass fraction] 99 % MD AUBREE CAMPBELL Work Phone: [facility] Work Phone: 10-05-2021 08:24-0400 Systolic blood pressure 120 mm[Hg] MD AUBREE CAMPBELL Work Phone: [facility] Work Phone: 10-05-2021 08:24-0400 Body mass index (BMI) [Ratio] 27.6 kg/m2 No Primary Care Physician [facility] Work Phone: 10-05-2021 08:24-0400 Body temperature 98.1 [degF] No Primary Care Physician [facility] Work Phone: 10-05-2021 08:24-0400 Body weight 77.59 kg No Primary Care Physician [facility] Work Phone: 10-05-2021 08:24-0400 Diastolic blood pressure 68 mm[Hg] No Primary Care Physician [facility] Work Phone: 10-05-2021 08:24-0400 Heart rate 70 /min No Primary Care Physician [facility] Work Phone: 10-05-2021 08:24-0400 Respiratory rate 15 /min No Primary Care Physician [facility] Work Phone: 10-05-2021 08:24-0400 SaO2% (BldA) [Mass fraction] 99 % No Primary Care Physician [facility] Work Phone: 10-05-2021 08:24-0400 Systolic blood pressure 120 mm[Hg] No Primary Care Physician [facility] Work Phone: 09-30-2021 13:01-0400 Body temperature 97.1 [degF] No Primary Care Physician [facility] Work Phone: 09-30-2021 13:01-0400 Diastolic blood pressure 62 mm[Hg] No Primary Care Physician [facility] Work Phone: 09-30-2021 13:01-0400 Heart rate 73 /min No Primary Care Physician [facility] Work Phone: 09-30-2021 13:01-0400 Respiratory rate 16 /min No Primary Care Physician [facility] Work Phone: 09-30-2021 13:01-0400 SaO2% (BldA) [Mass fraction] 98 % No Primary Care Physician [facility] Work Phone: 09-30-2021 13:01-0400 Systolic blood pressure 110 mm[Hg] No Primary Care Physician [facility] Work Phone: 09-30-2021 09:31-0400 Body height 167.64 cm No Primary Care Physician [facility] Work Phone: 09-30-2021 09:31-0400 Body mass index (BMI) [Ratio] 26.8 kg/m2 No Primary Care Physician [facility] Work Phone: 09-30-2021 09:31-0400 Body weight 75.29 kg No Primary Care Physician [facility] Work Phone: 09-29-2021 09:56-0400 Body temperature 98 [degF] MD AUBREE CAMPBELL Work Phone: [facility] Work Phone: 09-29-2021 09:56-0400 Diastolic blood pressure 74 mm[Hg] MD AUBREE CAMPBELL Work Phone: [facility] Work Phone: 09-29-2021 09:56-0400 Heart rate 98 /min MD AUBREE CAMPBELL Work Phone: [facility] Work Phone: 09-29-2021 09:56-0400 Respiratory rate 16 /min MD AUBREE CAMPBELL Work Phone: [facility] Work Phone: 09-29-2021 09:56-0400 SaO2% (BldA) [Mass fraction] 98 % MD AUBREE CAMPBELL Work Phone: [facility] Work Phone: 09-29-2021 09:56-0400 Systolic blood pressure 124 mm[Hg] MD AUBREE CAMPBELL Work Phone: [facility] Work Phone: 09-29-2021 09:56-0400 Body temperature 98 [degF] No Primary Care Physician [facility] Work Phone: 09-29-2021 09:56-0400 Diastolic blood pressure 74 mm[Hg] No Primary Care Physician [facility] Work Phone: 09-29-2021 09:56-0400 Heart rate 98 /min No Primary Care Physician [facility] Work Phone: 09-29-2021 09:56-0400 Respiratory rate 16 /min No Primary Care Physician [facility] Work Phone: 09-29-2021 09:56-0400 SaO2% (BldA) [Mass fraction] 98 % No Primary Care Physician [facility] Work Phone: 09-29-2021 09:56-0400 Systolic blood pressure 124 mm[Hg] No Primary Care Physician [facility] Work Phone: 09-20-2021 15:13-0400 Body height 167.64 cm No Primary Care Physician [facility] Work Phone: 09-20-2021 15:13-0400 Body mass index (BMI) [Ratio] 28.3 kg/m2 No Primary Care Physician [facility] Work Phone: 09-20-2021 15:13-0400 Body temperature 98.2 [degF] No Primary Care Physician [facility] Work Phone: 09-20-2021 15:13-0400 Body weight 79.52 kg No Primary Care Physician [facility] Work Phone: 09-20-2021 15:13-0400 Diastolic blood pressure 73 mm[Hg] No Primary Care Physician [facility] Work Phone: 09-20-2021 15:13-0400 Heart rate 81 /min No Primary Care Physician [facility] Work Phone: 09-20-2021 15:13-0400 Respiratory rate 15 /min No Primary Care Physician [facility] Work Phone: 09-20-2021 15:13-0400 SaO2% (BldA) [Mass fraction] 97 % No Primary Care Physician [facility] Work Phone: 09-20-2021 15:13-0400 Systolic blood pressure 123 mm[Hg] No Primary Care Physician [facility] Work Phone: 09-02-2021 17:54-0400 Body temperature 98.6 [degF] No Primary Care Physician [facility] Work Phone: 09-02-2021 17:54-0400 Diastolic blood pressure 75 mm[Hg] No Primary Care Physician [facility] Work Phone: 09-02-2021 17:54-0400 Heart rate 86 /min No Primary Care Physician [facility] Work Phone: 09-02-2021 17:54-0400 Respiratory rate 16 /min No Primary Care Physician [facility] Work Phone: 09-02-2021 17:54-0400 SaO2% (BldA) [Mass fraction] 97 % No Primary Care Physician [facility] Work Phone: 09-02-2021 17:54-0400 Systolic blood pressure 122 mm[Hg] No Primary Care Physician [facility] Work Phone: 09-02-2021 12:09-0400 Body height 167.64 cm No Primary Care Physician [facility] Work Phone: 09-02-2021 12:09-0400 Body mass index (BMI) [Ratio] 28 kg/m2 No Primary Care Physician [facility] Work Phone: 09-02-2021 12:09-0400 Body weight 79 kg No Primary Care Physician [facility] Work Phone: 08-20-2021 11:41-0400 Body height 167.64 cm No Primary Care Physician [facility] Work Phone: 08-20-2021 11:41-0400 Body mass index (BMI) [Ratio] 28.5 kg/m2 No Primary Care Physician [facility] Work Phone: 08-20-2021 11:41-0400 Body temperature 97.4 [degF] No Primary Care Physician [facility] Work Phone: 08-20-2021 11:41-0400 Body weight 80.05 kg No Primary Care Physician [facility] Work Phone: 08-20-2021 11:41-0400 Diastolic blood pressure 81 mm[Hg] No Primary Care Physician [facility] Work Phone: 08-20-2021 11:41-0400 Heart rate 77 /min No Primary Care Physician [facility] Work Phone: 08-20-2021 11:41-0400 Respiratory rate 17 /min No Primary Care Physician [facility] Work Phone: 08-20-2021 11:41-0400 SaO2% (BldA) [Mass fraction] 97 % No Primary Care Physician [facility] Work Phone: 08-20-2021 11:41-0400 Systolic blood pressure 115 mm[Hg] No Primary Care Physician [facility] Work Phone: 07-23-2021 07:15-0500 Body mass index (BMI) [Ratio] 29.5 kg/m2 No Primary Care Physician [facility] Work Phone: 07-23-2021 07:15-0500 Body weight 83 kg No Primary Care Physician [facility] Work Phone: 05-28-2021 23:03-0500 Body mass index (BMI) [Ratio] 29.8 kg/m2 No Primary Care Physician [facility] Work Phone: 12-16-2020 16:46-0400 Body mass index (BMI) [Ratio] 29.8 kg/m2 No Primary Care Physician [facility] Work Phone: NEGATED: Highlighted [id number] 10:28-0500 BMI (Body Mass Index) 28.88 kg/m2 Fadia Garvey LPN [facility] Work Phone: NEGATED: Highlighted [id number] 10:28-0500 BP Diastolic 72 mm[Hg] Fadia Garvey LPN [facility] Work Phone: NEGATED: Highlighted [id number] 10:28-0500 BP Systolic 112 mm[Hg] Fadia Serrilli INTERNAL GRINDER [facility] Work Phone: NEGATED: Highlighted [id number] 10:28-0500 Height 168.91 cm Fadia Serrilli INTERNAL GRINDER [facility] Work Phone: NEGATED: Highlighted [id number] 10:28-0500 Height 169 cm Fadia Serrilli INTERNAL GRINDER [facility] Work Phone: NEGATED: Highlighted [id number] 10:28-0500 Pulse (Heart Rate) 65 /min Fadia Serrilli INTERNAL GRINDER [facility] Work Phone: NEGATED: Highlighted [id number] 10:28-0500 Weight 82.1 kg Fadia Serrilli INTERNAL GRINDER [facility] Work Phone: NEGATED: Highlighted [id number] 10:28-0500 Weight 82 kg Fadia Serrilli INTERNAL GRINDER [facility] Work Phone: Encounters Encounter Date Encounter Type Care Provider Facility Start: 04-08-2025 ambulatory Marty Delgadillo KG Arandai ty:[facility] Start: 03-28-2025 End: 03-28-2025 [facility] Facility:[facility] Start: 03-10-2025 End: 03-28-2025 [facility] Facility:[facility] Start: 02-07-2025 End: 02-08-2025 External Result Encounter Summer M Workman PA Work Phone: [facility] Unsolicited Start: 02-07-2025 End: 02-08-2025 External Result Encounter Summer M Workman PA Work Phone: [facility] Unsolicited Start: 02-06-2025 End: 02-06-2025 ambulatory [facility] Not Available Start: 02-06-2025 End: 02-06-2025 Patient encounter procedure Summer M Workman PA Work Phone: [facility] Work Phone: Start: 02-06-2025 End: 02-06-2025 Periodic preventive med est patient 40-64yrs Summer M Workman LESLIE Work Phone: [facility] Comment on above: Annual physical exam (Primary Dx); Generalized anxiety disorder ; Moderate major depression (HCC); Primary insomnia; Malignant neoplasm of right female breast, unspecified estrogen receptor status, unspecified site of breast (HCC); Primary osteoarthritis involving multiple joints; Restless legs syndrome; Fatigue, unspecified type; Subclinical hypothyroidism Start: 01-14-2025 End: 01-18-2025 ambulatory [facility] Amb[facility] Start: 01-14-2025 End: 01-14-2025 Office outpatient visit 25 minutes Andra Roberson CNP Work Phone: [facility] Comment on above: Arthritis of carpome tacarpal (CMC) joint of both thumbs (Primary Dx) Start: 11-04-2024 [facility] Start: 09-12-2024 [facility] Start: 09-12-2024 End: 09-12-2024 ambulatory [facility] Facility:[facility] Start: 09-10-2024 End: 09-10-2024 ambulatory Reginaldo [facility] Facility:[facility] Start: 08-28-2024 End: 09-01-2024 ambulatory [facility] Amb[facility] Start: 08-28-2024 End: 08-28-2024 Office outpatient visit 15 minutes Andra Roberson CNP Work Phone: [facility] Comment on above: Closed fracture of d istal end of left radius, unspecified fracture morphology, initial encounter (Primary Dx); Arthritis of carpometacarpal (CMC) joint of both thumbs Start: 08-26-2024 End: 08-26-2024 ambulatory AUBREE CAMPBELL MD Work Phone: [facility] Work Phone: Start: 08-26-2024 End: 08-26-[address] eRginaldo Pichardo MD -Outpatient Breast Imaging Work Phone: Start: 08-26-2024 End: 08-26-2024 ambulatory [facility] Facility:[facility] Start: 07-04-2024 End: 07-04-2024 ambulatory [facility] Facility:[facility] Start: 07-04-2024 End: 07-04-2024 Patient encounter procedure Fuad Montoya OD Work Phone: Optometry Comment on above: Myopia, bilateral (P rimary Dx); Regular astigmatism, bilateral; Presbyopia Start: 06-04-2024 End: 06-05-2024 Refmontserrat Campbell MD Work Phone: [facility] Comment on above: Primary insomnia Start: 05-23-2024 End: 05-27-2024 ambulatory ANDRA ROBERSON [facility] Ambulatory Start: 05-23-2024 End: 05-23-2024 Office outpatient visit 15 minutes Andra Roberson [facility] Work Phone: [facility] Comment on above: Closed fracture of d istal end of left radius, unspecified fracture morphology, initial encounter Start: 05-21-2024 End: 05-21-2024 Emergency department patient visit AUBREE CAMPBELL [facility] Start: 04-09-2024 End: 04-10-2024 Melida Campbell MD Work Phone: [facility] Comment on above: Chronic right-sided low back pain without sciatica Start: 04-08-2024 ambulatory AUBREE ACTON Facility:[facility] Start: 02-21-2024 ambulatory [facility] Start: 02-19-2024 End: 02-19-2024 ambulatory AUBREE CAMPBELL Not Available Start: 02-19-2024 End: 02-19-2024 ambulatory AUBREE CAMPBELL Not Available Start: 02-19-2024 End: 02-19-2024 Patient encounter procedure Aubree Campbell MD Work Phone: [facility] Work Phone: Start: 02-19-2024 End: 02-19-2024 Periodic preventive med est patient 40-64yrs Aubree Campbell MD Work Phone: [facility] Comment on above: Annual physical exam (Primary Dx); Generalized anxiety disorder (CMS/HCC); Moderate major depression (CMS/HCC); Primary insomnia; 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, unspecified estrogen receptor status (CMS/HCC); Subclinical hypothyroidism (CMS/HCC); Primary osteoarthritis involving multiple joints; Acute midline low back pain without sciatica; Restless legs syndrome; Need for immunization against influenza Start: 01-01-2024 End: 01-01-[address] ROCKY GAFFNEY MD Facility:[facility] Start: 01-01-2024 End: 01-01-[address] ROCKY GAFFNEY MD [facility] Start: 09-19-2023 Registered Recurring MD AUBREE CAMPBELL Work Phone: [facility] Start: 09-19-2023 End: 09-19-2023 Patient encounter procedure MD AUBREE CAMPBELL Work Phone: [facility] Work Phone: Start: 09-13-2023 End: 09-13-2023 ambulatory MD AUBREE CAMPBELL Work Phone: [facility] Work Phone: Start: 09-13-2023 End: 09-13-2023 Patient encounter procedure MD AUBREE CAMPBELL Work Phone: [facility] Work Phone: Start: 08-29-2023 End: 08-29-2023 Patient encounter procedure MD AUBREE CAMPBELL Work Phone: [facility] Work Phone: Start: 08-29-2023 Registered Recurring MD AUBREE CAMPBELL Work Phone: [facility] Start: 08-24-2023 End: 08-24-2023 ambulatory MD AUBREE CAMPBELL Work Phone: [facility] Work Phone: Start: 08-24-2023 End: 08-24-2023 Patient encounter procedure MD AUBREE CAMPBELL Work Phone: [facility]-Outpatient Breast Imaging Work Phone: Start: 08-04-2023 End: 08-05-2023 ambulatory [facility] Start: 07-27-2023 End: 07-31-2023 ambulatory Ema Merrill Work Phone: [facility] Comment on above: Peroneal tendonitis, right (Primary Dx); Peroneal tendinitis, right Start: 07-25-2023 Transcribe Orders [facility] Work Phone: [facility] Comment on above: Peroneal tendinitis, right (Primary Dx) Start: 04-28-2023 End: 05-28-2023 ambulatory MD AUBREE CAMPBELL Work Phone: [facility] Work Phone: Start: 04-28-2023 End: 05-28-2023 Discharged Recurring MD [facility]AMPBELL [facility] Start: 04-19-2023 Registered Recurring MD AUBREE CAMPBLEL Work Phone: [facility] Start: 04-13-2023 End: 04-13-2023 Patient encounter procedure MD AUBREE CAMPBELL Work Phone: [facility] Work Phone: Start: 03-09-2023 End: 03-09-2023 ambulatory [facility] Work Phone: Start: 03-09-2023 End: 03-09-2023 Patient encounter procedure [facility] Work Phone: Start: 03-02-2023 End: 03-28-2023 ambulatory [facility] Work Phone: Start: 03-02-2023 End: 03-28-2023 [facility]charged [facility] Start: 03-02-2023 Registered Recurring [facility] Start: 02-16-2023 End: 02-25-2023 ambulatory [facility] Work Phone: Start: 02-16-2023 End: 02-25-2023 Discharged Recurring [facility] Start: 02-06-2023 Registered Recurring [facility] Start: 10-28-2022 End: 10-28-2022 Postop follow up visit related to original px Heeln Rivera MD Work Phone: [facility] Comment on above: Status post total le ft knee replacement (Primary Dx) Start: 10-26-2022 End: 10-30-2022 ambulatory [facility] Start: 10-26-2022 End: 10-26-2022 ambulatory Helen Rviera MD Work Phone: [facility] Comment on above: Status post total le ft knee replacement (Primary Dx) Start: 10-21-2022 End: 10-25-2022 ambulatory [facility] Start: 10-19-2022 End: 10-23-2022 ambulatory [facility] Start: 10-17-2022 End: 10-21-2022 ambulatory [facility] Start: 10-14-2022 End: 10-18-2022 ambulatory [facility] Start: 10-12-2022 End: 10-16-2022 ambulatory [facility] Start: 10-10-2022 End: 10-14-2022 ambulatory HELEN CAMPOS [facility] Start: 10-10-2022 End: 10-10-2022 ambulatory Helen Rivera MD Work Phone: [facility] Comment on above: Status post total le ft knee replacement (Primary Dx) Start: 10-07-2022 End: 10-11-2022 ambulatory [facility] Start: 10-07-2022 End: 10-07-2022 ambulatory Helen Rivera MD Work Phone: [facility] Comment on above: Status post total le ft knee replacement (Primary Dx) Start: 10-05-2022 End: 10-09-2022 ambulatory RICK ASHTON [facility] Start: 10-03-2022 End: 10-07-2022 ambulatory HELEN RIVERA [facility] Start: 10-03-2022 End: 10-03-2022 ambulatory Helen Rivera MD Work Phone: [facility] Comment on above: Status post total le ft knee replacement Start: 09-30-2022 End: 09-30-2022 Home visit Stefania Dan PT [facility] Comment on above: PT OASIS DISCHARGE PT NON-OASIS AGENCY DISCHARGE Start: 09-28-2022 End: 09-28-2022 Postop follow up visit related to original px Helen Rivera MD Work Phone: [facility] Comment on above: Status post total le ft knee replacement (Primary Dx) Start: 09-28-2022 End: 09-28-2022 Refill Helen Rivera MD Work Phone: [facility] Comment on above: Status post total le ft knee replacement (Primary Dx) DISTRIBUTION TECHNICIAN ROUTINE VISIT Start: 09-27-2022 End: 09-27-2022 Home visit Mony Patino RN [facility] Comment on above: SN HH NON-OASIS/DISC IPLINE DC Start: 09-26-2022 End: 09-26-2022 Home visit Denise Lockett [facility] Comment on above: DISTRIBUTION TECHNICIAN ROUTINE VISIT Start: 09-23-2022 End: 09-23-2022 Home visit Denise Lockett [facility] Comment on above: DISTRIBUTION TECHNICIAN ROUTINE VISIT Start: 09-22-2022 End: 09-22-2022 ambulatory MD AUBREE CAMPBELL Work Phone: [facility] Work Phone: Start: 09-22-2022 End: 09-22-2022 Patient encounter procedure MD AUBREE CAMBPELL Work Phone: [facility]-Radiology, [facility] Start: 09-21-2022 End: 09-21-2022 Home visit Denise Lockett DISTRIBUTION TECHNICIAN [facility] Comment on above: DISTRIBUTION TECHNICIAN ROUTINE VISIT Start: 09-20-2022 End: 09-20-2022 Home visit Juana Wolf INTERNAL GRINDER [facility] Comment on above: INTERNAL GRINDER HH ROUTINE Start: 09-20-2022 End: 09-20-2022 ambulatory MD AUBREE CAMPBELL Work Phone: [facility] Work Phone: Start: 09-20-2022 End: 09-20-2022 Patient encounter procedure MD AUBREE CAMPBELL Work Phone: [facility] Start: 09-19-2022 Refill Ava curtis [facility] Comment on above: Status post total le ft knee replacement (Primary Dx) Start: 09-19-2022 End: 09-19-2022 Home visit Denise Lockett [facility] Comment on above: DISTRIBUTION TECHNICIAN ROUTINE VISIT Start: 09-16-2022 End: 09-16-2022 Patient encounter procedure MD AUBREE CAMPBELL Work Phone: [facility] Start: 09-15-2022 End: 09-15-2022 Home visit Stefania Dan PT [facility] Comment on above: PT INITIAL EVALUATIO N Start: 09-14-2022 End: 09-14-2022 Home visit Denise Cortez RN [facility] Comment on above: SN HH NON-OASIS SOC Start: 09-12-2022 End: 09-30-2022 ambulatory HELEN RIVERA [facility] Start: 09-07-2022 End: 09-07-2022 Patient encounter procedure MD AUBERE CAMPBELL Work Phone: [facility] Start: 09-07-2022 Registered Recurring MD AUBREE CAMPBELL Work Phone: [facility] Start: 08-26-2022 End: 08-26-2022 Office outpatient visit 15 minutes Helen Rivera MD Work Phone: [facility] Comment on above: Primary osteoarthrit is of left knee (Primary Dx) Start: 08-22-2022 End: 08-22-2022 ambulatory MD AUBREE CAMPBELL Work Phone: [facility] Work Phone: Start: 08-22-2022 End: 08-22-2022 Patient encounter procedure MD AUBREE CAMPBELL Work Phone: [facility]-Outpatient Breast Imaging Start: 08-11-2022 End: 08-15-2022 ambulatory HELEN CAMPOS [facility] Start: 08-09-2022 Registered Recurring MD AUBREE CAMPBELL Work Phone: [facility] Start: 08-01-2022 End: 08-01-2022 Patient encounter procedure MD AUBREE CAMPBELL Work Phone: [facility] Start: 07-20-2022 End: 07-20-2022 ambulatory MD AUBREE CAMPBELL Work Phone: [facility] Work Phone: Start: 07-20-2022 End: 07-20-2022 Patient encounter procedure MD AUBREE CAMPBELL Work Phone: [facility] Start: 07-18-2022 End: 07-18-2022 Patient encounter procedure MD AUBREE CAMPBELL Work Phone: [facility] Start: 06-15-2022 End: 06-16-2022 ambulatory ANDRA ROBERSON [facility] Start: 06-15-2022 End: 06-15-2022 Office outpatient new 30 minutes Andra Roberson [facility] Work Phone: [facility] Comment on above: Primary osteoarthrit is of left knee (Primary Dx) Start: 06-07-2022 End: 2022 ambulatory MD AUBREE CAMPBELL Work Phone: [facility] Work Phone: Start: 06-07-2022 End: 2022 Discharged Recurring MD AUBREE CAMPBELL Work Phone: [facility] Start: 06-07-2022 Registered Recurring MD AUBREE CAMPBELL Work Phone: [facility] Start: 06-01-2022 End: 06-01-2022 Patient encounter procedure MD AUBREE CAMPBELL Work Phone: [facility] Start: 05-13-2022 End: 05-13-2022 Patient encounter procedure MD AUBREE CAMPBELL Work Phone: [facility] Start: 04-25-2022 End: 04-25-2022 Patient encounter procedure MD AUBREE CAMPBELL Work Phone: [facility] Start: 04-14-2022 End: 04-14-2022 ambulatory MD AUBREE CAMPBELL Work Phone: [facility] Work Phone: Start: 04-14-2022 End: 04-14-2022 Discharged Recurring MD AUBREE CAMPBELL Work Phone: [facility]-Occupational Therapy Start: 04-12-2022 Non-patient / Non-visit MD EMMA CAMPBELL Work Phone: [facility] Start: 04-12-2022 End: 04-12-2022 Admission to same day surgery center MD AUBREE CAMPBELL Work Phone: [facility] Start: 04-12-2022 End: 04-12-2022 ambulatory MD AUBREE CAMPBELL Work Phone: [facility] Work Phone: Start: 04-07-2022 Registered Recurring MD AUBREE CAMPBELL Work Phone: [facility] Start: 04-07-2022 End: 04-07-2022 Patient encounter procedure MD AUBREE CAMPBELL Work Phone: [facility] Start: 04-04-2022 Registered Recurring MD AUBREE CAMPBELL Work Phone: [facility] Start: 03-30-2022 End: 03-30-2022 Patient encounter procedure MD AUBREE CAMPBELL Work Phone: [facility] Start: 03-28-2022 End: 03-28-2022 Patient encounter procedure MD AUBREE CAMPBELL Work Phone: [facility] Start: 03-18-2022 End: 03-18-2022 Patient encounter procedure MD AUBREE CAMPBELL Work Phone: [facility] Start: 03-14-2022 End: 03-14-2022 Patient encounter procedure MD AUBREE CAMPBELL Work Phone: [facility] Start: 03-10-2022 End: 03-10-2022 ambulatory MD AUBREE CAMPBELL Work Phone: [facility] Work Phone: Start: 03-10-2022 End: 03-10-2022 Patient encounter procedure MD AUBREE CAMPBELL Work Phone: [facility] Start: 03-08-2022 End: 03-08-2022 Patient encounter procedure MD AUBREE CAMPBELL Work Phone: [facility] Start: 03-08-2022 Registered Recurring MD AUBREE CAMPBELL Work Phone: [facility] Start: 02-28-2022 End: 02-28-2022 Patient encounter procedure MD AUBREE CAMPBELL Work Phone: [facility] Start: 02-22-2022 End: 02-22-2022 Patient encounter procedure MD AUBREE CAMPBELL Work Phone: [facility] Start: 02-22-2022 Registered Recurring MD AUBREE CAMPBELL Work Phone: [facility] Start: 02-17-2022 End: 02-25-2022 ambulatory MD AUBREE CAMPBELL Work Phone: [facility] Work Phone: Start: 02-17-2022 End: 02-25-2022 Discharged Recurring MD AUBREE CAMPBELL Work Phone: [facility] Start: 02-16-2022 Non-patient / Non-visit MD EMMA CAMPBELL Work Phone: [facility] Start: 02-15-2022 End: 02-15-2022 Patient encounter procedure MD AUBREE CAMPBELL Work Phone: [facility] Start: 02-09-2022 End: 02-09-2022 Patient encounter procedure MD AUBREE CAMPBELL Work Phone: [facility] Start: 02-01-2022 End: 02-01-2022 Patient encounter procedure MD AUBREE CAMPBELL Work Phone: [facility] Start: 01-26-2022 End: 01-26-2022 Patient encounter procedure MD AURBEE CAMPBELL Work Phone: [facility] Start: 01-24-2022 Non-patient / Non-visit MD EMMA CAMPBELL Work Phone: [facility] Start: 01-13-2022 Non-patient / Non-visit MD EMMA CAMPBELL Work Phone: [facility] Start: 01-12-2022 Non-patient / Non-visit MD EMMA CAMPBELL Work Phone: [facility] Start: 01-05-2022 End: 01-05-2022 Patient encounter procedure MD AUBREE CAMPBELL Work Phone: [facility] Start: 01-05-2022 Registered Recurring MD AUBREE CAMPBELL Work Phone: [facility] Start: 01-04-2022 End: 01-21-2022 ambulatory MD AUBREE CAMPBELL Work Phone: [facility] Work Phone: Start: 01-04-2022 End: 01-21-2022 Discharged Recurring MD AUBREE CAMPBELL Work Phone: [facility] Start: 01-04-2022 Non-patient / Non-visit MD EMMA CAMPBELL Work Phone: [facility] Start: 12-24-2021 End: 12-24-2021 ambulatory Reginaldo Navneet Akiruso DO Work Phone: [facility] Comment on above: Acute pain of left k nee (Primary Dx) Start: 12-21-2021 End: 12-21-2021 ambulatory Reginaldo Navneet Borruso DO Work Phone: [facility] Comment on above: Acute pain of left k nee (Primary Dx) Start: 12-15-2021 End: 12-15-2021 Patient encounter procedure MD AUBREE CAMPBELL Work Phone: [facility] Start: 12-07-2021 End: 12-07-2021 Patient encounter procedure MD AUBREE CAMPBELL Work Phone: [facility] Start: 12-03-2021 End: 12-03-2021 ambulatory Reginaldo Navneet Borruso DO Work Phone: [facility] Comment on above: Acute pain of left k nee (Primary Dx) Start: 11-30-2021 End: 11-30-2021 ambulatory Reginaldo Navneet Borruso DO Work Phone: [facility] Comment on above: Acute pain of left k nee (Primary Dx) Start: 11-30-2021 End: 11-30-2021 Patient encounter procedure MD AUBREE CAMPBELL Work Phone: [facility] Start: 11-26-2021 End: 11-26-2021 ambulatory Reginaldo Navneet Borruso DO Work Phone: [facility] Comment on above: Acute pain of left k nee (Primary Dx) Start: 11-23-2021 End: 11-23-2021 ambulatory Reginaldo Navneet Pedraza DO Work Phone: [facility] Comment on above: Acute pain of left k nee Start: 11-16-2021 End: 11-16-2021 Patient encounter procedure MD AUBREE CAMPBELL Work Phone: [facility] Start: 10-26-2021 End: 10-26-2021 Patient encounter procedure No Primary Care Physician [facility] Start: 10-26-2021 Registered Recurring No Primar y Care Physician [facility] Start: 10-21-2021 End: 10-21-2021 Patient encounter procedure No Primary Care Physician [facility], Specimen Start: 10-19-2021 End: 10-19-2021 Patient encounter procedure No Primary Care Physician [facility] Start: 10-05-2021 End: 10-05-2021 Patient encounter procedure No Primary Care Physician [facility] Start: 09-30-2021 Non-patient / Non-visit No Ebony holloway Care Physician [facility] Start: 09-30-2021 End: 09-30-2021 Admission to same day surgery center No Primary Care Physician [facility] Start: 09-29-2021 End: 09-29-2021 Patient encounter procedure No Primary Care Physician [facility], Specimen Start: 09-29-2021 End: 09-29-2021 Patient encounter procedure No Primary Care Physician [facility] Start: 09-28-2021 End: 09-28-2021 Patient encounter procedure No Primary Care Physician [facility] Start: 09-27-2021 End: 09-27-2021 Patient encounter procedure No Primary Care Physician [facility], [facility] Start: 09-24-2021 Non-patient / Non-visit No Ebony holloway Care Physician [facility] Start: 09-24-2021 End: 09-24-2021 Patient encounter procedure No Primary Care Physician [facility] Start: 09-21-2021 Transcribe Orders Reginaldo Cali en Keila DO Work Phone: [facility] Comment on above: Acute pain of left k nee (Primary Dx) Start: 09-20-2021 Registered Recurring No Primar y Care Physician [facility] Start: 09-20-2021 End: 09-20-2021 Patient encounter procedure No Primary Care Physician [facility] Start: 09-02-2021 Non-patient / Non-visit No Ebony amie Care Physician [facility] Start: 09-02-2021 End: 09-02-2021 Admission to same day surgery center No [facility] Start: 08-30-2021 End: 08-30-2021 Patient encounter procedure No Primary Care Physician [facility] Start: 08-20-2021 End: 08-20-2021 Patient encounter procedure No Primary Care Physician [facility], Specimen Start: 08-20-2021 End: 08-20-2021 Patient encounter procedure No Primary Care Physician [facility] Start: 08-13-2021 End: 08-13-2021 Patient encounter procedure No Primary Care Physician [facility] Start: 07-23-2021 End: 07-23-2021 Patient encounter procedure No Primary Care Physician [facility] Start: 06-03-2021 End: 2021 Discharged Recurring No [facility] Start: 05-27-2021 End: 05-28-2021 Discharged Recurring No [facility] Start: 05-14-2018 End: 05-14-2018 Patient encounter procedure Jennifer Stack MD Work Phone: [facility] Work Phone: Procedures Date Procedure Procedure Detail Performing Clinician Start: 02-07-2025 Complete blood count with white cell differential, automated Rosmery NELSON Work Phone: Start: 02-07-2025 Comprehensive metabo lic panel Rosmery NELSON Work Phone: Start: 02-07-2025 Lipid panel Summer Hugo Fragoso rambo PA Work Phone: Start: 01-14-2025 Arthrocentesis aspir &/inj small jt/bursa w/o us Andra Roberson [employer]ER Work Phone: Start: 08-26-2024 Screening mammography Efrain CAMPBELL MD Work Phone: Start: 01-01-2024 Colonoscopy Aubree haines MD Work Phone: Start: 01-01-[address] ROCKY GAFFNEY MD Comment on above: ONE POLYP REMOVED Start: 09-13-2023 Computed tomography of abdomen and pelvis with contrast MD AUBREE CAMPBELL Work Phone: Start: 08-24-2023 Screening mammography Hugo CAMPBELL Work Phone: Start: 08-04-2023 Bacteria identified in Urine by Culture Start: 08-04-2023 MICROSCOPIC ONLY, URINE Start: 08-04-2023 URINALYSIS WITH REFL EX MICROSCOPIC Start: 04-28-2023 Viral antigen assay MD AUBREE CAMPBELL Work Phone: Start: 03-02-2023 Viral antigen assay Start: 02-16-2023 Viral antigen assay Start: 09-22-2022 Plain X-ray of tibia and fibula MD AUBREE CAMPBELL Work Phone: Start: 09-20-2022 Radionuclide whole b kain bone study MD AUBREE CAMPBELL Work Phone: Start: 09-16-2022 Computed tomography of abdomen and pelvis with contrast MD AUBREE CAMPBELL Work Phone: Start: 08-22-2022 Ultrasonography of breast MD AUBREE CAMPBELL Work Phone: Start: 08-22-2022 End: 08-22-2022 Bilateral mammography MD AUBREE CAMPBELL Work Phone: Start: 04-12-2022 Arthroscopy of knee MD AUBREE CAMPBELL Work Phone: Start: 03-30-2022 MRI of brain with contrast MD AUBREE CAMPBELL Work Phone: Start: 03-18-2022 Radiologic examinati on of knee MD AUBREE CAMPBELL Work Phone: Start: 03-10-2022 MRI of joint of lowe r extremity MD AUBREE CAMPBELL Work Phone: Start: 10-26-2021 Urine culture Start: 09-30-2021 Radiographic procedu re of chest No Primary Care Physician Start: 09-30-2021 Fluoroscopic guidance N o Primary Care Physician Start: 09-30-2021 Implantation to cardiovascular system No Primary Care Physician Start: 09-29-2021 Urine culture No Primar y Care Physician Start: 09-28-2021 CT of chest and abdomen No Primary Care Physician Start: 09-27-2021 Radionuclide whole b kain bone study No Primary Care Physician Start: 09-02-2021 Specimen mammography No Primary Care Physician Start: 09-02-2021 Breast, Lumpectomy,S N w/ Neoprobe (Right) No Primary Care Physician Start: 08-13-2021 Ultrasonography of breast No Primary Care Physician Start: 07-23-2021 Radiologic examinati on of knee No Primary Care Physician Start: 06-03-2021 SARS-CoV-2 Antigen (Rapid) No Primary Care Physician Start: 05-20-2021 SARS-CoV-2 Antigen (Rapid) No Primary Care Physician Start: 11-16-2018 Colonoscopy Fuad champion OD Work Phone: Start: 05-14-2018 End: 05-14-2018 Blood pressure within normal parameters - no follow-up required A Ousmane Stack MD Work Phone: Start: 05-14-2018 End: 05-14-2018 BMI documented as above normal parameters - follow-up documented A Ousmane Stack MD Work Phone: Start: 05-14-2018 End: 05-14-2018 Documentation of current medications A Ousmane Stack MD Work Phone: Start: 05-14-2018 End: 05-14-2018 Pain assessment not documented - reason not given A Ousmane Stack MD Work Phone: Start: 05-14-2018 End: 05-14-2018 Tobacco non-user Jennifer Ousmane Davies Work Phone: Arthroplasty of knee DR JEFE GAFFNEY MD Comment on above: LEFT KNEE Excision of mass DR ROCKY GAFFNEY MD Comment on above: RIGHT SIDE Urine culture MD AUBREE CAMPBELL Work Phone: Urine culture MD AUBREE CAMPBELL Work Phone: Viral antigen assay MD KIM CAMPBELL Work Phone: Viral antigen assay MD KIM CAMPBELL Work Phone: Viral antigen assay MD KIM CAMPBELL Work Phone: Plan of Treatment Date Care Activity Detail Author Start: 2036 Respiratory Syncytia l Virus Immunization: Risk, 60-74 Risk, or 75+ (1 - 1-dose 75+ series) Respiratory Syncytial Virus Immunization: Risk, 60-74 Risk, or 75+ (1 - 1-dose 75+ series) [facility] Start: 2036 RSV Vaccine (1 - 1-d ose 75+ series) RSV Vaccine (1 - 1-dose 75+ series) [facility] Start: 12-31-2033 Screening for malign ant neoplasm of colon [facility] Start: 07-25-2033 Tetanus vaccination Tetanus: Every 1 0yrs [facility] Start: 07-25-2033 Urine microalbumin profile DTaP,Tdap,Td Vaccine (3 - Td or Tdap) [facility] Start: 02-12-2026 End: 02-12-2026 Patient encounter procedure 02/12/2026 9:45 AM EDT Office Visit [facility] [address] [place] [address] [facility] Start: 08-11-2025 Diabetes Screening Diabetes Screenin g [facility] Start: 02-24-2025 End: 02-24-2025 Patient encounter procedure 02/24/2025 2:00 PM EDT Office Visit [facility] [address] [place] [address] Aubree Campbell MD [address] [place] [address] [facility] Start: 02-18-2025 History and physical examination, annual for health maintenance Wellness Visit [facility] Start: 02-06-2025 End: 03-08-2025 CBC W Auto Differential panel - Blood CBC and differential Lab Routine Annual physical exam Expected: 02/06/2025, Expires: 03/08/2025 [facility] Work Phone: Comment on above: Expected: 02/06/2025 , Expires: 03/08/2025 Start: 02-06-2025 End: 03-08-2025 Comprehensive metabolic 2000 panel - Serum or Plasma Comprehensive metabolic panel Lab Routine Annual physical exam Expected: 02/06/2025, Expires: 03/08/2025 [facility] Comment on above: Expected: 02/06/2025 , Expires: 03/08/2025 Start: 02-06-2025 End: 03-08-2025 Lipid 1996 panel - Serum or Plasma Lipid panel Lab Routine Annual physical exam Expected: 02/06/2025, Expires: 03/08/2025 [facility] Comment on above: Expected: 02/06/2025 , Expires: 03/08/2025 Start: 02-06-2025 End: 03-08-2025 Thyrotropin [Units/volume] in Serum or Plasma TSH Lab Routine Fatigue, unspecified type Subclinical hypothyroidism Expected: 02/06/2025, Expires: 03/08/2025 [facility] Comment on above: Expected: 02/06/2025 , Expires: 03/08/2025 Start: 01-27-2025 Influenza vaccination Influenza Vacc ine (#1) [facility] Start: 01-28-2024 COVID-19 Vaccine ( season) COVID-19 Vaccine ( season) [facility] Start: 10-11-2023 History and physical examination, annual for health maintenance Wellness Visit [facility] Start: 09-19-[address] [facility] Work Phone: Start: 09-13-2023 Venous catheter care management [facility] Start: 08-23-2023 Screening for malign ant neoplasm of breast Mammogram [facility] Start: 08-11-2023 History and physical examination, annual for health maintenance Wellness Visit [facility] Start: 07-27-2023 End: 07-27-2023 ambulatory 07/27/2023 1:00 PM EST Evaluation [facility] [address] [place] [address] [place] [address] [place] [address] Jade Alvarado, PT Discharge Disposition: Home [facility] Start: 01-27-2023 COVID-19 Vaccine ( season) COVID-19 Vaccine () [facility] Start: 01-27-2023 Influenza vaccination Sequenti al Influenza Vaccine (#1) [facility] Start: 10-31-2022 End: 10-31-2022 ambulatory [facility] Start: 10-28-2022 End: 10-28-2022 Follow-up encounter 10/28/2022 1:30 PM EDT Follow-Up [facility] [address] [place] [address] Helen Rivera MD [address] [place] [address] [facility] Start: 10-28-2022 End: 10-28-2022 ambulatory 10/28/2022 8:30 AM EDT Treatment [facility] [address] [place] [address] Helen Rivera MD [address] [place] [address] Rick Ashton PTA [facility] Start: 10-26-2022 End: 10-26-2022 ambulatory 10/26/2022 8:30 AM EDT Treatment [facility] [address] [place] [address] Helen Rivera MD [address] [place] [address] Rick Ashton [facility] Start: 10-21-2022 End: 10-21-2022 ambulatory 10/21/2022 8:30 AM EDT Treatment [facility] [address] [place] [phone] Helen Rivera MD [address] [place] [address] Kim Irizarry [facility] Start: 10-19-2022 End: 10-19-2022 ambulatory 10/19/2022 8:30 AM EDT Treatment [facility] [address] [place] [phone] Helen Rivera MD [address] [place] [address] Becky Villalobos [facility] Start: 10-17-2022 End: 10-17-2022 ambulatory 10/17/2022 8:30 AM EDT Treatment [facility] [address] [place] [address] Helen Rivera MD [address] [place] [address] Rick Ashton [facility] Start: 10-14-2022 End: 10-14-2022 ambulatory 10/14/2022 8:30 AM EDT Treatment [facility] [address] [place] [address] Helen Rivera MD [address] [place] [address] Rick Ashton PTA [facility] Start: 10-12-2022 End: 10-12-2022 ambulatory 10/12/2022 8:30 AM EDT Treatment [facility] [address] [place] [address] Helen Rivera MD [address] [place] [id number] Becky Villalobos PTA [facility] Start: 10-10-2022 End: 10-10-2022 ambulatory [facility] Start: 10-07-2022 End: 10-07-2022 ambulatory [facility] Start: 10-05-2022 End: 10-05-2022 ambulatory 10/05/2022 8:30 AM EDT Treatment [facility] [address] [place] [address] Helen Rivera MD [address] [phone] Rick Ashton PTA Discharge Disposition: Home [facility] Start: 10-03-2022 End: 10-03-2022 ambulatory 10/03/2022 8:30 AM EDT Evaluation [facility] [address] [place] [address] Helen Rivera MD [address] [phone] Jade Alvarado PT Discharge Disposition: Home [facility] Start: 09-30-2022 End: 09-30-2022 Home visit 09/30/2022 8:00 AM EDT Home Care Visit [address] [address] Stefania Dan, PT [facility] Start: 09-29-2022 End: 09-29-2022 Home visit 09/29/2022 8:00 AM EDT Home Care Visit [address] [address] Stefania Dan, PT [facility] Start: 09-28-2022 End: 09-28-2022 Follow-up encounter 09/28/2022 3:00 PM EDT Follow-Up [facility] [address] [place] [address] Helen Rivera MD [address] [place] [phone] [facility] Start: 09-28-2022 End: 09-28-2022 Home visit [facility] Start: 09-26-2022 End: 09-27-2022 Home visit [facility] Start: 09-23-2022 End: 09-23-2022 Follow-up encounter 09/23/2022 2:00 PM EDT Follow-Up [facility] [address] [place] [phone] Helen Rivera MD [address] [address] [facility] Start: 09-23-2022 End: 09-23-2022 Home visit [facility] Start: 09-22-2022 Plain X-ray of tibia and fibula Tibia & Fibula 2 Views [facility] Start: 09-22-2022 End: 09-22-2022 Home visit 09/22/2022 12:30 PM EDT Home Care Visit [address] [address] Denise Cortez RN [facility] Start: 09-21-2022 End: 09-21-2022 Home visit 09/21/2022 12:30 PM EDT Home Care Visit [address] [address] Denise Lockett PTA [facility] Start: 09-20-2022 End: 09-20-2022 Home visit [facility] Start: 09-19-2022 End: 09-19-2022 Home visit 09/19/2022 Home Care Visit [address] [address] Denise Lockett PTA [facility] Start: 09-16-2022 End: 09-16-2022 Home visit 09/16/2022 2:00 PM EDT Home Care Visit [address] [phone] Juana Wolf LPN [facility] Start: 09-16-2022 Venous catheter care management [facility] Start: 09-12-2022 End: 09-12-2022 Admission to same day surgery center 09/12/2022 10:55 AM EDT - 09/12/2022 1:05 PM EDT Surgery [facility] [address] [place] [address] Helen Rivera MD [address] [place] [address] Left total knee replacement Robotic [facility] Comment on above: Left total knee repl acement Robotic Start: 09-12-2022 End: 09-12-2022 ARTHROPLASTY KNEE TOTAL ROBOTIC ARTHROPLASTY KNEE TOTAL ROBOTIC Primary osteoarthritis of left knee 09/12/2022 10:55 AM EDT [facility] Start: 09-12-2022 Subsequent hospital visit by physician 09/12/2022 10:55 AM EDT Hospital Encounter [facility] [address] [place] [address] Helen Rivera MD [address] [place] [address] [facility] Start: 08-04-2022 Screening for malign ant neoplasm of breast Mammogram Screening [facility] Start: 04-12-2022 Anes open/surg arthroscopic proc knee joint nos ANESTH KNEE JOINT SURGERY [facility] Start: 04-12-2022 Arthrs kne surg w/meniscectomy med/lat w/shvg KNEE ARTHROSCOPY/SURGERY [facility] Start: 04-12-2022 Provision of mobilit y device [facility] Start: 04-12-2022 Application of ice collar, cap or bag [facility] Start: 04-12-2022 Catheterization of vein [facility] Start: 04-12-2022 Following clinical pathway protocol [facility] Start: 04-12-2022 Patient discharge [facility] Start: 04-12-2022 Procedure discontinued [facility] Start: 04-12-2022 Taking patient vital signs [facility] Start: 04-12-2022 Vital signs measurements [facility] Start: 04-12-2022 [facility] Start: 04-12-2022 Venous catheter care management [facility] Start: 04-12-2022 Medication education [facility] Start: 04-07-[address] [facility] Work Phone: Start: 03-28-[address] [facility] Work Phone: Start: 01-27-2022 Influenza vaccination [facility] Start: 12-24-2021 End: 12-24-2021 ambulatory 12/24/2021 Treatment Rehabilitation Reginaldo Pedraza DO [address] [place] [address] [address] [place] [address] Becky Villalobos PTA [facility] Start: 12-13-2021 Tetanus vaccination Tetanus: Every 1 0yrs [facility] Start: 12-10-2021 End: 12-10-2021 ambulatory 12/10/2021 Treatment Rehabilitation Reginaldo Pedraza DO [address] [place] [address] Road [address] [place] [address] Becky Villalobos PTA [facility] Start: 12-07-2021 End: 12-07-2021 ambulatory 12/07/2021 Treatment Rehabilitation Reginaldo Pedraza DO [address] [place] [address] [address] [place] [id number]- Jade Alvarado, PT [facility] Start: 12-07-2021 Venous catheter care management [facility] Start: 12-03-2021 End: 12-03-2021 ambulatory 12/03/2021 Treatment Rehabilitation Reginaldo Pedraza, DO [address] [place] [address] [address] [place] [address] Kim Irizarry DISTRIBUTION TECHNICIAN [facility] Start: 11-30-2021 End: 11-30-2021 ambulatory 11/30/2021 Treatment Rehabilitation AkiReginaldo aldridge, [address] [place] [address] Becky Villalobos PTA [facility] Start: 11-26-2021 End: 11-26-2021 ambulatory 11/26/2021 Treatment [facility] [place] [facility] Reginaldo Pedraza, [address] [place] [address] Rick Ashton DISTRIBUTION TECHNICIAN [facility] Start: 10-26-2021 Bacteria identified in Urine by Culture Urine Culture [facility] Work Phone: Start: 10-10-2021 COVID-19 Vaccine (4 - Booster for Nay series) COVID-19 Vaccine (4 - Booster for Nay series) [facility] Start: 10-01-2021 End: 10-01-2021 ambulatory 10/01/2021 Evaluation Rehabilitation Reginaldo Pedraza, [address] [place] [address] Juliet Werner, PT [facility] Start: 09-30-2021 Anesthesia access ce ntral venous circulation ANESTH VASCULAR ACCESS [facility] Work Phone: Start: 09-30-2021 Insj tunneled ctr va d w/subq port age 6 yr/> INSERT TUNNELED CV CATH [facility] Work Phone: Start: 09-30-2021 Patient discharge [facility] Work Phone: Start: 09-29-2021 Bacteria identified in Urine by Culture Urine Culture [facility] Work Phone: Start: 09-29-2021 Urine culture Urine Culture [facility] Work Phone: Start: 09-20-[address] [facility] Work Phone: Start: 09-02-2021 Specimen mammography Breast Biopsy S pecimen [facility] Work Phone: Start: 09-02-2021 Anes integ extremiti es ant trunk & perineum nos ANESTH SKIN EXT/PER/ATRUNK [facility] Work Phone: Start: 09-02-2021 Bx/exc lymph node op en deep axillary node BIOPSY/REMOVAL LYMPH NODES [facility] Work Phone: Start: 09-02-2021 Intraop sentinel lym ph node id w/dye injection IO MAP OF SENT LYMPH NODE [facility] Work Phone: Start: 09-02-2021 Mastectomy partial PARTIAL MASTECTOM Y [facility] Work Phone: Start: 11-17-2019 Screening for malign ant neoplasm of colon [facility] Start: 05-14-2018 End: 05-14-2018 Appointment [facility] Work Phone: Start: 03-21-2012 Administration of he rpes zoster vaccine Zoster Vaccines (1 of 2) [facility] Start: 2011 Administration of he rpes zoster vaccine Zoster Vaccines (1 of 2) [facility] Start: 2011 Pneumococcal Vaccine : 50+ (1 of 1 - PCV) Pneumococcal Vaccine: 50+ (1 of 1 - PCV) [facility] Start: 2011 Pneumococcal Vaccine : Age 50+ (1 of 1 - PCV) Pneumococcal Vaccine: Age 50+ (1 of 1 - PCV) [facility] Start: 2011 Screening for malign ant neoplasm of colon [facility] Start: 2011 Shingrix Vaccine (1 of 2) Sheridan grix Vaccine (1 of 2) [facility] Start: 2006 Lipid panel Lipid Screening [facility] Start: 2006 Screening for malign ant neoplasm of colon [facility] Start: 2001 Screening for malign ant neoplasm of breast Mammogram [facility] Start: 1991 Screening for malign ant neoplasm of cervix [facility] Start: 1982 Screening for malign ant neoplasm of cervix [facility] Start: 1980 Administration of he rpes zoster vaccine Zoster Vaccines (1 of 2) [facility] Start: 1979 Anxiety Screening Anxiety Screening [facility] Start: 1979 Depression Screening Depression Scre ening [facility] Start: 1979 Hepatitis C screening Hepatitis C Sc reening [facility] Start: 1979 HIV screening HIV Screening [facility] Start: 1976 HIV screening HIV Screening [facility] Start: 1973 Depression screening using PHQ-9 (Patient Health Questionnaire 9) score [facility] Start: 1967 Pneumococcal Vaccine : Ped or At-Risk (1 - PCV) Pneumococcal Vaccine: Ped or At-Risk (1 - PCV) [facility] Start: 1966 COVID-19 Vaccine (1) COVID-19 Vaccin e (1) [facility] Start: 1964 History and physical examination, annual for health maintenance Wellness Visit [facility] Start: 1961 Screening for malign ant neoplasm of cervix Pap Smear [facility] Start: 1961 Screening for malign ant neoplasm of colon [facility] Start: 1961 Tetanus vaccination Tetanus: Every 1 0yrs [facility] CBC W Auto Different ial panel - Blood [facility] Work Phone: CBC W Auto Different ial panel - Blood [facility] CBC W Auto Different ial panel - Blood CBC and differential Lab Routine Annual physical exam Ordered: 02/19/2024 [facility] Work Phone: Comment on above: Ordered: 02/19/2024 Comprehensive metabo lic 2000 panel - Serum or Plasma Comprehensive metabolic panel Lab Routine Annual physical exam Subclinical hypothyroidism (CMS/HCC) Ordered: 02/19/2024 [facility] Comment on above: Ordered: 02/19/2024 CT Abdomen and Pelvi s W contrast IV [facility] Lactate dehydrogenas e measurement [facility] LDH [facility] Work Phone: Lipid 1996 panel - S hal or Plasma Lipid panel Lab Routine Annual physical exam Ordered: 02/19/2024 [facility] Comment on above: Ordered: 02/19/2024 MR Brain WO and W contrast IV [facility] Work Phone: Patient referral [facility] Work Phone: Procedure [facility] Screening mammography [facility] Work Phone: Screening mammography [facility] Thyroid stimulating hormone measurement [facility] Thyrotropin [Units/volume] in Serum or Plasma TSH Lab Routine Subclinical hypothyroidism (CMS/HCC) Ordered: 02/19/2024 [facility] Comment on above: Ordered: 02/19/2024 [facility] Immunizations Immunization Date Immunization Notes Care Provider Fa [facility] 02-19-2024 Influenza, Madin Martin by Canine Kidney, subunit, trivalent, injectable, contains preservative Aubree Campbell MD Work Phone: [facility] 02-19-2024 influenza virus vaccine, unspecified formulation Andra Roberson [facility] Work Phone: [facility] 07-25-2023 tetanus toxoid, reduced diphtheria toxoid, and acellular pertussis vaccine, adsorbed Aubree Campbell MD Work Phone: [facility] 03-14-2023 influenza, injectabl e, quadrivalent, preservative free [facility] 05-16-2022 influenza, injectabl e, quadrivalent, preservative free [facility] 05-16-2022 influenza, seasonal, injectable MD AUBREE CAMPBELL Work Phone: [facility] 08-15-2021 Covid (Pfizer) No Primary Ca re Physician [facility] 07-28-2021 Moderna SARS-CoV-2 Vaccination Aubree Campbell MD Work Phone: [facility] 07-28-2021 Pfizer Cordova Cap SARS-CoV-2 Vaccination Aubree Campbell MD Work Phone: [facility] 02-26-2021 Influenza, injectabl e, Madin [place] Canine Kidney, preservative free, quadrivalent Aubree Campbell MD Work Phone: [facility] 10-16-2020 Covid (Franck & Franck) No Primary Care Physician [facility] 04-17-2020 tuberculin skin test ; purified protein derivative solution, intradermal Aubree Campbell MD Work Phone: [facility] 03-20-2020 influenza, injectabl e, quadrivalent, preservative free [facility] 03-20-2020 influenza, seasonal, injectable No Primary Care Physician [facility] 04-11-2019 influenza, injectabl e, quadrivalent, preservative free [facility] 04-11-2019 influenza, seasonal, injectable No Primary Care Physician [facility] 02-27-2017 influenza, injectabl e, quadrivalent, preservative free Aubree Campbell MD Work Phone: [facility] 02-26-2017 influenza, injectabl e, quadrivalent, preservative free Aubree Campbell MD Work Phone: [facility] 02-23-2017 influenza, injectabl e, quadrivalent, preservative free [facility] 02-23-2017 influenza, seasonal, injectable No Primary Care Physician [facility] 03-05-2015 influenza, injectabl e, quadrivalent, preservative free [facility] 03-05-2015 influenza, seasonal, injectable No Primary Care Physician [facility] 01-25-2012 varicella virus vaccine Aubree Campbell MD Work Phone: [facility] 12-14-2011 measles, mumps and rubella virus vaccine Aubree Campbell MD Work Phone: [facility] 12-14-2011 tetanus toxoid, reduced diphtheria toxoid, and acellular pertussis vaccine, adsorbed Aubree Campbell MD Work Phone: [facility] 12-14-2011 varicella virus vaccine Aubree Campbell MD Work Phone: [facility] 05-24-2011 hepatitis B vaccine, pediatric or pediatric/adolescent dosage Aubree Campbell MD Work Phone: [facility] 01-17-2011 hepatitis B vaccine, pediatric or pediatric/adolescent dosage Aubree Campbell MD Work Phone: [facility] 01-17-2011 measles, mumps and rubella virus vaccine Aubree Campbell MD Work Phone: [facility] 11-09-2010 hepatitis B vaccine, pediatric or pediatric/adolescent dosage Aubree Campbell MD Work Phone: [facility] 09-20-1995 TD(adult) unspecifie d formulation Aubree Campbell MD Work Phone: [facility] No information available. Fadia Garvey LPN [facility] [place] [facility] Work Phone: Payers Date Payer Category Payer Private Health Insurance ISHAN Arias ember [id number] 2023 Unknown [id number] 2023 Private Health Insurance [id number] 2023 Managed Care (unspecified) ISHAN HMO/NTWK/OACCESS/OA+/POS [id number] 2023 Unknown [id number] 2022 Blue Cross Blue Shield BCBS [id number] 2022 Unknown [id number] 2021 Private Health Insurance [id number] 2021 Self-pay [id number] 2021 Unknown [id number] 2021 Unknown [id number] [id number]. [id number] 2021 Unknown [id number] 2015 Unknown [id number] 1961 Unknown [id number] 2.16.840.1.721604.3.579.2. 900 1961 Unknown [id number] 2.16.840.1.950782.3.579.2. 900 1961 Unknown [id number] 2.16.840.1.448300.3.579.2. 903 1961 Unknown [id number] 2.16.840.1.205833.3.579.2. 903 1961 Unknown [id number] 2.16.840.1.555852.3.579.2. 903 1961 Unknown [id number] 2.16.840.1.817130.3.579.2. 903 1961 Unknown [id number] 2.16.840.1.607626.3.579.2. 903 1961 Unknown [id number] 2.16.840.1.750537.3.579.2. 903 1961 Unknown [id number] 2.16.840.1.175740.3.579.2. 903 1961 Unknown [id number] 2.16.840.1.238960.3.579.2. 903 1961 Unknown [id number] 2.16.840.1.870128.3.579.2. 903 1961 Unknown [id number] 2.16.840.1.613202.3.579.2. 903 1961 Unknown [id number] 2.16.840.1.871549.3.579.2. 903 1961 Unknown [id number] 2.16.840.1.946126.3.579.2. 903 1961 Unknown [id number] 2.16.840.1.351938.3.579.2. 903 1961 Unknown [id number] 2.16.840.1.819597.3.579.2. 903 1961 Unknown [id number] 2.16.840.1.272869.3.579.2. 903 1961 Unknown [id number] 2.16.840.1.366639.3.579.2. 1245 1961 Unknown [id number] 2.16.840.1.541310.3.579.2. 627 1961 Unknown [id number] 2.16.840.1.809277.3.579.2. 902 1961 Unknown [id number] 2.16.840.1.707803.3.579.2. 903 1961 Unknown [id number] 2.16.840.1.402548.3.579.2. 903 1961 Unknown [id number] 2.16.840.1.280739.3.579.2. 903 1961 Unknown [id number] 2.16.840.1.581381.3.579.2. 903 1961 Unknown [id number] 2.16.840.1.007516.3.579.2. 1961 Unknown [id number] 2.16.840.1.096768.3.579.2. 903 1961 Unknown [id number] 2.16.840.1.208592.3.579.2. 3 1961 Unknown [id number] 2.16.840.1.847010.3.579.2. 903 1961 Unknown [id number] 2.16.840.1.946427.3.579.2. 1259 1961 Unknown [id number] 2.16.840.1.209340.3.579.2. 1259 1961 Unknown [id number] 2.16.840.1.245489.3.579.2. 1259 Unknown [id number] Unknown [id number] 2.16.840.1.860852.3.579.2. 462 Unknown [id number] 2.16.840.1.507749.3.579.2. 462 Unknown [id number] 2.16.840.1.970795.3.579.2. 462 Unknown [id number] 2.16.840.1.156693.3.579.2. 462 Unknown [id number] 2.16.840.1.164420.3.579.2. 462 Unknown [id number] 2.16.840.1.691408.3.579.2. 462 Unknown [id number] 2.16.840.1.184504.3.579.2. 462 Unknown [id number] 2.16.840.1.865261.3.579.2. 462 Unknown [id number] 2.16.840.1.039665.3.579.2. 462 Social History Date Type Detail Facility Start: 08-20-2021 End: 10-06-2022 Assertion Unknown if ever smoked [facility] Work Phone: Start: 1960 Sex Assigned At Female W [facility] Start: 1960 Sex Assigned At Not on file O [facility] Start: 11-13-2021 End: 10-19-2022 Exposure to SARS-CoV-2 (event) Not sure [facility] Start: 06-15-2022 End: 01-20-2023 Tobacco smoking status NHIS Never smoked tobacco [facility] Start: 06-15-2022 End: 01-20-2023 Tobacco use and exposure Smokeless tobacco non-user [facility] Start: 06-15-2022 End: 02-06-2025 Alcohol intake Current drinker of alcohol (finding) [facility] Start: 06-15-2022 Alcohol Comment 2-4 beer per week [facility] Start: 08-11-2022 End: 02-06-2025 History of Social function [facility] Start: 08-11-2022 End: 02-06-2025 Tobacco use panel [facility] Start: 06-14-2022 Gender identity Identifies as female gender (finding) [facility] Start: 06-14-2022 Sexual orientation Heterosexua l (finding) [facility] Lack of Transportati on (Medical) [facility] Start: 02-19-2024 Alcohol Comment 1-2 drinks mon thly. caffeine- 2 cups daily [facility] Start: 08-29-2024 Sex Female (finding) [facility] NEGATED: Highlighted row [facility] Medical Equipment Procedure Code Equipment Code Equipment Origin al Text Equipment Identifier Dates Insertion, vascular access port ([id number]) Vascular port/catheter ()[id number] FDA Start: 09-30-2021 Ligation clip, metallic ()[id number] [id number] FDA Start: 09-02-2021 Ligation clip, metallic ()[id number] [id number] FDA Start: 09-02-2021 Component Sz3 Fe m Cr Lt Cementless Beaded W/Pa Triathlon - [id number] ()[id number] , [id number] FDA Start: 09-12-2022 Patella 35mm Asymmetric Metal-Backed Tritanium Triathlon - [id number] ()[id number] [id number], [id number] FDA Start: 09-12-2022 Baseplate Sz4 Tibial Tritanium Triathlon - [id number] ()[id number], [id number] FDA Start: 09-12-2022 Insert Sz4-11 Tibial Cr X3 Triathlon [id number] - [id number] ()[id number]( [id number] , [id number] FDA Start: 09-12-2022 Goals Date Patient Goal Desired Activity /State Functional Status Date Assessment Result Facility 02-06-2025 Patient Health [facility] ionnaire 2 item (PHQ-2) [Reported] [facility] 01-01-2024 Functional Status Repositions self [facility] 01-01-2024 Functional Status Maintained [facility] Mental Status Date Assessment Result Facility 01-01-2024 Mental Status Oriented x 4 [facility] 01-01-2024 Mental Status [facility] 04-12-2022 Cognitive function Level Of Consciousness Awake [facility] Work Phone: 04-12-2022 Cognitive function Patient Christopher anthony Person;Place;Time [facility] Work Phone: 09-30-2021 Cognitive function Voice/Name [facility] Work Phone: 09-02-2021 Cognitive function Voice/Name [facility] Work Phone: Clinical Notes 10-21-2021 to 02-06-2025 LESLIE Willis - 02/06/2025 9:45 AM Andra Gregg CNP - 01/14/2025 8:15 AM Andra Gregg CNP - 08/28/2024 9:12 AM EDTPatient Instructions Note Date & Type Note Facility 02-06-2025 History of Present illness Narrative Radha Almanza is a 64 y.o. female presents with chief complaint of Annual Exam (No lab ordered prior to visit. ) HPI: History of Present Illness The patient is a female who presents for an annual physical exam. She reports feeling well overall, with no chest pain, shortness of breath, or blood in her stool. She has undergone a colonoscopy in 2019 and another more recently than this and we will call for this. Her current medications include fish oil, multivitamin, vitamin C, vitamin E, and Lexapro 20 mg. She has received the old shingles vaccine. She has a history of breast cancer and is under the care of an oncologist. She has been diagnosed with generalized anxiety disorder and experienced a breakdown after sealing her driveway, during which she took Ativan for 3 days to manage her anxiety. She also took a couple of Wellbutrin during this period. She has been diagnosed with depression and is currently stable on Lexapro 20 mg. She has primary insomnia and uses Restoril as needed to help with her sleep. She was previously prescribed Lyrica for restless leg syndrome but discontinued it due to its sedative effects. Respiratory: no cough, wheeze, or shortness of breath. Cardiac: no chest pain, no edema, no palpitations Gastrointestinal: denies rectal bleeding I have reviewed and reconciled the history and medication list with the patient today. HISTORIES: PAST MEDICAL HISTORY: Past Medical History: Diagnosis Date Acute insomnia Anxiety and depression Status post arthroscopic surgery of right knee HALEY (stress urinary incontinence, female) SURGICAL HISTORY: Past Surgical History: Procedure Laterality Date APPENDECTOMY 1993 SECTION, LOW TRANSVERSE 1994, 1997 CT ANGIOGRAM CHEST 03/05/2021 CT ANGIOGRAM CHEST 03/05/2021 KNEE SURGERY Right 06/14/[address] Riddle VAGINAL DELIVERY x3 SOCIAL HISTORY: Social History Tobacco Use Smoking status: Never Smokeless tobacco: Never Vaping Use Vaping status: Never Used Substance Use Topics Alcohol use: Yes Comment: 1-2 drinks monthly. caffeine- 2 cups daily Drug use: Never Depression: Not at risk (02/06/2025) PHQ-2 PHQ-2 Score: 0 FAMILY HISTORY: Family History Problem Relation Name Age of Onset Colon cancer Mother Diabetes Sibling MEDICATIONS: Current Outpatient Medications Medication Instructions ascorbic acid (VITAMIN C) 1,000 mg, Daily buPROPion XL (Wellbutrin XL) 150 MG 24 hr tablet TAKE 1 TABLET BY MOUTH EVERY DAY IN THE MORNING FOR 30 DAYS escitalopram (Lexapro) 20 MG tablet TAKE 1 TABLET BY MOUTH EVERY DAY FOR 90 DAYS Multiple Vitamin (Multi-Vitamin) tablet 1 tablet, Daily RT omega-3 (Fish Oil) 1200 MG capsule 1 capsule pregabalin (LYRICA) 100 mg, Oral, Nightly temazepam (RESTORIL) 7.5 mg, Oral, Nightly PRN Vitamin E 400 units tablet Every 24 hours ALLERGIES: No Known Allergies PHYSICAL EXAM: Visit Vitals Pulse 75 Ht 5' 6 Wt 172 lb SpO2 98% BMI 27.76 kg/m Smoking Status Never BSA 1.91 m BP Readings from Last 3 Encounters: 02/19/24 120/70 02/13/23 112/76 08/10/22 108/60 Wt Readings from Last 3 Encounters: 02/06/25 172 lb 02/19/24 182 lb 12.8 oz 02/13/23 166 lb Physical Exam General Examination: alert, oriented, normal affect, well-appearing, in no acute distress, well developed, well nourished. Head: normocephalic, atraumatic Eyes: sclera non-icteric Lymph Nodes: no cervical adenopathy, no palpable thyromegaly Heart: regular rate and rhythm, S1, S2 normal, no carotid bruits Lungs: clear to auscultation bilaterally. No wheezes, rales, rhonchi. Extremities: no edema, no cyanosis Psych: alert, oriented, cognitive function intact, cooperative with exam. Results ASSESSMENT AND PLAN: Assessment & Plan 1. Annual physical exam: - She is advised to consider the Shingrix vaccine, which is available at the pharmacy. It is a two-dose series, with the second dose administered 2 to 6 months after the first. The effectiveness is reported to be around 90%. A lab order will be placed for routine blood work. - She is advised to get the labs done as soon as possible due to her insurance ending on Monday. She is not fasting but may get her labs done today. 2. Generalized anxiety disorder: - This is stable on Lexapro 20 mg. She is advised to continue her current medication regimen. 3. Depression: - This is stable on Lexapro 20 mg. She is advised to continue her current medication regimen. 4. Primary insomnia: - She uses Restoril (temazepam) as needed to help with her sleep. A refill for Restoril will be provided. 5. Breast cancer: - She follows up with oncology. 6. Primary osteoarthritis: - This is stable. Continue monitoring. 7. Restless leg syndrome: - This is stable. Continue current management. Patient is here for follow up of the above chronic problems. I am following Dr. Campbell's established plan of care for these issues. Dr. Campbell was not in the office suite today but is available via real-time, audio/visual technology to supervise patient care. documented in this encounter [facility] 01-14-2025 History of Present illness Narrative Associated Order(s): SM Jt Injection/Arthrocentesis: L thumb MCP; SM Jt Injection/Arthrocentesis: R thumb MCP Post-Procedure Diagnose(s): Arthritis of carpometacarpal (CMC) joint of both thumbs [facility] [address] [facility] [address] [facility] [id number] Radha Almanza returns to the office today for bilateral hand/thumb pain. She denies any recent injury. She is noticing difficulty with grasping certain objects. She will, at times, have a sharp shooting burning pain at the base of the thumbs. No reports of any numbness or tingling into the thumb or the rest of the hand. She has tried OTC pain medications without significant alleviation of her symptoms. The patient's past medical history, surgical history, social history, family history, medications and allergies were reviewed with the patient today and are available in the chart for further review. Allergies[1] Current Medications[2] Past Medical History: Diagnosis Date Anemia Arthritis Depression History of chemotherapy Malignant neoplasm of female breast (HCC) 08/2021 Past Surgical History: Procedure Laterality Date ARTHROPLASTY KNEE TOTAL ROBOTIC ASSISTED Left 09/12/2022 Procedure: Left total knee replacement Robotic; Surgeon: Helen Rivera MD; Location: Main OR; Service: Ortho-Robotics BREAST LUMPECTOMY Right 09/2021 CT COLONOSCOPY 11/16/[address] COLONOSCOPY 12/29/2017 CT COLONOSCOPY KNEE SURGERY Bilateral left knee 2021 Meniscus repair, Right knee 2019 Meniscus Repair PORTACATH PLACEMENT Left Social History[3] ROS: Review of Systems Musculoskeletal: Positive for arthralgias, joint swelling and myalgias. ORTHO: Right Hand Exam Tenderness The patient is experiencing tenderness in the snuff box. Range of Motion Hand MP Thumb: 80 Muscle Strength The patient has normal right wrist strength (Pain with gripping). Tests Phalen s Sign: negative Tinel's sign (median nerve): negative Irving's test: negative Other Erythema: absent Scars: absent Sensation: normal Pulse: present Left Hand Exam Tenderness The patient is experiencing tenderness in the snuff box. Range of Motion Hand MP Thumb: 70 Muscle Strength The patient has normal left wrist strength (Pain with gripping). Tests Phalen s Sign: negative Tinel's sign (median nerve): negative Irving's test: negative Other Erythema: absent Scars: absent Sensation: normal Pulse: present Imaging: Bilateral hands: No acute fracture or dislocation. There is moderate to severe degeneration of the left CMC joint. There is moderate degeneration in the right CMC joint with slight subluxation. Assessment/Plan: After examination reviewed with the patient x-ray images, we discussed treatment options for the thumbs. I did offer her injections which she gladly excepted. I did this without complications and she tolerated this well. We also discussed using a thumb splint throughout the day as needed even at bedtime. She is also to continue taking her anti-inflammatory medications as needed. We did discuss possible surgical intervention if conservative measures fail in the future. She is able to have these injections every 3 months if they provide her with adequate pain relief. I more than happy to see her back when needed. SM Jt Injection/Arthrocentesis: L thumb MCP Performed by: Andra Roberson CNP Authorized by: Andra Roberson CNP Consent given by: Patient Time out: Immediately prior to the procedure a time out was called Physician or proceduralist has discussed critical or nonroutine steps, procedure duration and anticipated blood loss: Yes Supporting Documentation: Indications: Pain, joint swelling and diagnostic evaluation Procedure Details: Location: Thumb Site: L thumb MCP Prep: patient was prepped and draped in usual sterile fashion Needle size: 25 G Approach: Dorsal Medications: 20 mg triamcinolone acetonide 40 mg/mL Anesthetic used:: Lidocaine 1% Anesthetic amount (mL): 1 Patient tolerance: Patient tolerated the procedure well with no immediate complications SM Jt Injection/Arthrocentesis: R thumb MCP Performed by: Andra Roberson CNP Authorized by: Andra Roberson CNP Consent given by: Patient Time out: Immediately prior to the procedure a time out was called Physician or proceduralist has discussed critical or nonroutine steps, procedure duration and anticipated blood loss: Yes Supporting Documentation: Indications: Pain, joint swelling and diagnostic evaluation Procedure Details: Location: Thumb Site: R thumb MCP Prep: patient was prepped and draped in usual sterile fashion Needle size: 25 G Approach: Dorsal Medications: 20 mg triamcinolone acetonide 40 mg/mL Anesthetic used:: Lidocaine 1% Anesthetic amount (mL): 1 Patient tolerance: Patient tolerated the procedure well with no immediate complications [1] No Known Allergies [2] Current Outpatient Medications: ascorbic acid (VITAMIN C ORAL), Take by mouth ., Disp: , Rfl: buPROPion (Wellbutrin XL) 150 MG 24 hr tablet, Take 1 (one) tablet (150 mg total) by mouth daily ., Disp: , Rfl: escitalopram oxalate (LEXAPRO) 20 MG tablet, TAKE 1 TABLET BY MOUTH EVERY DAY FOR 90 DAYS, Disp: , Rfl: meloxicam (MOBIC) 15 MG tablet, Take 1 (one) tablet (15 mg total) by mouth daily ., Disp: 30 tablet, Rfl: 11 multivitamin per tablet, Take 1 (one) tablet by mouth daily ., Disp: , Rfl: pregabalin (Lyrica) 25 MG capsule, Take 1 (one) capsule (25 mg total) by mouth every night at bedtime ., Disp: , Rfl: temazepam (RESTORIL) 7.5 MG capsule, TAKE 1 CAPSULE (7.5 MG) BY MOUTH NEEDED AT BEDTIME FOR SLEEP, Disp: , Rfl: [3] Social History Socioeconomic History Marital status: Single Tobacco Use Smoking status: Never Smokeless tobacco: Never Substance and Sexual Activity Alcohol use: Yes Comment: 2-4 beer per week Drug use: Not Currently Comment: Used Marijuana Gummies during chemo Social Drivers of Health Transportation Needs: No Transportation Needs (09/30/2022) OASIS A1250: Transportation Lack of Transportation (Medical): No Lack of Transportation (Non-Medical): No Patient Unable or Declines to Respond: No Received from [facility] Housing Stability documented in this encounter [facility] 01-14-2025 [address] [facility] [address] [facility] [id number] Radha Almanza returns to the office today for The patient's past medical history, surgical history, social history, family history, medications and allergies were reviewed with the patient today and are available in the chart for further review. Allergies[1] Current Medications[2] Past Medical History: Diagnosis Date Anemia Arthritis Depression History of chemotherapy Malignant neoplasm of female breast (HCC) 08/2021 Past Surgical History: Procedure Laterality Date ARTHROPLASTY KNEE TOTAL ROBOTIC ASSISTED Left 09/12/2022 Procedure: Left total knee replacement Robotic; Surgeon: Helen Rivera MD; Location: Main OR; Service: Ortho-Robotics BREAST LUMPECTOMY Right 09/2021 CT COLONOSCOPY 11/16/[address] COLONOSCOPY 12/29/2017 CT COLONOSCOPY KNEE SURGERY Bilateral left knee 2021 Meniscus repair, Right knee 2019 Meniscus Repair PORTACATH PLACEMENT Left Social History[3] ROS: Review of Systems PE: Physical Exam ORTHO: Ortho Exam Imaging: Assessment/Plan: Procedures [1] No Known Allergies [2] Current Outpatient Medications: ascorbic acid (VITAMIN C ORAL), Take by mouth ., Disp: , Rfl: buPROPion (Wellbutrin XL) 150 MG 24 hr tablet, Take 1 (one) tablet (150 mg total) by mouth daily ., Disp: , Rfl: escitalopram oxalate (LEXAPRO) 20 MG tablet, TAKE 1 TABLET BY MOUTH EVERY DAY FOR 90 DAYS, Disp: , Rfl: meloxicam (MOBIC) 15 MG tablet, Take 1 (one) tablet (15 mg total) by mouth daily ., Disp: 30 tablet, Rfl: 11 multivitamin per tablet, Take 1 (one) tablet by mouth daily ., Disp: , Rfl: pregabalin (Lyrica) 25 MG capsule, Take 1 (one) capsule (25 mg total) by mouth every night at bedtime ., Disp: , Rfl: temazepam (RESTORIL) 7.5 MG capsule, TAKE 1 CAPSULE (7.5 MG) BY MOUTH NEEDED AT BEDTIME FOR SLEEP, Disp: , Rfl: [3] Social History Socioeconomic History Marital status: Single Tobacco Use Smoking status: Never Smokeless tobacco: Never Substance and Sexual Activity Alcohol use: Yes Comment: 2-4 beer per week Drug use: Not Currently Comment: Used Marijuana Gummies during chemo Social Drivers of Health Transportation Needs: No Transportation Needs (09/30/2022) OASIS A1250: Transportation Lack of Transportation (Medical): No Lack of Transportation (Non-Medical): No Patient Unable or Declines to Respond: No Received from [facility] 01-14-2025 Note [address] [facility] [address] [facility] [id number] Radha Almanza returns to the office today for bilateral hand/thumb pain. She denies any recent injury. She is noticing difficulty with grasping certain objects. She will, at times, have a sharp shooting burning pain at the base of the thumbs. No reports of any numbness or tingling into the thumb or the rest of the hand. She has tried OTC pain medications without significant alleviation of her symptoms. The patient's past medical history, surgical history, social history, family history, medications and allergies were reviewed with the patient today and are available in the chart for further review. Allergies[1] Current Medications[2] Past Medical History: Diagnosis Date Anemia Arthritis Depression History of chemotherapy Malignant neoplasm of female breast (HCC) 08/2021 Past Surgical History: Procedure Laterality Date ARTHROPLASTY KNEE TOTAL ROBOTIC ASSISTED Left 09/12/2022 Procedure: Left total knee replacement Robotic; Surgeon: Helen Rivera MD; Location: Main OR; Service: Ortho-Robotics BREAST LUMPECTOMY Right 09/2021 CT COLONOSCOPY 11/16/[address] COLONOSCOPY 12/29/2017 CT COLONOSCOPY KNEE SURGERY Bilateral left knee 2021 Meniscus repair, Right knee 2019 Meniscus Repair PORTACATH PLACEMENT Left Social History[3] ROS: Review of Systems Musculoskeletal: Positive for arthralgias, joint swelling and myalgias. ORTHO: Right Hand Exam Tenderness The patient is experiencing tenderness in the snuff box. Range of Motion Hand MP Thumb: 80 Muscle Strength The patient has normal right wrist strength (Pain with gripping). Tests Phalen's Sign: negative Tinel's sign (median nerve): negative Irving's test: negative Other Erythema: absent Scars: absent Sensation: normal Pulse: present Left Hand Exam Tenderness The patient is experiencing tenderness in the snuff box. Range of Motion Hand MP Thumb: 70 Muscle Strength The patient has normal left wrist strength (Pain with gripping). Tests Phalen's Sign: negative Tinel's sign (median nerve): negative Irving's test: negative Other Erythema: absent Scars: absent Sensation: normal Pulse: present Imaging: Bilateral hands: No acute fracture or dislocation. There is moderate to severe degeneration of the left CMC joint. There is moderate degeneration in the right CMC joint with slight subluxation. Assessment/Plan: After examination reviewed with the patient x-ray images, we discussed treatment options for the thumbs. I did offer her injections which she gladly excepted. I did this without complications and she tolerated this well. We also discussed using a thumb splint throughout the day as needed even at bedtime. She is also to continue taking her anti-inflammatory medications as needed. We did discuss possible surgical intervention if conservative measures fail in the future. She is able to have these injections every 3 months if they provide her with adequate pain relief. I more than happy to see her back when needed. ALISON Jt Injection/Arthrocentesis: L thumb MCP Performed by: Andra Roberson CNP Authorized by: Andra Roberson CNP Consent given by: Patient Time out: Immediately prior to the procedure a time out was called Physician or proceduralist has discussed critical or nonroutine steps, procedure duration and anticipated blood loss: Yes Supporting Documentation: Indications: Pain, joint swelling and diagnostic evaluation Procedure Details: Location: Thumb Site: L thumb MCP Prep: patient was prepped and draped in usual sterile fashion Needle size: 25 G Approach: Dorsal Medications: 20 mg triamcinolone acetonide 40 mg/mL Anesthetic used:: Lidocaine 1% Anesthetic amount (mL): 1 Patient tolerance: Patient tolerated the procedure well with no immediate complications SM Jt Injection/Arthrocentesis: R thumb MCP Performed by: Andra Roberson CNP Authorized by: Andra Roberson CNP Consent given by: Patient Time out: Immediately prior to the procedure a time out was called Physician or proceduralist has discussed critical or nonroutine steps, procedure duration and anticipated blood loss: Yes Supporting Documentation: Indications: Pain, joint swelling and diagnostic evaluation Procedure Details: Location: Thumb Site: R thumb MCP Prep: patient was prepped and draped in usual sterile fashion Needle size: 25 G Approach: Dorsal Medications: 20 mg triamcinolone acetonide 40 mg/mL Anesthetic used:: Lidocaine 1% Anesthetic amount (mL): 1 Patient tolerance: Patient tolerated the procedure well with no immediate complications [1] No Known Allergies [2] Current Outpatient Medications: ascorbic acid (VITAMIN C ORAL), Take by mouth ., Disp: , Rfl: buPROPion (Wellbutrin XL) 150 M (more content not included)... [facility] 08-28-2024 [address] [facility] [address] [facility] [id number] Chief Complaint Patient presents with Left Hand - Pain Had fx in Apr 2024 seen here. States never followed up, wore brace 6 weeks. Right Hand - Pain Radha Almanza returns to the office today for bilateral wrist/hand pain. She denies any recent injury but did have an injury to the left this past Apr. She wore a brace for 6 weeks and overall has been doing ok. The right is worst than the left. She is having pain at the base of both thumbs, right greater than left. There is no numbness or tingling reported. She has tried otc pain medications in addition to bracing without significant symptom relief. The patient's past medical history, surgical history, social history, family history, medications and allergies were reviewed with the patient today and are available in the chart for further review. Allergies[1] Current Medications[2] Past Medical History: Diagnosis Date Anemia Arthritis Depression History of chemotherapy Malignant neoplasm of female breast (HCC) 08/2021 Past Surgical History: Procedure Laterality Date ARTHROPLASTY KNEE TOTAL ROBOTIC ASSISTED Left 09/12/2022 Procedure: Left total knee replacement Robotic; Surgeon: Helen Rivera MD; Location: Main OR; Service: Ortho-Robotics BREAST LUMPECTOMY Right 09/2021 CT COLONOSCOPY 11/16/[address] COLONOSCOPY 12/29/2017 CT COLONOSCOPY KNEE SURGERY Bilateral left knee 2021 Meniscus repair, Right knee 2018 Meniscus Repair PORTACATH PLACEMENT Left Social History[3] ROS: Review of Systems Musculoskeletal: Positive for arthralgias, joint swelling and myalgias. ORTHO: Right Hand Exam Tenderness The patient is experiencing tenderness in the radial area and snuff box. Range of Motion Hand MP Thumb: 70 Muscle Strength The patient has normal right wrist strength (with pain). Tests Irving's test: negative Other Erythema: absent Scars: absent Sensation: normal Pulse: present Left Hand Exam Tenderness The patient is experiencing tenderness in the snuff box and radial area. Range of Motion Hand MP Thumb: 70 Muscle Strength The patient has normal left wrist strength (with pain). Tests Irving's test: negative Other Erythema: absent Scars: absent Sensation: normal Pulse: present Imaging: Left wrist: Severe thumb CMC joint degenerative changes. Moderate STT joint degenerative changes. Mild radiocarpal joint degenerative changes. No evidence of acute fracture. Osteopenia. Right wrist: Severe thumb CMC joint degenerative changes with subluxation measuring 0.8 cm. No evidence of acute fracture. Osteopenia. Assessment/Plan: After examination and reviewing of the patient x-ray images, we discussed treatment options. We discussed conservative measures, oral medications, injections, bracing in addition to any topical creams. Surgical intervention would involve a CMC joint arthroplasty. She is going to continue with conservative measures and I will see her back as needed. [1] No Known Allergies [2] Current Outpatient Medications: ascorbic acid (VITAMIN C ORAL), Take by mouth ., Disp: , Rfl: buPROPion (Wellbutrin XL) 150 MG 24 hr tablet, Take 1 (one) tablet (150 mg total) by mouth daily ., Disp: , Rfl: escitalopram oxalate (LEXAPRO) 20 MG tablet, TAKE 1 TABLET BY MOUTH EVERY DAY FOR 90 DAYS, Disp: , Rfl: multivitamin per tablet, Take 1 (one) tablet by mouth daily ., Disp: , Rfl: pregabalin (Lyrica) 25 MG capsule, Take 1 (one) capsule (25 mg total) by mouth every night at bedtime ., Disp: , Rfl: temazepam (RESTORIL) 7.5 MG capsule, TAKE 1 CAPSULE (7.5 MG) BY MOUTH NEEDED AT BEDTIME FOR SLEEP, Disp: , Rfl: [3] Social History Socioeconomic History Marital status: Single Tobacco Use Smoking status: Never Smokeless tobacco: Never Substance and Sexual Activity Alcohol use: Yes Comment: 2-4 beer per week Drug use: Not Currently Comment: Used Marijuana Gummies during chemo Social Drivers of Health Transportation Needs: No Transportation Needs (09/30/2022) OASIS A1250: Transportation Lack of Transportation (Medical): No Lack of Transportation (Non-Medical): No Patient Unable or Declines to Respond: No Received from [facility] Housing Stability AUTHENTICATED BY ANDRA ROBERSON, ON 09/02/2024 19:55:01 [facility] 08-28-2024 History of Present illness Narrative [address] [facility] [address] [facility] [id number] Chief Complaint Patient presents with Left Hand - Pain Had fx in Apr 2024 seen here. States never followed up, wore brace 6 weeks. Right Hand - Pain Radha Almanza returns to the office today for bilateral wrist/hand pain. She denies any recent injury but did have an injury to the left this past Apr. She wore a brace for 6 weeks and overall has been doing ok. The right is worst than the left. She is having pain at the base of both thumbs, right greater than left. There is no numbness or tingling reported. She has tried otc pain medications in addition to bracing without significant symptom relief. The patient's past medical history, surgical history, social history, family history, medications and allergies were reviewed with the patient today and are available in the chart for further review. Allergies[1] Current Medications[2] Past Medical History: Diagnosis Date Anemia Arthritis Depression History of chemotherapy Malignant neoplasm of female breast (HCC) 08/2021 Past Surgical History: Procedure Laterality Date ARTHROPLASTY KNEE TOTAL ROBOTIC ASSISTED Left 09/12/2022 Procedure: Left total knee replacement Robotic; Surgeon: Helen Rivera MD; Location: Main OR; Service: Ortho-Robotics BREAST LUMPECTOMY Right 09/2021 CT COLONOSCOPY 11/16/[address] COLONOSCOPY 12/29/2017 CT COLONOSCOPY KNEE SURGERY Bilateral left knee 2021 Meniscus repair, Right knee 2018 Meniscus Repair PORTACATH PLACEMENT Left Social History[3] ROS: Review of Systems Musculoskeletal: Positive for arthralgias, joint swelling and myalgias. ORTHO: Right Hand Exam Tenderness The patient is experiencing tenderness in the radial area and snuff box. Range of Motion Hand MP Thumb: 70 Muscle Strength The patient has normal right wrist strength (with pain). Tests Irving's test: negative Other Erythema: absent Scars: absent Sensation: normal Pulse: present Left Hand Exam Tenderness The patient is experiencing tenderness in the snuff box and radial area. Range of Motion Hand MP Thumb: 70 Muscle Strength The patient has normal left wrist strength (with pain). Tests Irving's test: negative Other Erythema: absent Scars: absent Sensation: normal Pulse: present Imaging: Left wrist: Severe thumb CMC joint degenerative changes. Moderate STT joint degenerative changes. Mild radiocarpal joint degenerative changes. No evidence of acute fracture. Osteopenia. Right wrist: Severe thumb CMC joint degenerative changes with subluxation measuring 0.8 cm. No evidence of acute fracture. Osteopenia. Assessment/Plan: After examination and reviewing of the patient x-ray images, we discussed treatment options. We discussed conservative measures, oral medications, injections, bracing in addition to any topical creams. Surgical intervention would involve a CMC joint arthroplasty. She is going to continue with conservative measures and I will see her back as needed. [1] No Known Allergies [2] Current Outpatient Medications: ascorbic acid (VITAMIN C ORAL), Take by mouth ., Disp: , Rfl: buPROPion (Wellbutrin XL) 150 MG 24 hr tablet, Take 1 (one) tablet (150 mg total) by mouth daily ., Disp: , Rfl: escitalopram oxalate (LEXAPRO) 20 MG tablet, TAKE 1 TABLET BY MOUTH EVERY DAY FOR 90 DAYS, Disp: , Rfl: multivitamin per tablet, Take 1 (one) tablet by mouth daily ., Disp: , Rfl: pregabalin (Lyrica) 25 MG capsule, Take 1 (one) capsule (25 mg total) by mouth every night at bedtime ., Disp: , Rfl: temazepam (RESTORIL) 7.5 MG capsule, TAKE 1 CAPSULE (7.5 MG) BY MOUTH NEEDED AT BEDTIME FOR SLEEP, Disp: , Rfl: [3] Social History Socioeconomic History Marital status: Single Tobacco Use Smoking status: Never Smokeless tobacco: Never Substance and Sexual Activity Alcohol use: Yes Comment: 2-4 beer per week Drug use: Not Currently Comment: Used Marijuana Gummies during chemo Social Drivers of Health Transportation Needs: No Transportation Needs (09/30/2022) OASIS A1250: Transportation Lack of Transportation (Medical): No Lack of Transportation (Non-Medical): No Patient Unable or Declines to Respond: No Received from [facility] Housing Stability documented in this encounter [facility] 07-04-2024 Instructions Fuad Montoya OD - 07/04/2024 11:36 AM EST ASSESSMENT/PLAN: 1. Myopia, bilateral - ICD9: 367.1, ICD10: H52.13 (primary diagnosis) 2. 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 Presbyopia - ICD9: 367.4, ICD10: H52.4 Continue to wear her glasses as desired. Discussed the importance of regularly using the artificial tears to feel and see the improvement. Also discussed the over use of the Visine to reduce the risk of the rebound effect. Also discussed the use of hot compresses for comfort. Recommended yearly dilated exams. documented in this encounter [facility] 07-04-2024 Note HNO ID: [id number] Author: FUAD MONTOYA OD Service: ? 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 Myopia, bilateral - ICD9: 367.1, ICD10: H52.13 (primary diagnosis) 2. 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 Presbyopia - ICD9: 367.4, ICD10: H52.4 Continue to wear her glasses as desired. Discussed the importance of regularly using the artificial tears to feel and see the improvement. Also discussed the over use of the Visine to reduce the risk of the rebound effect. Also discussed the use of hot compresses for comfort. Recommended yearly dilated exams. Fuad Montoya OD I have confirmed and edited as necessary the relevant ophthalmic history, ROS, and the neuro exam findings as obtained by others. [facility] 07-04-2024 History of Present illness Narrative ASSESSMENT/PLAN: 1. Myopia, bilateral - ICD9: 367.1, ICD10: H52.13 (primary diagnosis) 2. 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 Presbyopia - ICD9: 367.4, ICD10: H52.4 Continue to wear her glasses as desired. Discussed the importance of regularly using the artificial tears to feel and see the improvement. Also discussed the over use of the Visine to reduce the risk of the rebound effect. Also discussed the use of hot compresses for comfort. Recommended yearly dilated exams. Fuad Montoya OD I have confirmed and edited as necessary the relevant ophthalmic history, ROS, and the neuro exam findings as obtained by others. documented in this encounter [facility] 05-23-2024 Note [address] [facility] [address] [facility] [id number] Chief Complaint Patient presents with Left Wrist - Injury Patient states she got a brace at [facility] and she had a right sided brace on her left. Radha Almanza returns to the office today for left wrist pain. She had a mechanical fall on the which resulted in her catching herself with her hands outright. During this she fractured the distal radius. She was evaluated in the emergency room. She did get an otc wrist brace but it was for the right hand and not the left. She has been taking the narcotic pain medications as needed. She denies any numbness or tingling to the hand or the fingers. She is able to move all of her fingers. The patient's past medical history, surgical history, social history, family history, medications and allergies were reviewed with the patient today and are available in the chart for further review. No Known Allergies Current Outpatient Medications: ascorbic acid (VITAMIN C ORAL), Take by mouth ., Disp: , Rfl: buPROPion (Wellbutrin XL) 150 MG 24 hr tablet, Take 1 (one) tablet (150 mg total) by mouth daily ., Disp: , Rfl: escitalopram oxalate (LEXAPRO) 20 MG tablet, TAKE 1 TABLET BY MOUTH EVERY DAY FOR 90 DAYS, Disp: , Rfl: multivitamin per tablet, Take 1 (one) tablet by mouth daily ., Disp: , Rfl: oxyCODONE-acetaminophen (PERCOCET) 5-325 mg per tablet, Take 1 (one) tablet by mouth every 6 (six) hours as needed for pain Take home pack ., Disp: 4 tablet, Rfl: 0 oxyCODONE-acetaminophen (PERCOCET) 5-325 mg per tablet, Take 1 (one) tablet by mouth every 6 (six) hours as needed for pain ., Disp: 8 tablet, Rfl: 0 pregabalin (Lyrica) 25 MG capsule, Take 1 (one) capsule (25 mg total) by mouth every night at bedtime ., Disp: , Rfl: temazepam (RESTORIL) 7.5 MG capsule, TAKE 1 CAPSULE (7.5 MG) BY MOUTH NEEDED AT BEDTIME FOR SLEEP, Disp: , Rfl: Past Medical History: Diagnosis Date Anemia Arthritis Depression History of chemotherapy Malignant neoplasm of female breast (HCC) 08/2021 Past Surgical History: Procedure Laterality Date ARTHROPLASTY KNEE TOTAL ROBOTIC ASSISTED Left 09/12/2022 Procedure: Left total knee replacement Robotic; Surgeon: Helen Rivera MD; Location: Main OR; Service: Ortho-Robotics BREAST LUMPECTOMY Right 09/2021 CT COLONOSCOPY 11/16/[address] COLONOSCOPY 12/29/2017 CT COLONOSCOPY KNEE SURGERY Bilateral left knee 2021 Meniscus repair, Right knee 2018 Meniscus Repair PORTACATH PLACEMENT Left Social History Socioeconomic History Marital status: Single Tobacco Use Smoking status: Never Smokeless tobacco: Never Substance and Sexual Activity Alcohol use: Yes Comment: 2-4 beer per week Drug use: Not Currently Comment: Used Marijuana Gummies during chemo Social Drivers of Health Transportation Needs: No Transportation Needs (09/30/2022) OASIS A1250: Transportation Lack of Transportation (Medical): No Lack of Transportation (Non-Medical): No Patient Unable or Declines to Respond: No Received from [facility] Housing Stability ROS: Review of Systems Musculoskeletal: Positive for arthralgias, joint swelling and myalgias. PE: Physical Exam Musculoskeletal: General: Swelling, tenderness and signs of injury present. Left wrist: Swelling, tenderness and bony tenderness present. No deformity. Decreased range of motion. Normal pulse. Imaging: L Wrist:Acute nondisplaced intraarticular fracture of distal radius Assessment/Plan: After exam and reviewng of the patient imaging, I placed her in a wrist splint to be worn at all times. I will refill her pain medication. I did a narcotic review and her last dispensed medication was Percocet on 05/21/24. I will see her back in 2 weeks for follow up and repeat imaging. AUTHENTICATED BY ANDRA ROBERSON, ON 05/24/2024 14:46:57 [facility] 05-23-2024 History of Present illness Narrative [facility] [address] [facility] [address] [facility] [id number] Chief Complaint Patient presents with Left Wrist - Injury Patient states she got a brace at [facility] and she had a right sided brace on her left. Radha Almanza returns to the office today for left wrist pain. She had a mechanical fall on the which resulted in her catching herself with her hands outright. During this she fractured the distal radius. She was evaluated in the emergency room. She did get an otc wrist brace but it was for the right hand and not the left. She has been taking the narcotic pain medications as needed. She denies any numbness or tingling to the hand or the fingers. She is able to move all of her fingers. The patient's past medical history, surgical history, social history, family history, medications and allergies were reviewed with the patient today and are available in the chart for further review. No Known Allergies Current Outpatient Medications: ascorbic acid (VITAMIN C ORAL), Take by mouth ., Disp: , Rfl: buPROPion (Wellbutrin XL) 150 MG 24 hr tablet, Take 1 (one) tablet (150 mg total) by mouth daily ., Disp: , Rfl: escitalopram oxalate (LEXAPRO) 20 MG tablet, TAKE 1 TABLET BY MOUTH EVERY DAY FOR 90 DAYS, Disp: , Rfl: multivitamin per tablet, Take 1 (one) tablet by mouth daily ., Disp: , Rfl: oxyCODONE-acetaminophen (PERCOCET) 5-325 mg per tablet, Take 1 (one) tablet by mouth every 6 (six) hours as needed for pain Take home pack ., Disp: 4 tablet, Rfl: 0 oxyCODONE-acetaminophen (PERCOCET) 5-325 mg per tablet, Take 1 (one) tablet by mouth every 6 (six) hours as needed for pain ., Disp: 8 tablet, Rfl: 0 pregabalin (Lyrica) 25 MG capsule, Take 1 (one) capsule (25 mg total) by mouth every night at bedtime ., Disp: , Rfl: temazepam (RESTORIL) 7.5 MG capsule, TAKE 1 CAPSULE (7.5 MG) BY MOUTH NEEDED AT BEDTIME FOR SLEEP, Disp: , Rfl: Past Medical History: Diagnosis Date Anemia Arthritis Depression History of chemotherapy Malignant neoplasm of female breast (HCC) 08/2021 Past Surgical History: Procedure Laterality Date ARTHROPLASTY KNEE TOTAL ROBOTIC ASSISTED Left 09/12/2022 Procedure: Left total knee replacement Robotic; Surgeon: Helen Rivera MD; Location: Main OR; Service: Ortho-Robotics BREAST LUMPECTOMY Right 09/2021 CT COLONOSCOPY 11/16/[address] COLONOSCOPY 12/29/2017 CT COLONOSCOPY KNEE SURGERY Bilateral left knee 2021 Meniscus repair, Right knee 2019 Meniscus Repair PORTACATH PLACEMENT Left Social History Socioeconomic History Marital status: Single Tobacco Use Smoking status: Never Smokeless tobacco: Never Substance and Sexual Activity Alcohol use: Yes Comment: 2-4 beer per week Drug use: Not Currently Comment: Used Marijuana Gummies during chemo Social Drivers of Health Transportation Needs: No Transportation Needs (09/30/2022) OASIS A1250: Transportation Lack of Transportation (Medical): No Lack of Transportation (Non-Medical): No Patient Unable or Declines to Respond: No Received from [facility] Housing Stability ROS: Review of Systems Musculoskeletal: Positive for arthralgias, joint swelling and myalgias. PE: Physical Exam Musculoskeletal: General: Swelling, tenderness and signs of injury present. Left wrist: Swelling, tenderness and bony tenderness present. No deformity. Decreased range of motion. Normal pulse. Imaging: L Wrist:Acute nondisplaced intraarticular fracture of distal radius Assessment/Plan: After exam and reviewng of the patient imaging, I placed her in a wrist splint to be worn at all times. I will refill her pain medication. I did a narcotic review and her last dispensed medication was Percocet on 05/21/24. I will see her back in 2 weeks for follow up and repeat imaging. documented in this encounter [facility] 02-19-2024 History of Present illness Narrative Images from the original note were not included. Radha Almanza is a 63 y.o. female presents with chief complaint of Annual Exam HPI: History of Present Illness Patient presents today for follow up of chronic medical problems. No lab drawn prior to visit. She is experiencing sharp pain in her breast, which she attributes to excessive caffeine intake. The pain is located at the site of a previous incision and is exacerbated by lifting her arm. She has a history of breast cancer but did not experience pain during that time. She also reports back pain, which she believes started after a boat ride. Despite taking Lyrica 100 mg at bedtime, she finds no relief. She has been using a roller for two months to alleviate the pain. She reports no radiating pain to her legs or feet. She is considering purchasing a waist support band. She has always been flexible and is concerned about the possibility of a fracture causing her pain. She is currently on Lexapro and Wellbutrin, which she finds helpful in managing her anger. She is unsure about the necessity of Wellbutrin. She is seeking a sleep aid, having tried dqqz-ntb-oifixiq options like melatonin and Tylenol PM without success. She takes Lyrica and melatonin after work, but it takes 2 to 3 hours to take effect. She works day shifts and often stays awake until midnight due to lack of tiredness. She has tried various methods to relax before bed, including sauna, shower, exercise, listening to music, and meditation. She has previously taken Ambien, which caused her to bake cookies in her sleep, an event she does not remember. She has also tried temazepam, which was effective, but she stopped taking it over a month ago due to upcoming blood work and urine tests for her job. She is aware of its addictive potential and uses it sparingly. She can sleep after night shifts and has tried calming music. She is considering stopping Wellbutrin to try temazepam. She has never taken amitriptyline. She does not regularly see a solidworks designer. I have reviewed and reconciled the history and medication list with the patient today. HISTORIES: PAST MEDICAL HISTORY: Past Medical History: Diagnosis Date Acute insomnia Anxiety and depression (CMS/HCC) Status post arthroscopic surgery of right knee HALEY (stress urinary incontinence, female) SURGICAL HISTORY: Past Surgical History: Procedure Laterality Date APPENDECTOMY 1993 SECTION, LOW TRANSVERSE 1994, 1997 CT ANGIOGRAM CHEST 03/05/2021 CT ANGIOGRAM CHEST 03/05/2021 KNEE SURGERY Right 06/14/[address] Riddle VAGINAL DELIVERY x3 SOCIAL HISTORY: Social History Tobacco Use Smoking status: Never Smokeless tobacco: Never Vaping Use Vaping status: Never Used Substance Use Topics Alcohol use: Yes Comment: 1-2 drinks monthly. caffeine- 2 cups daily Drug use: Never Depression: Not at risk (02/19/2024) PHQ-2 PHQ-2 Score: 0 FAMILY HISTORY: Family History Problem Relation Name Age of Onset Colon cancer Mother Diabetes Sibling MEDICATIONS: Current Outpatient Medications Medication Instructions ascorbic acid (VITAMIN C) 1,000 mg, Oral, Daily buPROPion XL (Wellbutrin XL) 150 MG 24 hr tablet TAKE 1 TABLET BY MOUTH EVERY DAY IN THE MORNING FOR 30 DAYS escitalopram (LEXAPRO) 20 mg, Oral, Every morning Multiple Vitamin (Multi-Vitamin) tablet 1 tablet, Oral, Daily RT omega-3 (Fish Oil) 1200 MG capsule 1 capsule pregabalin (LYRICA) 100 mg, Oral, Nightly Vitamin E 400 units tablet Every 24 hours ALLERGIES: No Known Allergies PHYSICAL EXAM: Visit Vitals Ht 5' 6 Wt 182 lb 12.8 oz BMI 29.50 kg/m Smoking Status Never BSA 1.96 m BP Readings from Last 3 Encounters: 02/13/23 112/76 08/10/22 108/60 04/04/22 102/74 Wt Readings from Last 3 Encounters: 02/19/24 182 lb 12.8 oz 02/13/23 166 lb 08/10/22 168 lb Physical Exam Results ASSESSMENT AND PLAN: Assessment & Plan 1. Annual physical exam Doing well. Regular exercise and a healthy diet is recommended. Exam is unremarkable. Health maintenance was reviewed. A flu shot was administered during the visit. Routine blood work, including cholesterol, metabolic panel, blood counts, and thyroid function, will be ordered. Call if any new health issues arise. Otherwise, will reassess again in one year. - CBC and differential - Comprehensive metabolic panel - Lipid panel 2. Generalized anxiety disorder (CMS/HCC) Doing well. A refill for Wellbutrin will be provided. She is currently on Lexapro and Wellbutrin, and the combination appears to be effective in managing her symptoms. She is advised to monitor for any potential side effects and to contact the office if she experiences any issues. 3. Moderate major depression (CMS/HCC) As above. 4. Primary insomnia A prescription for temazepam will be provided for use as needed. Trazodone was discussed but not recommended due to potential interactions with current medications. She is advised to continue using melatonin and Lyrica. Sleep hygiene practices were reviewed, including avoiding phone use before bed and trying relaxation techniques. 5. 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 Continue to monitor. Following with oncology. 6. Subclinical hypothyroidism (CMS/HCC) Stable. Continue to monitor. - Comprehensive metabolic panel - TSH 7. Primary osteoarthritis involving multiple joints Doing well. Continue current regimen. 8. Acute midline low back pain without sciatica An x-ray of the back will be ordered to rule out a compression fracture. She is advised to perform Zaina exercises and other stretches at home. If there is no improvement, physical therapy will be considered. The use of a waist support band is recommended to provide additional support and reduce strain. She should be cautious when lifting objects and take breaks when standing for long periods. - XR lumbar spine 2 or 3 views; Future 9. Restless legs syndrome Doing well. Continue current regimen. 10. Need for immunization against influenza - Flu vaccine, MDCK, Trivalent, documented in this encounter [facility] 01-01-2024 Evaluation + Plan note Extrac audrey from: Title:Clinical Document Author:ROCKY GAFFNEY Date:01/01/24 [facility] ADMISSION HISTORY AN D PHYSICIAL CHIEF COMPLAINT: HISTORY OF PRESENT ILLNESS: REVIEW OF SYSTEMS: ACTIVE PROBLEMS: No qualifying data available for Problems MEDICATIONS: Active Inpt Meds: None Active PRN Meds: None One Time Meds: (Completed) lidocaine (Xylocaine 2% 5 mL syringe (ANES) (ANES)) IV Push, Once, Stop: 01/01/24 9:26:00 EDT (Completed) propofol (propofol (ANES)) IV Push, Once, Stop: 01/01/24 9:26:00 EDT Active IV Meds: Lactated Ringers Infusion 1,000 mL (LR 1,000 mL) Start: 01/01/24 8:08:00 EDT, Rate: 50 mL/hr, 01/01/24 8:08:00 EDT ALLERGIES: (1) NKA FAMILY HISTORY: SOCIAL HISTORY: PHYSICAL EXAM: VITALS: [id number](kg) 12/31 09:20----45--96.8--12/31 77.2 12/31 09:15----58--99.3-- 12/31 08:2236.0--[id number] 24 Hr Tmax: 36.0 at 12/31 08:22 36 Hr Tmax: 36.0 at 12/31 08:22 Vital Signs are the last 5 in the past 48 hours. Weights display the last 5 within 7 days. Initial Wt: 12/31 77.2 kg 170 lb Current Wt: 12/31 77.2 kg 170 lb GENERAL: HEENT: CARDIOVASCULAR: RESPIRATORY: ABDOMEN: EXREMETIES: NEUROLOGICAL: PSYCHIATRIC: LABS: No 36hr Lab Data DIAGNOSTICS: IMPRESSION: PLAN: History and Physical Update I have examined the patient; reviewed the H&P and there are no changes to the H&P unless noted below. [facility] 08-05-2024 Hospital Discharge instructions Patient Education 01/01/2024 09:40:34 Monitored Anesthesia Care, Care After Monitored Anesthesia Care, Care After These instructions provide you with information about caring for yourself after your procedure. Your health care provider may also give you more specific instructions. Your treatment has been plannedaccording to current medical practices, but problems sometimes occur. Call your health care provider if you have any problems or questions after your procedure. What can I expect after the procedure? After your procedure, you may: Feel sleepy for several hours. Feel clumsy and have poor balance for several hours. Feel forgetful about what happened after the procedure. Have poor judgment for several hours. Feel nauseous or vomit. Have a sore throat if you had a breathing tube during the procedure. Follow these instructions at home: For at least 24 hours after the procedure: Have a responsible adult stay with you. It is important to have someone help care for you until youare awake and alert. Rest as needed. Do not: ?Participate in activities in which you could fall or become injured. ?Drive. ?Use heavy machinery. ?Drink alcohol. ?Take sleeping pills or medicines that cause drowsiness. ?Make important decisions or sign legal documents. ?Take care of children on your own. Eating and drinking Follow the diet that is recommended by your health care provider. If you vomit, drink water, juice, or soup when you can drink without vomiting. Make sure you have little or no nausea before eating solid foods. General instructions Take hbei-jah-mssnjxl and prescription medicines only as told by your health care provider. If you have sleep apnea, surgery and certain medicines can increase your risk for breathing problems. Follow instructions from your health care provider about wearing your sleep device: ?Anytime you are sleeping, including during daytime naps. ?While taking prescription pain medicines, sleeping medicines, or medicines that make you drowsy. If you smoke, do not smoke without supervision. Keep all follow-up visits as told by your health care provider. This is important. Contact a health care provider if: You keep feeling nauseous or you keep vomiting. You feel light-headed. You develop a rash. You have a fever. Get help right away if: You have trouble breathing. Summary For several hours after your procedure, you may feel sleepy and have poor judgment. Have a responsible adult stay with you for at least 24 hours or until you are awake and alert. This information is not intended to replace advice given to you by your health care provider. Make sure you discuss any questions you have with your health care provider. Document Released: 09/04/2016 Document Revised: 08/13/2018 Document Reviewed: 09/04/2016 [employer] Patient Education 2020 [employer] 01/01/2024 09:40:28 Colonoscopy, Adult, Care After Colonoscopy, Adult, Care After This sheet gives you information about how to care for yourself after your procedure. Your health care provider may also give you more specific instructions. If you have problems or questions, contact your health care provider. What can I expect after the procedure? After the procedure, it is common to have: A small amount of blood in your stool for 24 hours after the procedure. Some gas. Mild abdominal cramping or bloating. Follow these instructions at home: General instructions For the first 24 hours after the procedure: ?Do not drive or use machinery. ?Do not sign important documents. ?Do not drink alcohol. ?Do your regular daily activities at a slower pace than normal. ?Eat soft, qhpv-pw-gbxssj foods. Take crie-jfk-ijxjcjv or prescription medicines only as told by your health care provider. Relieving cramping and bloating Try walking around when you have cramps or feel bloated. Apply heat to your abdomen as told by your health care provider. Use a heat source that your healthcare provider recommends, such as a moist heat pack or a heating pad. ?Place a towel between your skin and the heat source. ?Leave the heat on for 20 30 minutes. ?Remove the heat if your skin turns bright red. This is especially important if you are unable to feel pain, heat, or cold. You may have a greater risk of getting burned. Eating and drinking Drink enough fluid to keep your urine pale yellow. Resume your normal diet as instructed by your health care provider. Avoid heavy or fried foods thatare hard to digest. Avoid drinking alcohol for as long as instructed by your health care provider. Contact a health care provider if: You have blood in your stool 2 3 days after the procedure. Get help right away if: You have more than a small spotting of blood in your stool. You pass large blood clots in your stool. Your abdomen is swollen. You have nausea or vomiting. You have a fever. You have increasing abdominal pain that is not relieved with medicine. Summary After the procedure, it is common to have a small amount of blood in your stool. You may also have mild abdominal cramping and bloating. For the first 24 hours after the procedure, do not drive or use machinery, sign important documents, or drink alcohol. Contact your health care provider if you have a lot of blood in your stool, nausea or vomiting, a fever, or increased abdominal pain. This information is not intended to replace advice given to you by your health care provider. Make sure you discuss any questions you have with your health care provider. Document Released: 12/27/2004 Document Revised: 03/07/2018 Document Reviewed: 07/26/2016 [employer] Patient Education [employer] Follow Up Care 12/04/2023 09:46:06 With:ROCKY GAFFNEY MD Address: [address] [facility] [address] [place] [address] [phone] When: Unknown Comments:Follow-up as scheduled. RECOMMENDED 5-8YEARS FOLLOW UP [facility] 08-05-2024 Note Discharge Instructions Thank you for allowing [facility] to assist you with your healthcare needs. The following is importantdischarge information regarding your hospital visit. Your Care Team DR. GAFFNEY Your Diagnosis Breast cancer What to do next Follow Up Appointments Follow Up with ROCKY GAFFNEY MD Where:[address] [facility] [address] [place] [address] [phone] Additional Information: Follow-up as scheduled. RECOMMENDED 5-8YEARS FOLLOW UP The Following Activity and Diet Have Been Ordered for You Discharge Activity - Ordered -- NO activity restrictions, 01/01/24 9:31:00 EDT Discharge Diet - Ordered -- Follow the post-operative/post-procedure diet instructions provided by your physician's office.,01/01/24 9:31:00 EDT The Following Equipment Has Been Ordered for You Discharge Home Equipment Discharge Wound Care - Ordered -- Follow the post-operative/post-procedure wound care instructions provided by your physician's office., 01/01/24 9:31:00 EDT The Following Treatments Have Been Ordered for You Discharge Labs No qualifying data available. Discharge Radiology No qualifying data available. Other Therapies No qualifying data available. Post Acute Orders No qualifying data available. Someone Will Contact You Regarding These Home Health Referrals No home referrals have been ordered for you. No one will call you. Allergies NKA Medications Please ask your primary doctor or pharmacist before taking any other medication not listed, including over the counter drugs, herbal medications, vitamins and or supplements as they may interact withyour home medications. What How Much When Instructions Last Dose Unchanged escitalopram (Lexapro 20 mg oral tablet) 1 tab(s) by mouth Once a day Please take this list to your next doctor s visit. Bring all medications you take, including over the counter medications, herbals and other supplements with you to your doctor s visit. Patients and families are reminded to discard old lists and to update any records with all medication providers or retail pharmacies. Education Materials Monitored Anesthesia Care, Care After These instructions provide you with information about caring for yourself after your procedure. Your health care provider may also give you more specific instructions. Your treatment has been plannedaccording to current medical practices, but problems sometimes occur. Call your health care provider if you have any problems or questions after your procedure. What can I expect after the procedure? After your procedure, you may: Feel sleepy for several hours. Feel clumsy and have poor balance for several hours. Feel forgetful about what happened after the procedure. Have poor judgment for several hours. Feel nauseous or vomit. Have a sore throat if you had a breathing tube during the procedure. Follow these instructions at home: For at least 24 hours after the procedure: Have a responsible adult stay with you. It is important to have someone help care for you until youare awake and alert. Rest as needed. Do not: ? Participate in activities in which you could fall or become injured. ? Drive. ? Use heavy machinery. ? Drink alcohol. ? Take sleeping pills or medicines that cause drowsiness. ? Make important decisions or sign legal documents. ? Take care of children on your own. Eating and drinking Follow the diet that is recommended by your health care provider. If you vomit, drink water, juice, or soup when you can drink without vomiting. Make sure you have little or no nausea before eating solid foods. General instructions Take dkfn-dko-xdrcmuu and prescription medicines only as told by your health care provider. If you have sleep apnea, surgery and certain medicines can increase your risk for breathing problems. Follow instructions from your health care provider about wearing your sleep device: ? Anytime you are sleeping, including during daytime naps. ? While taking prescription pain medicines, sleeping medicines, or medicines that make you drowsy. If you smoke, do not smoke without supervision. Keep all follow-up visits as told by your health care provider. This is important. Contact a health care provider if: You keep feeling nauseous or you keep vomiting. You feel light-headed. You develop a rash. You have a fever. Get help right away if: You have trouble breathing. Summary For several hours after your procedure, you may feel sleepy and have poor judgment. Have a responsible adult stay with you for at least 24 hours or until you are awake and alert. This information is not intended to replace advice given to you by your health care provider. Make sure you discuss any questions you have with your health care provider. Document Released: 09/04/2016 Document Revised: 08/13/2018 Document Reviewed: 09/04/2016 [employer] Patient Education 2020 [employer] Colonoscopy, Adult, Care After This sheet gives you information about how to care for yourself after your procedure. Your health care provider may also give you more specific instructions. If you have problems or questions, contact your health care provider. What can I expect after the procedure? After the procedure, it is common to have: A small amount of blood in your stool for 24 hours after the procedure. Some gas. Mild abdominal cramping or bloating. Follow these instructions at home: General instructions For the first 24 hours after the procedure: ? Do not drive or use machinery. ? Do not sign important documents. ? Do not drink alcohol. ? Do your regular daily activities at a slower pace than normal. ? Eat soft, vuzp-cq-ewcicq foods. Take ntjj-qyk-fpajewi or prescription medicines only as told by your health care provider. Relieving cramping and bloating Try walking around when you have cramps or feel bloated. Apply heat to your abdomen as told by your health care provider. Use a heat source that your healthcare provider recommends, such as a moist heat pack or a heating pad. ? Place a towel between your skin and the heat source. ? Leave the heat on for 20 30 minutes. ? Remove the heat if your skin turns bright red. This is especially important if you are unable to feel pain, heat, or cold. You may have a greater risk of getting burned. Eating and drinking Drink enough fluid to keep your urine pale yellow. Resume your normal diet as instructed by your health care provider. Avoid heavy or fried foods thatare hard to digest. Avoid drinking alcohol for as long as instructed by your health care provider. Contact a health care provider if: You have blood in your stool 2 3 days after the procedure. Get help right away if: You have more than a small spotting of blood in your stool. You pass large blood clots in your stool. Your abdomen is swollen. You have nausea or vomiting. You have a fever. You have increasing abdominal pain that is not relieved with medicine. Summary After the procedure, it is common to have a small amount of blood in your stool. You may also have mild abdominal cramping and bloating. For the first 24 hours after the procedure, do not drive or use machinery, sign important documents, or drink alcohol. Contact your health care provider if you have a lot of blood in your stool, nausea or vomiting, a fever, or increased abdominal pain. This information is not intended to replace advice given to you by your health care provider. Make sure you discuss any questions you have with your health care provider. Document Released: 12/27/2004 Document Revised: 03/07/2018 Document Reviewed: 07/26/2016 [employer] Patient Education 2020 [employer] Additional Information VACCINATE! IT SAVES LIVES! Members of the community who have not yet received the COVID-19 vaccine and would like to receive it can visit one of [facility] vaccine clinics. There are many vaccine clinic locations within the [facility]. For locations and available times, please visit https://[email or web address].[place].gov/. It is important to note that some COVID mobile vaccine clinics are held outdoors and may be canceled in rainy or stormy conditions. To learn more about pediatric vaccinations (ages 5-11), we invite you to visit the [facility] webpage. https://www.[facility].org/pages/8806-Ofkdt-Joqsxiguifg-Mybdkkakfp-Vlibu-Tqr stions.htmlTo learn more about the COVID-19 vaccine, we invite you to visit the CDC website for a list of frequently asked questions.https://www.cdc.gov/coronavirus/2019-ncov/vaccines/faq.html [facility] Patient Portal Access Instructions: Stay connected with your healthcare team and access your personal medical information anytime with the [employer] Patient Portal. Please follow the directions below to create your [employer] account: 1.Access the email account you provided upon registration to the hospital/physician office.2.Look for an invitation email from [facility].3.Open the email and access the invitation link: AcceptInvitation to [employer].4.Fill in the required craft to create your account. To access your account, visit [email or web address]. Click the blue button labeled Access Patient Portal and then log in with the username and password that you created in the steps above. You will be able to view your test results, lab results, a summary of your visits, upcoming appointments and more. There is also a convenient messaging option where you can send secure messages to your p rovider. In addition, you will have the ability to download any documents or summaries to your computer and/or send the information securely to a physician. Remember that your healthcare information is confidential, so carefully consider who you will allowto register on the [employer] Patient Portal for access to your information. You can also access the [employer] Patient Portal on the [employer] ruth. Simply click on Patient Portal and then log into your account. If you would like to receive a full copy of your medical records, please contact the [facility] Medical Records Department by calling [phone], Monday through Monday between 8 a.m. and 4:30 p.m. HOW TO SAFELY DISPOSE OF PRESCRIPTION MEDICATIONS Please use one of the following methods to safely dispose of your unused medications. 1.Use a drug disposal kit: the drug disposal pouch allows you to safely discard your old and unuseddrugs. Ask your nurse to give you one when you are discharged.2.Visit a local take-back location: Many local pharmacies and police departments have programs that collect old and unwanted prescriptiondrugs. Call your local pharmacy or go to http://[employer]Democracy.com/7S7Pa1m to find one close to you.3.Make use of household items: Use cat litter or old coffee grounds to dispose medications if other options arenot available. Mix your drugs with these household products, seal them in an airtight container andthrow it into the garbage. Call [facility]: [phone] to be sure your drugs can be disposed of in this way. Some medicines may require a different approach.4.Never flush your medications down the toilet. IF YOU HAVE BEEN PRESCRIBED AN OPIOID FOR PAIN If you have been prescribed an opioid (such as hydrocodone, oxycodone or morphine), it is critical to understand the possible side effects and risks of opioid pain medications. Even when taken as directed, opioids can have several side effects including: Tolerance, meaning you might need to take more of a medication for the same pain relief. Nausea, vomiting and/or constipation. Sleepiness, dizziness, dry mouth, confusion, depression or itching. Physical dependence, meaning you have withdrawal symptoms when a medication is stopped, can develop within a few days. KNOW YOUR RESPONSIBILITIES It is important to know exactly how much and how often to take the opioid pain medications you are prescribed. Never take opioids in higher amounts or more often than prescribed. Do not combine opioids with alcohol or other drugs that cause drowsiness, such as benzodiazepines, also known as benzos, including diazepam and alprazolam, muscle relaxants or sleep aids. Never sell or share prescription opioids. This is illegal. Store opioids in a secure place and out of reach of others (including children, family, friends and visitors). The last page of this document has been signed and retained as a CHART COPY. Signatures Patient Education Materials Monitored Anesthesia Care, Care After Colonoscopy, Adult, Care After Medication Leaflets My discharge plan and instructions have been reviewed and explained to me and IARCHIE BETH understand my current condition and have read and understand these discharge instructions. I have received awritten copy of the plan/instructions. If I have questions, I am aware that I should contact my doctor. 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 The following is importantdischarge information regarding your hospital visit. Your Care Team DR. GAFFNEY Your Diagnosis Breast cancer What to do next Follow Up Appointments Follow Up with ROCKY GAFFNEY MD Where:[address] [facility] [address] [place] [phone] Additional Information: Follow-up as scheduled. RECOMMENDED 5-8YEARS FOLLOW UP The Following Activity and Diet Have Been Ordered for You Discharge Activity - Ordered -- NO activity restrictions, 01/01/24 9:31:00 EDT Discharge Diet - Ordered -- Follow the post-operative/post-procedure diet instructions provided by your physician's office.,01/01/24 9:31:00 EDT The Following Equipment Has Been Ordered for You Discharge Home Equipment Discharge Wound Care - Ordered -- Follow the post-operative/post-procedure wound care instructions provided by your physician's office., 01/01/24 9:31:00 EDT The Following Treatments Have Been Ordered for You Discharge Labs No qualifying data available. Discharge Radiology No qualifying data available. Other Therapies No qualifying data available. Post Acute Orders No qualifying data available. Someone Will Contact You Regarding These Home Health Referrals No home referrals have been ordered for you. No one will call you. Allergies NKA Medications Please ask your primary doctor or pharmacist before taking any other medication not listed, including over the counter drugs, herbal medications, vitamins and or supplements as they may interact withyour home medications. What How Much When Instructions Last Dose Unchanged escitalopram (Lexapro 20 mg oral tablet) 1 tab(s) by mouth Once a day Please take this list to your next doctor s visit. Bring all medications you take, including over the counter medications, herbals and other supplements with you to your doctor s visit. Patients and families are reminded to discard old lists and to update any records with all medication providers or retail pharmacies. Education Materials Monitored Anesthesia Care, Care After These instructions provide you with information about caring for yourself after your procedure. Your health care provider may also give you more specific instructions. Your treatment has been plannedaccording to current medical practices, but problems sometimes occur. Call your health care provider if you have any problems or questions after your procedure. What can I expect after the procedure? After your procedure, you may: Feel sleepy for several hours. Feel clumsy and have poor balance for several hours. Feel forgetful about what happened after the procedure. Have poor judgment for several hours. Feel nauseous or vomit. Have a sore throat if you had a breathing tube during the procedure. Follow these instructions at home: For at least 24 hours after the procedure: Have a responsible adult stay with you. It is important to have someone help care for you until youare awake and alert. Rest as needed. Do not: ? Participate in activities in which you could fall or become injured. ? Drive. ? Use heavy machinery. ? Drink alcohol. ? Take sleeping pills or medicines that cause drowsiness. ? Make important decisions or sign legal documents. ? Take care of children on your own. Eating and drinking Follow the diet that is recommended by your health care provider. If you vomit, drink water, juice, or soup when you can drink without vomiting. Make sure you have little or no nausea before eating solid foods. General instructions Take fwvm-zad-kycdxti and prescription medicines only as told by your health care provider. If you have sleep apnea, surgery and certain medicines can increase your risk for breathing problems. Follow instructions from your health care provider about wearing your sleep device: ? Anytime you are sleeping, including during daytime naps. ? While taking prescription pain medicines, sleeping medicines, or medicines that make you drowsy. If you smoke, do not smoke without supervision. Keep all follow-up visits as told by your health care provider. This is important. Contact a health care provider if: You keep feeling nauseous or you keep vomiting. You feel light-headed. You develop a rash. You have a fever. Get help right away if: You have trouble breathing. Summary For several hours after your procedure, you may feel sleepy and have poor judgment. Have a responsible adult stay with you for at least 24 hours or until you are awake and alert. This information is not intended to replace advice given to you by your health care provider. Make sure you discuss any questions you have with your health care provider. Document Released: 09/04/2016 Document Revised: 08/13/2018 Document Reviewed: 09/04/2016 [employer] Patient Education 2020 [employer]. Colonoscopy, Adult, Care After This sheet gives you information about how to care for yourself after your procedure. Your health care provider may also give you more specific instructions. If you have problems or questions, contact your health care provider. What can I expect after the procedure? After the procedure, it is common to have: A small amount of blood in your stool for 24 hours after the procedure. Some gas. Mild abdominal cramping or bloating. Follow these instructions at home: General instructions For the first 24 hours after the procedure: ? Do not drive or use machinery. ? Do not sign important documents. ? Do not drink alcohol. ? Do your regular daily activities at a slower pace than normal. ? Eat soft, ciny-er-cuibfn foods. Take ksrn-nyo-szsdfzg or prescription medicines only as told by your health care provider. Relieving cramping and bloating Try walking around when you have cramps or feel bloated. Apply heat to your abdomen as told by your health care provider. Use a heat source that your healthcare provider recommends, such as a moist heat pack or a heating pad. ? Place a towel between your skin and the heat source. ? Leave the heat on for 20 30 minutes. ? Remove the heat if your skin turns bright red. This is especially important if you are unable to feel pain, heat, or cold. You may have a greater risk of getting burned. Eating and drinking Drink enough fluid to keep your urine pale yellow. Resume your normal diet as instructed by your health care provider. Avoid heavy or fried foods thatare hard to digest. Avoid drinking alcohol for as long as instructed by your health care provider. Contact a health care provider if: You have blood in your stool 2 3 days after the procedure. Get help right away if: You have more than a small spotting of blood in your stool. You pass large blood clots in your stool. Your abdomen is swollen. You have nausea or vomiting. You have a fever. You have increasing abdominal pain that is not relieved with medicine. Summary After the procedure, it is common to have a small amount of blood in your stool. You may also have mild abdominal cramping and bloating. For the first 24 hours after the procedure, do not drive or use machinery, sign important documents, or drink alcohol. Contact your health care provider if you have a lot of blood in your stool, nausea or vomiting, a fever, or increased abdominal pain. This information is not intended to replace advice given to you by your health care provider. Make sure you discuss any questions you have with your health care provider. Document Released: 12/27/2004 Document Revised: 03/07/2018 Document Reviewed: 07/26/2016 [employer] Patient Education 2020 [employer]. Additional Information VACCINATE! IT SAVES LIVES! Members of the community who have not yet received the COVID-19 vaccine and would like to receive it can visit one of [facility] vaccine clinics. There are many vaccine clinic locations within the [facility]. For locations and available times, please visit https://[email or web address].[place].gov/. It is important to note that some COVID mobile vaccine clinics are held outdoors and may be canceled in rainy or stormy conditions. To learn more about pediatric vaccinations (ages 5-11), we invite you to visit the [facility] webpage. https://www.[facility].org/pages/0603-Usbcg-Odposhdhfpe-Mcjnildsta-Jrrim-Tgr stions.htmlTo learn more about the COVID-19 vaccine, we invite you to visit the CDC website for a list of frequently asked questions.https://www.cdc.gov/coronavirus/2019-ncov/vaccines/faq.html [employer] Patient Portal Access Instructions: Stay connected with your healthcare team and access your personal medical information anytime with the [employer] Patient Portal. Please follow the directions below to create your [employer] account: 1.Access the email account you provided upon registration to the hospital/physician office.2.Look for an invitation email from [facility].3.Open the email and access the invitation link: AcceptInvitation to [employer].4.Fill in the required craft to create your account. To access your account, visit [email or web address]. Click the blue button labeled Access Patient Portal and then log in with the username and password that you created in the steps above. You will be able to view your test results, lab results, a summary of your visits, upcoming appointments and more. There is also a convenient messaging option where you can send secure messages to your p rovider. In addition, you will have the ability to download any documents or summaries to your computer and/or send the information securely to a physician. Remember that your healthcare information is confidential, so carefully consider who you will allowto register on the [facility] for access to your information. You can also access the [facility] Patient Portal on the [facility] [employer]. Simply click on Patient Portal and then log into your account. If you would like to receive a full copy of your medical records, please contact the [facility] Medical Records Department by calling [phone], Monday through Monday between 8 a.m. and 4:30 p.m. HOW TO SAFELY DISPOSE OF PRESCRIPTION MEDICATIONS Please use one of the following methods to safely dispose of your unused medications. 1.Use a drug disposal kit: the drug disposal pouch allows you to safely discard your old and unuseddrugs. Ask your nurse to give you one when you are discharged.2.Visit a local take-back location: Many local pharmacies and police departments have programs that collect old and unwanted prescriptiondrugs. Call your local pharmacy or go to http://[employer]Democracy.com/2T4Mf8w to find one close to you.3.Make use of household items: Use cat litter or old coffee grounds to dispose medications if other options arenot available. Mix your drugs with these household products, seal them in an airtight container andthrow it into the garbage. Call [facility]: [phone] to be sure your drugs can be disposed of in this way. Some medicines may require a different approach.4.Never flush your medications down the toilet. IF YOU HAVE BEEN PRESCRIBED AN OPIOID FOR PAIN If you have been prescribed an opioid (such as hydrocodone, oxycodone or morphine), it is critical to understand the possible side effects and risks of opioid pain medications. Even when taken as directed, opioids can have several side effects including: Tolerance, meaning you might need to take more of a medication for the same pain relief. Nausea, vomiting and/or constipation. Sleepiness, dizziness, dry mouth, confusion, depression or itching. Physical dependence, meaning you have withdrawal symptoms when a medication is stopped, can develop within a few days. KNOW YOUR RESPONSIBILITIES It is important to know exactly how much and how often to take the opioid pain medications you are prescribed. Never take opioids in higher amounts or more often than prescribed. Do not combine opioids with alcohol or other drugs that cause drowsiness, such as benzodiazepines, also known as benzos, including diazepam and alprazolam, muscle relaxants or sleep aids. Never sell or share prescription opioids. This is illegal. Store opioids in a secure place and out of reach of others (including children, family, friends and visitors). The last page of this document has been signed and retained as a CHART COPY. Signatures Patient Education Materials Monitored Anesthesia Care, Care After Colonoscopy, Adult, Care After Medication Leaflets My discharge plan and instructions have been reviewed and explained to me and I,RADHA ALMANZA understand my current condition and have read and understand these discharge instructions. I have received awritten copy of the plan/instructions. If I have questions, I am aware that I should contact my doctor. 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 The colonoscope was passed into the rectum and the rectal mucosa was normal. The scope was advanced up to the left colon intothe cecum without difficulty. Patient had an excellent preparation back up the right colon there were no obvious large polyps seen back in the transverse colon there was good visualization throughoutthe splenic flexure down to the left colon the vascular pedicles was normal about 25 cm with a small sessile polyp 2 mm or so this was removed with a cold biopsy forcep. Patient 3-year-old female history of colon polyps family history of colon cancer plan follow the pathology of the polyp and consider repeat colonoscopy 7 years Post-Procedure Exam Colonoscopy with biopsy Findings Mall polyp Complications None apparent Total Time Approximately 20 minutes Assessment/Plan Breast cancer Orders: Lactated Ringers Infusion 1,000 mL(LR 1,000 mL), 1000 mL, Intravenous Bedrest, 01/01/24 9:31:00 EDT, Strict, continuous, Constant order, Lying on side until alert or as ordered Bedrest, 01/01/24 9:31:00 EDT, Strict, continuous, Constant order, Lying on side until alert or as ordered Call Parameters, 01/01/24 9:31:00 EDT, Notify for vomiting, severe pain, signs of bleeding, severe abdominal pain, distention or rigidity, Constant order Communication Order (scheduled), 01/01/24 8:08:00 EDT, Once, 01/01/24 8:08:00 EDT, Fasting Blood Sugar priot to procedure of patient is diabetic Communication Order (scheduled), 01/01/24 8:08:00 EDT, Once, 01/01/24 8:08:00 EDT, Urine Test or waiver for women of child bearing age Communication Order (scheduled), 01/01/24 8:08:00 EDT, Once, 01/01/24 8:08:00 EDT, Pathology TissueRequest Diet Order, 01/01/24 9:31:00 EDT, Start Meal: Next meal, Clear Liquid Diet, Post exam or after gag reflex returns if EGD, Constant Order, : No, per patient, : Unable to obtain Discharge, 01/01/24 8:08:00 EDT, Discharged to: Home, when able to ambulate and after being seen byphysician Discharge Activity, NO activity restrictions, 01/01/24 9:31:00 EDT Discharge Diet, Follow the post-operative/post-procedure diet instructions provided by your physician's office., 01/01/24 9:31:00 EDT Discharge Wound Care, Follow the post-operative/post-procedure wound care instructions provided by your physician's office., 01/01/24 9:31:00 EDT Pathology Tissue Request, 01/01/24 9:30:00 EDT, Collected, Routine, Nurse Collect, AP Specimen, sigmoid colon polyp, see chart, colonoscopy, history of polyps, history of polyps, [id number] Post Procedure Assessment, 01/01/24 9:31:00 EDT, Stop Date 01/01/24 9:31:00 EDT, [facility] until Lolly Score of 12 or Preprocedure Sign Consent, 01/01/24 8:08:00 EDT, Once, For COLONOSCOPY Vital Signs, 01/01/24 9:31:00 EDT, q30min, 1 hour(s), 01/01/24 10:30:00 EDT Vital Signs, 01/01/24 9:31:00 EDT, q15min, 1 hour(s), 01/01/24 10:30:00 EDT Vital Signs PRN, 01/01/24 9:31:00 EDT, PRN order Follow Up/Recommendation Follow-up the biopsies repeat a colonoscopy in 7 years Digitally Signed by ROCKY GAFFNEY MD on 01/01/2024 09:35 AM [facility]08-05-2024 Anesthesiology Consult note Patient: RADHA ALMANZA Age: 63 years Sex: Female : 1960 Associated Diagnoses: None Author: RADHA IYER BRANCH [employer]OR Assessment Postanesthesia assessment Vitals: Vital signs from flowsheet : Vital Signs 01/01/2024 9:30 EDT Respiratory Rate - Anes 15 br/min br/min 01/01/2024 9:25 EDT Heart Rate Monitored 66 bpm bpm Respiratory Rate - Anes 14 br/min br/min Systolic Blood Pressure Non-Invasive 107 mmHg mmHg Diastolic Blood Pressure Non-Invasive 72 mmHg mmHg 01/01/2024 9:20 EDT Heart Rate Monitored 45 bpm bpm Respiratory Rate - Anes 7 br/min br/min Systolic Blood Pressure Non-Invasive 99 mmHg mmHg Diastolic Blood Pressure Non-Invasive 77 mmHg mmHg 01/01/2024 9:15 EDT Heart Rate Monitored 58 bpm bpm Respiratory Rate - Anes 9 br/min br/min Systolic Blood Pressure Non-Invasive 105 mmHg mmHg Diastolic Blood Pressure Non-Invasive 79 mmHg mmHg 01/01/2024 9:10 EDT Systolic Blood Pressure Non-Invasive 114 mmHg mmHg Diastolic Blood Pressure Non-Invasive 71 mmHg mmHg 01/01/2024 8:22 EDT Temperature Temporal Artery 36.0 DegC Peripheral Pulse Rate 62 bpm Respiratory Rate 12 br/min LOW Systolic Blood Pressure Non-Invasive 107 mmHg Diastolic Blood Pressure Non-Invasive 70 mmHg . Mental status: alert & oriented x 4. Respiratory function: lungs are clear to auscultation. Respiratory support: none. CV function: Normal rate. Cardiovascular support: none. Pain. Nausea status: see nursing documentation of medications. Postoperative hydration status: within normal limits. Digitally Signed by RADHA IYER on 01/01/2024 09:32 AM [facility]08-05-2024 Note ELIZABETH ADMISSION HISTORY AND PHYSICIAL CHIEF COMPLAINT: HISTORY OF PRESENT ILLNESS: REVIEW OF SYSTEMS: ACTIVE PROBLEMS: No qualifying data available for Problems MEDICATIONS: Active Inpt Meds: None Active PRN Meds: None One Time Meds: (Completed) lidocaine (Xylocaine 2% 5 mL syringe (ANES) (ANES)) IV Push, Once, Stop: 01/01/24 9:26:00 EDT (Completed) propofol (propofol (ANES)) IV Push, Once, Stop: 01/01/24 9:26:00 EDT Active IV Meds: Lactated Ringers Infusion 1,000 mL (LR 1,000 mL) Start: 01/01/24 8:08:00 EDT, Rate: 50 mL/hr, 01/01/24 8:08:00 EDT ALLERGIES: (1) NKA FAMILY HISTORY: SOCIAL HISTORY: PHYSICAL EXAM: VITALS: [id number](kg) 12/31 09:20----45--96.8--12/31 77.2 12/31 09:15----58--99.3-- 12/31 08:2236.0--[id number] 24 Hr Tmax: 36.0 at 12/31 08:22 36 Hr Tmax: 36.0 at 12/31 08:22 Vital Signs are the last 5 in the past 48 hours. Weights display the last 5 within 7 days. Initial Wt: 12/31 77.2 kg 170 lb Current Wt: 12/31 77.2 kg 170 lb GENERAL: HEENT: CARDIOVASCULAR: RESPIRATORY: ABDOMEN: EXREMETIES: NEUROLOGICAL: PSYCHIATRIC: LABS: No 36hr Lab Data DIAGNOSTICS: IMPRESSION: PLAN: History and Physical Update I have examined the patient; reviewed the H&P and there are no changes to the H&P unless noted below. Digitally Signed by ROCKY GAFFNEY MD on 01/01/2024 09:30 AM [facility]08-05-2024 Anesthesiology Consult note Patient: RADHA ALMANZA Age: 63 years Sex: Female : 1960 Associated Diagnoses: None Author: RADHA IYER APRN-[employer] Preoperative Information Time of last food or liquid consumption: 12/31/2023 14:00:00 Anesthesia history Patient's history: negative. Family's history: negative. Review of Systems Ear/Nose/Mouth/Throat: Negative except as documented in history of present illness. Respiratory: Negative except as documented in history of present illness. Cardiovascular: Negative except as documented in history of present illness. Gastrointestinal: Negative except as documented in history of present illness. Genitourinary: Negative except as documented in history of present illness. Endocrine: Negative except as documented in history of present illness. Musculoskeletal: Negative except as documented in history of present illness. Integumentary: Negative except as documented in history of present illness. Neurologic: Negative except as documented in history of present illness. Health Status Allergies: Allergic Reactions (Selected) NKA, Allergies (1) ActiveSeverityReaction NKANone Documented Current medications: (Selected) Inpatient Medications Ordered LR 1,000 mL: 50 mL/hr, Intravenous Documented Medications Documented Lexapro 20 mg oral tablet: 20 mg, 1 tab(s), Oral, qDay, 90 tab(s), 0 Refill(s), Medications (1) Active Scheduled: (0) Continuous: (1) Lactated Ringers Infusion 1,000 mL 1,000 mL, Intravenous, 50 mL/hr PRN: (0) Problem list: No problem items selected or recorded., No qualifying data available Histories Past Medical History: No active or resolved past medical history items have been selected or recorded. Family History: No family history items have been selected or recorded. Procedure history: Knee arthroplasty ([id number]). Comments: 01/01/2024 8:17 EDT Kenya Minaya RN LEFT KNEE Lumpectomy ([id number]). Comments: 01/01/2024 8:17 EDT Kenya Minaya RN RIGHT SIDE Social History: Social & Psychosocial Habits Substance Abuse 01/01/2024 Use: Never Tobacco 01/01/2024 Tobacco Use: Never (less than 100 in l Previous treatment: None Smokeless tobacco use: Never Home/Environment 01/01/2024 Living situation: Home/Independent Safe place to go: Yes Financial concerns: No Physical Examination Vital Signs 01/01/2024 8:22 EDT Temperature Temporal Artery 36.0 DegC Peripheral Pulse Rate 62 bpm Respiratory Rate 12 br/min LOW Systolic Blood Pressure Non-Invasive 107 mmHg Diastolic Blood Pressure Non-Invasive 70 mmHg Vital Signs (last 24 hrs) Last Charted Temp Urodyemv18.0 DegC (DEC 31 08:22) TRG845 mmHg (DEC 31 08:22) DBP70 mmHg (DEC 31 08:22) Measurements from flowsheet : Measurements 01/01/2024 8:22 EDT Height 164 cm Admission Weight 77.2 kg [place] Body Weight 56.00 kg Admission Body Mass Index 28.7 m2 Pain assessment: Pain Assessment 01/01/2024 8:22 EDT Primary Pain Intensity 0 Pain Scale Type 0-10 Pain scale . General: Alert and oriented. Airway: Normal neck range of motion. Mallampati classification: II (soft palate, fauces, uvula visible). Head: Normocephalic. Dentition Evaluation: Intact, Own teeth. Neck: Full range of motion. Respiratory: Lungs are clear to auscultation. Cardiovascular: Normal rate. Heart Sounds: Normal. Gastrointestinal: Soft. Musculoskeletal Normal range of motion. Integumentary: Intact, Warm, Dry. Neurologic: Alert, Oriented. Review / Management Results review: No qualifying data available , Lab results 01/01/2024 8:34 EDT Lactated Ringers Injection Begin Bag 1,000 mL mL 01/01/2024 8:33 EDT Antecubital Left 01/01/2024 22 gauge Peripheral IV Activity: Field start Peripheral IV Dressing Condition: Clean, Dry, Intact Peripheral IV Dressing Activity: Applied Peripheral IV Line Status/Patency: Flushes easily, Continuous infusion Peripheral IV Site Condition: No complications Peripheral IV Equipment: Extension set Peripheral IV Number of Attempts: 1 01/01/2024 8:22 EDT Height 164 cm Admission Weight 77.2 kg [place] Body Weight 56.00 kg Admission Body Mass Index 28.7 m2 Temperature Temporal Artery 36.0 DegC Peripheral Pulse Rate 62 bpm Respiratory Rate 12 br/min LOW Systolic Blood Pressure Non-Invasive 107 mmHg Diastolic Blood Pressure Non-Invasive 70 mmHg Primary Pain Intensity 0 Pain Scale Type 0-10 Pain scale Heart Rhythm Regular Dorsalis Pedis Pulse, Left 2+ Normal Dorsalis Pedis Pulse, Right 2+ Normal Respirations Unlabored Respiratory Pattern Regular Breath Sounds Auscultated Anterior and posterior All Lobes Breath Sounds Clear Cough None Oxygen Therapy Room air Oxygen Saturation 100 % Abdomen Description Non-distended, Soft Abdomen Palpation Non-Tender, Soft Bowel Sounds All Quadrants Present Skin Temperature Warm Skin Description [place], Normal for ethnicity Skin Integrity Intact Neurological Symptoms Patient denies Extremity Movement Equal Characteristics of Speech Clear Level of Consciousness Alert Strength All Extremities Strong Tone All Extremities Normal Sensation All Extremities Intact Affect/Behavior Appropriate, Calm, Cooperative Orientation Oriented x 4 Lolly Motor (2) Moves 4 extremities voluntarily or on command Lolly Respirations (2) Spontaneous respiration without support, RR > 10 Lolly Blood Pressure (2) BP 20% above or below preanesthetic level Lolly Pulse (2) Pulse 20% above or below preanesthetic level Lolly Oxygen Saturation (2) 94% or more Lolly Level of Consciousness (2) Fully awake Lolly III Score 12 Assistive Device None Positioning Repositions self Activity Status ADL Awake, Resting Standard Safety ID band on, Call device within reach, Bed in low position, Wheels locked, Upper/Half-Length side-rails up, Phone within reach 01/01/2024 8:18 EDT Designated Person #1 We May Share [facility]- [phone] Designated Person #1 Relationship Son Privacy Restrictions Requested None Status No, per patient Sensory Deficits None Sleep Apnea Snore No Sleep Apnea Tired No Sleep Apnea Obstruction No Sleep Apnea Pressure No Sleep Apnea BMI No Sleep Apnea Age Yes Sleep Apnea Neck No Sleep Apnea Gender No Sleep Apnea Score 1 Diagnosed With Sleep Apnea No Advanced Directives No - requests information Infectious Disease Symptoms Patient states no symptoms Infectious Disease Recent Exposure No Alcohol and Drug Use No Employee of Institutional Living No Health Care Employee No History of Exposure to TB No History of Positive Chest X-Ray for TB No History of Positive TB Skin Test No Homeless No Known Immunosuppression No Recent Immigrant No Resident of Institutional Living No Bloody Sputum No Fatigue No Fever No Loss of Appetite No Night Sweats No Persistent Cough > 3 Weeks No Weight Loss No Barriers to Learning None evident Teaching Method Explanation, Printed materials Preferred Spoken Language [place] Preferred Written Language [place] Teaching Evaluation No further teaching needed Safety Brochure Information Reviewed Unable to complete Balwinder Pickett Video Viewed Patient refused Information Given by Patient Patient's Current Physicians PCP- DR. CAMPBELL Discharge To, Anticipated Home independently Prev Test Positive/Diagnosis w/COVID-19 Yes Previous COVID-19 Positive Date 2020 Current Quarantine/Isolated any Illness No Any Contact with Sick Animals/Birds No Traveled Anywhere in Last 30 Days No Lost Weight Unintentionally Recently No Eat Poorly Due to Decreased Appetite No Total MST Score 0 Unable to obtain Personal Devices, Patient Valuables None Anesthesia/Transfusions None Admission Note-Nursing Same Day Patient History 01/01/2024 8:11 EDT Urinary Elimination Voiding, no difficulties Allergies No Colon Prep Results Excellent Consent Form Signed Yes Patient Dressed In Hospital gown CHG Preoperative Wash/Wipe Not done CHG Skin Prep Completed for Eligible Surgery History & Physical On Chart Yes Bowel Prep Completed Yes Obstructive Sleep Apnea Assess Completed Yes Belongings At Bedside Bra, Dress, Earrings NPO Status Maintained Allergy Band on and Verified No Patient ID Band on and Verified Yes Implants Verified Yes Pacemaker/AICD Verified Yes Site Verified by Patient/Family Yes Anesthesia Consent Signed Yes Last Fluid Intake 01/01/2024 5:00 Last Food Intake 12/31/2023 20:00 Last Void 01/01/2024 8:13 . Assessment and Plan [place] [employer] Anesthesiologists (ASA) physical status classification: Class II. Anesthetic Preoperative Plan Premedication: intravenous. Anesthetic technique: MAC. Induction: intravenously. Maintenance airway: Mask. Risks discussed: nausea, vomiting, headache, sore throat, dental injury, hypotension, allergic reaction, serious complications. Informed consent: signed by patient. Digitally Signed by RADHA IYER BRANCH MAKER-[employer] V[employer]OR on 01/01/2024 09:07 AM [facility]02-29-2024 History of Present illness Narrative * Jade Alvarado, PT - 07/27/2023 1:00 PM EST [facility] Evaluation Today's Date 07/27/2023 Patient Name: Radha Almanza Date of : 1960 Case Name: Right Peroneal Tendonitis Functional Diagnosis: 1. Peroneal tendonitis, right 2. Peroneal tendinitis, right Clinical Information: Subjective All subjective data collected as part of a multidisciplinary team: Yes History of Present Illness Date of Onset: 06/29/2023 Subjective History: Pt presented reporting increased R ankle pain that initiated about 4-5 weeks ago. Pt reported taking prednisone and reported feeling way better pain has decreased tremendously. Ptreported going on vacation, where she walked a lot swollen no fracture. Pt reported R ankle being swollen and later Physician noted peroneal tendons were inflamed. Pt reported using a boot for less than a week to aid with R ankle pain. Previous Treatment for this condition: No Previous Imaging: X-ray Overall rating of health: Good Pain Scale Pain location: ankle/foot Average Pain: 6/10 (with prednisone is 1/10) Pain at highest: 8/10 Aggravating factors: activity in general Easing factors: Prednisone, ice Personal Goals: Pt would like to have no R ankle pain with activity. Social Support: Mosque, social, or cultural considerations to be made aware of before starting treatment: No Home Environment Current Home Environment: Setup: single story house Entry: steps with railing Red Flags: history of cancer Comments: Barriers to Care: None Mosque, social, or cultural considerations to be made aware of before starting treatment: No Ankle/Foot Right Ankle/Foot Tenderness: Deltoid ligament Range of Motion: Dorsiflexion Active: 10 Plantar Flexion Active: 45 Inversion Active: 30 Eversion Active: 5 Muscle Strength: DorsiFlexion: 4+ Plantar Flexion: 4+ Inversion: 4+ Eversion: 4 Other Swelling: Positive Left Ankle/Foot Range of Motion: Dorsiflexion Active: 10 Inversion Active: 30 Eversion Active: 15 Muscle Strength: DorsiFlexion: 4+ Plantar Flexion: 4+ Inversion: 4+ Eversion: 4+ Other Swelling: Negative FOTO: 49 Heel raise: R increased supination during elevation compared to L and increased difficulty with performing the task. PA and AP mobilizations of the talus are normal. Treatments: Physical Therapy Exercise Log - 07/27/23 1334 OTHER Precautions/Contraindications Supervising PT: Benigno Del Valle Eval: 1:04 - 1:46 Vitals AIM coverage Therapeutic Exercise (38412) Intervention HEP Parameters Seated gastroc stretch w/ strap: 3x20s Intervention seated soleus stretch on bolster w/strap: 3x20s Parameters Peroneal stretch on the wall: 3x20s Intervention seated ankle alphabet x1 Parameters Towel scrunches:x20 Intervention inversion/eversion towel slides: x10 Parameters seated ankle eversion blue tband x15 Intervention Toe Yoga x2 Parameters Access Code: [email or web address] URL: [email or web address] Date: 07/27/2023 Prepared by: Jade Alvarado Exercises - Peroneal Stretch at Wall - 2 x daily - 5 reps - 20 seconds hold - Long SittingCalf Stretch with Strap - 2 x daily - 3 reps - 20 seconds hold - Long Sitting Soleus Stretch on Bolster with Strap - 2 x daily - 3 reps - 20 seconds hold - Seated Ankle Alphabet - 1-2 x daily - 1 reps - Towel Scrunches - 1-2 x daily - 20 reps - Ankle Inversion Eversion Towel Slide - 1-2 x daily - 10 reps - Seated Ankle Eversion with Resistance - 1-2 x daily - 10-15 reps PT Treatment Times Total Treatment Time 42 Goals: Physical Therapy Ortho Goals: MOBILITY: Patient will be able to ambulate for up to an 1 hour in the community and the workplace without difficulty in 6 weeks. MOBILITY: Patient will be able to ambulate on uneven surfaces without difficulty in 3 weeks. MOBILITY: Patient will be able to ascend/descend stairs without difficulty or pain in 3 weeks. IMPAIRMENT: Improve MMT of Right Eversion from 4/5 to 5/5 in 6 weeks IMPAIRMENT: Improve AROM of Right Ankle Eversion from 5 degrees to match ipsilateral L ankle eversion strength in 6 weeks. OTHER: Patient will increase FOTO score to at least 59 to show MDC/MCII and expected functional outcome in 6 weeks. OTHER: Patient will be able to properly demonstrate independence with HEP in 1 week. CPT Code 40396 Low 39610 Moderate 49815 High History 0 1-2 3+ Comorbidities: cancer, Personal factors: time limitations Examination of body systems (elements of body structures & functions, activity limitations, and/or participation restrictions) 1-2 elements 3+ elements 4+ elements See below clinical impression Clinical Presentation Stable Evolving Unstable As evidenced by reproduction of or changes in symptoms with certain movements and pt report of overall improving symptom level over time Decision Making Low (FOTO >/= 69) Moderate (FOTO 34 - 68) High (FOTO </= 33) FOTO score= 49 Pt is a 63 y.o. female who presents to PT services with c/o R lateral ankle pain. Upon assessment, pt has been found with the following impairments: decreased ROM, decreased strength, swelling, and pain. The documented impairments result in the following functional limitations: ADLs/IADLs, functional mobility, walking, stairs, recreational activities, performance of work/school related duties, return to work, and running. The pt would benefit from skilled PT services focused on the above listedimpairments and limitations in order to safely progress pt to their desired level of function. Pt to be discharged from OP PT services if/when goals are met, if they fail to make progress with conservative management in PT, if their level of progress plateaus, or if they do not maintain compliance with attendance or HEP. At this time, it is my clinical judgment that services are medically necessary. Plan of Care Frequency of Visits: 1-2 times per week Duration: 6 weeks Interventions: Therapeutic Exercise (15920), Neuromuscular Re-Education (75947), Manual Therapy (86499), Therapeutic/ Functional Activities (17927), Gait Training (58134), and Ultrasound (03404) Rehab Potential: good Patient Education Provided Pt was educated on the benefits of therapy and importance of compliance with sessions and HEP for rehabilitation. Pt was also educated on treatment diagnosis, POC, and frequency/duration of treatment. Kortney Hernandez, SPT Directly Supervised by: Jade Alvarado PT State License, [id number] documented in this [id number] History of Present illness Narrative* Helen Rivera MD - 10/29/2022 9:54 AM EDT Radha comes in today for followup of left total knee replacement, 6 weeks out, doing well, wound is healed. No signs of infection. No DVT signs or symptoms. Calves soft. Full extension, over 120 degrees of flexion. No ligamentous instability. No erythema. No lymphangitis. No cellulitis. X-RAYS Three views, left knee, reveals a normal-appearing left total knee replacement. IMPRESSION Six weeks left total knee replacement. PLAN We will have her do activities as tolerated. I will see her on a yearly basis. I did a narcotic review. Last medication was Lyrica on 10/18/2022. documented in this [id number] History of Present illness Narrative* Becky Villalobos PTA - 10/26/2022 8:30 AM EDT [facility] DAILY TREATMENT NOTE Today's Date 10/26/2022 Patient Name: Radha Almanza Date of : 1960 Current Visit #: 10 Authorized Visits: 20 Case Name: S/P Left TKR History: Pre-Treatment Pain Scale: 1 Symptoms: gradually improved Functional Diagnosis: 1. Status post total left knee replacement Clinical Information: Subjective: She mainly has stiffness in her knee most all the time. Objective She is able to ambulate in community for 1 hour Difficulty with descending stairs reciprocally Pain 1/10 AAROM 0-125 She is compliant with HEP Treatments: Physical Therapy Exercise Log - 10/26/22 1116 OTHER Precautions/Contraindications Supervising PT: Benigno - S/P Left TKR 09/12 Notes Visit [phone] AIM insurance Therapeutic Exercise (15537) Intervention SciFit - x5 min L4 Parameters stair stretches 3x20 (calf, HS, Lunges) on stairs Intervention TKE - 5 sec x10 Parameters BOSU step ups - x15 fwd, lat Intervention Steamboats - x10 L3 Parameters Lateral, retro amb 2x30' Intervention Shuttle Squats - 62# x20, SL 37# x20 Parameters Reicprocal stair amb x 1 Intervention Standing to 1/2 kneel - NT Parameters Quad sets - 5 sec x10 HEP Intervention Heel slides - x10 (125 degrees) PT Treatment Times Therex Total Time 40 Direct Treatment Time 40 Total Treatment Time 40 Goals: Physical Therapy Ortho Goals: MOBILITY: Patient will be able to ambulate for 1 hour in community and ambulate on uneven surfaces without difficulty in 4 weeks. MOBILITY: Patient will be able to ascend/descend stairs reciprocally without difficulty in 4 weeks. IMPAIRMENT: Improve pain from 5/10 to <2/10 during prolonged standing, walking and negotiating uneven surfaces in 4 weeks IMPAIRMENT: Improve AROM of the Knee to 0-120 degrees in 4 weeks. OTHER: Patient will increase FOTO score from 49 to at least 60 to show MDC/MCII and expected functional outcome in 4 weeks. OTHER: Patient will be able to properly demonstrate independence with HEP in 1 week. Patient Education: Quality of movement with patient demonstrated understanding. Post-Treatment Pain Scale: 1 Assessment: Patient had an expected response to treatment. Skilled Intervention demonstrated by modifications of treatment per exercise log including increased load and safety interventions per exercise log. Progress towards goals as expected. Plan for Next Visit: Discharge with HEP Becky Villalobos PTA STATE LICENSE, [id number] documented in this [id number] History of Present illness Narrative* Becky Villalobos PTA - 10/26/2022 8:30 AM EDT [facility] DAILY TREATMENT NOTE Today's Date 10/26/2022 Patient Name: Radha Almanza Date of : 1960 Current Visit #: 10 Authorized Visits: 20 Case Name: S/P Left TKR History: Pre-Treatment Pain Scale: 1 Symptoms: gradually improved Functional Diagnosis: 1. Status post total left knee replacement Clinical Information: Subjective: She mainly has stiffness in her knee most all the time. Objective She is able to ambulate in community for 1 hour Difficulty with descending stairs reciprocally Pain 1/10 AAROM 0-125 She is compliant with HEP Treatments: Physical Therapy Exercise Log - 10/26/22 1116 OTHER Precautions/Contraindications Supervising PT: Benigno - S/P Left TKR 09/12 Notes Visit [phone] A[employer] insurance Therapeutic Exercise (98741) Intervention SciFit - x5 min L4 Parameters stair stretches 3x20 (calf, HS, Lunges) on stairs Intervention TKE - 5 sec x10 Parameters BOSU step ups - x15 fwd, lat Intervention Steamboats - x10 L3 Parameters Lateral, retro amb 2x30' Intervention Shuttle Squats - 62# x20, SL 37# x20 Parameters Reicprocal stair amb x 1 Intervention Standing to 1/2 kneel - NT Parameters Quad sets - 5 sec x10 HEP Intervention Heel slides - x10 (125 degrees) PT Treatment Times Therex Total Time 40 Direct Treatment Time 40 Total Treatment Time 40 Goals: Physical Therapy Ortho Goals: MOBILITY: Patient will be able to ambulate for 1 hour in community and ambulate on uneven surfaces without difficulty in 4 weeks. MOBILITY: Patient will be able to ascend/descend stairs reciprocally without difficulty in 4 weeks. IMPAIRMENT: Improve pain from 5/10 to <2/10 during prolonged standing, walking and negotiating uneven surfaces in 4 weeks IMPAIRMENT: Improve AROM of the Knee to 0-120 degrees in 4 weeks. OTHER: Patient will increase FOTO score from 49 to at least 60 to show MDC/MCII and expected functional outcome in 4 weeks. OTHER: Patient will be able to properly demonstrate independence with HEP in 1 week. Patient Education: Quality of movement with patient demonstrated understanding. Post-Treatment Pain Scale: 1 Assessment: Patient had an expected response to treatment. Skilled Intervention demonstrated by modifications of treatment per exercise log including increased load and safety interventions per exercise log. Progress towards goals as expected. Plan for Next Visit: Discharge with HEP Becky Villalobos PTA STATE LICENSE, [id number] documented in this [id number] History of Present illness Narrative* Nasir Cruz PTA - 10/10/2022 8:30 AM EDT [facility] DAILY TREATMENT NOTE Today's Date 10/10/2022 Patient Name: Radha Almanza Date of : 1960 Current Visit #: 4 Authorized Visits: 20 Case Name: S/P Left TKR History: Pre-Treatment Pain Scale: 2 Symptoms: stabilized Functional Diagnosis: 1. Status post total left knee replacement Clinical Information: Subjective: Pt reports low pain today and min soreness after LV Objective Reviewed standing to 1/2 kneeling with min difficulty Treatments: Physical Therapy Exercise Log - 10/10/22 0835 OTHER Precautions/Contraindications Supervising PT: Benigno - S/P Left TKR 09/12 Notes Visit 3 [phone] [employer] insurance Therapeutic Exercise (00528) Intervention SciFit - x6 min L4 Parameters stair stretches 3x20 (calf, HS, Lunges) on stairs Intervention Reicprocal stair amb x 1 Parameters Lateral, retro amb 2x30' Intervention Shuttle Squats - 75# x20, SL 37# x20 Parameters Seated longsitting QS and HS 3lb 5''x20 Intervention Standing to 1/2 kneel Parameters Steamboats - NV Intervention SLR - x10 Parameters Quad sets - 5 sec x10 Intervention Heel slides - x10 (122 degrees) Parameters -- Intervention BOSU Lunges - x15 alt Goals: Physical Therapy Ortho Goals: MOBILITY: Patient will be able to ambulate for 1 hour in community and ambulate on uneven surfaces without difficulty in 4 weeks. MOBILITY: Patient will be able to ascend/descend stairs reciprocally without difficulty in 4 weeks. IMPAIRMENT: Improve pain from 5/10 to <2/10 during prolonged standing, walking and negotiating uneven surfaces in 4 weeks IMPAIRMENT: Improve AROM of the Knee to 0-120 degrees in 4 weeks. OTHER: Patient will increase FOTO score from 49 to at least 60 to show MDC/MCII and expected functional outcome in 4 weeks. OTHER: Patient will be able to properly demonstrate independence with HEP in 1 week. Patient Education: Verbal HEP with patient verbalized understanding. Post-Treatment Pain Scale: 2 Assessment: Patient had an expected response to treatment. Skilled Intervention demonstrated by modifications of treatment per exercise log including assessment of patient's response and safety interventions per exercise log. Progress towards goals as expected. Plan for Next Visit: Treatment Visit with focus on progressing as tolerated Nasir Cruz PTA STATE LICENSE, [id number] documented in this [id number] History of Present illness Narrative* Becky Villalobos, DISTRIBUTION TECHNICIAN - 10/07/2022 8:30 AM EDT [facility] OUTPATIENT REHABILITATION DAILY TREATMENT NOTE Today's Date 10/07/2022 Patient Name: Radha Almanza Date of : 1960 Current Visit #: 3 Authorized Visits: 20 Case Name: S/P Left TKR History: Pre-Treatment Pain Scale: 1 Symptoms: gradually improved Functional Diagnosis: 1. Status post total left knee replacement Clinical Information: Subjective: Her knee is stiff but doing much better. Objective AAROM flexion 122 degrees. Treatments: Physical Therapy Exercise Log - 10/07/22 0908 OTHER Precautions/Contraindications Supervising PT: Benigno - S/P Left TKR 09/12 Notes Visit 2: 8:29-9:03 [employer] insurance Therapeutic Exercise (19650) Intervention SciFit - x5 min L3 Parameters stair stretches 3x20 (calf, HS, Lunges) Intervention TKE - 5 sec x10 Parameters BOSU Lunges - x15 alt Intervention Step ups 6 - x10 fwd, lat Parameters Steamboats - NV Intervention Shuttle Squats - 62# x20, SL 31# x20 Parameters Lat ambulation Intervention SLR - x10 Parameters Quad sets - 5 sec x10 Intervention Heel slides - x10 (122 degrees) PT Treatment Times Therex Total Time 33 Direct Treatment Time 33 Total Treatment Time 33 Goals: Physical Therapy Ortho Goals: MOBILITY: Patient will be able to ambulate for 1 hour in community and ambulate on uneven surfaces without difficulty in 4 weeks. MOBILITY: Patient will be able to ascend/descend stairs reciprocally without difficulty in 4 weeks. IMPAIRMENT: Improve pain from 5/10 to <2/10 during prolonged standing, walking and negotiating uneven surfaces in 4 weeks IMPAIRMENT: Improve AROM of the Knee to 0-120 degrees in 4 weeks. OTHER: Patient will increase FOTO score from 49 to at least 60 to show MDC/MCII and expected functional outcome in 4 weeks. OTHER: Patient will be able to properly demonstrate independence with HEP in 1 week. Patient Education: Quality of movement with patient demonstrated understanding. Post-Treatment Pain Scale: 1 Assessment: Patient had an expected response to treatment. Skilled Intervention demonstrated by modifications of treatment per exercise log including increased load and safety interventions per exercise log. Progress towards goals as expected. Plan for Next Visit: Treatment Visit with focus on strengthening Becky Villalobos PTA STATE LICENSE, [id number] documented in this [id number] spa manager/esthetician Note* Case Communication - Stefania Dan, PT - 10/03/2022 9:31 AM EDTPt has met goals for PT and is discharged from agency. Starts OP PT on 10/03/22. [id number] Miscellaneous Notes* Case Communication - Stefania Dan, PT - 10/03/2022 9:31 AM EDTPt has met goals for PT and is discharged from agency. Starts OP PT on 10/03/22. documented in this [id number] Miscellaneous Notes* Case Communication - Stefania Dan, PT - 10/03/2022 9:31 AM EDTPt has met goals for PT and is discharged from agency. Starts OP PT on 10/03/22. documented in this [id number] History of Present illness Narrative* Jade Alvarado, PT - 10/03/2022 8:30 AM EDT [facility] OUTPATIENT [facility]IL[facility]ATION Evaluation Today's Date 10/03/2022 Patient Name: Radha Almanza Date of : 1960 Case Name: S/P Left TKR Functional Diagnosis: 1. Status post total left knee replacement Clinical Information: Subjective Referring Diagnosis: S/P Left TKR Follow-up with physician: 10/28/2022 History of Present Illness Surgery Date: 09/12/2022 Days Post-Op: 21 Subjective History: Pt is beginning outpatient PT s/p left TKR. She has completed about 2 weeks of PT and reports measuring up to 112 degrees of flexion. She arrived today ambulating with a SPC and states she occasionally walks without it a home. She reports c/o pain, stiffness and swelling as well as numbness in the lateral knee joint region. Pain Scale Pain location: knee Average Pain: 3/10 Pain at highest: 5/10 Aggravating factors: prolonged standing and walking, end range flexion during exercises Easing factors: rest, ice, elevation, medication 24 Hour Symptom Behavior Morning Pain: sudden Afternoon Pain: better End of day pain: worse Personal Goals: Decrease pain and swelling Improve ROM and strength Improve stability and functional mobility Functional Mobility Status Functional Limitations: limited mobility and standing Current Mobility Status: Community: independent and cane Bed Transfer: modified independent Car Transfer: modified independent Current Activity Level: low active Social Support: Mosque, social, or cultural considerations to be made aware of before starting treatment: No Home Environment Current Home Environment: Setup: single story house Entry: steps with railing (3 PRAVIN) Activities of Daily Living: independent with all Instrumental Activities of Daily Livingto be assessed Sleep Assessment Sleep disturbance: Sleep Disturbance Red Flags: None Comments: Barriers to Care: None Mosque, social, or cultural considerations to be made aware of before starting treatment: No Knee Left Knee Range of Motion: Flexion Active: 98 Passive: 110 Extension Active: -1 (lacking) Muscle Strength Flexion: 4+ Extension: 4+ FOTO: 49 Ankle/Foot Left Ankle/Foot Left Ankle/Foot WFL Treatments: Physical Therapy Exercise Log - 10/03/22 0901 OTHER Precautions/Contraindications Supervising PT: Benigno - S/P Left TKR 09/12 Notes Eval: 8:40 - 9:16 Therapeutic Exercise (99443) Intervention reviewed current HEP and instructed pt to continue calf and HS stretches, quad sets w/heel prop and SLR Parameters stair stretches 3x20 Intervention sink ex x10 bilat. PT Treatment Times Therex Total Time 5 Direct Treatment Time 5 Total Treatment Time 36 Goals: Physical Therapy Ortho Goals: MOBILITY: Patient will be able to ambulate for 1 hour in community and ambulate on uneven surfaces without difficulty in 4 weeks. MOBILITY: Patient will be able to ascend/descend stairs reciprocally without difficulty in 4 weeks. IMPAIRMENT: Improve pain from 5/10 to <2/10 during prolonged standing, walking and negotiating uneven surfaces in 4 weeks IMPAIRMENT: Improve AROM of the Knee to 0-120 degrees in 4 weeks. OTHER: Patient will increase FOTO score from 49 to at least 60 to show MDC/MCII and expected functional outcome in 4 weeks. OTHER: Patient will be able to properly demonstrate independence with HEP in 1 week. CPT Code 09959 Low 43816 Moderate 95279 High History 0 1-2 3+ Comorbidities: cancer and OA, Personal factors: chronicity or severity of the current condition Examination of body systems (elements of body structures & functions, activity limitations, and/or participation restrictions) 1-2 elements 3+ elements 4+ elements See below clinical impression Clinical Presentation Stable Evolving Unstable As evidenced by reproduction of or changes in symptoms with certain movements and improving symptomlevel since surgical intervention Decision Making Low (FOTO >/= 69) Moderate (FOTO 34 - 68) High (FOTO </= 33) FOTO score= 49 Pt is a 62 y.o. female who presents to PT services s/p left TKR. Upon assessment, pt has been foundwith the following impairments: decreased ROM, decreased strength, impaired dynamic balance, antalgic gait, swelling, and pain. 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 The pt would benefit from skilled PT services focused on the above listed impairments and limitations in order to safely progress pt to their desired level of function. Pt to be discharged from OP PT services if/when goals are met, if they fail to make progress with conservative management in PT, if their level of progress plateaus, or if they do not maintain compliance with attendance or HEP. At this time, it is my clinical judgment that services are medically necessary. Plan of Care Frequency of Visits: 3 times per week Duration: 4 weeks Interventions: Therapeutic Exercise (02365), Neuromuscular Re-Education (38534), Manual Therapy (19483), Therapeutic/ Functional Activities (45607), and Gait Training (73946) Rehab Potential: good Suicide Screen Signs and Symptoms of Abuse/Neglect: No Actions Taken: No Suicide Risk: Does the patient feel like ending their life today?No Actions Taken: No Patient Education Provided Pt was educated on the benefits of therapy and importance of compliance with sessions and HEP for rehabilitation. Pt was also educated on treatment diagnosis, POC, and frequency/duration of treatment. Jade Alvarado, PT State License, [id number] documented in this [id number] Telephone encounter Note* Telephone Encounter - Lianne Caldwell LPN - 09/28/2022 5:00 PM EDT Patient requesting refill for pain medication and flexeril. Surgery 10 left TKR , last fill 09/19 pain med flexeril 09/12. [id number] Miscellaneous Notes* Telephone Encounter - Lianne Caldwell LPN - 09/28/2022 5:00 PM EDT Patient requesting refill for pain medication and flexeril. Surgery 4/10 left TKR , last fill 09/19 pain med flexeril 09/12. documented in this [id number] Patient's home Progress note* Actions Pt went to [facility] yes terday, one day after same day surgery for LTKR. Pt c/o having rough time with pain last night. States pain is getting better. Was at from 8a-4p. Much education given on icing, elevating, taking pain medications as ordered. 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 [id number] Miscellaneous Notes* Case Communication - Stefania Dan, PT - 09/15/2022 6:53 PM EDTPT evaluation complete PT frequency:1 x 1, 3x2 PT interventions to include: Ther ex, ther act, NMR, gait training, HEP, safety training Pt agrees to plan of care, please contact me for any questions or concerns. documented in this [id number] Patient's home Progress note* Actions Pt went to [facility]'s yes terday, one day after same day surgery for LTKR. Pt c/o having rough time with pain last night. States pain is getting better. Was at from 8a-4p. Much education given on icing, elevating, taking pain medications as ordered. documented in this encounter [id number] Patient's home Progress note* Actions Pt went to [facility]'s yes terday, one day after same day surgery for LTKR. Pt c/o having rough time with pain last night. States pain is getting better. Was at from 8a-4p. Much education given on icing, elevating, taking pain medications as ordered. documented in this encounter [id number] Patient's home Progress note* Actions Pt went to [facility]'s yes terday, one day after same day surgery for LTKR. Pt c/o having rough time with pain last night. States pain is getting better. Was at from 8a-4p. Much education given on icing, elevating, taking pain medications as ordered. documented in this encounter [id number] Patient's home Progress note* Narratives Patient is a 62 y.o. female referred to PT by Dr. Rivera to address impairments and functional limitations s/p L TKA Surgery date: 09/12/22 Returned Home: 09/12/22 Ongoing L knee pain x 2 years prior to surgery. PMH: breast cancer 1 year ago (treatment of chemo/radiation ended February) Living arrangement/House set up: 1 story home, with spouse PLOF: independent Falls in last six months: 0 Equipment: FWW, SPC, elevated toilet seat, bath bench, QC, hand-held shower Post Op Dressing: Mepilex - drainage at superior end and spot at patella Goal: Physician F/U Appointment: 09/23/22 at 2:00 pm Preferred Appointment Time: mornings Patient Agrees to PT frequency at Treatment may consist of any combination of the following: ther ex for ROM and strengthening, NMR, transfer/gait/stair training, HEP, cryotherapy, patient education Skilled PT services are required to increase documented in this encounter [id number] History of Present illness Narrative* Andra Roberson, QUIRK SANDER - 06/15/2022 5:10 PM EST Radha Almanza 1960 CC: 61 y.o. is a she with left knee pain. Chief Complaint Patient presents with Left Knee - Pain . HPI: Knee Pain: Patient presents the office today with complaints of left knee pain. She denies anyspecific injury to the left knee. She reports she has been battling this for over a year now. She states that this started in 2020 after she shoveled gravel for over an hour. She did not end up moving forward and having arthroscopic meniscal repair in 2021. She reports that the knee has just not been the same since her arthroscopy. She continues to have pain throughout the knee. The majority is located in the medial portion of the knee. She continues to have swelling and decreased range of motion. She has received cortisone injections which only provide her with some symptom relief. Her last i njection was approximately 2 weeks ago when she states that it only seemed to help a little bit. She has completed a course of outpatient physical therapy and then moved on to have an MRI of the leftknee. She is here to discuss further treatment options and to review MRI results for a second opinion. She reports that the last provider she saw had told her he was unable to do anything more for her. 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 PMH: No Known Allergies Current Outpatient Medications: ascorbic acid (VITAMIN C ORAL), Take by mouth ., Disp: , Rfl: escitalopram oxalate (LEXAPRO) 20 MG tablet, TAKE 1 TABLET BY MOUTH EVERY DAY FOR 90 DAYS, Disp: , Rfl: multivitamin per tablet, Take 1 (one) tablet by mouth daily ., Disp: , Rfl: Past Medical History: Diagnosis Date Malignant neoplasm of female breast (HCC) 08/2021 Past Surgical History: Procedure Laterality Date BREAST LUMPECTOMY Right 09/2021 KNEE SURGERY Bilateral left knee 2021 Meniscus repair, Right knee 2019 Meniscus Repair Social History Socioeconomic History Marital status: Single Tobacco Use Smoking status: Never Smokeless tobacco: Never Substance and Sexual Activity Alcohol use: Yes Comment: 2-4 beer per week Drug use: Not Currently Comment: Used Marijuana Gummies during chemo The patient's past medical history, surgical history, social history, family history, medications and allergies were reviewed with the patient today and are available in the chart for further review. ROS: Review of Systems Constitutional: Negative for activity change and fatigue. HENT: Negative for congestion, hearing loss and trouble swallowing. Eyes: Negative for visual disturbance. Respiratory: Negative for chest tightness and shortness of breath. Cardiovascular: Negative for chest pain and palpitations. Gastrointestinal: Negative for abdominal pain, diarrhea, nausea and vomiting. Endocrine: Negative for polydipsia, polyphagia and polyuria. Genitourinary: Negative for decreased urine volume, difficulty urinating and hematuria. Musculoskeletal: Positive for arthralgias, joint swelling and myalgias. Skin: Negative for color change, rash and wound. Allergic/Immunologic: Negative for immunocompromised state. Neurological: Negative for dizziness, weakness, light-headedness and numbness. Hematological: Does not bruise/bleed easily. Psychiatric/Behavioral: Negative for confusion and sleep disturbance. The patient is not nervous/anxious. PE: Physical Exam Constitutional: Appearance: She is well-developed. HENT: Head: Normocephalic. Eyes: Pupils: Pupils are equal, round, and reactive to light. Cardiovascular: Rate and Rhythm: Normal rate and regular rhythm. Pulmonary: Effort: Pulmonary effort is normal. Breath sounds: Normal breath sounds. Abdominal: General: Bowel sounds are normal. Palpations: Abdomen is soft. Musculoskeletal: General: Swelling and tenderness present. Normal range of motion. Cervical back: Normal range of motion and neck supple. Left knee: Effusion present. Instability Tests: Medial Linda test positive and lateral Linda test positive. Skin: General: Skin is warm and dry. Neurological: Mental Status: She is alert and oriented to person, place, and time. ORTHO: Left Knee Exam Tenderness The patient is experiencing tenderness in the medial joint line, MCL, lateral joint line and medialretinaculum. Range of Motion Extension: normal Flexion: 110 (with sharp pain) Tests Linda: Medial - positive Lateral - positive Varus: negative Valgus: negative Orville: Anterior - trace Drawer: Anterior - negative Posterior - negative Other Erythema: absent Scars: present Sensation: normal Pulse: present Swelling: mild Effusion: effusion present Imaging: Left knee x-ray: Reviewed from 03/18/2022 shows mild degenerative arthritis of the medial femoral-tibial compartment. Mild degenerative arthrosis of the lateral femoral-tibial compartment aswell as mild degenerative changes at the patellofemoral compartment. On the weightbearing images there is less than 50% of joint space in the medial compartment. MRI of the left knee reviewed from 03/10/2022 which shows a moderate size oblique tear in the posterior horn of the medial meniscus. There is also moderate to full-thickness loss of cartilage in the medial compartment. Degeneration of the ACL. Mild to moderate articular cartilage loss in the lateral and patellofemoral joint spaces. Assessment/Plan: After exam and reviewing of both x-ray and MRI images we discussed continued treatment options for the left knee. I did have Dr. Rivera review these images and it was his recommendation to move forward with a total knee replacement. She has exhausted conservative treatment measures, the oral medications, injections as well as outpatient physical therapy and just continues to have increasingly worsened pain in the left knee. The patient wishes to move forward with a Shahriar robotic assisted left total knee replacement with Dr. Rivera. I did explain that since she had receivedan injection 2 weeks ago that she would need to wait 3 months in order to have the surgery. The firs t available days she would be able to have her surgery would be August 30, 2021. The office will contact her to schedule in approximately 10 to 14 days. She does verbalize understanding and is in agreement with the treatment plan. Diagnosis: Problem List Items Addressed This Visit None Follow Up: No follow-ups on file. Andra Roberson CNP documented in this [id number] History of Present illness Narrative* Becky Villalobos PTA - 12/24/2021 10:00 AM EDT [facility] OUTPATIENT REHABILITATION DAILY TREATMENT NOTE Today's Date 12/24/2021 Patient Name: Radha Almanza Date of : 1960 Current Visit #: 6 Authorized Visits: 7 Case Name: Left Knee Pain History: Pre-Treatment Pain Scale: 3 Symptoms: gradually worsened Functional Diagnosis: 1. Acute pain of left knee Clinical Information: Subjective: She hasn't seen any improvements from therapy. She has been compliant with HEP. Objective FOTO 38 Pain 2/10-8/10 depending on activity Difficulty with ascending/descending stairs. Difficulty on uneven ground, doesn't feel safe with hiking She is compliant with HEP She was issued green and Blue theraband Treatments: Physical Therapy Exercise Log - 12/24/21 1306 OTHER Precautions/Contraindications Supervising PT: Benigno - possible lateral HS strain - gentle stretching,avoid hyperextnsion, strength and stability as tolerated Notes Visit 5: 10:00-10:40 Therapeutic Exercise (12494) Intervention standing calf and HS stretches 20' x3 Parameters standing adductor stretch x3 (sideways lunge) Intervention step ups Bosu Fw/ lat x20 Parameters steamboats L3 x10 Intervention lateral ambulation RTB 20' x3 Parameters walkouts L3 x5 2 sets Intervention Shuttle Dl #62 Sl #25 x20 - NT Parameters SLR x20 - NT Intervention Hip abd/add GTB x20 - NT Parameters quad sets x20 - NT Intervention Supine HS curls RSB - NT Parameters seated HS curls RTB - NT PT Treatment Times Therex Total Time 40 Direct Treatment Time 40 Total Treatment Time 40 Goals: Physical Therapy Ortho Goals: MOBILITY: Patient will be able to ambulate for 1 hour in community without difficulty in 4 weeks. MOBILITY: Patient will be able to ambulate on uneven surfaces without difficulty in 4 weeks. MOBILITY: Patient will be able to ascend/descend stairs without difficulty in 4 weeks. MOBILITY: Patient will be able to resume desired zoe and recreational activities such as hikingand working out without pain in 4 weeks. IMPAIRMENT: Improve pain from 6/10 to <3/10 on average throughout the day in 4 weeks OTHER: Patient will increase FOTO score from 54 to at least 65 to show MDC/MCII and expected functional outcome in 4 weeks. OTHER: Patient will be able to properly demonstrate independence with HEP in 1 week. Patient Education: Quality of movement with patient demonstrated understanding. Post-Treatment Pain Scale: 3 Assessment: Patient had an expected response to treatment. Skilled Intervention demonstrated by modifications of treatment per exercise log including increased load and safety interventions per exercise log. Progress towards goals as expected. Plan for Next Visit: Discharge with re-evaluation with Dr. Keila Villalobos PTA STATE LICENSE, [id number] documented in this [id number] History of Present illness Narrative* Jade Alvarado, PT - 12/21/2021 10:00 AM EDT [facility] OUTPATIENT REHABILITATION DAILY TREATMENT NOTE Today's Date 12/21/2021 Patient Name: Radha Almanza Date of : 1960 Current Visit #: 4 Authorized Visits: 7 Case Name: Left Knee Pain History: Pre-Treatment Pain Scale: 4 Symptoms: stabilized Functional Diagnosis: 1. Acute pain of left knee Clinical Information: Subjective: Pt continues to report good days and bad days. She continues to experience aching and throbbing in the evenings and at night. She states she still has increased pain with standing at workand feels that she has to limit and/or be very cautious with what and how much activity she does. Objective Treatments: Physical Therapy Exercise Log - 12/21/21 1012 OTHER Precautions/Contraindications Supervising PT: Benigno - possible lateral HS strain - gentle stretching,avoid hyperextnsion, strength and stability as tolerated Notes Visit 4: 10:13 - 10:45 Therapeutic Exercise (94717) Intervention standing calf and HS stretches 20' x3 Parameters standing adductor stretch x3 (sideways lunge) Intervention step ups Bosu Fw/ lat x20 Parameters steamboats L3 x10 Intervention lateral ambulation RTB 20' x3 Parameters walkouts L3 x5 2 sets Intervention Shuttle Dl #62 Sl #25 x20 - NT Parameters SLR x20 - NT Intervention Hip abd/add GTB x20 - NT Parameters quad sets x20 - NT Intervention Supine HS curls RSB - NT Parameters seated HS curls RTB - NT PT Treatment Times Therex Total Time 32 Direct Treatment Time 32 Total Treatment Time 32 Goals: Physical Therapy Ortho Goals: MOBILITY: Patient will be able to ambulate for 1 hour in community without difficulty in 4 weeks. MOBILITY: Patient will be able to ambulate on uneven surfaces without difficulty in 4 weeks. MOBILITY: Patient will be able to ascend/descend stairs without difficulty in 4 weeks. MOBILITY: Patient will be able to resume desired zoe and recreational activities such as hikingand working out without pain in 4 weeks. IMPAIRMENT: Improve pain from 6/10 to <3/10 on average throughout the day in 4 weeks OTHER: Patient will increase FOTO score from 54 to at least 65 to show MDC/MCII and expected functional outcome in 4 weeks. OTHER: Patient will be able to properly demonstrate independence with HEP in 1 week. Patient Education: Quality of movement and Diagnosis and recovery specific education with patient verbalized understanding. Post-Treatment Pain Scale: 4 Assessment: Patient had an expected response to treatment. Skilled Intervention demonstrated by modifications of treatment per exercise log including assessment of patient's response and safety interventions per exercise log. Progress towards goals as expected. Plan for Next Visit: Discharge Jade Alvarado PT State License, [id number] documented in this [id number] History of Present illness Narrative* Zakiya Sainz - 12/03/2021 9:15 AM EDT [facility] OUT[facility]IENT REH[facility] DAILY TREATMENT NOTE Today's Date 12/03/2021 Patient Name: Radha Almanza Date of : 1960 Current Visit #: 4 Authorized Visits: 7 Case Name: Left Knee Pain History: Pre-Treatment Pain Scale: 0 Symptoms: gradually improved Functional Diagnosis: 1. Acute pain of left knee Clinical Information: Subjective: Pt. Reported she started back at work 11/30. Working 12-13 hours. C/o of tiredness. Left knee was swollen after work. Objective Increase walkouts 2 sets Added seated HS curls RTB Added HS curls RSB Treatments: Physical Therapy Exercise Log - 12/03/21918 OTHER Precautions/Contraindications Supervising PT: Benigno - possible lateral HS strain - gentle stretching,avoid hyperextnsion, strength and stability as tolerated Notes Visit 3: 9:19-10:01 Therapeutic Exercise (07789) Intervention standing calf and HS stretches 20' x3 Parameters standing adductor stretch x3 (sideways lunge) Intervention step ups Bosu Fw/ lat x20 Parameters stemboats x10 Intervention lateral ambulation RTB 20' x3 Parameters walkouts L3 x5 2 sets Intervention Shuttle Dl #62 Sl #25 x20 NT Parameters SLR x20 Intervention Hip abd/add GTB x20 Parameters quad sets x20 Intervention Supine HS curls RSB Parameters seated HS curls RTB PT Treatment Times Therex Total Time 42 Direct Treatment Time 42 Total Treatment Time 42 Goals: Physical Therapy Ortho Goals: MOBILITY: Patient will be able to ambulate for 1 hour in community without difficulty in 4 weeks. MOBILITY: Patient will be able to ambulate on uneven surfaces without difficulty in 4 weeks. MOBILITY: Patient will be able to ascend/descend stairs without difficulty in 4 weeks. MOBILITY: Patient will be able to resume desired zoe and recreational activities such as hikingand working out without pain in 4 weeks. IMPAIRMENT: Improve pain from 6/10 to <3/10 on average throughout the day in 4 weeks OTHER: Patient will increase FOTO score from 54 to at least 65 to show MDC/MCII and expected functional outcome in 4 weeks. OTHER: Patient will be able to properly demonstrate independence with HEP in 1 week. Patient Education: Quality of movement with patient demonstrated understanding. Post-Treatment Pain Scale: 0 Assessment: Patient had an expected response to treatment. Skilled Intervention demonstrated by modifications of treatment per exercise log including increased load and safety interventions per exercise log. Progress towards goals as expected. Plan for Next Visit: Treatment Visit with focus on strengthening Nasir Cruz PTA, SPTA STATE LICENSE, [id number] Supervised by Licensed DISTRIBUTION TECHNICIAN Nasir Cruz PTA STATE LICENSE, [id number] * Nasir Cruz PTA - 12/03/2021 9:15 AM EDT [facility] OUTPATIENT REH[facility] DAILY TREATMENT NOTE Today's Date 12/03/2021 Patient Name: Radha Almanza Date of : 1960 Current Visit #: 4 Authorized Visits: 7 Case Name: Left Knee Pain History: Pre-Treatment Pain Scale: 1 Symptoms: stabilized Functional Diagnosis: 1. Acute pain of left knee Clinical Information: Subjective: Pt reports low pain coming in today, she started back to work this week and has little soreness but is exhausted Objective Added HS focused ex's at table Treatments: Physical Therapy Exercise Log - 12/03/21 0919 OTHER Precautions/Contraindications Supervising PT: Benigno - possible lateral HS strain - gentle stretching,avoid hyperextnsion, strength and stability as tolerated Notes Visit 3: 9:19-10:01 Therapeutic Exercise (93620) Intervention standing calf and HS stretches 20' x3 Parameters standing adductor stretch x3 (sideways lunge) Intervention step ups Bosu Fw/ lat x20 Parameters stemboats x10 Intervention lateral ambulation RTB 20' x3 Parameters walkouts L3 x5 2 sets Intervention Shuttle Dl #62 Sl #25 x20 NT Parameters SLR x20 Intervention Hip abd/add GTB x20 Parameters quad sets x20 Intervention Supine HS curls RSB Parameters seated HS curls RTB PT Treatment Times Therex Total Time 42 Direct Treatment Time 42 Total Treatment Time 42 Goals: Physical Therapy Ortho Goals: MOBILITY: Patient will be able to ambulate for 1 hour in community without difficulty in 4 weeks. MOBILITY: Patient will be able to ambulate on uneven surfaces without difficulty in 4 weeks. MOBILITY: Patient will be able to ascend/descend stairs without difficulty in 4 weeks. MOBILITY: Patient will be able to resume desired zoe and recreational activities such as hikingand working out without pain in 4 weeks. IMPAIRMENT: Improve pain from 6/10 to <3/10 on average throughout the day in 4 weeks OTHER: Patient will increase FOTO score from 54 to at least 65 to show MDC/MCII and expected functional outcome in 4 weeks. OTHER: Patient will be able to properly demonstrate independence with HEP in 1 week. Patient Education: Verbal HEP with patient verbalized understanding. Post-Treatment Pain Scale: 1 Assessment: Patient had an expected response to treatment. Skilled Intervention demonstrated by modifications of treatment per exercise log including assessment of patient's response and safety interventions per exercise log. Progress towards goals as expected. Plan for Next Visit: Treatment Visit with focus on progressing as tolerated Nasir Cruz PTA STATE LICENSE, [id number] documented in this [id number] History of Present illness Narrative* Becky Villalobos PTA - 11/30/2021 11:30 AM EDT [facility] OUT[facility] REH[facility] DAILY TREATMENT NOTE Today's Date 11/30/2021 Patient Name: Radha Almanza Date of : 1960 Current Visit #: 3 Authorized Visits: 7 Case Name: Left Knee Pain History: Pre-Treatment Pain Scale: 2 Symptoms: gradually improved Functional Diagnosis: 1. Acute pain of left knee Clinical Information: Subjective: she has been a little better since the last treatment Objective mild pain with retro walking with resistance. Treatments: Physical Therapy Exercise Log - 11/30/21 1224 OTHER Precautions/Contraindications Supervising PT: Benigno - possible lateral HS strain - gentle stretching,avoid hyperextnsion, strength and stability as tolerated Notes Visit 2: 11:25-12:10 Therapeutic Exercise (74140) Intervention standing calf and HS stretches Parameters standing adductor stretch x3 (sideways lunge) Intervention quad sets x20 Parameters stemboats x10 Intervention lateral ambulation RTB 20' x2 Parameters step ups Bosu Fw/ lat x20 Intervention Shuttle Dl #62 Sl #25 x20 Parameters walkouts L3 x5 Intervention SLR x20 Parameters Hip abd/add GTB PT Treatment Times Therex Total Time 45 Direct Treatment Time 45 Total Treatment Time 45 Goals: Physical Therapy Ortho Goals: MOBILITY: Patient will be able to ambulate for 1 hour in community without difficulty in 4 weeks. MOBILITY: Patient will be able to ambulate on uneven surfaces without difficulty in 4 weeks. MOBILITY: Patient will be able to ascend/descend stairs without difficulty in 4 weeks. MOBILITY: Patient will be able to resume desired zoe and recreational activities such as hikingand working out without pain in 4 weeks. IMPAIRMENT: Improve pain from 6/10 to <3/10 on average throughout the day in 4 weeks OTHER: Patient will increase FOTO score from 54 to at least 65 to show MDC/MCII and expected functional outcome in 4 weeks. OTHER: Patient will be able to properly demonstrate independence with HEP in 1 week. Patient Education: Quality of movement with patient demonstrated understanding. Post-Treatment Pain Scale: 2 Assessment: Patient had an expected response to treatment. Skilled Intervention demonstrated by modifications of treatment per exercise log including increased load and safety interventions per exercise log. Progress towards goals as expected. Plan for Next Visit: Treatment Visit with focus on stretches Becky Villalobos PTA STATE LICENSE, [id number] documented in this [id number] History of Present illness Narrative* Rick Ashton, DISTRIBUTION TECHNICIAN - 11/26/2021 1:00 PM EDT [facility] OUT[facility] REH[facility] DAILY TREATMENT NOTE Today's Date 11/26/2021 Patient Name: Radha Almanza Date of : 1960 Current Visit #: 2 Authorized Visits: 7 Case Name: Left Knee Pain History: Pre-Treatment Pain Scale: 1 Symptoms: gradually improved Functional Diagnosis: 1. Acute pain of left knee Clinical Information: Subjective: Pt. Reports minimal pain. Pt states L knee is very weak and fears it may buckle when she squats down. Pt. stated she rode her bike before the visit and there was no pain. Lateral pain with stairs Objective Treatments: Physical Therapy Exercise Log - 11/26/21 1306 OTHER Precautions/Contraindications Supervising PT: Benigno - possible lateral HS strain - gentle stretching,avoid hyperextnsion, strength and stability as tolerated Notes Visit 1: 1:05- Therapeutic Exercise (29319) Intervention provided written HEP handouts consisting of the following: Parameters standing calf and HS stretches Intervention quad sets w/ knee prop Parameters 4-way SLR Intervention progress to standing as tolerated - incorporate adductor stretches and lateral hip/glute strengthening Goals: Physical Therapy Ortho Goals: MOBILITY: Patient will be able to ambulate for 1 hour in community without difficulty in 4 weeks. MOBILITY: Patient will be able to ambulate on uneven surfaces without difficulty in 4 weeks. MOBILITY: Patient will be able to ascend/descend stairs without difficulty in 4 weeks. MOBILITY: Patient will be able to resume desired zoe and recreational activities such as hikingand working out without pain in 4 weeks. IMPAIRMENT: Improve pain from 6/10 to <3/10 on average throughout the day in 4 weeks OTHER: Patient will increase FOTO score from 54 to at least 65 to show MDC/MCII and expected functional outcome in 4 weeks. OTHER: Patient will be able to properly demonstrate independence with HEP in 1 week. Patient Education: Quality of movement with patient demonstrated understanding. Post-Treatment Pain Scale: 2 Assessment: Patient had an expected response to treatment. Skilled Intervention demonstrated by modifications of treatment per exercise log including increased load and safety interventions per exercise log. Progress towards goals as expected. Plan for Next Visit: Treatment Visit with focus on strengthening, Rick Ashton PTA STATE LICENSE, [id number] documented in this [id number] History of Present illness Narrative* Jade Downeya, PT - 11/23/2021 8:30 AM EDT [facility] Evaluation Today's Date 11/23/2021 Patient Name: Radha Almanza Date of : 1960 Case Name: Left Knee Pain Functional Diagnosis: 1. Acute pain of left knee Clinical Information: Subjective Referring Diagnosis: Acute Left Knee Pain History of Present Illness Subjective History: Pt reports c/o chronic posterolateral left knee pain beginning about one year ago. She describes the pain as sharp and throbbing from the knee down the lower leg when she does have it. She went to the ED and an urgent care d/t the pain and received an x-ray. She was given a kneebrace and states her sx gradually improved. She reports no known injury. She states she was shoveling a lot of gravel about a week before the pain started but had no pain or issues while working. Shereceived an injection last spring and reports relief for about one month. She reports fluctuating sx over time with extremes of significant pain and swelling to little to no pain at all. She denies nu mbness/tingling. Previous Imaging: X-ray Pain Scale Pain location: knee Average Pain: 4/10 Pain at highest: 10/10 Aggravating factors: negotiating stairs, kneeling, bending/squatting Easing factors: rest, OTC meds prn Personal Goals: Decrease pain Improve stability and activity tolerance Return to prior level of function Functional Mobility Status Functional Limitations: limited mobility Current Activity Level: active Social Support: Mosque, social, or cultural considerations to be made aware of before starting treatment: No Home Environment Current Home Environment: Setup: multi-level house Activities of Daily Living: independent with all Instrumental Activities of Daily Livingto be assessed Red Flags: None Comments: Barriers to Care: None Mosque, social, or cultural considerations to be made aware of before starting treatment: No Knee Left Knee Range of Motion: Flexion Active: 128 Passive: 136 Extension Active: 2 (hyperextnesion) Muscle Strength Flexion: 5 Extension: 5 FOTO: 54 Ankle/Foot Left Ankle/Foot Left Ankle/Foot WFL Treatments: Physical Therapy Exercise Log - 11/23/21 0910 OTHER Precautions/Contraindications Supervising PT: Benigno - possible lateral HS strain - gentle stretching,avoid hyperextnsion, strength and stability as tolerated Notes Eval: 8:45 - 9:20 Therapeutic Exercise (46744) Intervention provided written HEP handouts consisting of the following: Parameters seated calf and HS stretches Intervention quad sets w/ knee prop Parameters 4-way SLR Intervention progress to standing as tolerated - incorporate adductor stretches and lateral hip/glute strengthening PT Treatment Times Total Treatment Time 35 Goals: Physical Therapy Ortho Goals: MOBILITY: Patient will be able to ambulate for 1 hour in community without difficulty in 4 weeks. MOBILITY: Patient will be able to ambulate on uneven surfaces without difficulty in 4 weeks. MOBILITY: Patient will be able to ascend/descend stairs without difficulty in 4 weeks. MOBILITY: Patient will be able to resume desired zoe and recreational activities such as hikingand working out without pain in 4 weeks. IMPAIRMENT: Improve pain from 6/10 to <3/10 on average throughout the day in 4 weeks OTHER: Patient will increase FOTO score from 54 to at least 65 to show MDC/MCII and expected functional outcome in 4 weeks. OTHER: Patient will be able to properly demonstrate independence with HEP in 1 week. CPT Code 02556 Low 87320 Moderate 22973 High History 0 1-2 3+ Comorbidities: no PMH on file, Personal factors: chronicity or severity of the current condition Examination of body systems (elements of body structures & functions, activity limitations, and/or participation restrictions) 1-2 elements 3+ elements 4+ elements See below clinical impression Clinical Presentation Stable Evolving Unstable As evidenced by reproduction of or changes in symptoms with certain movements and reports of fluctuating symptoms over time Decision Making Low (FOTO >/= 69) Moderate (FOTO 34 - 68) High (FOTO </= 33) FOTO score= 54 Pt is a 61 y.o. female who presents to PT services with c/o left knee pain. Upon assessment, pt hasbeen found with the following impairments: decreased strength, antalgic gait, swelling, decreased stability, and pain. 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 Pt to be discharged from OP PT services if/when goals are met, if they fail to make progress with conservative management in PT, if their level of progress plateaus, or if they do not maintain compliance with attendance or HEP. At this time, it is my clinical judgment that services are medically necessary. Plan of Care Frequency of Visits: 2 times per week Duration: 4 weeks Interventions: Therapeutic Exercise (37184), Neuromuscular Re-Education (65893), Manual Therapy (71367), Therapeutic/ Functional Activities (53148), and Vasopneumatic (02376) Rehab Potential: fair Suicide Screen Signs and Symptoms of Abuse/Neglect: No Actions Taken: No Suicide Risk: Does the patient feel like ending their life today?No Actions Taken: No Patient Education Provided Pt was educated on the benefits of therapy and importance of compliance with sessions and HEP for rehabilitation. Pt was also educated on treatment diagnosis, POC, and frequency/duration of treatment. Jade Alvarado PT State License, [id number] documented in this [id number] NotePap Smear Specimen Adequacy October 21, 2021 10:15amCommentSatisfactory for evaluation. No endocervical component is identified.[facility] INTERFACED A#[id number] [facility] Work Phone: Comment on above:Satisfactory for evaluation. No endocervical component is identified.10-21-2021 NotePap Smear Specimen Adequacy October 21, 2021 10:15amComment.Satisfactory for evaluation. No endocervical component is identified.Nomios INTERFACED A#[id number] [facility] Work Phone: Comment on above:Satisfactory for evaluation. No endocervical component is identified.Evaluation note* Diagnosis Onset Date Resolution Status Inflammation of joint of left knee acute Osteoarthritis of left knee acute Breast mass, right acute [facility] [place] Work Phone: Evaluation note* Diagnosis Onset Date Resolution Status Inflammation of joint of left knee acute Osteoarthritis of left knee acute Breast mass, right acute Inflammation of joint of left knee acute Osteoarthritis of left knee acute Breast cancer, right breast acute [facility] Work Phone: Evaluation note* Diagnosis Acute pain of left knee- [facility] Onset Date Resolution Status Inflammation of joint of left knee acute Osteoarthritis of left knee acute Breast mass, right acute Inflammation of joint of left knee acute Osteoarthritis of left knee acute Breast cancer, right breast acute Breast cancer, right breast acute Breast cancer, right breast acute Encounter for education acut e Urinary tract infection acut e [facility] Work Phone: evaluation note* Diagnosis Onset Date Resolution Status Inflammation of joint of left knee acute Osteoarthritis of left knee acute Breast mass, right acute Inflammation of joint of left knee acute Osteoarthritis of left knee acute Breast cancer, right breast acute Breast cancer, right breast acute Breast cancer, right breast acute Encounter for education acut e Urinary tract infection acut e Breast cancer, right breast acute Encounter for adjustment and management of vascular access device acute [facility] Work Phone: Evaluation note* Diagnosis Onset Date Resolution Status Inflammation of joint of left knee acute Osteoarthritis of left knee acute Breast mass, right acute Inflammation of joint of left knee acute Osteoarthritis of left knee acute Breast cancer, right breast acute Breast cancer, right breast acute Breast cancer, right breast acute Encounter for education acut e Urinary tract infection acut e Breast cancer, right breast acute Encounter for adjustment and management of vascular access device acute Breast cancer, right breast acute Breast cancer, right breast acute Malodorous urine acute Left knee pain chronic Breast cancer, right breast acute Malodorous urine acute Left knee pain chronic [facility] Work Phone: Evaluation note* Diagnosis Acute pain of left [facility] of [facility]- [facility] of [facility]- [facility] of [facility]- [facility] of left knee- [facility] Diagnosis Onset Date Resolution Status Breast cancer, right breast acute Encounter for education acut e Urinary tract infection acut e Breast cancer, right breast acute Encounter for adjustment and management of vascular access device acute Breast cancer, right breast acute Breast cancer, right breast acute Malodorous urine acute Left knee pain chronic Breast cancer, right breast acute Malodorous urine acute Left knee pain chronic Breast cancer, right breast acute Left knee pain chronic Breast cancer, right breast acute Breast cancer, right breast acute Breast cancer, right breast acute Chemotherapy management, encounter for acute Neutropenia acute Breast cancer, right breast acute Chemotherapy management, encounter for acute Breast cancer, right breast acute Fluid retention acute [facility] Work Phone: Evaluation note* Diagnosis Onset Date Resolution Status Breast cancer, right breast acute Left knee pain chronic Breast cancer, right breast acute Breast cancer, right breast acute Breast cancer, right breast acute Chemotherapy management, encounter for acute Neutropenia acute Breast cancer, right breast acute Chemotherapy management, encounter for acute Breast cancer, right breast acute Fluid retention acute Breast cancer, right breast acute Breast cancer, right breast acute Breast cancer, right breast acute Breast cancer, right breast acute Breast cancer, right breast acute [facility] Work Phone: evaluation note* Diagnosis Onset Date Resolution Status Breast cancer, right breast acute Left knee pain chronic Breast cancer, right breast acute Breast cancer, right breast acute Breast cancer, right breast acute Neutropenia resolved Breast cancer, right breast acute Breast cancer, right breast acute Fluid retention resolved Breast cancer, right breast acute Breast cancer, right breast acute Breast cancer, right breast acute Breast cancer, right breast acute Breast cancer, right breast acute Muscle strain of left lower extremity acute Osteoarthritis of left knee acute Left knee pain chronic Breast cancer, right breast acute Breast cancer, right breast acute Imbalance acute Nausea acute [facility] Work Phone: evaluation note* Diagnosis Onset Date Resolution Status Breast cancer, right breast acute Breast cancer, right breast acute Fluid retention resolved Breast cancer, right breast acute Breast cancer, right breast acute Breast cancer, right breast acute Breast cancer, right breast acute Breast cancer, right breast acute Muscle strain of left lower extremity acute Osteoarthritis of left knee acute Left knee pain chronic Breast cancer, right breast acute Breast cancer, right breast acute Imbalance acute Nausea acute DJD (degenerative joint disease) of knee acute Medial meniscus tear acute Breast cancer, right breast acute Breast cancer, right breast acute Nausea acute [facility] Work Phone: Evaluation note* Diagnosis Primary osteoarthritis of left knee- [facility] Diagnosis Onset Date Resolution Status Breast cancer, right breast acute Muscle strain of left lower extremity acute Osteoarthritis of left knee acute Left knee pain chronic Breast cancer, right breast acute Breast cancer, right breast acute Imbalance acute Nausea acute DJD (degenerative joint disease) of knee acute Medial meniscus tear acute Breast cancer, right breast acute Breast cancer, right breast acute Nausea acute Orthopedic aftercare acute Left knee pain chronic Osteoarthritis of left knee acute [facility] Work Phone: Evaluation note* Diagnosis Onset Date Resolution Status Breast cancer, right breast acute Breast cancer, right breast acute Imbalance acute Nausea acute DJD (degenerative joint disease) of knee acute Medial meniscus tear acute Breast cancer, right breast acute Breast cancer, right breast acute Nausea acute Orthopedic aftercare acute Left knee pain chronic Osteoarthritis of left knee acute [facility] Work Phone: Evaluation note* Diagnosis Onset Date Resolution Status Breast cancer, right breast acute Nausea acute Orthopedic aftercare acute Left knee pain chronic Osteoarthritis of left knee acute Cerebrovascular disease acut e Memory loss acute [facility] Work Phone: Evaluation note* Diagnosis Onset Date Resolution Status Left knee pain chronic Osteoarthritis of left knee acute Cerebrovascular disease acut e Memory loss acute Breast cancer, right breast acute [facility] Work Phone: Evaluation note* Diagnosis Primary osteoarthritis of left knee- Primary Primary osteoarthritis of left knee- Primary Primary osteoarthritis of left knee [facility] Diagnosis Status post total left knee replacement- Primary [facility] Diagnosis Onset Date Resolution Status Osteoarthritis of left knee acute Memory loss acute Cerebrovascular disease 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 Breast cancer, right breast acute Abdominal pain acute Breast cancer, right breast acute Sinusitis acute [facility] Work Phone: Evaluation note* Diagnosis Status post total left knee replacement- Primary [facility] Diagnosis Status post total left knee replacement- Primary [facility] Diagnosis Status post total left knee replacement [facility] Diagnosis Status post total left knee replacement- Primary [facility] Diagnosis Status post total left knee replacement- Primary [facility] Diagnosis Status post total left knee replacement- Primary [facility] Diagnosis Status post total left knee replacement- Primary [facility]No [facility]* Diagnosis Onset Date Resolution Status Breast cancer, right breast chronic [facility] Work Phone: Evaluation note* Diagnosis Peroneal tendinitis, right- [facility] Peroneal tendonitis, right- Primary Peroneal tendinitis, right [facility]* Diagnosis Onset Date Resolution Status Abdominal pain acute Breast cancer, right breast chronic [facility] Work Phone: Evaluation note* Diagnosis Onset Date Resolution Status Abdominal pain acute Breast cancer, right breast chronic Abdominal pain acute Breast cancer, right breast chronic [facility] Work Phone: Evaluation note* Diagnosis Chronic right-sided low back pain without sciatica documented in this encounter [facility]* Diagnosis Annual physical exam- Primary Routine general medical examination at a health care facility Generalized anxiety disorder (CMS/HCC) Generalized anxiety disorder Moderate major depression (CMS/HCC) Major depressive disorder, single episode, moderate Primary insomnia Persistent disorder of initiating or maintaining sleep 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, unspecified estrogen receptor status ([facility]/HCC) Subclinical hypothyroidism (CMS/HCC) Other specified acquired hypothyroidism Primary osteoarthritis involving multiple joints Acute midline low back pain without sciatica Restless legs syndrome Restless legs syndrome (RLS) Need for immunization against influenza Need for prophylactic vaccination and inoculation against influenza Acute midline low back pain without sciatica documented in this encounter [facility] Healthcare[facility]* Diagnosis Closed fracture of distal end of left radius, unspecified fracture morphology, initial encounter [facility] Diagnosis Primary insomnia Persistent disorder of initiating or maintaining sleep documented in this encounter [facility]* Diagnosis Myopia, bilateral- Primary Myopia Regular astigmatism, bilateral Presbyopia [facility] Closed fracture of distal end of left radius, unspecified fracture morphology, initial encounter- Primary Arthritis of carpometacarpal (CMC) joint of both thumbs [facility] Arthritis of carpometacarpal (CMC) joint of both thumbs- Primary [facility] Diagnosis Annual physical exam- Primary Routine general medical examination at a health care facility Generalized anxiety disorder Generalized anxiety disorder Moderate major depression (HCC) Major depressive disorder, single episode, moderate Primary insomnia Persistent disorder of initiating or maintaining sleep Malignant neoplasm of right female breast, unspecified estrogen receptor status, unspecified site of breast (HCC) Primary osteoarthritis involving multiple joints Restless legs syndrome Restless legs syndrome (RLS) Fatigue, unspecified type Subclinical hypothyroidism Other specified acquired hypothyroidism documented in this encounter [facility] Narrative No data available for this section [facility] Patient's home Plan of care note* Visit Details Visit Type -PT Initial Evalu ation Discipline -Physical Therapy Problems Problem Start Date Status Goals Interventions Assess and Instruct Home Visit Disciplines: Physical Therapy 09/15/2022 Active 2 goals linked to scheduled/documented interventions 4 goal interventions scheduled/documented in this visit Goals Goal Associated Problem Outcome Goal Met? Visit Notes Medications Assess and Instruct Home Visit No Home Care Plan Assess and Instruct Home Visit No Interventions Intervention Associated Problem/Goal Status Variance Visit Notes Instruct Medication Management Problem:Assess and Instruct Home Visit Goal:Medications Scheduled Falls Problem:Assess and Instruct Home Visit Goal:Home Care Plan Scheduled Safety Problem:Assess and Instruct Home Visit Goal:Home Care Plan Scheduled Plan for Next Visit Problem:Assess and Instruct Home Visit Goal:Home Care Plan Scheduled [facility] Visit Details Visit Type -SN Non-OASIS SOC Discipline -Mcfp Problems Problem Start Date Status Goals Interventions Assess and Instruct Home Visit Disciplines: Mcfp 09/13/2022 Resolved on 09/14/2022 1 goal linked to scheduled/documented intervention 4 goal interventions scheduled/documented in this visit Medication Management Disciplines: Mcfp 09/13/2022 Resolved on 09/14/2022 1 goal linked to scheduled/documented intervention 1 goal intervention scheduled/documented in this visit Pain Management Disciplines: Mcfp 09/13/2022 Resolved on 09/14/2022 1 goal linked to scheduled/documented intervention 1 goal intervention scheduled/documented in this visit Wound Care and/or Skin Problems Disciplines: Mcfp 09/13/2022 Resolved on 09/14/2022 1 goal linked to scheduled/documented intervention 1 goal intervention scheduled/documented in this visit Gastrointestinal Disciplines: Mcfp 09/13/2022 Resolved on 09/14/2022 1 goal linked to scheduled/documented intervention 1 goal intervention scheduled/documented in this visit Circulation Disciplines: Mcfp 09/13/2022 Resolved on 09/14/2022 1 goal linked to scheduled/documented intervention 1 goal intervention scheduled/documented in this visit Assess and Instruct Home Visit Disciplines: Mcfp 09/14/2022 Active 1 goal linked to scheduled/documented intervention 4 goal interventions scheduled/documented in this visit Medication Management Disciplines: Mcfp 09/14/2022 Active 1 goal linked to scheduled/documented intervention 1 goal intervention scheduled/documented in this visit Pain Management Disciplines: Mcfp 09/14/2022 Active 1 goal linked to scheduled/documented intervention 1 goal intervention scheduled/documented in this visit Other Disciplines: Mcfp 09/14/2022 Active - 1 problem intervention scheduled/documented in this visit Goals Goal Associated Problem Outcome Goal Met? Visit Notes Home Care Plan Assess and Instruct Home Visit No Medications Medication Management No Pain Pain Management No Wound/Incision Wound Care and/or Skin Problems No Gastrointestinal Gastrointestinal No Circulation Circulation No Home Care Plan Assess and Instruct Home Visit No Medications Medication Management No Pain Pain Management No Interventions Intervention Associated Problem/Goal Status Variance Visit Notes Falls Problem:Assess and Instruct Home Visit Goal:Home Care Plan Completed Clinician taught: caregiver 4-10 Patient IS at risk for falls (a score of 6 or greater is a predictor of future falls) and clinician instructed: proper footwear, improved lighting, remove clutter and throw rugs and non-slip mats in tubs/showers, use assistive equipment, keep cellphone on you at all times Patient/caregiver was able to demonstrate 75% via teachback Safety Problem:Assess and Instruct Home Visit Goal:Home Care Plan Completed Assessed patient vulnerability and home safety risks: environmental Equipment reviewed walker Patient at risk for harm or abuse none Family members involved in safety plan for Level 2 or 3 n/a Discharge Planning Problem:Assess and Instruct Home Visit Goal:Home Care Plan Completed Prior to 2 week post op appt with Dr. Rivera on 09/23/22, pt states 100% understanding. Plan for Next Visit Problem:Assess and Instruct Home Visit Goal:Home Care Plan Completed Follow up education for next visit: wound care, medication, disease: education and management, nursing assessment Skilled intervention at next visit: same Instruct Medication Management Problem:Medication Management Goal:Medications Completed Home Visit Med Education: Medication list reconciled. Medication profile and in-home medication list updated with appropriate changes. Discrepanices noted during home visit: none Instructed patient on dosing, purpose, and side effects. Medication education completed today on Keflex, ASA, Tylenol, Oxycodone, Flexeril, Miralax, Senna medication(s). Patient/caregiver is able to teach back 75% of instruction. Assess Pain Characteristics and Current Pain Regimen and Instruct Methods of Pain Relief Problem:Pain Management Goal:Pain Completed Wound/Incision Problem:Wound Care and/or Skin Problems Goal:Wound/Incision Completed Pt given [facility] number to call 19/12 if she has any issues. Pt stated 100% understanding. Instruct Alteration in GI Function Problem:Gastrointest inal Goal:Gastrointestina l Completed Pt states she has problems with constipation. Took miralax and senna last night Instruct on Alteration in Circulation Problem:Circulation Goal:Circulation Completed Pt to elevated and ice often Falls Problem:Assess and Instruct Home Visit Goal:Home Care Plan Scheduled Safety Problem:Assess and Instruct Home Visit Goal:Home Care Plan Scheduled Discharge Planning Problem:Assess and Instruct Home Visit Goal:Home Care Plan Scheduled Plan for Next Visit Problem:Assess and Instruct Home Visit Goal:Home Care Plan Scheduled Instruct Medication Management Problem:Medication Management Goal:Medications Scheduled Assess Pain Characteristics and Current Pain Regimen and Instruct Methods of Pain Relief Problem:Pain Management Goal:Pain Scheduled Other Problem:Other Scheduled [facility] Visit Details Visit Type -DISTRIBUTION TECHNICIAN Routine Visi t Discipline -Physical Therapy Problems Problem Start Date Status Goals Interventions Assess and Instruct Home Visit Disciplines: Physical Therapy 09/15/2022 Active 3 goals linked to scheduled/documented interventions 5 goal interventions scheduled/documented in this visit Home Exercise Program Disciplines: Physical Therapy 09/15/2022 Active 1 goal linked to scheduled/documented intervention 1 goal intervention scheduled/documented in this visit Mobility Disciplines: Physical Therapy 09/15/2022 Active 1 goal linked to scheduled/documented intervention 1 goal intervention scheduled/documented in this visit Goals Goal Associated Problem Outcome Goal Met? Visit Notes Pain Assess and Instruct Home Visit No Medications Assess and Instruct Home Visit No Home Care Plan Assess and Instruct Home Visit No Home Exercise Program Home Exercise Program No Mobility Mobility No Interventions Intervention Associated Problem/Goal Status Variance Visit Notes Pain Management Problem:Assess and Instruct Home Visit Goal:Pain Completed Patient reports: pain in L knee Clinician taught: patient Clinician instructed on: DISTRIBUTION TECHNICIAN provided education to pt. on pain management techniques including icing/elevation, repositioning, amb to reduce symptoms Patient/caregiver is able to teach back 75% of instruction. Instruct Medication Management Problem:Assess and Instruct Home Visit Goal:Medications Completed with variance Task already performed Falls Problem:Assess and Instruct Home Visit Goal:Home Care Plan Completed Clinician taught: patient Clinician instructed: proper footwear, assistive device usage, keep frequently used items in reach and emergency response system and/or keep phone on you and reviewed universal fall precautions to reduce risk of falling. Patient/caregiver was able to demonstrate 75% via teachback Safety Problem:Assess and Instruct Home Visit Goal:Home Care Plan Completed Assessed patient vulnerability and home safety risks: fall risk Equipment reviewed FWW Patient at risk for harm or abuse no Family members involved in safety plan Plan for Next Visit Problem:Assess and Instruct Home Visit Goal:Home Care Plan Completed Follow up education for next visit: continue to progress with activities as tolerated, safety precautions Skilled intervention at next visit: DISTRIBUTION TECHNICIAN will provide skilled education on proper technique and appropriate progression of ther ex/act/amb as tolerated to continue to progress towards LTGs. Home Exercise Program Problem:Home Exercise Program Goal:Home Exercise Program Completed Patient reports: completing HEP daily Clinician taught: patient Clinician instructed on: DISTRIBUTION TECHNICIAN reviewed appropriate progressive ther ex/act and amb for increased strengthening/act tolerance/ROM for improved overall functional mobility and safety during transfers and continued progression towards LTGs. Patient/caregiver is able to teach back 75% of instruction. Instruct Mobility Problem:Mobility Goal:Mobility Completed Patient reports: frequent mobility Clinician taught: patient Clinician instructed on: DISTRIBUTION TECHNICIAN provides skilled instruct to ambulate with FWW with DISTRIBUTION TECHNICIAN SBA during - provides cues/education to improve overall gait sequencing/pattern to maximize safety and decrease fall risk in order to progress independence towards STGs/LTGs. DISTRIBUTION TECHNICIAN provided education to pt. on upright posture, staying within close proximity of walker, heel toe gait and step through gait pattern for improved overall gait sequencing. pt. demonstrates improved heel strike with cueing and decreased WB through UEs gradually throughout activity. pt. completed entire flight down basement stairs with education on step by step sequencing, increased safety awareness and pacing throughout activity to reduce risk of falling. pt tolerated activity well this visit, no increased c/o of symptoms. Patient/caregiver is able to teach back 75% of instruction. [facility] Visit Details Visit Type -INTERNAL GRINDER HH Routine Discipline -Mcfp Problems Problem Start Date Status Goals Interventions Assess and Instruct Home Visit Disciplines: Mcfp 09/14/2022 Active 1 goal linked to scheduled/documented intervention 4 goal interventions scheduled/documented in this visit Medication Management Disciplines: Mcfp 09/14/2022 Active 1 goal linked to scheduled/documented intervention 1 goal intervention scheduled/documented in this visit Pain Management Disciplines: Mcfp 09/14/2022 Active 1 goal linked to scheduled/documented intervention 1 goal intervention scheduled/documented in this visit Other Disciplines: Mcfp 09/14/2022 Active - 1 problem intervention scheduled/documented in this visit Goals Goal Associated Problem Outcome Goal Met? Visit Notes Home Care Plan Assess and Instruct Home Visit No Medications Medication Management No Pain Pain Management No Interventions Intervention Associated Problem/Goal Status Variance Visit Notes Falls Problem:Assess and Instruct Home Visit Goal:Home Care Plan Completed No Falls Safety Problem:Assess and Instruct Home Visit Goal:Home Care Plan Completed Discharge Planning Problem:Assess and Instruct Home Visit Goal:Home Care Plan Completed Plan for Next Visit Problem:Assess and Instruct Home Visit Goal:Home Care Plan Completed Instruct Medication Management Problem:Medication Management Goal:Medications Completed patient taking meds as prescribed. Assess Pain Characteristics and Current Pain Regimen and Instruct Methods of Pain Relief Problem:Pain Management Goal:Pain Completed Other Problem:Other Completed [facility] Visit Details Visit Type -SN Non-OASIS SOC Discipline -Mcfp Problems Problem Start Date Status Goals Interventions Assess and Instruct Home Visit Disciplines: Mcfp 09/13/2022 Resolved on 09/14/2022 1 goal linked to scheduled/documented intervention 4 goal interventions scheduled/documented in this visit Medication Management Disciplines: Mcfp 09/13/2022 Resolved on 09/14/2022 1 goal linked to scheduled/documented intervention 1 goal intervention scheduled/documented in this visit Pain Management Disciplines: Mcfp 09/13/2022 Resolved on 09/14/2022 1 goal linked to scheduled/documented intervention 1 goal intervention scheduled/documented in this visit Wound Care and/or Skin Problems Disciplines: Mcfp 09/13/2022 Resolved on 09/14/2022 1 goal linked to scheduled/documented intervention 1 goal intervention scheduled/documented in this visit Gastrointestinal Disciplines: Mcfp 09/13/2022 Resolved on 09/14/2022 1 goal linked to scheduled/documented intervention 1 goal intervention scheduled/documented in this visit Circulation Disciplines: Mcfp 09/13/2022 Resolved on 09/14/2022 1 goal linked to scheduled/documented intervention 1 goal intervention scheduled/documented in this visit Assess and Instruct Home Visit Disciplines: Mcfp 09/14/2022 Active 1 goal linked to scheduled/documented intervention 4 goal interventions scheduled/documented in this visit Medication Management Disciplines: Mcfp 09/14/2022 Active 1 goal linked to scheduled/documented intervention 1 goal intervention scheduled/documented in this visit Pain Management Disciplines: Mcfp 09/14/2022 Active 1 goal linked to scheduled/documented intervention 1 goal intervention scheduled/documented in this visit Other Disciplines: Mcfp 09/14/2022 Active - 1 problem intervention scheduled/documented in this visit Goals Goal Associated Problem Outcome Goal Met? Visit Notes Home Care Plan Assess and Instruct Home Visit No Medications Medication Management No Pain Pain Management No Wound/Incision Wound Care and/or Skin Problems No Gastrointestinal Gastrointestinal No Circulation Circulation No Home Care Plan Assess and Instruct Home Visit No Medications Medication Management No Pain Pain Management No Interventions Intervention Associated Problem/Goal Status Variance Visit Notes Falls Problem:Assess and Instruct Home Visit Goal:Home Care Plan Completed Clinician taught: caregiver 4-10 Patient IS at risk for falls (a score of 6 or greater is a predictor of future falls) and clinician instructed: proper footwear, improved lighting, remove clutter and throw rugs and non-slip mats in tubs/showers, use assistive equipment, keep cellphone on you at all times Patient/caregiver was able to demonstrate 75% via teachback Safety Problem:Assess and Instruct Home Visit Goal:Home Care Plan Completed Assessed patient vulnerability and home safety risks: environmental Equipment reviewed walker Patient at risk for harm or abuse none Family members involved in safety plan for Level 2 or 3 n/a Discharge Planning Problem:Assess and Instruct Home Visit Goal:Home Care Plan Completed Prior to 2 week post op appt with Dr. Rivera on 09/23/22, pt states 100% understanding. Plan for Next Visit Problem:Assess and Instruct Home Visit Goal:Home Care Plan Completed Follow up education for next visit: wound care, medication, disease: education and management, nursing assessment Skilled intervention at next visit: same Instruct Medication Management Problem:Medication Management Goal:Medications Completed Home Visit Med Education: Medication list reconciled. Medication profile and in-home medication list updated with appropriate changes. Discrepanices noted during home visit: none Instructed patient on dosing, purpose, and side effects. Medication education completed today on Keflex, ASA, Tylenol, Oxycodone, Flexeril, Miralax, Senna medication(s). Patient/caregiver is able to teach back 75% of instruction. Assess Pain Characteristics and Current Pain Regimen and Instruct Methods of Pain Relief Problem:Pain Management Goal:Pain Completed Wound/Incision Problem:Wound Care and/or Skin Problems Goal:Wound/Incision Completed Pt given [facility] number to call 19/12 if she has any issues. Pt stated 100% understanding. Instruct Alteration in GI Function Problem:Gastrointest inal Goal:Gastrointestina l Completed Pt states she has problems with constipation. Took miralax and senna last night Instruct on Alteration in Circulation Problem:Circulation Goal:Circulation Completed Pt to elevated and ice often Falls Problem:Assess and Instruct Home Visit Goal:Home Care Plan Scheduled Safety Problem:Assess and Instruct Home Visit Goal:Home Care Plan Scheduled Discharge Planning Problem:Assess and Instruct Home Visit Goal:Home Care Plan Scheduled Plan for Next Visit Problem:Assess and Instruct Home Visit Goal:Home Care Plan Scheduled Instruct Medication Management Problem:Medication Management Goal:Medications Scheduled Assess Pain Characteristics and Current Pain Regimen and Instruct Methods of Pain Relief Problem:Pain Management Goal:Pain Scheduled Other Problem:Other Scheduled [facility] Visit Details Visit Type -DISTRIBUTION TECHNICIAN Routine Visi t Discipline -Physical Therapy Problems Problem Start Date Status Goals Interventions Assess and Instruct Home Visit Disciplines: Physical Therapy 09/15/2022 Active 3 goals linked to scheduled/documented interventions 5 goal interventions scheduled/documented in this visit Home Exercise Program Disciplines: Physical Therapy 09/15/2022 Active 1 goal linked to scheduled/documented intervention 1 goal intervention scheduled/documented in this visit Mobility Disciplines: Physical Therapy 09/15/2022 Active 1 goal linked to scheduled/documented intervention 1 goal intervention scheduled/documented in this visit Goals Goal Associated Problem Outcome Goal Met? Visit Notes Pain Assess and Instruct Home Visit No Medications Assess and Instruct Home Visit No Home Care Plan Assess and Instruct Home Visit No Home Exercise Program Home Exercise Program No Mobility Mobility No Interventions Intervention Associated Problem/Goal Status Variance Visit Notes Pain Management Problem:Assess and Instruct Home Visit Goal:Pain Completed pt. denies any pain currently. Pt. states compliance with icing/elevating, HEP, repositioning and taking pain medication prn to reduce symptoms. Instruct Medication Management Problem:Assess and Instruct Home Visit Goal:Medications Completed with variance Task already performed Falls Problem:Assess and Instruct Home Visit Goal:Home Care Plan Completed Clinician taught: patient Clinician instructed: proper footwear, assistive device usage, keep frequently used items in reach and emergency response system and/or keep phone on you and reviewed universal fall precautions to reduce risk of falling. Patient/caregiver was able to demonstrate 80% via teachback Safety Problem:Assess and Instruct Home Visit Goal:Home Care Plan Completed Assessed patient vulnerability and home safety risks: fall risk Equipment reviewed FWW Patient at risk for harm or abuse no Family members involved in safety plan Plan for Next Visit Problem:Assess and Instruct Home Visit Goal:Home Care Plan Completed Follow up education for next visit: continue to progress with activities as tolerated, safety precautions, progress HEP Skilled intervention at next visit: DISTRIBUTION TECHNICIAN will provide skilled education on proper technique and appropriate progression of ther ex/act/amb as tolerated to continue to progress towards LTGs. Home Exercise Program Problem:Home Exercise Program Goal:Home Exercise Program Completed Patient reports: compliance with HEP Clinician taught: patient Clinician instructed on: reviewed appropriate progression of HEP for increased strengthening/ROM and improved functional mobility and continued progression towards LTGs. Patient/caregiver is able to teach back 80% of instruction. Instruct Mobility Problem:Mobility Goal:Mobility Completed Patient reports: frequent mobility Clinician taught: patient Clinician instructed on: DISTRIBUTION TECHNICIAN provides skilled instruct to ambulate with FWW with DISTRIBUTION TECHNICIAN SBA/S during - provides cues/education to improve overall gait sequencing/pattern to maximize safety and decrease fall risk in order to progress independence towards STGs/LTGs. DISTRIBUTION TECHNICIAN provided education to pt. on upright posture, staying within close proximity of walker, heel toe gait and step through gait pattern for improved overall gait sequencing. pt. demonstrates improved heel strike with cueing and decreased WB through UEs gradually throughout activity. Patient/caregiver is able to teach back 80% of instruction. [facility] Visit Details Visit Type -DISTRIBUTION TECHNICIAN Routine Visi t Discipline -Physical Therapy Problems Problem Start Date Status Goals Interventions Assess and Instruct Home Visit Disciplines: Physical Therapy 09/15/2022 Active 3 goals linked to scheduled/documented interventions 5 goal interventions scheduled/documented in this visit Home Exercise Program Disciplines: Physical Therapy 09/15/2022 Active 1 goal linked to scheduled/documented intervention 1 goal intervention scheduled/documented in this visit Mobility Disciplines: Physical Therapy 09/15/2022 Active 1 goal linked to scheduled/documented intervention 1 goal intervention scheduled/documented in this visit Goals Goal Associated Problem Outcome Goal Met? Visit Notes Pain Assess and Instruct Home Visit No Medications Assess and Instruct Home Visit No Home Care Plan Assess and Instruct Home Visit No Home Exercise Program Home Exercise Program No Mobility Mobility No Interventions Intervention Associated Problem/Goal Status Variance Visit Notes Pain Management Problem:Assess and Instruct Home Visit Goal:Pain Completed Patient reports: pain in knee, increased pain at night Clinician taught: patient Clinician instructed on: DISTRIBUTION TECHNICIAN reviewed pain management techniques including icing/elevation, repositioning, amb to reduce symptoms2 Patient/caregiver is able to teach back 100% of instruction. Instruct Medication Management Problem:Assess and Instruct Home Visit Goal:Medications Completed with variance Task already performed Falls Problem:Assess and Instruct Home Visit Goal:Home Care Plan Completed Clinician taught: patient Clinician instructed: proper footwear, assistive device usage, keep frequently used items in reach and emergency response system and/or keep phone on you and reviewed universal fall precautiosn to reduce risk of falling. Patient/caregiver was able to demonstrate 100% via teachback Safety Problem:Assess and Instruct Home Visit Goal:Home Care Plan Completed Assessed patient vulnerability and home safety risks: fall risk Equipment reviewed FWW Patient at risk for harm or abuse no Family members involved in safety plan Plan for Next Visit Problem:Assess and Instruct Home Visit Goal:Home Care Plan Completed Follow up education for next visit: continue to progress with activities as tolerated, safety precautions Skilled intervention at next visit: DISTRIBUTION TECHNICIAN will provide skilled education on proper technique and appropriate progression of ther ex/act/amb as tolerated to continue to progress towards LTGs. Home Exercise Program Problem:Home Exercise Program Goal:Home Exercise Program Completed Patient reports: compliance with HEP Clinician taught: patient Clinician instructed on: DISTRIBUTION TECHNICIAN reviewed importance of completing HEP 3x a day with emphasis on knee flexion/extension exercises to facilitate increased mobility with carryover during functional mobility. Patient/caregiver is able to teach back 85% of instruction. Instruct Mobility Problem:Mobility Goal:Mobility Completed Patient reports: frequent mobility Clinician taught: patient Clinician instructed on: DISTRIBUTION TECHNICIAN provides skilled instruct to ambulate with FWW with DISTRIBUTION TECHNICIAN S during - provides cues/education to improve overall gait sequencing/pattern to maximize safety and decrease fall risk in order to progress independence towards STGs/LTGs. DISTRIBUTION TECHNICIAN provided education to pt. on upright posture, staying within close proximity of walker, heel toe gait and step through gait pattern for improved overall gait sequencing. pt. demonstrates improved heel strike with cueing and decreased WB through UEs gradually throughout activity. Improved postural awareness noted and carryover during functional mobility. Patient/caregiver is able to teach back 85% of instruction. documented in this encounter [facility] Plan of care note* Visit Details Visit Type -DISTRIBUTION TECHNICIAN Routine Visi t Discipline -Physical Therapy Problems Problem Start Date Status Goals Interventions Assess and Instruct Home Visit Disciplines: Physical Therapy 09/15/2022 Active 3 goals linked to scheduled/documented interventions 5 goal interventions scheduled/documented in this visit Home Exercise Program Disciplines: Physical Therapy 09/15/2022 Active 1 goal linked to scheduled/documented intervention 1 goal intervention scheduled/documented in this visit Mobility Disciplines: Physical Therapy 09/15/2022 Active 1 goal linked to scheduled/documented intervention 1 goal intervention scheduled/documented in this visit Goals Goal Associated Problem Outcome Goal Met? Visit Notes Pain Assess and Instruct Home Visit No Medications Assess and Instruct Home Visit No Home Care Plan Assess and Instruct Home Visit No Home Exercise Program Home Exercise Program No Mobility Mobility No Interventions Intervention Associated Problem/Goal Status Variance Visit Notes Pain Management Problem:Assess and Instruct Home Visit Goal:Pain Completed Patient reports: intermittent pain in L knee. states just taking Tylenol yesterday and icing throughout the day. Clinician taught: patient Clinician instructed on: reviewed pain management techniques including icing/elevating, HEP and amb throughtout the day Patient/caregiver is able to teach back 100% of instruction. Instruct Medication Management Problem:Assess and Instruct Home Visit Goal:Medications Completed with variance Task already performed Falls Problem:Assess and Instruct Home Visit Goal:Home Care Plan Completed Clinician taught: patient Clinician instructed: proper footwear, assistive device usage, keep frequently used items in reach and emergency response system and/or keep phone on you and reviewed universal fall precautions to reduce risk of falling. Patient/caregiver was able to demonstrate 100% via teachback Safety Problem:Assess and Instruct Home Visit Goal:Home Care Plan Completed Assessed patient vulnerability and home safety risks: fall risk Equipment reviewed FWW Patient at risk for harm or abuse no Family members involved in safety plan Plan for Next Visit Problem:Assess and Instruct Home Visit Goal:Home Care Plan Completed Follow up education for next visit: continue to progress with activities as tolerated, safety precautions, home entry/exit Skilled intervention at next visit: DISTRIBUTION TECHNICIAN will provide skilled education on proper technique and appropriate progression of ther ex/act/amb as tolerated to continue to progress towards LTGs. Home Exercise Program Problem:Home Exercise Program Goal:Home Exercise Program Completed Patient reports: understanding and compliance with HEP Clinician taught: patient Clinician instructed on: DISTRIBUTION TECHNICIAN provides education to pt. on appropriate progression of ther ex/act/amb for increased strengthening/ROM for improved overall functional mobility and continued progression towards LTGs. Patient/caregiver is able to teach back 90% of instruction. Instruct Mobility Problem:Mobility Goal:Mobility Completed Patient reports: no falls, use of walker for mobility Clinician taught: patient Clinician instructed on: pt completes amb aroung home with FWW at S with cueing on increased knee flexion/heel toe gait with good return demo noted. Improved posture and sequencing. pt. amb with SPC at SBA/S with cueing for upright posture and proper sequencing, no LOB noted. Improved technique and sequencing noted. Pt. presents with step through gait, intermittent decreased L LE stance time at times. Educated pt. on pacing and increased safety during directional changes. pt completed home entry/exit without AD at S and cueing for pacing and sequencing, no LOB to note. Patient/caregiver is able to teach back 90% of instruction. [facility] Visit Details Visit Type -DISTRIBUTION TECHNICIAN Routine Visi t Discipline -Physical Therapy Problems Problem Start Date Status Goals Interventions Assess and Instruct Home Visit Disciplines: Physical Therapy 09/15/2022 Active 3 goals linked to scheduled/documented interventions 5 goal interventions scheduled/documented in this visit Home Exercise Program Disciplines: Physical Therapy 09/15/2022 Active 1 goal linked to scheduled/documented intervention 1 goal intervention scheduled/documented in this visit Mobility Disciplines: Physical Therapy 09/15/2022 Active 1 goal linked to scheduled/documented intervention 1 goal intervention scheduled/documented in this visit Goals Goal Associated Problem Outcome Goal Met? Visit Notes Pain Assess and Instruct Home Visit No Medications Assess and Instruct Home Visit No Home Care Plan Assess and Instruct Home Visit No Home Exercise Program Home Exercise Program No Mobility Mobility No Interventions Intervention Associated Problem/Goal Status Variance Visit Notes Pain Management Problem:Assess and Instruct Home Visit Goal:Pain Completed Patient reports: pain in knee, increased pain at night Clinician taught: patient Clinician instructed on: DISTRIBUTION TECHNICIAN reviewed pain management techniques including icing/elevation, repositioning, amb to reduce symptoms2 Patient/caregiver is able to teach back 100% of instruction. Instruct Medication Management Problem:Assess and Instruct Home Visit Goal:Medications Completed with variance Task already performed Falls Problem:Assess and Instruct Home Visit Goal:Home Care Plan Completed Clinician taught: patient Clinician instructed: proper footwear, assistive device usage, keep frequently used items in reach and emergency response system and/or keep phone on you and reviewed universal fall precautiosn to reduce risk of falling. Patient/caregiver was able to demonstrate 100% via teachback Safety Problem:Assess and Instruct Home Visit Goal:Home Care Plan Completed Assessed patient vulnerability and home safety risks: fall risk Equipment reviewed FWW Patient at risk for harm or abuse no Family members involved in safety plan Plan for Next Visit Problem:Assess and Instruct Home Visit Goal:Home Care Plan Completed Follow up education for next visit: continue to progress with activities as tolerated, safety precautions Skilled intervention at next visit: DISTRIBUTION TECHNICIAN will provide skilled education on proper technique and appropriate progression of ther ex/act/amb as tolerated to continue to progress towards LTGs. Home Exercise Program Problem:Home Exercise Program Goal:Home Exercise Program Completed Patient reports: compliance with HEP Clinician taught: patient Clinician instructed on: DISTRIBUTION TECHNICIAN reviewed importance of completing HEP 3x a day with emphasis on knee flexion/extension exercises to facilitate increased mobility with carryover during functional mobility. Patient/caregiver is able to teach back 85% of instruction. Instruct Mobility Problem:Mobility Goal:Mobility Completed Patient reports: frequent mobility Clinician taught: patient Clinician instructed on: DISTRIBUTION TECHNICIAN provides skilled instruct to ambulate with FWW with DISTRIBUTION TECHNICIAN S during - provides cues/education to improve overall gait sequencing/pattern to maximize safety and decrease fall risk in order to progress independence towards STGs/LTGs. DISTRIBUTION TECHNICIAN provided education to pt. on upright posture, staying within close proximity of walker, heel toe gait and step through gait pattern for improved overall gait sequencing. pt. demonstrates improved heel strike with cueing and decreased WB through UEs gradually throughout activity. Improved postural awareness noted and carryover during functional mobility. Patient/caregiver is able to teach back 85% of instruction. [facility] Visit Details Visit Type -DISTRIBUTION TECHNICIAN Routine Visi t Discipline -Physical Therapy Problems Problem Start Date Status Goals Interventions Assess and Instruct Home Visit Disciplines: Physical Therapy 09/15/2022 Active 3 goals linked to scheduled/documented interventions 5 goal interventions scheduled/documented in this visit Home Exercise Program Disciplines: Physical Therapy 09/15/2022 Active 1 goal linked to scheduled/documented intervention 1 goal intervention scheduled/documented in this visit Mobility Disciplines: Physical Therapy 09/15/2022 Active 1 goal linked to scheduled/documented intervention 1 goal intervention scheduled/documented in this visit Goals Goal Associated Problem Outcome Goal Met? Visit Notes Pain Assess and Instruct Home Visit No Medications Assess and Instruct Home Visit No Home Care Plan Assess and Instruct Home Visit No Home Exercise Program Home Exercise Program No Mobility Mobility No Interventions Intervention Associated Problem/Goal Status Variance Visit Notes Pain Management Problem:Assess and Instruct Home Visit Goal:Pain Completed Patient reports: pain in L knee Clinician taught: patient Clinician instructed on: DISTRIBUTION TECHNICIAN provided education to pt. on pain management techniques including icing/elevation, repositioning, amb to reduce symptoms Patient/caregiver is able to teach back 75% of instruction. Instruct Medication Management Problem:Assess and Instruct Home Visit Goal:Medications Completed with variance Task already performed Falls Problem:Assess and Instruct Home Visit Goal:Home Care Plan Completed Clinician taught: patient Clinician instructed: proper footwear, assistive device usage, keep frequently used items in reach and emergency response system and/or keep phone on you and reviewed universal fall precautions to reduce risk of falling. Patient/caregiver was able to demonstrate 75% via teachback Safety Problem:Assess and Instruct Home Visit Goal:Home Care Plan Completed Assessed patient vulnerability and home safety risks: fall risk Equipment reviewed FWW Patient at risk for harm or abuse no Family members involved in safety plan Plan for Next Visit Problem:Assess and Instruct Home Visit Goal:Home Care Plan Completed Follow up education for next visit: continue to progress with activities as tolerated, safety precautions Skilled intervention at next visit: DISTRIBUTION TECHNICIAN will provide skilled education on proper technique and appropriate progression of ther ex/act/amb as tolerated to continue to progress towards LTGs. Home Exercise Program Problem:Home Exercise Program Goal:Home Exercise Program Completed Patient reports: completing HEP daily Clinician taught: patient Clinician instructed on: DISTRIBUTION TECHNICIAN reviewed appropriate progressive ther ex/act and amb for increased strengthening/act tolerance/ROM for improved overall functional mobility and safety during transfers and continued progression towards LTGs. Patient/caregiver is able to teach back 75% of instruction. Instruct Mobility Problem:Mobility Goal:Mobility Completed Patient reports: frequent mobility Clinician taught: patient Clinician instructed on: DISTRIBUTION TECHNICIAN provides skilled instruct to ambulate with FWW with DISTRIBUTION TECHNICIAN SBA during - provides cues/education to improve overall gait sequencing/pattern to maximize safety and decrease fall risk in order to progress independence towards STGs/LTGs. DISTRIBUTION TECHNICIAN provided education to pt. on upright posture, staying within close proximity of walker, heel toe gait and step through gait pattern for improved overall gait sequencing. pt. demonstrates improved heel strike with cueing and decreased WB through UEs gradually throughout activity. pt. completed entire flight down basement stairs with education on step by step sequencing, increased safety awareness and pacing throughout activity to reduce risk of falling. pt tolerated activity well this visit, no increased c/o of symptoms. Patient/caregiver is able to teach back 75% of instruction. [facility] Visit Details Visit Type -DISTRIBUTION TECHNICIAN Routine Visi t Discipline -Physical Therapy Problems Problem Start Date Status Goals Interventions Assess and Instruct Home Visit Disciplines: Physical Therapy 09/15/2022 Active 3 goals linked to scheduled/documented interventions 5 goal interventions scheduled/documented in this visit Home Exercise Program Disciplines: Physical Therapy 09/15/2022 Active 1 goal linked to scheduled/documented intervention 1 goal intervention scheduled/documented in this visit Mobility Disciplines: Physical Therapy 09/15/2022 Active 1 goal linked to scheduled/documented intervention 1 goal intervention scheduled/documented in this visit Goals Goal Associated Problem Outcome Goal Met? Visit Notes Pain Assess and Instruct Home Visit No Medications Assess and Instruct Home Visit No Home Care Plan Assess and Instruct Home Visit No Home Exercise Program Home Exercise Program No Mobility Mobility No Interventions Intervention Associated Problem/Goal Status Variance Visit Notes Pain Management Problem:Assess and Instruct Home Visit Goal:Pain Completed pt. denies any pain currently. Pt. states compliance with icing/elevating, HEP, repositioning and taking pain medication prn to reduce symptoms. Instruct Medication Management Problem:Assess and Instruct Home Visit Goal:Medications Completed with variance Task already performed Falls Problem:Assess and Instruct Home Visit Goal:Home Care Plan Completed Clinician taught: patient Clinician instructed: proper footwear, assistive device usage, keep frequently used items in reach and emergency response system and/or keep phone on you and reviewed universal fall precautions to reduce risk of falling. Patient/caregiver was able to demonstrate 80% via teachback Safety Problem:Assess and Instruct Home Visit Goal:Home Care Plan Completed Assessed patient vulnerability and home safety risks: fall risk Equipment reviewed FWW Patient at risk for harm or abuse no Family members involved in safety plan Plan for Next Visit Problem:Assess and Instruct Home Visit Goal:Home Care Plan Completed Follow up education for next visit: continue to progress with activities as tolerated, safety precautions, progress HEP Skilled intervention at next visit: DISTRIBUTION TECHNICIAN will provide skilled education on proper technique and appropriate progression of ther ex/act/amb as tolerated to continue to progress towards LTGs. Home Exercise Program Problem:Home Exercise Program Goal:Home Exercise Program Completed Patient reports: compliance with HEP Clinician taught: patient Clinician instructed on: reviewed appropriate progression of HEP for increased strengthening/ROM and improved functional mobility and continued progression towards LTGs. Patient/caregiver is able to teach back 80% of instruction. Instruct Mobility Problem:Mobility Goal:Mobility Completed Patient reports: frequent mobility Clinician taught: patient Clinician instructed on: DISTRIBUTION TECHNICIAN provides skilled instruct to ambulate with FWW with DISTRIBUTION TECHNICIAN SBA/S during - provides cues/education to improve overall gait sequencing/pattern to maximize safety and decrease fall risk in order to progress independence towards STGs/LTGs. DISTRIBUTION TECHNICIAN provided education to pt. on upright posture, staying within close proximity of walker, heel toe gait and step through gait pattern for improved overall gait sequencing. pt. demonstrates improved heel strike with cueing and decreased WB through UEs gradually throughout activity. Patient/caregiver is able to teach back 80% of instruction. [facility] Visit Details Visit Type -SN HH Non-[place]/ Discipline DC Discipline -[facility] Problems Problem Start Date Status Goals Interventions Wound Care and/or Skin Problems Disciplines: [facility] 09/14/2022 Resolved on 09/27/2022 1 goal linked to scheduled/documented intervention 1 goal intervention scheduled/documented in this visit Assess and Instruct Home Visit Disciplines: Mcfp 09/14/2022 Resolved on 09/27/2022 1 goal linked to scheduled/documented intervention 4 goal interventions scheduled/documented in this visit Medication Management Disciplines: Mcfp 09/14/2022 Resolved on 09/27/2022 1 goal linked to scheduled/documented intervention 1 goal intervention scheduled/documented in this visit Pain Management Disciplines: Mcfp 09/14/2022 Resolved on 09/27/2022 1 goal linked to scheduled/documented intervention 1 goal intervention scheduled/documented in this visit Other Disciplines: Mcfp 09/14/2022 Resolved on 09/27/2022 1 goal linked to scheduled/documented intervention 1 problem intervention scheduled/documented in this visit Assess POC Synopsis Disciplines: Mcfp 09/14/2022 Resolved on 09/27/2022 1 goal linked to scheduled/documented intervention Goals Goal Associated Problem Outcome Goal Met? Visit Notes Wound/Incision Wound Care and/or Skin Problems Completed Yes Home Care Plan Assess and Instruct Home Visit Completed Yes Medications Medication Management Completed Yes Pain Pain Management Completed Yes Other Goal Other Completed Yes Depression Assessment Assess POC Synopsis Completed Yes Interventions Intervention Associated Problem/Goal Status Variance Visit Notes Wound/Incision Problem:Wound Care and/or Skin Problems Goal:Wound/Incision Completed Non removable drsg intact Falls Problem:Assess and Instruct Home Visit Goal:Home Care Plan Completed Clinician taught: patient 4-10 Patient IS at risk for falls (a score of 6 or greater is a predictor of future falls) and clinician instructed: proper footwear and walker Patient/caregiver was able to demonstrate 100% via teachback Safety Problem:Assess and Instruct Home Visit Goal:Home Care Plan Completed Assessed patient vulnerability and home safety risks: yes Equipment reviewed walker Patient at risk for harm or abuse no Family members involved in safety plan for Level 2 or 3 na Discharge Planning Problem:Assess and Instruct Home Visit Goal:Home Care Plan Completed Home Visit DC Planning: Spoke with patient about DC planning. Assessed for limited ambulation related to left knee surgery DC will occur when: patient/caregiver is able to demonstrate independence in care Anticipate DC: On time Patient and/or caregiver response to discharge planning education: verbalized an understanding Plan for Next Visit Problem:Assess and Instruct Home Visit Goal:Home Care Plan Completed Follow up education for next visit: na Skilled intervention at next visit: na Instruct Medication Management Problem:Medication Management Goal:Medications Completed Home Visit Med Education: Medication list reconciled. Medication profile and in-home medication list updated with appropriate changes. Discrepanices noted during home visit: none Instructed patient on dosing, purpose, and side effects. Medication education completed today on home medication(s). Patient/caregiver is able to teach back 100% of instruction. Assess Pain Characteristics and Current Pain Regimen and Instruct Methods of Pain Relief Problem:Pain Management Goal:Pain Completed Other Problem:Other Completed [facility] Visit Details Visit Type -DISTRIBUTION TECHNICIAN Routine Visi t Discipline -Physical Therapy Problems Problem Start Date Status Goals Interventions Assess and Instruct Home Visit Disciplines: Physical Therapy 09/15/2022 Active 3 goals linked to scheduled/documented interventions 5 goal interventions scheduled/documented in this visit Home Exercise Program Disciplines: Physical Therapy 09/15/2022 Active 1 goal linked to scheduled/documented intervention 1 goal intervention scheduled/documented in this visit Mobility Disciplines: Physical Therapy 09/15/2022 Active 1 goal linked to scheduled/documented intervention 1 goal intervention scheduled/documented in this visit Goals Goal Associated Problem Outcome Goal Met? Visit Notes Pain Assess and Instruct Home Visit No Medications Assess and Instruct Home Visit No Home Care Plan Assess and Instruct Home Visit No Home Exercise Program Home Exercise Program No Mobility Mobility No Interventions Intervention Associated Problem/Goal Status Variance Visit Notes Pain Management Problem:Assess and Instruct Home Visit Goal:Pain Completed Patient reports: increased pain throughout the night, pt. states having pain management regimen she follows Clinician taught: patient Clinician instructed on: Reviewed appropriate pain management techniques to reduce symptoms. Patient/caregiver is able to teach back 100% of instruction. Instruct Medication Management Problem:Assess and Instruct Home Visit Goal:Medications Completed with variance Task already performed Falls Problem:Assess and Instruct Home Visit Goal:Home Care Plan Completed Clinician taught: patient Clinician instructed: proper footwear, assistive device usage, keep frequently used items in reach and emergency response system and/or keep phone on you and reviewed universal fall precautions to reduce risk of falling. Patient/caregiver was able to demonstrate 100% via teachback Safety Problem:Assess and Instruct Home Visit Goal:Home Care Plan Completed Assessed patient vulnerability and home safety risks: fall risk Equipment reviewed SPC Patient at risk for harm or abuse no Family members involved in safety plan Plan for Next Visit Problem:Assess and Instruct Home Visit Goal:Home Care Plan Completed Follow up education for next visit: DC by PT to start OP PT. Home Exercise Program Problem:Home Exercise Program Goal:Home Exercise Program Completed Patient reports: compliance with HEP Clinician taught: patient Clinician instructed on: reviewed appropriate progression of HEP with emphasis on stretches and knee flexion/extension for improved ROM and carryover during functional mobility tasks. Patient/caregiver is able to teach back 100% of instruction. Instruct Mobility Problem:Mobility Goal:Mobility Completed Patient reports: use of cane for mobility in home Clinician taught: patient Clinician instructed on: Pt amb around home with use of SPC and S progressing to KS with step through gait pattern, decreased heel strike on L LE d/t lack of full extension without assist. DISTRIBUTION TECHNICIAN continues to provide education to pt. on upright posture and safety during ambulation with good carryover. Pt. completed home entry through front door with S and SPC with cueing for proper cane placement and sequencing with good carryover noted. Pt. challenged with increased act tolerance and amb outside on driveway and road at least 200 ft. x 1 with education on proper technique and safety throughout activity. No LOB/No SOB to note. Improved sequencing and heel toe gait as able. Patient/caregiver is able to teach back 100% of instruction. [facility] Visit Details Visit Type -PT PATRICK acuña Discipline -Physical Therapy Problems Problem Start Date Status Goals Interventions Assess and Instruct Home Visit Disciplines: Physical Therapy 09/15/2022 Resolved on 09/30/2022 3 goals linked to scheduled/documented interventions 4 goal interventions scheduled/documented in this visit Home Exercise Program Disciplines: Physical Therapy 09/15/2022 Resolved on 09/30/2022 1 goal linked to scheduled/documented intervention Mobility Disciplines: Physical Therapy 09/15/2022 Resolved on 09/30/2022 1 goal linked to scheduled/documented intervention Goals Goal Associated Problem Outcome Goal Met? Visit Notes Pain Assess and Instruct Home Visit Completed Yes Medications Assess and Instruct Home Visit Completed Yes Home Care Plan Assess and Instruct Home Visit Completed Yes Home Exercise Program Home Exercise Program Completed Yes Mobility Mobility Completed Yes Interventions Intervention Associated Problem/Goal Status Variance Visit Notes Instruct Medication Management Problem:Assess and Instruct Home Visit Goal:Medications Scheduled Falls Problem:Assess and Instruct Home Visit Goal:Home Care Plan Scheduled Safety Problem:Assess and Instruct Home Visit Goal:Home Care Plan Scheduled Plan for Next Visit Problem:Assess and Instruct Home Visit Goal:Home Care Plan Scheduled [facility] Visit Details Visit Type -DISTRIBUTION TECHNICIAN Routine Visi t Discipline -Physical Therapy Problems Problem Start Date Status Goals Interventions Assess and Instruct Home Visit Disciplines: Physical Therapy 09/15/2022 Active 3 goals linked to scheduled/documented interventions 5 goal interventions scheduled/documented in this visit Home Exercise Program Disciplines: Physical Therapy 09/15/2022 Active 1 goal linked to scheduled/documented intervention 1 goal intervention scheduled/documented in this visit Mobility Disciplines: Physical Therapy 09/15/2022 Active 1 goal linked to scheduled/documented intervention 1 goal intervention scheduled/documented in this visit Goals Goal Associated Problem Outcome Goal Met? Visit Notes Pain Assess and Instruct Home Visit No Medications Assess and Instruct Home Visit No Home Care Plan Assess and Instruct Home Visit No Home Exercise Program Home Exercise Program No Mobility Mobility No Interventions Intervention Associated Problem/Goal Status Variance Visit Notes Pain Management Problem:Assess and Instruct Home Visit Goal:Pain Completed Patient reports: pain in knee, increased pain at night Clinician taught: patient Clinician instructed on: DISTRIBUTION TECHNICIAN reviewed pain management techniques including icing/elevation, repositioning, amb to reduce symptoms2 Patient/caregiver is able to teach back 100% of instruction. Instruct Medication Management Problem:Assess and Instruct Home Visit Goal:Medications Completed with variance Task already performed Falls Problem:Assess and Instruct Home Visit Goal:Home Care Plan Completed Clinician taught: patient Clinician instructed: proper footwear, assistive device usage, keep frequently used items in reach and emergency response system and/or keep phone on you and reviewed universal fall precautiosn to reduce risk of falling. Patient/caregiver was able to demonstrate 100% via teachback Safety Problem:Assess and Instruct Home Visit Goal:Home Care Plan Completed Assessed patient vulnerability and home safety risks: fall risk Equipment reviewed FWW Patient at risk for harm or abuse no Family members involved in safety plan Plan for Next Visit Problem:Assess and Instruct Home Visit Goal:Home Care Plan Completed Follow up education for next visit: continue to progress with activities as tolerated, safety precautions Skilled intervention at next visit: DISTRIBUTION TECHNICIAN will provide skilled education on proper technique and appropriate progression of ther ex/act/amb as tolerated to continue to progress towards LTGs. Home Exercise Program Problem:Home Exercise Program Goal:Home Exercise Program Completed Patient reports: compliance with HEP Clinician taught: patient Clinician instructed on: DISTRIBUTION TECHNICIAN reviewed importance of completing HEP 3x a day with emphasis on knee flexion/extension exercises to facilitate increased mobility with carryover during functional mobility. Patient/caregiver is able to teach back 85% of instruction. Instruct Mobility Problem:Mobility Goal:Mobility Completed Patient reports: frequent mobility Clinician taught: patient Clinician instructed on: DISTRIBUTION TECHNICIAN provides skilled instruct to ambulate with FWW with DISTRIBUTION TECHNICIAN S during - provides cues/education to improve overall gait sequencing/pattern to maximize safety and decrease fall risk in order to progress independence towards STGs/LTGs. DISTRIBUTION TECHNICIAN provided education to pt. on upright posture, staying within close proximity of walker, heel toe gait and step through gait pattern for improved overall gait sequencing. pt. demonstrates improved heel strike with cueing and decreased WB through UEs gradually throughout activity. Improved postural awareness noted and carryover during functional mobility. Patient/caregiver is able to teach back 85% of instruction. [facility] Visit Details Visit Type -DISTRIBUTION TECHNICIAN Routine Visi t Discipline -Physical Therapy Problems Problem Start Date Status Goals Interventions Assess and Instruct Home Visit Disciplines: Physical Therapy 09/15/2022 Active 3 goals linked to scheduled/documented interventions 5 goal interventions scheduled/documented in this visit Home Exercise Program Disciplines: Physical Therapy 09/15/2022 Active 1 goal linked to scheduled/documented intervention 1 goal intervention scheduled/documented in this visit Mobility Disciplines: Physical Therapy 09/15/2022 Active 1 goal linked to scheduled/documented intervention 1 goal intervention scheduled/documented in this visit Goals Goal Associated Problem Outcome Goal Met? Visit Notes Pain Assess and Instruct Home Visit No Medications Assess and Instruct Home Visit No Home Care Plan Assess and Instruct Home Visit No Home Exercise Program Home Exercise Program No Mobility Mobility No Interventions Intervention Associated Problem/Goal Status Variance Visit Notes Pain Management Problem:Assess and Instruct Home Visit Goal:Pain Completed Patient reports: increased pain throughout the night, pt. states having pain management regimen she follows Clinician taught: patient Clinician instructed on: Reviewed appropriate pain management techniques to reduce symptoms. Patient/caregiver is able to teach back 100% of instruction. Instruct Medication Management Problem:Assess and Instruct Home Visit Goal:Medications Completed with variance Task already performed Falls Problem:Assess and Instruct Home Visit Goal:Home Care Plan Completed Clinician taught: patient Clinician instructed: proper footwear, assistive device usage, keep frequently used items in reach and emergency response system and/or keep phone on you and reviewed universal fall precautions to reduce risk of falling. Patient/caregiver was able to demonstrate 100% via teachback Safety Problem:Assess and Instruct Home Visit Goal:Home Care Plan Completed Assessed patient vulnerability and home safety risks: fall risk Equipment reviewed SPC Patient at risk for harm or abuse no Family members involved in safety plan Plan for Next Visit Problem:Assess and Instruct Home Visit Goal:Home Care Plan Completed Follow up education for next visit: DC by PT to start OP PT. Home Exercise Program Problem:Home Exercise Program Goal:Home Exercise Program Completed Patient reports: compliance with HEP Clinician taught: patient Clinician instructed on: reviewed appropriate progression of HEP with emphasis on stretches and knee flexion/extension for improved ROM and carryover during functional mobility tasks. Patient/caregiver is able to teach back 100% of instruction. Instruct Mobility Problem:Mobility Goal:Mobility Completed Patient reports: use of cane for mobility in home Clinician taught: patient Clinician instructed on: Pt amb around home with use of SPC and S progressing to KS with step through gait pattern, decreased heel strike on L LE d/t lack of full extension without assist. DISTRIBUTION TECHNICIAN continues to provide education to pt. on upright posture and safety during ambulation with good carryover. Pt. completed home entry through front door with S and SPC with cueing for proper cane placement and sequencing with good carryover noted. Pt. challenged with increased act tolerance and amb outside on driveway and road at least 200 ft. x 1 with education on proper technique and safety throughout activity. No LOB/No SOB to note. Improved sequencing and heel toe gait as able. Patient/caregiver is able to teach back 100% of instruction. [facility] Visit Details Visit Type -PT Non-[place] Age ncy Discharge Discipline -Physical Therapy Problems Problem Start Date Status Goals Interventions Assess and Instruct Home Visit Disciplines: Physical Therapy 09/15/2022 Resolved on 09/30/2022 3 goals linked to scheduled/documented interventions 4 goal interventions scheduled/documented in this visit Home Exercise Program Disciplines: Physical Therapy 09/15/2022 Resolved on 09/30/2022 1 goal linked to scheduled/documented intervention Mobility Disciplines: Physical Therapy 09/15/2022 Resolved on 09/30/2022 1 goal linked to scheduled/documented intervention Goals Goal Associated Problem Outcome Goal Met? Visit Notes Pain Assess and Instruct Home Visit Completed Yes Medications Assess and Instruct Home Visit Completed Yes Home Care Plan Assess and Instruct Home Visit Completed Yes Home Exercise Program Home Exercise Program Completed Yes Mobility Mobility Completed Yes Interventions Intervention Associated Problem/Goal Status Variance Visit Notes Instruct Medication Management Problem:Assess and Instruct Home Visit Goal:Medications Scheduled Falls Problem:Assess and Instruct Home Visit Goal:Home Care Plan Scheduled Safety Problem:Assess and Instruct Home Visit Goal:Home Care Plan Scheduled Plan for Next Visit Problem:Assess and Instruct Home Visit Goal:Home Care Plan Scheduled [facility] Actions CP assess, VS WNL. Dressing changed. It had liftd too much from the top. No additional needs at visit. Narratives Homebound Status Criteria 1: Assistive Device(s): Cane and Walker Needs assistance of at least 1 to leave home Criteria 2: Patient confined to home due to unsteady gait/poor balance Type of Home: 1-story house/ trailer [facility] Narratives Patient discharged from [facility] ing with goals met. Patient is to see surgeon tomorrow and will have dressing removed and then gela remoed. Patient dressing is dry and intact to left knee and patient understands the importance of ice and elevation. Patient informed that therapy will be doing an agency discharge on 09/29 and she already has outpatient scheduled to start 10/03. Patient voiced no concerns and feels she is doing okay. Patient is trying ot to use her oxycodone but has it if she needs for increased pain. Patient is using both her walker and cane to ambualted throughout her home. [facility]No reason for referral information availableWCleveland [facility] Work Phone: Reason for visit Narrative* Auth/Cert Specialty Diagnoses / Procedures Referred By Joseph mckeon Referred To Contact Referral ID Status Reason Start Date Expiration Date Visits Re quested Visits Authorized [id number] 1 1 [facility] Chief Complaint Chief Complaint Description Start Date forehead to discuss lift Preliminary chief co mplaint data, not yet signed by the author as of Instructions Instruction Description Start Date CompletedPatient advised to follow-up with Primary Care Physician for BMI management. 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 Advance Directives and Livin g Will 09/21/2021 12:00 AM Advance Directive Response Recorded Date/ Time Advance Directives No March 8:54am Living Will No September 24, 2021 1:59pm Power of Nipping Machine Operator No September 24 1:59pm Advance Directive Response Recorded Date/ Time Advance Directives No October 26 11:11am Living Will No October 26, 2021 1 1:11am Power of Nipping Machine Operator No October 26, 2021 11:11am Advance Directive Response Recorded Date/ Time Advance Directives No December 15 10:53am Living Will No December 15, 2021 10:53am Power of Nipping Machine Operator No December 15 10:53am Advance Directive Response Recorded Date/ Time Advance Directives No December 15 9:53am Living Will No December 15, 2021 9:53am Power of Nipping Machine Operator No December 15 9:53am Documents on File Type Date Recorded Patient Marketing Research Intern Expl anation Advance Directives and Living Will 08/11/2022 Latest Code Status on File Code Status Date Activated Date Inactivated Comments Full Code 09/14/2022 3:05 PM Code Statu s reflects patient's informed choice. Code Status History Code Status Date Activated Date Inactivated Comments Full Code 09/12/2022 11:31 AM 09/12/2022 9:05 PM Documents on File Type Date Recorded Patient Marketing Research Intern Expl anation Advance Directives and Living Will 08/11/2022 Latest Code Status on File Code Status Date Activated Date Inactivated Comments Full Code 09/14/2022 3:05 PM Code Statu s reflects patient's informed choice. Code Status History Code Status Date Activated Date Inactivated Comments Full Code 09/12/2022 11:31 AM 09/12/2022 9:05 PM Advance Directive Response Recorded Date/ Time Advance Directives No October 06 1:49pm Living Will No October 06, 2022 1 :49pm Power of Nipping Machine Operator No October 06, 2022 1:49pm Advance Directive Response Recorded Date/ Time Advance Directives No October 06 12:49pm Living Will No October 06, 2022 1 2:49pm Power of Nipping Machine Operator No October 06, 2022 12:49pm Date Activated Date Inactivated Comments 09/14/2022 3:05 PM 05/21/2024 4:30 AM Code Status reflects patient's informed choice. Date Activated Date Inactivated Comments 09/12/2022 11:31 AM 09/12/2022 9:05 PM Advance Directive Response Recorded Date/ Time Advance Directives No October 06 1:49pm Assessments There may be information available, but it has not been provided by the sender. Review of System There may be information available, but it has not been provided by the sender. Family History No Family History Records Found Relationship Condition Age at Onset Recorded Date/T danna mother Malignant neoplasm of colon Unknown father Dementia Unknown History of Present Illness There may be information available, but it has not been provided by the sender. Summary Purpose Chief Complaint and Reason for Visit Chief Complaint [facility]-COVID 19 REQ UIRED TESTING [facility]-COVID 19 REQUIRED TESTING LEFT KNEE xray ABNORMAL MAMM BREAST BIOPSY BIRADS 5 R BREAST MASS Reason for Visit Inflammation of join t of left knee Osteoarthritis of left knee Breast mass, right Chief Complaint [facility]-COVID 19 REQ UIRED TESTING [facility]-COVID 19 REQUIRED TESTING LEFT KNEE xray ABNORMAL MAMM BREAST BIOPSY BIRADS 5 R BREAST MASS LEFT KNEE RT BREAST LUMPECTOMY US GUIDED NDL LOC NEOPROBE RT BREAST LUMPECTOMY US GUIDED NDL LOC NEOPROBE Reason for Visit Inflammation of join t of left knee Osteoarthritis of left knee Breast mass, right Inflammation of joint of left knee Osteoarthritis of left knee Breast cancer, right breast Chief Complaint [facility]-COVID 19 REQ UIRED TESTING LEFT KNEE xray ABNORMAL MAMM BREAST BIOPSY BIRADS 5 R BREAST MASS LEFT KNEE RT BREAST LUMPECTOMY US GUIDED NDL LOC NEOPROBE RT BREAST LUMPECTOMY US GUIDED NDL LOC NEOPROBE NEW-BREAST CA MED ONC PRE-CHEMO RIGHT BREAST CANCER BREAST CANCER CHEMO ED CONCERN WITH UTI Reason for Visit Inflammation of join t of left knee Osteoarthritis of left knee Breast mass, right Inflammation of joint of left knee Osteoarthritis of left knee Breast cancer, right breast Breast cancer, right breast Breast cancer, right breast Encounter for education Urinary tract infection Chief Complaint [facility]-COVID 19 REQ UIRED TESTING LEFT KNEE xray ABNORMAL MAMM BREAST BIOPSY BIRADS 5 R BREAST MASS LEFT KNEE RT BREAST LUMPECTOMY US GUIDED NDL LOC NEOPROBE RT BREAST LUMPECTOMY US GUIDED NDL LOC NEOPROBE NEW-BREAST CA MED ONC PRE-CHEMO RIGHT BREAST CANCER BREAST CANCER CHEMO ED CONCERN WITH UTI INSERTION PORT LT INSERTION PORT LT Reason for Visit Inflammation of join t of left knee Osteoarthritis of left knee Breast mass, right Inflammation of joint of left knee Osteoarthritis of left knee Breast cancer, right breast Breast cancer, right breast Breast cancer, right breast Encounter for education Urinary tract infection Breast cancer, right breast Encounter for adjustment and management of vascular access device Chief Complaint LEFT KNEE xray ABNORMAL MAMM BREAST BIOPSY BIRADS 5 R BREAST MASS LEFT KNEE RT BREAST LUMPECTOMY US GUIDED NDL LOC NEOPROBE RT BREAST LUMPECTOMY US GUIDED NDL LOC NEOPROBE NEW-BREAST CA PRE-CHEMO RIGHT BREAST CANCER BREAST CANCER CHEMO ED CONCERN WITH UTI INSERTION PORT LT INSERTION PORT LT 2WKS LABS REVIEW BONE SCAN/CT'S 2WKS LABS TOX CHECK MED ONC 1WK LABS TREATMENT Reason for Visit Inflammation of join t of left knee Osteoarthritis of left knee Breast mass, right Inflammation of joint of left knee Osteoarthritis of left knee Breast cancer, right breast Breast cancer, right breast Breast cancer, right breast Encounter for education Urinary tract infection Breast cancer, right breast Encounter for adjustment and management of vascular access device Breast cancer, right breast Breast cancer, right breast Malodorous urine Left knee pain Breast cancer, right breast Malodorous urine Left knee pain Chief Complaint PRE-CHEMO RIGHT BREAST CANCER BREAST CANCER CHEMO ED CONCERN WITH UTI INSERTION PORT LT INSERTION PORT LT 2WKS LABS REVIEW BONE SCAN/CT'S 2WKS LABS TOX CHECK 1WK LABS TREATMENT 1WK LABS TREATMENT Consult 2WKS LABS TOX CHECK 1WK LABS T/C 1WK LABS T/C BREAST CA MED ONC 3WKS LABS Reason for Visit Breast cancer, right breast Encounter for education Urinary tract infection Breast cancer, right breast Encounter for adjustment and management of vascular access device Breast cancer, right breast Breast cancer, right breast Malodorous urine Left knee pain Breast cancer, right breast Malodorous urine Left knee pain Breast cancer, right breast Left knee pain Breast cancer, right breast Breast cancer, right breast Breast cancer, right breast Chemotherapy management, encounter for Neutropenia Breast cancer, right breast Chemotherapy management, encounter for Breast cancer, right breast Fluid retention Chief Complaint 1WK LABS TREATMENT Consult 2WKS LABS TOX CHECK 1WK LABS T/C 1WK LABS T/C BREAST CA 3WKS LABS OTV OTV otv OTV MED ONC final otv Reason for Visit Breast cancer, right breast Left knee pain Breast cancer, right breast Breast cancer, right breast Breast cancer, right breast Chemotherapy management, encounter for Neutropenia Breast cancer, right breast Chemotherapy management, encounter for Breast cancer, right breast Fluid retention Breast cancer, right breast Breast cancer, right breast Breast cancer, right breast Breast cancer, right breast Breast cancer, right breast Chief Complaint 1WK LABS TREATMENT Consult 2WKS LABS TOX CHECK 1WK LABS T/C 1WK LABS T/C BREAST CA 3WKS LABS OTV OTV otv OTV final otv left knee MED ONC 8WKS LABS LEFT KNEE PAIN survivorship Reason for Visit Breast cancer, right breast Left knee pain Breast cancer, right breast Breast cancer, right breast Breast cancer, right breast Neutropenia Breast cancer, right breast Breast cancer, right breast Fluid retention Breast cancer, right breast Breast cancer, right breast Breast cancer, right breast Breast cancer, right breast Breast cancer, right breast Muscle strain of left lower extremity Osteoarthritis of left knee Left knee pain Breast cancer, right breast Breast cancer, right breast Imbalance Nausea Chief Complaint 1WK LABS T/C BREAST CA 3WKS LABS OTV OTV otv OTV final otv left knee 8WKS LABS LEFT KNEE PAIN survivorship Left Knee xray 1 MONTH F/U POST RT R26.49 LYMPHEDEMA,BR CANCER/RX HERE LABS/CHECK WBC REVIEW MRI MED ONC LEFT KNEE ARTHROSCOPY PARTIAL MEDIAL MENISCECTOMY LEFT KNEE ARTHROSCOPY PARTIAL MEDIAL MENISCECTOMY Reason for Visit Breast cancer, right breast Breast cancer, right breast Fluid retention Breast cancer, right breast Breast cancer, right breast Breast cancer, right breast Breast cancer, right breast Breast cancer, right breast Muscle strain of left lower extremity Osteoarthritis of left knee Left knee pain Breast cancer, right breast Breast cancer, right breast Imbalance Nausea DJD (degenerative joint disease) of knee Medial meniscus tear Breast cancer, right breast Breast cancer, right breast Nausea Chief Complaint final otv left knee 8WKS LABS LEFT KNEE PAIN survivorship Left Knee xray 1 MONTH F/U POST RT R26.49 LABS/CHECK WBC REVIEW MRI MED ONC LEFT KNEE ARTHROSCOPY PARTIAL MEDIAL MENISCECTOMY LEFT KNEE ARTHROSCOPY PARTIAL MEDIAL MENISCECTOMY LYMPHEDEMA,BR CANCER/RX HERE left knee LEFT KNEE left knee Reason for Visit Breast cancer, right breast Muscle strain of left lower extremity Osteoarthritis of left knee Left knee pain Breast cancer, right breast Breast cancer, right breast Imbalance Nausea DJD (degenerative joint disease) of knee Medial meniscus tear Breast cancer, right breast Breast cancer, right breast Nausea Orthopedic aftercare Left knee pain Osteoarthritis of left knee Chief Complaint 8WKS LABS LEFT KNEE PAIN survivorship Left Knee xray 1 MONTH F/U POST RT R26.49 LABS/CHECK WBC REVIEW MRI MED ONC LEFT KNEE ARTHROSCOPY PARTIAL MEDIAL MENISCECTOMY LEFT KNEE ARTHROSCOPY PARTIAL MEDIAL MENISCECTOMY LYMPHEDEMA,BR CANCER/RX HERE left knee LEFT KNEE left knee Reason for Visit Breast cancer, right breast Breast cancer, right breast Imbalance Nausea DJD (degenerative joint disease) of knee Medial meniscus tear Breast cancer, right breast Breast cancer, right breast Nausea Orthopedic aftercare Left knee pain Osteoarthritis of left knee Chief Complaint R26.49 LABS/CHECK WBC REVIEW MRI MED ONC LEFT KNEE ARTHROSCOPY PARTIAL MEDIAL MENISCECTOMY LEFT KNEE ARTHROSCOPY PARTIAL MEDIAL MENISCECTOMY LYMPHEDEMA,BR CANCER/RX HERE left knee LEFT KNEE left knee WHITE MATTER DISEASE E ORDERS Reason for Visit Breast cancer, right breast Nausea Orthopedic aftercare Left knee pain Osteoarthritis of left knee Cerebrovascular disease Memory loss Chief Complaint LEFT KNEE left knee WHITE MATTER DISEASE E ORDERS 4 month f/u MED ONC SCREENING Reason for Visit Left knee pain Osteoarthritis of left knee Cerebrovascular disease Memory loss Breast cancer, right breast Chief Complaint left knee WHITE MATTER DISEASE E ORDERS 4 month f/u SCREENING MED ONC 6MO LABS BREAST CANCER BREAST CANCER EORDER Reason for Visit Osteoarthritis of le ft knee Memory loss Cerebrovascular disease Breast cancer, right breast Abdominal pain Breast cancer, right breast Sinusitis Chief Complaint MED ONC Chief Complaint 6MO LABS MED ONC Reason for Visit Breast cancer, right breast Chief Complaint SCREENING MED ONC 6 MONTH, LABS, REVIEW MAMMO Reason for Visit Abdominal pain Breast cancer, right breast Chief Complaint SCREENING 6 MONTH, LABS, REVIEW MAMMO ABD PAIN 3WKS SU[facility]DEV BARRERA REVIEW CTAW MED ONC Reason for Visit Abdominal pain Breast cancer, right breast Abdominal pain Breast cancer, right breast Chief Complaint Admit Date SCREENING August 26, 2024 10: 07am Reason for Referral Specialty Diagnoses / Procedures Referred By Joseph mckeon Referred To Contact Rehabilitation Diagnoses Acute pain of left knee Reginaldo Pedraza, [address] [place] [address] [address] Referral ID Status Reason Start Date Expiration Date V isits Requested Visits Authorized [id number] Pending Review 09/21/2021 09/21/2022 1 1 Specialty Diagnoses / Procedures Referred By Joseph mckeon Referred To Contact Rehabilitation Diagnoses Peroneal tendinitis, right [address] [place] [place] [address] [facility] [address] [place] [address] Referral ID Status Reason Start Date Expiration Date V isits Requested Visits Authorized [id number] Authorized 07/25/2023 07/24/2024 1 1 Additional Source Comments Reason for Visit (unrecogniz ed section and content) Reason For Visit Description Cosmetic Consult Preliminary reason f or visit data, not yet signed by the author as of forehead to discuss lift Reason Comments Physical Therapy Specialty Diagnoses / Procedures Referred By Contac t Referred To Contact Rehabilitation Diagnoses Acute pain of left knee Reginaldo Pedraza, DO [facility] [address] [place] [address] [facility] 2 [facility] [place] [address] Referral ID Status Reason Start Date Expiration Date V isits Requested Visits Authorized [id number] Pending Review 09/21/2021 09/21/2022 9 9 Referral ID Status Reason Start Date Expiration Date V isits Requested Visits Authorized [id number] Authorized 09/21/2021 09/21/2022 7 7 Reason Comments Pain Reason Comments Pre-op Exam Left knee Reason Comments Difficulty Walking Specialty Diagnoses / Procedures Referred By Contac t Referred To Contact Referral ID Status Reason Start Date Expiration Date Visits Re quested Visits Authorized [id number] 1 1 Reason Onset Date Comments Medication Refill 09/19/2022 Reason Onset Date Comments Medication Refill 09/28/2022 Reason Comments Post-op Lt tkr Specialty Diagnoses / Procedures Referred By Contac t Referred To Contact Rehabilitation Diagnoses Status post total left knee replacement Helen Rivera MD [address] [place] [phone] [facility] [address] [place] [address] Referral ID Status Reason Start Date Expiration Date Visits Re quested Visits Authorized [id number] Closed 09/19/2022 09/19/2023 13 1 Referral ID Status Reason Start Date Expiration Date V isits Requested Visits Authorized [id number] Authorized 09/19/2022 09/19/2023 13 20 Reason Comments Follow-up Wound Check Specialty Diagnoses / Procedures Referred By Contac t Referred To Contact Rehabilitation Diagnoses Peroneal tendinitis, right [place] [address] [place] [address] [facility] [address] [place] [address] Referral ID Status Reason Start Date Expiration Date V isits Requested Visits Authorized [id number] Authorized 07/25/2023 07/24/2024 7 7 Reason Comments Med Refill Reason Comments Annual Exam Reason Comments Injury Patient states she g ot a brace at [facility] and she had a right sided brace on her left. Reason Comments Blurry Vision Both Eyes Reason Comments Pain Had fx in Apr 2024 s een here. States never followed up, wore brace 6 weeks. Pain Reason Comments Annual Exam No lab prior to visi t. INFORMATION SOURCE (unrecogn ized section and content) DATE CREATED AUTHOR 05/20/2020 [facility] DATE CREATED AUTHOR AUTHOR'S ORGANIZ ATION 08/03/2020 [facility] DATE CREATED AUTHOR AUTHOR'S ORGANIZ ATION 08/10/2021 [facility] dical Specialist DATE CREATED AUTHOR AUTHOR'S ORGANIZ ATION 06/21/2022 [facility] DATE CREATED AUTHOR AUTHOR'S ORGANIZ ATION 10/09/2022 [facility] DATE CREATED AUTHOR AUTHOR'S ORGANIZ ATION 07/31/2023 [facility] DATE CREATED AUTHOR AUTHOR'S ORGANIZ ATION 08/13/2023 [facility] DATE CREATED AUTHOR AUTHOR'S ORGANIZ ATION 01/04/2024 [facility] ([place]) DATE CREATED AUTHOR AUTHOR'S ORGANIZ ATION 05/25/2024 [facility] DATE CREATED AUTHOR AUTHOR'S ORGANIZ ATION 07/06/2024 [facility] DATE CREATED AUTHOR AUTHOR'S ORGANIZ ATION 11/08/20[facility] DATE CREATED AUTHOR AUTHOR'S ORGANIZ ATION 01/18/2025 [facility] DATE CREATED AUTHOR AUTHOR'S ORGANIZ ATION 02/08/2025 [facility] d[facility] Specialists EPIC DATE CREATED AUTHOR AUTHOR'S ORGANIZ ATION 04/05/2025 [facility] Goals (unrecognized section and content) Goals may be documented in a n alternate sectionGoals may be documented in an alternate sectionGoals may be documented in an alternate sectionGoals may be documented in an alternate sectionGoals may be documented in an alternate sectionGoals may be documented in an alternate sectionGoals may be documented in an alternate sectionGoals may be documented in an alternate sectionGoals may be documented in an alternate sectionGoals may be documented in an alternate sectionGoals may be documented in an alternate sectionGoals may be documented in an alternate sectionGoals may be documented in an alternate sectionGoals may be documented in an alternate sectionGoals may be documented in an alternate sectionGoals may be documented in an alternate sectionGoals may be documented in an alternate sectionGoals may be documented in an alternate sectionGoals may be documented in an alternate section No data available for this sectionGoals may be documented in an alternate section Care Teams (unrecognized sec tion and content) 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 Start Date End Date Aubree Campbell MD [address] [place] [address] PCP - General Internal Medicine 11/23/21 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 Start Date End Date Aubree Campbell MD [address] [place] [address] PCP - General Internal Medicine 11/23/21 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 Start Date End Date Aubree Campbell MD [address] [place] [address] PCP - General Internal Medicine 11/23/21 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 Start Date End Date Aubree Campbell MD [facility] [place] [address] PCP - General Internal Medicine 11/23/21 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 Start Date End Aubree Campbell MD [address] [facility] [place] [address] PCP - General Internal Medicine 11/23/21 Team Status: Active Member Role Status Dates Dr. Kaitlynn Frost DO Family Provider Active AUBREE CAMPBELL MD Primary Care Provider Active Team Status: Inactive Member Role Status Allison CAMPBELL MD Primary Care Provider, Referring Prov ider Active Dr. Reginaldo Pichardo MD Attending Provider Active Team Status: Inactive Member Role Status Allison CAMPBELL MD Primary Care Provider Active Dr. Aristeo Patel DO Attending Provider, Referring P rovider Active Team Status: Inactive Member Role Status Allison CAMPBELL MD Primary Care Provider, Referring Prov ider Active Dr. Aristeo Patel DO Attending Provider Active Team Status: Inactive Member Role Status Allison CAMPBELL MD Primary Care Provider, Referring Prov ider Active Shahida Garcia DIRECTOR OF RECRUITMENT AND ADMISSIONS, DIRECTOR OF RECRUITMENT AND ADMISSIONS-C Attending Provider Active Team Status: Inactive Member Role Status Allison CAMPBELL MD Primary Care Provider, Referring Prov ider Active Dr. Reginaldo Pedraza DO Attending Provider Active Team Status: Inactive Member Role Status Allison CAMPBELL MD Primary Care Provider Active Dr. Burton Augustin MD Attending Provider Active Team Status: Active Member Role Status Allison CAMPBELL MD Primary Care Provider Active Dr. Reginaldo Pedraza DO Attending Provid er, Referring Provider, Other Provider Active Team Status: Inactive Member Role Status Allison CAMPBELL MD Primary Care Provider, Referring Prov ider Active Helen Braswell PA, PA Attending Provider Active Team Status: Inactive Member Role Status Dates Dr. Reginaldo Pedraza DO Attending Provider, Referring Provider Active AUBREE CAMPBELL MD Primary Care Provider Active Team Status: Active Member Role Status Marlen Primary Care Physician Primary Care Provider Active Dr. Reginaldo Pichardo MD Attending Provider, Referring Pro vider Active Team Status: Inactive Member Role Status Allison CAMPBELL MD Primary Care Provider Active Dr. Marty Delgadillo MD Attending Provider Active Team Status: Active Member Role Status Allison CAMPBELL MD Primary Care Provider Active Dr. Marty Delgadillo MD Attending Provider Active Team Status: Inactive Member Role Status Dates AUBREE CAMPBELL MD Primary Care Provider Active Shahida Garcia DIRECTOR OF RECRUITMENT AND ADMISSIONS, DIRECTOR OF RECRUITMENT AND ADMISSIONS-C Attending Provider, Referring Provider Active Team Status: Inactive Member Role Status Dates AUBREE CAMPBELL MD Primary Care Provider Active Dr. Reginaldo Pedraza DO Attending Provider, Referring Provider Active Team Status: Inactive Member Role Status AUBREE CAMPBELL MD Primary Care Provider, Referring Prov ider Active Dr. Raad Chris MD Attending Provider Active Team Status: Inactive Member Role Status Dates AUBREE CAMPBELL MD Primary Care Provider Active Dr. Raad Chris MD Attending Provider, Referring Provider Active Team Status: Inactive Member Role Status AUBREE CAMPBELL MD Primary Care Provider Active Dr. Aristeo Patel DO Attending Provider Active 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 Start Date End Date Aubree Campbell MD [facility] [place] [address] PCP - General Internal Medicine 11/23/21 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 Start Date End Date Aubree Campbell MD [address] [place] [address] PCP - General Internal Medicine 11/23/21 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 Start Date End Date Aubree Campbell MD [address] [place] [address] PCP - General Internal Medicine 11/23/21 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 Start Date End Date Aubree Campbell MD [address] [place] [address] PCP - General Internal Medicine 11/23/21 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 Start Date End Date Aubree Campbell MD [address] [place] [address] PCP - General Internal Medicine 11/23/21 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 Start Date End Date Aubree Campbell MD [address] [facility] [place] [address] PCP - General Internal Medicine 11/23/21 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 Start Date End Date Aubree Campbell MD [address] [facility] [place] [address] PCP - General Internal Medicine 11/23/21 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 Start Date End Date Aubree Campbell MD [facility] [address] PCP - General Internal Medicine 11/23/21 Team Status: Inactive Member Role Status Allison CAMPBELL MD Primary Care Provider Active Dr. Reginaldo Pichardo MD Attending Provider Active Team Status: Inactive Member Role Status Allison CAMPBELL MD Primary Care Provider Active Dr. Reginaldo Pichardo MD Attending Provider, Referring Pro vider Active Team Status: Active Member Role Status Dates AUBREE CAMPBELL MD Primary Care Provider Active Shahida Garcia DIRECTOR OF RECRUITMENT AND ADMISSIONS, DIRECTOR OF RECRUITMENT AND ADMISSIONS-C Attending Provider, Referring Provider Active 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 Start Date End Date Aubree Campbell MD [address] [facility] [place] [address] PCP - General Internal Medicine 11/23/21 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 Start Date End Date Aubree Campbell MD [address] [facility] [place] [address] PCP - General Internal Medicine 11/23/21 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 Start Date End Date Aubree Campbell MD [address] [facility] [place] [address] PCP - General Internal Medicine 11/23/21 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 Start Date End Date Aubree Campbell MD [address] [facility] [place] [place] [address] PCP - General Internal Medicine 11/23/21 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 Start Date End Date Aubree Campbell MD [address] [facility] [place] [place] [address] PCP - General Internal Medicine 11/23/21 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 Start Date End Date Aubree Campbell MD [address] [facility] [place] [place] [address] PCP - General Internal Medicine 11/23/21 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 Start Date End Date Aubree Campbell MD [address] [facility] [place] [address] PCP - General Internal Medicine 11/23/21 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 Start Date End Date Aubree Campbell MD [address] [facility] [place] [address] PCP - General Internal Medicine 11/23/21 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 Start Date End Date Aubree Campbell MD [address] [facility] [place] [place] [address] PCP - General Internal Medicine 11/23/21 Team Status: Inactive Member Role Status Dates AUBREE CAMPBELL MD Primary Care Provider Active Dr. Marty Delgadillo MD Attending Provider, Referring Pr ovider Active Team Status: Active Member Role Status Dates AUBREE CAMPBELL MD Primary Care Provider Active Dr. Marty Delgadillo MD Attending Provider, Referring Pr ovider Active Team Status: Inactive Member Role Status Dates AUBREE CAMPBELL MD Primary Care Provide r, Attending Provider, Referring Provider Active 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 Start Date End Date Aubree Campbell MD 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 Start Date End Date Aubree Campbell MD [address] [place] [address] PCP - General Internal Medicine 10/04/22 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 Start Date End Date Aubree Campbell MD [address] [place] [address] [place] [address] PCP - General Internal Medicine 11/23/21 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 Start Date End Date Aubree Campbell MD [address] [place] [address] PCP - General Internal Medicine 10/04/22 Aubree Campbell MD [address] [place] [address] PCP - [employer] 02/27/24 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 Start Date End Date Aubree Campbell MD [address] [place] [address] PCP - General Internal Medicine 06/06/24 Team Status: Active Member Role Status Allison CAMPBELL MD Primary Care Provider Active Team Status: Inactive Member Role Status Dates AUBREE CAMPBELL MD Primary Care Provider Active St art: August 26, 2024 End: August 26, 2024 Dr. Reginaldo Pichardo MD Attending Provider Active S tart: August 26, 2024 End: August 26, 2024 Dr. 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 Start Date End Date Aubree Campbell MD [address] [facility] [address] [place] [address] PCP - General Internal Medicine 10/04/22 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 Start Date End Date Aubree Campbell MD [address] [facility] [address] [place] [address] PCP - General Internal Medicine 10/04/22 Source Comments (unrecognize d section and content) In the event this informatio n is protected by the Federal Confidentiality of Alcohol and Drug Abuse Patient Records regulations: The Federal rules restrict any use of the information to criminally investigate or prosecute any alcohol or drug abuse patient.[facility] FOR RECORDS PERTAINING TO PATIENTS WHO ARE OR HAVE BEEN ENROLLED IN A CHEMICAL DEPENDENCY/SUBSTANCEABUSE PROGRAM, SOME INFORMATION MAY BE OMITTED. This clinical summary was aggregated from multiple sources. Caution should be exercised in using it in the provision of clinical care. This summary normalizes information from multiple sources, and as a consequence, information in this document may materially change the coding, format and clinical context of patient data. In addition, data may be omitted in some cases. CLINICAL DECISIONS SHOULD BE BASED ON THE PRIMARY CLINICAL RECORDS. [facility] [employer] [facility]. provides no warranty or guarantee of the accuracy or completeness of information in this document.
== END 2025-05-18 15:52 | disposition home or self-care (01) ==
LOC: ED 15:50
PROVIDERS: Emergency Provider Emergency Medicine; PCP Internal Medicine; Visit Provider Emergency Medicine
DX: S61.210A Laceration without foreign body of right index finger without damage to nail, initial encounter (principal); X58.XXXA Exposure to other specified factors, initial encounter; Z86.16 Personal history of COVID-19
CPT/HCPCS: 90715; 99282